=== PATIENT | female | born 1950 | race Caucasian/White ===

== ENCOUNTER 2017-11-22 10:30 | Emergency (ER) | payer MEDICARE, SELFPAY ==
[2017-11-22 10:31] VITALS: BP 143/96; PULSE 88; RESP 18; TEMP 37.5; O2SAT 99; BMI 27.4
--- NOTE | 2017-11-22 10:48 | RAD_ITS ---
STUDY: X-RAY - RIGHT HUMERUS REASON FOR EXAM: Female, 67 years old. Atraumatic right upper arm pain. TECHNIQUE: 4 view(s) of the humerus. COMPARISON: None. FINDINGS: Normal visualized humerus. There is no demonstrated fracture or osseous destructive process. Moderate degree of degenerative changes of the glenohumeral joint. Mild degree of the degenerative change of the acromioclavicular joint. There is narrowing of the distance between the humeral head and the acromion in keeping with rotator cuff disease. Calcific tendinitis. RAD/Humerus min 2 Views IMPRESSION: Degenerative changes. Calcific tendinitis. Electronically Signed: Ray Bella MD at 12:09 EST Tel [phone], Service support ,
[2017-11-22] MEDS: HYDROcodone Bitartrate/Apap 5/325 Tablet PO (11:22)
[2017-11-22 14:53] VITALS: BP 135/77; PULSE 76; RESP 15; O2SAT 96
--- NOTE | 2017-11-22 15:07 | ED.VISSUMM ---
- ER Visit Summary Date of Service: 11/22/17 Chief Complaint: Atraumatic right shoulder pain History of Present Illness: The patient is a 67 F history of arthritis, COPD and hypertension. States she has atraumatic right shoulder pain for 3 days. She denies any fall or trauma. She denies any fever. No redness or swelling. She has had pains like this before. Physical Examination: Elderly female vital signs are stable afebrile. H EENT exam is unremarkable atraumatic. Neck nontender. Lungs clear. Heart regular rhythm no murmur. Abdomen is soft and nontender. She is moving all 4 extremities. She has crepitus and pain with movement of the right shoulder. There is no redness or warmth. There is no significant swelling. There is no deformity. There is no signs of trauma. 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 Left upper extremity and both lower extremities are unremarkable other chronic changes consistent with arthritis. Test Results: X-ray of her right humerus show degenerative changes of the shoulder joint but no acute fracture or dislocation read both by myself the radiologist. Emergency Department Course and Treatment: Patient was treated with [place] for pain. She and I discussed the shoulder injection. She states she has had those before and would prefer not to have that done. She did not feel it gave her significant or long-term relief in the past. She will be written for [facility] for pain 20 no refill. She is getting a ride home. Treatment Plan: [] Disposition: Discharge Impression: Acute on chronic right shoulder pain secondary to degenerative arthritis This note was generated with NanoGram dictation software. It may contain incorrect words, spelling, and punctuation that were not noted in review of the chart prior to signing ED Disposition - Plan for ED Patient: Chief Complaint: Upper Extremity Injury Referrals: Mason Rolle Chi, MD [Primary Care Provider] -
--- NOTE | 2017-11-22 15:10 | ED.DCSUM_ITS ---
- ER Visit Summary Date of Service: 11/22/17 Chief Complaint: Atraumatic right shoulder pain History of Present Illness: The patient is a 67 F history of arthritis, COPD and hypertension. States she has atraumatic right shoulder pain for 3 days. She denies any fall or trauma. She denies any fever. No redness or swelling. She has had pains like this before. Physical Examination: Elderly female vital signs are stable afebrile. H EENT exam is unremarkable atraumatic. Neck nontender. Lungs clear. Heart regular rhythm no murmur. Abdomen is soft and nontender. She is moving all 4 extremities. She has crepitus and pain with movement of the right shoulder. There is no redness or warmth. There is no significant swelling. There is no deformity. There is no signs of trauma. 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 Left upper extremity and both lower extremities are unremarkable other chronic changes consistent with arthritis. Test Results: X-ray of her right humerus show degenerative changes of the shoulder joint but no acute fracture or dislocation read both by myself the radiologist. Emergency Department Course and Treatment: Patient was treated with [place] for pain. She and I discussed the shoulder injection. She states she has had those before and would prefer not to have that done. She did not feel it gave her significant or long-term relief in the past. She will be written for [place] for pain 20 no refill. She is getting a ride home. Treatment Plan: [] Disposition: Discharge Impression: Acute on chronic right shoulder pain secondary to degenerative arthritis This note was generated with Muzooka dictation software. It may contain incorrect words, spelling, and punctuation that were not noted in review of the chart prior to signing ED Disposition - Plan for ED Patient: Chief Complaint: Upper Extremity Injury Referrals: Mason Rolle Chi, MD [Primary Care Provider] -
--- NOTE | 2017-11-22 15:10 | ED.DEP ---
ED Disposition - Plan for ED Patient: Disposition: Home or Assisted Living Chief Complaint: Upper Extremity Injury Instructions: Osteoarthritis: Coping with Pain, ED Degenerative Joint Disease Prescriptions: Hydrocodone/Acetaminophen [[place] 5-325 Tablet] 1 ea PO Q6H PRN PRN #20 tab PRN Reason: Pain Referrals: Mason Rolle Chi, MD [Primary Care Provider] - Additional Instructions: Ice to right shoulder and [place] for pain.
--- NOTE | 2017-11-22 15:19 | DCINST.ED_ITS ---
ED Disposition - Plan for ED Patient: Disposition: Home or Assisted Living Chief Complaint: Upper Extremity Injury Instructions: Osteoarthritis: Coping with Pain, ED Degenerative Joint Disease Prescriptions: Hydrocodone/Acetaminophen [[place] 5-325 Tablet] 1 ea PO Q6H PRN PRN #20 tab PRN Reason: Pain Referrals: Mason Rolle Chi, MD [Primary Care Provider] - Additional Instructions: Ice to right shoulder and [place] for pain.
[2017-11-22 15:26] VITALS: BP 127/73; PULSE 90; RESP 17; O2SAT 94
--- NOTE | 2017-11-22 15:27 | ED.RN ---
PT GIVEN WRITTEN AND VERBAL DISCHARGE INSTRUCTIONS. PT VERBALIZES UNDERSTANDING OF INSTRUCTIONS AND HOME GOING PRESCRIPTIONS. PT VERBALIZES UNDERSTANDING. THIS RN ASSISTED PT IN DRESSING AND PUTTING ON COAT. PT REPORTS A FRIEND IS COMING TO GET HER. PT TO WAITING ROOM TO WAIT FOR RIDE.
== END 2017-11-22 15:28 | disposition home or self-care (01) ==
PROVIDERS: Emergency Provider Emergency Medicine; Family Provider Family Medicine Geriatric Medicine; PCP Family Medicine Geriatric Medicine
DX: M19.011 Primary osteoarthritis, right shoulder (principal); J44.9 Chronic obstructive pulmonary disease, unspecified; I10 Essential (primary) hypertension; Z86.718 Personal history of other venous thrombosis and embolism
CPT/HCPCS: 73060; 99283

== ENCOUNTER → 2018-01-17 11:08 | Outpatient (CLI) | payer MEDICARE, SELFPAY ==
[2018-01-17 13:07] LABS: Absolute Lymphocyte Count 1.91 X10^3/ul (0.83-4.51); Absolute Neutrophil Count 4.8 X10^3/uL (2.0-7.7); Basophil# 0.02 X10^3/uL; Basophil% 0.3 % (0-1); Eosinophil# 0.06 X10^3/uL; Eosinophils% 0.8 % (0-5); Hematocrit 41.5 % (37-47); Lymphocyte # 1.91 X10^3/ul (4.0); Mean Corp Hgb Conc 31.3 g/gl (32-36); Mean Corpuscular Hgb 28.1 pg (27.0-32.0); Mean Corpuscular Volume 89.8 fL (81-99); Mean Platelet Vol. 10.3 fl (6.2-12.0); Monocyte# 0.54 X10^3/uL; Monocyte% 7.3 % (0-10); Neutrophil % 65.3 % (47-70); Platelet Count 319 K/mm3 (150-450); RBC Distribution Width CV 14.9 % (11.6-14.6); RBC Distribution Width SD 48.2 fl (35.1-43.9); Red Blood Count 4.62 M/mm3 (4.2-5.4); White Blood Count 7.4 K/mm3 (4.4-11.0)
[2018-01-17 13:10] LABS: POSITIVE COUNT NO; POSITIVE DIFFERENTIAL NO; POSITIVE MORPHOLOGY NO
[2018-01-17 13:26] LABS: ALB/GLOB Ratio 0.9 RATIO (0.9-2.4); AST(SGOT) 20 U/L (15-37); Alanine Aminotransfer ALT/SGPT 24 U/L (13-56); Albumin, Serum 3.3 g/dL (3.2-5.0); Alkaline Phosphatase 78 U/L (45-117); Anion Gap 7 (5-15); BUN 13 mg/dL (7-18); BUN/Creat Ratio 18.7 RATIO (10-20); Calcium,Total 8.9 mg/dL (8.5-10.1); Chloride 108 mmol/L (98-107); EST Glomerular Filtration Rate 89 mL/min (>60); Est Glom Filt Rate - Afr Amer 107 mL/min (>60); Globulin 3.6 g/dL (2.2-4.2); Glucose 72 mg/dL (74-106); Protein, Total 6.9 g/dL (6.4-8.2); Sodium Level 144 mmol/L (136-145); Thyroid Stim Hormone (TSH) 1.73 uIU/mL (0.358-3.74); Vitamin D,25 Hydroxy 22.8 ng/mL (29.95-100.01)
[2018-01-18 12:44] LABS: Hep C Antibodies <0.1 s/co ratio (0.0-0.9)
== END ==
PROVIDERS: Family Provider Family Medicine Geriatric Medicine; PCP Family Medicine Geriatric Medicine; Visit Provider Family Medicine Geriatric Medicine
DX: E55.9 Vitamin D deficiency, unspecified (principal); I10 Essential (primary) hypertension; Z13.89 Encounter for screening for other disorder
CPT/HCPCS: 36415; 80053; 82306; 84443; 85025; 86803

== ENCOUNTER 2018-03-18 21:05 | Emergency (ER) | payer MEDICARE, MEDICAID, SELFPAY ==
[2018-03-18 21:06] VITALS: BP 149/84; PULSE 101; RESP 14; TEMP 36.6; O2SAT 97; BMI 26.6
--- NOTE | 2018-03-18 22:52 | ED.VISSUMM ---
- ER Visit Summary Date of Service: 03/18/18 Chief Complaint: [] Right lower leg laceration History of Present Illness: The patient is a 67 F [] complaining of laceration to the anterior distal tibia after a bird feeder fell and struck her lower leg. She reports the wound was oozing because she is on Xarelto for history of DVT. She reports good hemostasis with direct pressure prior to arrival. She denies bony tenderness. No other complaints at this time. She reports her tetanus status is not up-to-date at this time. Physical Examination: [] Right lower extremity examination reveals 4 cm full-thickness flap laceration to the anterior distal tibia. No significant bony tenderness. Patient is neurovascularly intact distally to the affected extremity. Test Results: [] None. Emergency Department Course and Treatment: [] Patient had the area anesthetized locally with 2% lidocaine after the area was irrigated with saline and cleaned with Shur-Clens. Wound was approximated nicely with #7 4.0 nylon sutures. Patient tolerated the procedure well. Patient was instructed to have sutures removed in 10 days. Treatment Plan: [] Follow-up with PCP in 10 days for suture removal. Disposition: [] Discharge, stable. Impression: [] Tetanus update 4 cm right lower extremity laceration Laceration repair by ED physician This note was generated with MobileTag dictation software. It may contain incorrect words, spelling, and punctuation that were not noted in review of the chart prior to signing ED Disposition - Plan for ED Patient: Chief Complaint: Laceration Referrals: Mason Rolle Chi, MD [Primary Care Provider] -
--- NOTE | 2018-03-18 22:54 | ED.DEP ---
ED Disposition - Plan for ED Patient: Disposition: Home or Assisted Living Chief Complaint: Laceration Instructions: ED Laceration All Referrals: Mason Rolle Chi, MD [Primary Care Provider] - Additional Instructions: Have sutures removed in 10 days.
[2018-03-18] MEDS: Diphth,Pertuss(Acell),Tet Vac 0.5 ML Vial IM (22:59)
[2018-03-18 23:16] VITALS: BP 159/94; PULSE 94; RESP 18; O2SAT 94
== END 2018-03-18 23:17 | disposition home or self-care (01) ==
PROVIDERS: Emergency Provider Emergency Medicine; Family Provider Family Medicine Geriatric Medicine; PCP Family Medicine Geriatric Medicine
DX: S81.811A Laceration without foreign body, right lower leg, initial encounter (principal); W20.8XXA Other cause of strike by thrown, projected or falling object, initial encounter; Y93.9 Activity, unspecified; Y92.89 Other specified places as the place of occurrence of the external cause; Y99.9 Unspecified external cause status; Z86.718 Personal history of other venous thrombosis and embolism; Z79.01 Long term (current) use of anticoagulants
CPT/HCPCS: 12002; 90715; 99284

== ENCOUNTER → 2018-04-17 17:33 | Outpatient (CLI) | payer MEDICARE, MEDICAID, SELFPAY | PROVIDERS: Family Provider Family Medicine Geriatric Medicine; PCP Family Medicine Geriatric Medicine; Visit Provider Family Medicine Geriatric Medicine | DX: A69.20 Lyme disease, unspecified (principal) | CPT/HCPCS: 36415 ==

== ENCOUNTER 2018-04-22 14:36 | Emergency (ER) | payer MEDICARE, MEDICAID, SELFPAY ==
[2018-04-22 14:37] VITALS: BP 186/81; PULSE 87; RESP 22; TEMP 37; O2SAT 96; BMI 26.2
[2018-04-22 14:52] VITALS: BP 194/90; PULSE 79; RESP 16; O2SAT 94
--- NOTE | 2018-04-22 14:54 | ED.DCSUM_ITS ---
- ER Visit Summary Date of Service: 04/22/18 Chief Complaint: Redness of left arm History of Present Illness: The patient is a 67 F presents to the emergency department with left arm redness. Patient saw Dr. Evans in the office for this on the . He thought that it may have been a bite. She was placed on doxycycline and prednisone. Since then, the redness seems to have worsened mildly. She denies any fevers or chills. She denies any pain at the site. She states that it has just been more itchy. The patient has no history of immunosuppression. She was outside working in the yard when it started. She cannot recall any puncture or trauma. Physical Examination: Vital signs reviewed General: Well-nourished, well-developed Head: Normocephalic, atraumatic Eyes: Pupils equal and reactive, extraocular muscles intact Neck, supple, no lymphadenopathy Heart: Regular rate and rhythm Respiratory: No distress, clear bilaterally Abdomen: Soft, nontender, nondistended, no peritoneal signs Back: Nontender Extremities: Localized redness on the dorsum the left forearm towards the left bicep. No crepitus. No lymphangitic streaking. Mild warmth. No abscess. Skin: Normal color no rash Neuro: Alert and oriented, no focal or lateralizing deficits Test Results: [] Emergency Department Course and Treatment: The patient has a cellulitis with red , raised leading edge. I do feel that this is more consistent with erysipelas. She is on doxycycline which has some prescription coverage, but I do not feel that it is effectively cover cellulitis. The patient is given a dose of IV Rocephin. Her labs are relatively unremarkable except for a mild hypokalemia. This was replaced orally. The patient has outpatient cataract surgery scheduled for tomorrow. I was actually able to discuss this with Dr. Slater who said as long as the patient is not too uncomfortable she can continue with the surgery. The patient has no rapidly expansion. She is well-appearing. She has no history of immunosuppression. I do feel that this patient is safe for outpatient therapy. Treatment Plan: [] Disposition: Discharge Impression: 1. Left arm cellulitis 2. Hypokalemia This note was generated with MediaInterface Dresdenation software. It may contain incorrect words, spelling, and punctuation that were not noted in review of the chart prior to signing ED Disposition - Plan for ED Patient: Chief Complaint: Cellulitis Instructions: Discharge Instructions for Cellulitis Prescriptions: Cephalexin [Keflex] 500 mg PO Q6 #40 cap Referrals: Mason Rolle Chi, MD [Primary Care Provider] -
[2018-04-22 15:12] LABS: Absolute Lymphocyte Count 0.83 X10^3/ul (0.83-4.51); Eosinophil# 0.01 X10^3/uL; Eosinophils% 0.1 % (0-5); Hematocrit 40.2 % (37-47); Hemoglobin 13.1 g/dl (12.0-15.0); Lymphocyte # 0.83 X10^3/ul (4.0); Lymphocyte % 7.5 % (19-41); Mean Corp Hgb Conc 32.6 g/gl (32-36); Mean Corpuscular Hgb 29.6 pg (27.0-32.0); Mean Corpuscular Volume 90.7 fL (81-99); Mean Platelet Vol. 9.2 fl (6.2-12.0); Monocyte# 0.25 X10^3/uL; Monocyte% 2.3 % (0-10); Neutrophil # 9.97 X10^3/uL (2.7-7.7); Neutrophil % 89.9 % (47-70); Platelet Count 265 K/mm3 (150-450); RBC Distribution Width CV 15.6 % (11.6-14.6); RBC Distribution Width SD 52.4 fl (35.1-43.9); Red Blood Count 4.43 M/mm3 (4.2-5.4); White Blood Count 11.1 K/mm3 (4.4-11.0)
[2018-04-22 15:14] LABS: POSITIVE COUNT NO; POSITIVE DIFFERENTIAL NO; POSITIVE MORPHOLOGY NO
[2018-04-22 15:22] VITALS: BP 186/91; PULSE 72; RESP 17; O2SAT 93
[2018-04-22 15:23] LABS: Anion Gap 8 (5-15); BUN 19 mg/dL (7-18); BUN/Creat Ratio 21.3 RATIO (10-20); Calcium,Total 8.6 mg/dL (8.5-10.1); Chloride 108 mmol/L (98-107); Creatinine, Serum 0.89 mg/dL (0.55-1.02); EST Glomerular Filtration Rate 66 mL/min (>60); Est Glom Filt Rate - Afr Amer 80 mL/min (>60); Estimated Creatinine Clearance 51.52 ml/min; Glucose 129 mg/dL (74-106); Potassium 2.8 mmol/L (3.5-5.1); Sodium Level 141 mmol/L (136-145)
[2018-04-22] MEDS: Ceftriaxone 1 GM/50 ML BAG IV (15:41)
[2018-04-22 16:27] VITALS: BP 189/80; PULSE 70; RESP 16; O2SAT 95
== END 2018-04-22 16:28 | disposition home or self-care (01) ==
PROVIDERS: Emergency Provider Emergency Medicine; Family Provider Family Medicine Geriatric Medicine; PCP Family Medicine Geriatric Medicine
DX: L03.114 Cellulitis of left upper limb (principal); E87.6 Hypokalemia; J44.9 Chronic obstructive pulmonary disease, unspecified; K21.9 Gastro-esophageal reflux disease without esophagitis; I10 Essential (primary) hypertension; E78.00 Pure hypercholesterolemia, unspecified; Z79.2 Long term (current) use of antibiotics; Z79.52 Long term (current) use of systemic steroids; Z79.51 Long term (current) use of inhaled steroids; Z79.02 Long term (current) use of antithrombotics/antiplatelets; Z79.899 Other long term (current) drug therapy
CPT/HCPCS: 80048; 85025; 96365; 99284

== ENCOUNTER → 2018-04-25 13:53 | Outpatient (CLI) | payer MEDICARE, MEDICAID, SELFPAY ==
[2018-04-25 16:33] LABS: Anion Gap 7 (5-15); BUN 22 mg/dL (7-18); BUN/Creat Ratio 29.3 RATIO (10-20); Calcium,Total 8.6 mg/dL (8.5-10.1); Chloride 107 mmol/L (98-107); Creatinine, Serum 0.75 mg/dL (0.55-1.02); EST Glomerular Filtration Rate 81 mL/min (>60); Est Glom Filt Rate - Afr Amer 98 mL/min (>60); Glucose 80 mg/dL (74-106); Sodium Level 145 mmol/L (136-145)
== END ==
PROVIDERS: Family Provider Family Medicine Geriatric Medicine; PCP Family Medicine Geriatric Medicine; Visit Provider Family Medicine Geriatric Medicine
DX: N18.3 Chronic kidney disease, stage 3 (moderate) (principal)
CPT/HCPCS: 36415; 80048

== ENCOUNTER → 2018-05-10 09:36 | Outpatient (CLI) | payer MEDICARE, MEDICAID, SELFPAY ==
[2018-05-10 12:58] LABS: Anion Gap 6 (5-15); BUN 25 mg/dL (7-18); BUN/Creat Ratio 25.3 RATIO (10-20); Calcium,Total 9.7 mg/dL (8.5-10.1); Chloride 107 mmol/L (98-107); Creatinine, Serum 0.99 mg/dL (0.55-1.02); EST Glomerular Filtration Rate 59 mL/min (>60); Est Glom Filt Rate - Afr Amer 72 mL/min (>60); Glucose 84 mg/dL (74-106); Potassium 4.4 mmol/L (3.5-5.1); Sodium Level 141 mmol/L (136-145)
== END ==
PROVIDERS: Family Provider Family Medicine Geriatric Medicine; PCP Family Medicine Geriatric Medicine; Visit Provider Family Medicine Geriatric Medicine
DX: E87.6 Hypokalemia (principal)
CPT/HCPCS: 36415; 80048

== ENCOUNTER → 2018-07-18 12:01 | Outpatient (CLI) | payer MEDICARE, MEDICAID, SELFPAY ==
[2018-07-18 12:42] LABS: Absolute Lymphocyte Count 1.65 X10^3/ul (0.83-4.51); Absolute Neutrophil Count 5.2 X10^3/uL (2.0-7.7); Basophil# 0.02 X10^3/uL; Basophil% 0.3 % (0-1); Eosinophil# 0.05 X10^3/uL; Eosinophils% 0.7 % (0-5); Hematocrit 41.3 % (37-47); Hemoglobin 13.4 g/dl (12.0-15.0); Lymphocyte # 1.65 X10^3/ul (4.0); Lymphocyte % 21.9 % (19-41); Mean Corp Hgb Conc 32.4 g/gl (32-36); Mean Corpuscular Hgb 30.6 pg (27.0-32.0); Mean Corpuscular Volume 94.3 fL (81-99); Mean Platelet Vol. 9.8 fl (6.2-12.0); Monocyte# 0.57 X10^3/uL; Monocyte% 7.6 % (0-10); Neutrophil # 5.24 X10^3/uL (2.7-7.7); Neutrophil % 69.4 % (47-70); Platelet Count 306 K/mm3 (150-450); RBC Distribution Width CV 13.5 % (11.6-14.6); RBC Distribution Width SD 44.9 fl (35.1-43.9); Red Blood Count 4.38 M/mm3 (4.2-5.4); White Blood Count 7.5 K/mm3 (4.4-11.0)
[2018-07-18 12:49] LABS: POSITIVE COUNT NO; POSITIVE DIFFERENTIAL NO; POSITIVE MORPHOLOGY NO
[2018-07-18 13:02] LABS: Vitamin D,25 Hydroxy 18.6 ng/mL (29.95-100.01)
[2018-07-18 13:15] LABS: ALB/GLOB Ratio 0.9 RATIO (0.9-2.4); AST(SGOT) 18 U/L (15-37); Alanine Aminotransfer ALT/SGPT 28 U/L (13-56); Albumin, Serum 3.2 g/dL (3.2-5.0); Alkaline Phosphatase 70 U/L (45-117); Anion Gap 6 (5-15); BUN 20 mg/dL (7-18); Calcium,Total 9.1 mg/dL (8.5-10.1); Chloride 108 mmol/L (98-107); Creatinine, Serum 0.83 mg/dL (0.55-1.02); EST Glomerular Filtration Rate 72 mL/min (>60); Est Glom Filt Rate - Afr Amer 87 mL/min (>60); Globulin 3.7 g/dL (2.2-4.2); Glucose 74 mg/dL (74-106); Potassium 3.8 mmol/L (3.5-5.1); Protein, Total 6.9 g/dL (6.4-8.2); Sodium Level 144 mmol/L (136-145); Thyroid Stim Hormone (TSH) 1.21 uIU/mL (0.358-3.74)
== END ==
PROVIDERS: Family Provider Family Medicine Geriatric Medicine; PCP Family Medicine Geriatric Medicine; Visit Provider Family Medicine Geriatric Medicine
DX: I10 Essential (primary) hypertension (principal); E55.9 Vitamin D deficiency, unspecified
CPT/HCPCS: 36415; 80053; 82306; 84443; 85025

== ENCOUNTER 2018-07-26 10:00 | Outpatient (RCR) | payer MEDICARE, MEDICAID, SELFPAY ==
[2018-07-19 09:30] VITALS: BP 195/85; PULSE 77; RESP 18; TEMP 36.7; BMI 26.4
--- NOTE | 2018-07-19 13:38 | HP.PCM_ITS ---
(1) Ulcer of left lower extremity with fat layer exposed Status: Acute Current Visit: Yes Code(s): L97.922 - Non-pressure chronic ulcer of unspecified part of left lower leg with fat layer exposed (2) Lower extremity edema Status: Acute Current Visit: Yes Code(s): R60.0 - Localized edema (3) Delayed wound healing Status: Acute Current Visit: Yes Code(s): T14.8XXD - Other injury of unspecified body region, subsequent encounter (4) Pain in left lower leg Status: Acute Current Visit: Yes Code(s): M79.662 - Pain in left lower leg History of Present Illness Date of Service: 07/19/18 Chief Complaint: left anterior lateral lower leg ulcer History of Wound: This 68-year-old female presents to the wound healing center today after being referred by Dr. Rolle for a left anterior lateral lower leg ulcer. The patient said she has been dealing with this for at least 3 weeks now. She said it started when she bumped the area on her bed. Dr. Rolle prescribed her a prescription for doxycycline and Keflex which she is currently taking. She has been dressing the area daily and keeping it protected. She says the area is not getting much worse, however she has not noticed an improvement. She denies any purulence, surrounding redness, or increasing warmth to the ulcer site. She currently denies any feelings of nausea, vomiting , fever, chills. 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) Allergies/Adverse Reactions: Allergies No Known Allergies Allergy (Verified 04/22/18 14:46) Home Medications: Ambulatory Orders Medication Instructions Recorded Omeprazole [Prilosec] 20 mg PO DAILY 01/04/17 Ramipril [Altace] 5 mg PO DAILY 01/04/17 Rivaroxaban [Xarelto] 15 mg PO DAILY 08/09/17 albuterol sulfate HFA 90 2 puff INHALATION Q4H PRN #18 g 05/08/18 mcg/actuation aerosol inhaler fluticasone 100 mcg-umeclid 62.5 1 inh INHALATION QDAY #60 ea 03/06/18 mcg-vilant 25 mcg powd for inhalation Cephalexin [Keflex] 500 mg PO Q6 #40 cap 04/22/18 Doxycycline Hyclate [Doxycycline 100 mg PO BID 04/22/18 Hyclate] Prednisone [Prednisone] 1 tab PO DAILY 04/22/18 albuterol sulfate 2.5 mg/3 mL 2.5 mg INHALATION Q4H PRN #180 ml 05/22/18 (0.083 %) solution for nebulization Smoking Status: Never smoker Review of Systems Constitutional: Denies: Chills, Fever, Weight Change Cardiovascular: Denies: Chest Pain, Palpitations Respiratory: Denies: Cough, Shortness of Breath Gastrointestinal: Denies: Diarrhea, Nausea, Vomiting Skin: Reports: - - Left lower leg ulcer - Physical Exam Vital Signs Temp Pulse Resp BP 98.0 F 77 18 195/85 H 07/19/18 09:30 07/19/18 09:30 07/19/18 09:30 07/19/18 09:30 General: Alert, Oriented x3, Cooperative, No apparent distress Extremities: Capillary Refill Less than 3 Seconds, No Calf Tenderness - Negative Alo and Brar sign, Edema - Very slight lower extremity edema, Peripheral Pulses Normal - DP and PT pulses palpable bilateral Skin: Ulcer/ Wound - Ulcer noted with fat layer exposed to the left anterior lateral lower leg. Measurements noted. Base was noted to be a mixture of adherent slough, fibrin, biofilm, as well as some granular tissue. There is no probing to bone, tracking, or undermining. There is no purulence, no malodor, no increase in warmth, and no surrounding cellulitis appreciated to the ulcer site. Wound Measurements and Assessment WC - Nurse 1 - General Ulcer Measurement Start: 07/19/18 09:28 Freq: Status: Active Protocol: Activity Type Activity Date Activity User E-Sign Co-Sign Detail Recorded Client Recorded Date Recorded By Document 07/19/18 09:30 [id number] 07/19/18 09:42 07/19/18 09:30 Wound Center Nurse 1 [Ulcer Assessment] #1 left lateral smith -Combined with other wound No -Current Size (cm) - Length 1.1 -Current Size (cm) - Width 2.1 -Current Size (cm) - Depth 0.1 -Total Square Cm 2.31 -Date of Last Picture (Recall this 07/19/18 field) -Photo Taken Yes -Epithelialization None Present -Tunneling No -Undermining/Tunneling No -Circular Undermining No -Exudate Amt Small (1-33%) -Exudate Type Serosanguineous -Granulation Amt None Present (0 %) -Slough/Fibrin Yes -Necrosis Amt None Present (0 %) -Necrotic Tissue Type Adherent Slough -Structure Exposed None/Limited to Skin Breakdown -Texture (Yumiko-wound Skin Appearance) No Abnormality Assessed -Moisture (Yumiko-wound Skin Appearance No Abnormality ) Assessed -Color (Yumiko-wound Skin Appearance) No Abnormality Assessed -Temperature (Yumiko-wound Skin No Abnormality Appearance) (Pt Warm) -Tenderness on Palpation (Yumiko-wound Yes Skin Appearance) -Ulcer Cleansing Rinsed/ Irrigated with Saline -Foul Odor after Cleansing No -Anesthetic Used 5% Lidocaine Gel [Edema Assessment] -Lower Limb Edema Present No -Right Calf (cm) 33.5 -Right Ankle (cm) 18.3 -Left Calf (cm) 34.2 -Left Ankle (cm) 19 WC - Nurse 2 - General Ulcer CM Notes Start: 07/19/18 09:28 Freq: Status: Active Protocol: Activity Type Activity Date Activity User E-Sign Co-Sign Detail Recorded Client Recorded Date Recorded By Document 07/19/18 09:55 DV [id number] 07/19/18 10:03 DV 07/19/18 09:55 Wound Center Nurse 2 [Procedure/Treatment] #1 left lateral smith -Time 09:57 -Correct Patient Yes -Correct Side, Site, Position Yes -Correct Procedure Yes -Procedure Performed Yes -Type of Procedure Debridement -Clinical Debridement Subcutaneous -Post Debridement Size (cm) - Length 1.6 -Post Debridement Size (cm) - Width 2.2 -Post Debridement Size (cm) - Depth 0.3 -Total Square Cm 3.52 -Wound/Ulcer Outcome Not Healed -Ulcer Cleansing Rinsed/ Irrigated with Saline -Foul Odor after Cleansing No -Bioengineered Tissue No -Bleeding Controlled with Pressure -Treatment Response Procedure Tolerated Well [See Physician Procedure note for Specifics] Musculoskeletal: Tenderness - With manipulation of ulcer site Neurological: Sensory exam intact to light touch and pain Psych/Mental Status: Normal Affect, Appropriate Debridement Note Post-Debridement Measurements/Treatment WC - Nurse 2 - General Ulcer CM Notes Start: 07/19/18 09:28 Freq: Status: Active Protocol: Activity Type Activity Date Activity User E-Sign Co-Sign Detail Recorded Client Recorded Date Recorded By Document 07/19/18 09:55 DV [id number] 07/19/18 10:03 DV 07/19/18 09:55 Wound Center Nurse 2 #1 left lateral smith -Time 09:57 -Correct Patient Yes -Correct Side, Site, Position Yes -Correct Procedure Yes -Procedure Performed Yes -Type of Procedure Debridement -Clinical Debridement Subcutaneous -Post Debridement Size (cm) - Length 1.6 -Post Debridement Size (cm) - Width 2.2 -Post Debridement Size (cm) - Depth 0.3 -Total Square Cm 3.52 -Wound/Ulcer Outcome Not Healed -Ulcer Cleansing Rinsed/ Irrigated with Saline -Foul Odor after Cleansing No -Bioengineered Tissue No -Bleeding Controlled with Pressure -Treatment Response Procedure Tolerated Well Wound debrided: Left anterior lateral lower leg Laterality: Left Type of Debridement: Excisional debridement Anesthesia Used: 4% Lidocaine Solution Depth: in the subcutaneous layer Percentage of wound debrided: 100 Instrument Used: 3mm curette, - - Tissue nipper Tissue Removed: Adherent slough, fibrin, biofilm Severity: Fat Layer Exposed Amount of bleeding with debridement: Mild Bleeding Controlled with: Pressure Patient tolerated procedure well Assessment/Plan Active Problems (Last Reviewed 03/06/18 @ 10:59 by Marcela Shi) Ulcer of left lower extremity with fat layer exposed (Acute) Lower extremity edema (Acute) Delayed wound healing (Acute) Pain in left lower leg (Acute) Assessment: Ulcer to left anterior lateral lower leg. Pain left lower leg Plan: Initial patient examination evaluation was performed. An excisional subcutaneous debridement was performed as noted in the clinical panel. Once complete the ulcer site was carefully cleansed. Aquacel Ag was then applied to the ulcer base followed by dry sterile dressing and a Tubigrip for compression. The dressing is to be change in this manner on a daily basis. Patient was instructed to keep pressure off of the ulcer site at all times. No antibiotics were prescribed today due to there being no signs of local infection currently appreciated. Patient is to continue the doxycycline and Keflex prescriptions prescribed by Dr. Rolle until complete. Patient was instructed to go forward with a diet high in protein to help optimize ulcer healing potential. The patient was educated on all signs and symptoms of local and systemic infection and she was instructed to go to the emergency room immediately should she notice any of these. All other questions were answered to the patient's satisfaction. She will follow-up in clinic in 1 week for further evaluation, or sooner if needed.
[2018-07-26 09:53] VITALS: BP 160/92; PULSE 90; RESP 18; TEMP 36.3; BMI 26.4
--- NOTE | 2018-07-26 10:45 | PN.PCM_ITS ---
(1) Ulcer of left lower extremity with fat layer exposed Status: Acute Current Visit: Yes Code(s): L97.922 - Non-pressure chronic ulcer of unspecified part of left lower leg with fat layer exposed (2) Lower extremity edema Status: Acute Current Visit: Yes Code(s): R60.0 - Localized edema (3) Delayed wound healing Status: Acute Current Visit: Yes Code(s): T14.8XXD - Other injury of unspecified body region, subsequent encounter (4) Pain in left lower leg Status: Acute Current Visit: Yes Code(s): M79.662 - Pain in left lower leg Type of Wound Chief Complaint: left anterior lateral lower leg ulcer History of Wound: This 68-year-old female presents to the wound healing center today after being referred by Dr. Rolle for a left anterior lateral lower leg ulcer. The patient said she has been dealing with this for at least 3 weeks now. She said it started when she bumped the area on her bed. Dr. Rolle prescribed her a prescription for doxycycline and Keflex which she is currently taking. She has been dressing the area daily and keeping it protected. She says the area is not getting much worse, however she has not noticed an imp rovement. She denies any purulence, surrounding redness, or increasing warmth to the ulcer site. She currently denies any feelings of nausea, vomiting, fever, chills. Progress of Wound: Ulcer site improving. Patient had daily aquacel ag dressing changes over the last week. She denies any purulence or surrounding redness. She denies any feelings of nausea, vomiting, fever, or chills. - Physical Exam Vital Signs Temp Pulse Resp BP 97.3 F L 90 18 160/92 H 07/26/18 09:53 07/26/18 09:53 07/26/18 09:53 07/26/18 09:53 General: Alert, Oriented x3, Cooperative, No apparent distress Extremities: Capillary Refill Less than 3 Seconds, No Calf Tenderness - Negative Alo and Brar sign, Edema - Very slight lower extremity edema, Peripheral Pulses Normal - DP and PT pulses palpable Skin: Ulcer/ Wound - Ulcer noted with fat layer exposed to the left anterior lateral lower leg. Measurements noted. Base was noted to be a mixture of adherent slough, fibrin, biofilm, as well as some granular tissue. There is no probing to bone, tracking, or undermining. There is no purulence, no malodor, no increase in warmth, and no surrounding cellulitis appreciated to the ulcer site. Wound Measurements and Assessment - Nurse 1 - General Ulcer Measurement Start: 07/19/18 09:28 Freq: Status: Active Protocol: Activity Type Activity Date Activity User E-Sign Co-Sign Detail Recorded Client Recorded Date Recorded By Document 07/26/18 09:53 [id number] 07/26/18 09:56 07/26/18 09:53 Wound Center Nurse 1 [Ulcer Assessment] #1 left lateral smith -Combined with other wound No -Current Size (cm) - Length 0.9 -Current Size (cm) - Width 1.5 -Current Size (cm) - Depth 0.1 -Total Square Cm 1.35 -Photo Taken No -Epithelialization None Present -Tunneling No -Undermining/Tunneling No -Circular Undermining No -Exudate Amt Medium (34-66%) -Exudate Type Serosanguineous -Wound Margin Distinct, Outline Attached -Granulation Amt Large (67-100%) -Granulation Quality Red -Slough/Fibrin Yes -Necrosis Amt None Present (0 %) -Necrotic Tissue Type Eschar -Structure Exposed None/Limited to Skin Breakdown -Texture (Yumiko-wound Skin Appearance) No Abnormality Assessed -Moisture (Yumiko-wound Skin Appearance No Abnormality ) Assessed -Color (Yumiko-wound Skin Appearance) No Abnormality -Temperature (Yumiko-wound Skin No Abnormality Appearance) (Pt Warm) -Tenderness on Palpation (Yumiko-wound No Skin Appearance) -Ulcer Cleansing Rinsed/ Irrigated with Saline -Foul Odor after Cleansing No -Anesthetic Used 4% Lidocaine Solution [Edema Assessment] -Lower Limb Edema Present No -Left Calf (cm) 32 -Left Ankle (cm) 18 - Nurse 2 - General Ulcer CM Notes Start: 07/19/18 09:28 Freq: Status: Active Protocol: Activity Type Activity Date Activity User E-Sign Co-Sign Detail Recorded Client Recorded Date Recorded By Document 07/26/18 10:22 DV [id number] 07/26/18 10:31 DV 07/26/18 10:22 Wound Center Nurse 2 [Procedure/Treatment] #1 left lateral smith -Time 10:23 -Correct Patient Yes -Correct Side, Site, Position Yes -Correct Procedure Yes -Procedure Performed Yes -Type of Procedure Debridement -Clinical Debridement Subcutaneous -Post Debridement Size (cm) - Length 1.2 -Post Debridement Size (cm) - Width 1.7 -Post Debridement Size (cm) - Depth 0.2 -Total Square Cm 2.04 -Wound/Ulcer Outcome Not Healed -Ulcer Cleansing Rinsed/ Irrigated with Saline -Foul Odor after Cleansing No -Bioengineered Tissue No -Bleeding Controlled with Pressure -Treatment Response Procedure Tolerated Well [See Physician Procedure note for Specifics] Pain Scale: 0-10 Numeric [Pain] -Is Patient Pain Free? Yes Musculoskeletal: Tenderness - With manipulation of ulcer site Neurological: Sensory exam intact to light touch and pain Psych/Mental Status: Normal Affect, Appropriate Debridement Note Post-Debridement Measurements/Treatment WC - Nurse 2 - General Ulcer CM Notes Start: 07/19/18 09:28 Freq: Status: Active Protocol: Activity Type Activity Date Activity User E-Sign Co-Sign Detail Recorded Client Recorded Date Recorded By Document 07/19/18 09:55 DV [id number] 07/19/18 10:03 DV Document 07/26/18 10:22 DV [id number] 07/26/18 10:31 DV 07/19/18 07/26/18 09:55 10:22 Wound Center Nurse 2 #1 left lateral smith -Time 09:57 10:23 -Correct Patient Yes Yes -Correct Side, Site, Position Yes Yes -Correct Procedure Yes Yes -Procedure Performed Yes Yes -Type of Procedure Debridement Debridement -Clinical Debridement Subcutaneous Subcutaneous -Post Debridement Size (cm) - Length 1.6 1.2 -Post Debridement Size (cm) - Width 2.2 1.7 -Post Debridement Size (cm) - Depth 0.3 0.2 -Total Square Cm 3.52 2.04 -Wound/Ulcer Outcome Not Healed Not Healed -Ulcer Cleansing Rinsed/ Rinsed/ Irrigated with Irrigated with Saline Saline -Foul Odor after Cleansing No No -Bioengineered Tissue No No -Bleeding Controlled with Pressure Pressure -Treatment Response Procedure Procedure Tolerated Well Tolerated Well Pain Scale: 0-10 Numeric Is Patient Pain Free? Yes Wound debrided: Left anterior lower leg Laterality: Left Type of Debridement: Excisional debridement Anesthesia Used: 4% Lidocaine Solution Depth: in the subcutaneous layer Percentage of wound debrided: 100 Instrument Used: 3mm curette Tissue Removed: Adherent slough, fibrin, biofilm, slight hyperkeratotic tissue Severity: Fat Layer Exposed Amount of bleeding with debridement: Mild Bleeding Controlled with: Pressure Patient tolerated procedure well Assessment/Plan Active Problems (Last Reviewed 03/06/18 @ 10:59 by Marcela Shi) Ulcer of left lower extremity with fat layer exposed (Acute) Lower extremity edema (Acute) Delayed wound healing (Acute) Pain in left lower leg (Acute) Assessment: Ulcer to left anterior lateral lower leg. Pain left lower leg Plan: Patient was again examined and evaluated today. An excisional subcutaneous debridement was performed as noted in the clinical panel. Once complete the ulcer site was carefully cleansed, followed by Aquacel Ag to the ulcer base followed by dry sterile dressing and a Tubigrip for compression. The dressing is to be change in this manner on a daily basis. Patient was instructed to keep pressure off of the ulcer site at all times. Patient finished her prescriptions for doxycycline and Keflex prescribed by Dr. Rolle. Patient was instructed to go forward with a diet high in protein to help optimize ulcer healing potential. The patient was educated on all signs and symptoms of local and systemic infection and she was instructed to go to the emergency room immediately should she notice any of these. All other questions were answered to the patient's satisfaction. She will follow-up in clinic in 1 week for further evaluation, or sooner if needed.
== END 2018-07-29 23:59 ==
LOC: WC 10:00
PROVIDERS: Family Provider Family Medicine Geriatric Medicine; PCP Family Medicine Geriatric Medicine; Visit Provider Podiatrist
DX: L97.822 Non-pressure chronic ulcer of other part of left lower leg with fat layer exposed (principal); R60.0 Localized edema; K21.9 Gastro-esophageal reflux disease without esophagitis; E78.5 Hyperlipidemia, unspecified; I10 Essential (primary) hypertension; Z79.899 Other long term (current) drug therapy; Z79.52 Long term (current) use of systemic steroids; Z79.51 Long term (current) use of inhaled steroids; Z79.01 Long term (current) use of anticoagulants
CPT/HCPCS: 11042; 99213; G0463

== ENCOUNTER 2018-08-04 20:59 | Emergency (ER) | payer MEDICARE, MEDICAID, SELFPAY ==
[2018-08-04 21:01] VITALS: BP 156/87; PULSE 106; RESP 16; TEMP 37.7; O2SAT 97; BMI 26.4
--- NOTE | 2018-08-04 21:13 | RAD_ITS ---
STUDY: X-RAY CHEST REASON FOR EXAM: Female, 68 years old. Cough, fever TECHNIQUE: Frontal and lateral views of the chest were obtained. COMPARISON: August 18, 2017 FINDINGS: The lungs are adequately aerated. There are no focal airspace opacities. There is no demonstrated pleural abnormality. The cardiac silhouette is normal in size. The mediastinum and hilar regions are unremarkable. Normal visualized pulmonary arteries. There is atherosclerotic calcification of the thoracic aorta. There are diffuse degenerative changes of the visualized spine. There are degenerative changes in both shoulders. There is no demonstrated abnormality of the visualized upper abdomen. RAD/Chest PA and Lateral IMPRESSION: There is no evidence of focal consolidation or pleural effusion. Electronically Signed: Rosemary Saunders MD at 22:42 EDT Tel Direct: [phone], Service support ,
--- NOTE | 2018-08-04 21:16 | ED.DCSUM_ITS ---
- ER Visit Summary Date of Service: 08/04/18 Chief Complaint: Fever History of Present Illness: The patient is a 68 F with a fever this morning. She states it was up to 101 ?F. She took 2 Tylenol about 4 hours ago and the temperature came down. She has had a nonproductive cough today. She thinks she heard herself wheeze. Her chest feels tight. Her throat is scratchy as well. Denies dysuria but her urine has been darker. She checked her blood pressure and her heart rate and there were both elevated above her baseline. She does have a history of hypertension as well as COPD. Physical Examination: Vital signs reviewed. Temperature 99.8 ?F currently. HEENT exam unremarkable. Heart is tachycardic and regular rhythm without murmurs. Lungs are clear to auscultation. Abdomen is soft and nontender. Extremities reveal no edema. Skin exam normal. Neurologic exam normal. Test Results: Laboratory studies are normal. Urinalysis negative for infection. Chest x-ray read chronic changes. Emergency Department Course and Treatment: Patient's blood pressure carolyn during her stay. It was 215 systolic. I will give her a dose of clonidine. I gave her IV fluids. She likely has a viral syndrome. She has a lot of sinus congestion. Patient will be treated with Mucinex at home. She will continue to monitor her blood pressure and will follow up with her primary care physician. Treatment Plan: [] Disposition: Discharge Impression: Viral syndrome, hypertension This note was generated with [employer] dictation software. It may contain incorrect words, spelling, and punctuation that were not noted in review of the chart prior to signing ED Disposition - Plan for ED Patient: Chief Complaint: Fever Referrals: Mason Rolle Chi, MD [Primary Care Provider] -
[2018-08-04 21:29] VITALS: PULSE 97; RESP 17
[2018-08-04] MEDS: Albuterol 2.5 MG/3 ML VIAL.NEB. INHALATION (21:29)
[2018-08-04 21:35] LABS: Absolute Neutrophil Count 3.7 X10^3/uL (2.0-7.7); Basophil# 0.02 X10^3/uL; Basophil% 0.4 % (0-1); Eosinophil# 0.01 X10^3/uL; Eosinophils% 0.2 % (0-5); Hematocrit 41.2 % (37-47); Lymphocyte % 23.3 % (19-41); Mean Corp Hgb Conc 31.6 g/gl (32-36); Mean Corpuscular Hgb 29.7 pg (27.0-32.0); Mean Corpuscular Volume 94.3 fL (81-99); Mean Platelet Vol. 9.3 fl (6.2-12.0); Monocyte# 0.59 X10^3/uL; Monocyte% 10.6 % (0-10); Neutrophil # 3.65 X10^3/uL (2.7-7.7); Neutrophil % 65.3 % (47-70); POSITIVE COUNT NO; POSITIVE DIFFERENTIAL NO; POSITIVE MORPHOLOGY NO; Platelet Count 232 K/mm3 (150-450); RBC Distribution Width CV 13.7 % (11.6-14.6); RBC Distribution Width SD 47.4 fl (35.1-43.9); Red Blood Count 4.37 M/mm3 (4.2-5.4); White Blood Count 5.6 K/mm3 (4.4-11.0)
[2018-08-04 21:47] LABS: Anion Gap 7 (5-15); BUN 16 mg/dL (7-18); BUN/Creat Ratio 17.4 RATIO (10-20); Calcium,Total 8.9 mg/dL (8.5-10.1); Chloride 106 mmol/L (98-107); Creatinine, Serum 0.92 mg/dL (0.55-1.02); EST Glomerular Filtration Rate 64 mL/min (>60); Est Glom Filt Rate - Afr Amer 78 mL/min (>60); Estimated Creatinine Clearance 49.13 ml/min; Glucose 92 mg/dL (74-106); Potassium 3.7 mmol/L (3.5-5.1); Sodium Level 141 mmol/L (136-145)
[2018-08-04 22:02] LABS: Bacteria 0 SEEN /hpf (None Seen); Mucous, Urine 0 SEEN /hpf (<or=2+); Squamous Epithelial Cells - UA 0 SEEN /hpf (5-10)
[2018-08-04 22:04] LABS: Lactic Acid 1.3 mmol/L (0.4-2.0)
[2018-08-04 22:05] LABS: Color, Urine Yellow (Yellow); Glucose, Dipstick Normal (Normal); Ketone-Dipstick Negative (Negative); Leukocyte Esterase-Dipstick 100 /ul (Negative); Nitrite-Dipstick Negative (Negative); Occult Blood-Urine 50 /ul (Negative); Protein-Dipstick Negative (Negative); Urine Bilirubin Dipstick Negative (Negative); Urine Clarity Clear (Clear); Urine Urobilinogen Normal (Normal); Urine pH 6.5 (5.0 - 8.0)
[2018-08-04 22:12] LABS: Red Blood Cells-Urine 0-5 SEEN /hpf (0-5); White Blood Cells 0-5 SEEN /hpf (0-5)
[2018-08-04 22:28] VITALS: BP 200/99; PULSE 98; RESP 18; O2SAT 97
--- NOTE | 2018-08-04 22:29 | ED.RN ---
Discussed with Dr. Campuzano pt's elevated blood pressure.
--- NOTE | 2018-08-04 22:59 | ED.DEP ---
ED Disposition - Plan for ED Patient: Disposition: Home or Assisted Living Chief Complaint: Fever Instructions: ED Fever Unconf Cause Prescriptions: Guaifenesin [Mucinex] 600 mg PO BID #[id number] Referrals: Mason Rolle Chi, MD [Primary Care Provider] -
[2018-08-04] MEDS: cloNIDine HCl 0.1 MG Tablet PO (23:03)
[2018-08-04 23:04] VITALS: BP 215/96; PULSE 95; RESP 18; O2SAT 96
[2018-08-04 23:50] VITALS: BP 205/89; PULSE 81; RESP 18; O2SAT 99
== END 2018-08-04 23:51 | disposition home or self-care (01) ==
PROVIDERS: Emergency Provider Emergency Medicine; Family Provider Family Medicine Geriatric Medicine; PCP Family Medicine Geriatric Medicine
DX: B34.9 Viral infection, unspecified (principal); I10 Essential (primary) hypertension; J44.9 Chronic obstructive pulmonary disease, unspecified; E78.00 Pure hypercholesterolemia, unspecified; K21.9 Gastro-esophageal reflux disease without esophagitis
CPT/HCPCS: 71046; 80048; 81001; 83605; 85025; 94640; 99284; J7040; A4216

== ENCOUNTER → 2018-08-09 16:54 | Outpatient (CLI) | payer MEDICARE, MEDICAID, SELFPAY | PROVIDERS: Family Provider Family Medicine Geriatric Medicine; PCP Family Medicine Geriatric Medicine; Referring Provider Family Medicine Geriatric Medicine; Visit Provider Family Medicine Geriatric Medicine | DX: R69 Illness, unspecified (principal) | CPT/HCPCS: 87633 ==

== ENCOUNTER 2018-08-23 08:15 | Outpatient (RCR) | payer MEDICARE, MEDICAID, SELFPAY ==
[2018-07-30 01:39] VITALS: BP 160/92; PULSE 90; RESP 18; TEMP 36.3
[2018-08-02 10:33] VITALS: BP 157/82; PULSE 89; RESP 16; TEMP 36.8
--- NOTE | 2018-08-02 13:39 | PCM.WC.PN ---
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 Rolle for a left anterior lateral lower leg ulcer. The patient said she has been dealing with this for at least 3 weeks now. She said it started when she bumped the area on her bed. Dr. Rolle prescribed her a prescription for doxycycline and Keflex which she is currently taking. She has been dressing the area daily and keeping it protected. She says the area is not getting much worse, however she has not noticed an improvement. She denies any purulence, surrounding redness, or increasing warmth to the ulcer site. She currently denies any feelings of nausea, vomiting, fever, chills. Progress of Wound: Ulcer site continues to improve. Patient had daily aquacel ag dressing changes over the last week. She denies any purulence or surrounding redness. She denies any feelings of nausea, vomiting, fever, or chills. - Physical Exam Vital Signs Temp Pulse Resp BP 98.2 F 89 16 157/82 H 08/02/18 10:33 08/02/18 10:33 08/02/18 10:33 08/02/18 10:33 General: Alert, Oriented x3, Cooperative, No apparent distress Extremities: Capillary Refill Less than 3 Seconds, No Calf Tenderness - Negative Alo and Brar sign, Edema - Slight lower extremity edema, Peripheral Pulses Normal - DP and PT pulses palpable Skin: Ulcer/ Wound - Ulcer noted with fat layer exposed to the left anterior lateral lower leg. Measurements noted. Base was noted to be a mixture of adherent slough, fibrin, biofilm, as well as some granular tissue. There is no probing to bone, tracking, or undermining. There is no purulence, no malodor, no increase in warmth, and no surrounding cellulitis appreciated to the ulcer site. Wound Measurements and Assessment WC - Nurse 1 - General Ulcer Measurement Start: 08/02/18 10:31 Freq: Status: Active Protocol: Activity Type Activity Date Activity User E-Sign Co-Sign Detail Recorded Client Recorded Date Recorded By Document 08/02/18 10:33 [facility] [id number] 08/02/18 10:37 [facility] 08/02/18 10:33 Wound Center Nurse 1 [Ulcer Assessment] #1 left lateral smith -Combined with other wound No -Current Size (cm) - Length 0.6 -Current Size (cm) - Width 1.6 -Current Size (cm) - Depth 0.1 -Total Square Cm 0.96 -Photo Taken No -Epithelialization Small 1-33% -Tunneling No -Undermining/Tunneling No -Circular Undermining No -Exudate Amt None Present (0 %) -Wound Margin Distinct, Outline Attached -Granulation Amt Large (67-100%) -Granulation Quality Red -Slough/Fibrin No -Necrosis Amt None Present (0 %) -Texture (Yumiko-wound Skin Appearance) Scarring -Moisture (Yumiko-wound Skin Appearance Dry/Scaly ) -Color (Yumiko-wound Skin Appearance) Ecchymosis -Temperature (Yumiko-wound Skin No Abnormality Appearance) (Pt Warm) -Tenderness on Palpation (Yumiko-wound No Skin Appearance) -Ulcer Cleansing Rinsed/ Irrigated with Saline -Foul Odor after Cleansing No -Anesthetic Used 4% Lidocaine Solution [Edema Assessment] -Lower Limb Edema Present Yes -Left Calf (cm) 33.1 -Left Ankle (cm) 18.1 WC - Nurse 2 - General Ulcer CM Notes Start: 08/02/18 10:31 Freq: Status: Active Protocol: Activity Type Activity Date Activity User E-Sign Co-Sign Detail Recorded Client Recorded Date Recorded By Document 08/02/18 11:21 DV [id number] 08/02/18 11:23 DV 08/02/18 11:21 Wound Center Nurse 2 [Procedure/Treatment] #1 left lateral smith -Time 11:22 -Correct Patient Yes -Correct Side, Site, Position Yes -Correct Procedure Yes -Procedure Performed Yes -Type of Procedure Debridement -Clinical Debridement Subcutaneous -Post Debridement Size (cm) - Length 0.6 -Post Debridement Size (cm) - Width 1.3 -Post Debridement Size (cm) - Depth 0.2 -Total Square Cm 0.78 -Wound/Ulcer Outcome Not Healed -Ulcer Cleansing Rinsed/ Irrigated with Saline -Foul Odor after Cleansing No -Bioengineered Tissue No -Bleeding Controlled with NA -Treatment Response Procedure Tolerated Well [See Physician Procedure note for Specifics] Pain Scale: 0-10 Numeric [Pain] -Is Patient Pain Free? Yes Musculoskeletal: Tenderness - With manipulation of ulcer site Neurological: Sensory exam intact to light touch and pain Psych/Mental Status: Normal Affect, Appropriate Debridement Note Post-Debridement Measurements/Treatment WC - Nurse 2 - General Ulcer CM Notes Start: 08/02/18 10:31 Freq: Status: Active Protocol: Activity Type Activity Date Activity User E-Sign Co-Sign Detail Recorded Client Recorded Date Recorded By Document 08/02/18 11:21 DV [id number] 08/02/18 11:23 DV 08/02/18 11:21 Wound Center Nurse 2 #1 left lateral msith -Time 11:22 -Correct Patient Yes -Correct Side, Site, Position Yes -Correct Procedure Yes -Procedure Performed Yes -Type of Procedure Debridement -Clinical Debridement Subcutaneous -Post Debridement Size (cm) - Length 0.6 -Post Debridement Size (cm) - Width 1.3 -Post Debridement Size (cm) - Depth 0.2 -Total Square Cm 0.78 -Wound/Ulcer Outcome Not Healed -Ulcer Cleansing Rinsed/ Irrigated with Saline -Foul Odor after Cleansing No -Bioengineered Tissue No -Bleeding Controlled with NA -Treatment Response Procedure Tolerated Well Pain Scale: 0-10 Numeric Is Patient Pain Free? Yes Wound debrided: Left anterior lower leg Laterality: Left Type of Debridement: Excisional debridement Anesthesia Used: 4% Lidocaine Solution Depth: in the subcutaneous layer Percentage of wound debrided: 100 Instrument Used: 3mm curette Tissue Removed: Adherent slough, fibrin, biofilm, slight hyperkeratotic tissue Severity: Fat Layer Exposed Amount of bleeding with debridement: Mild Bleeding Controlled with: Pressure Patient tolerated procedure well Assessment/Plan Assessment: Ulcer to left anterior lateral lower leg. Pain left lower leg Plan: Patient was again examined and evaluated today. An excisional subcutaneous debridement was performed as noted in the clinical panel. Once complete the ulcer site was carefully cleansed, followed by Cherry to the ulcer base followed by dry sterile dressing and a Tubigrip for compression. Dressing supplies ordered. The dressing is to be change in this manner on a daily basis. Patient was instructed to keep pressure off of the ulcer site at all times. Patient finished her prescriptions for doxycycline and Keflex prescribed by Dr. Rolle. Patient was instructed to go forward with a diet high in protein to help optimize ulcer healing potential. The patient was educated on all signs and symptoms of local and systemic infection and she was instructed to go to the emergency room immediately should she notice any of these. All other questions were answered to the patient's satisfaction. She will follow-up in clinic in 1 week for further evaluation, or sooner if needed.
--- NOTE | 2018-08-02 13:42 | PN.PCM_ITS ---
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 Rolle for a left anterior lateral lower leg ulcer. The patient said she has been dealing with this for at least 3 weeks now. She said it started when she bumped the area on her bed. Dr. Rolle prescribed her a prescription for doxycycline and Keflex which she is currently taking. She has been dressing the area daily and keeping it protected. She says the area is not getting much worse, however she has not noticed an improve ment. She denies any purulence, surrounding redness, or increasing warmth to the ulcer site. She currently denies any feelings of nausea, vomiting, fever, chills. Progress of Wound: Ulcer site continues to improve. Patient had daily aquacel ag dressing changes over the last week. She denies any purulence or surrounding redness. She denies any feelings of nausea, vomiting, fever, or chills. - Physical Exam Vital Signs Temp Pulse Resp BP 98.2 F 89 16 157/82 H 08/02/18 10:33 08/02/18 10:33 08/02/18 10:33 08/02/18 10:33 General: Alert, Oriented x3, Cooperative, No apparent distress Extremities: Capillary Refill Less than 3 Seconds, No Calf Tenderness - Negative Alo and Brar sign, Edema - Slight lower extremity edema, Peripheral Pulses Normal - DP and PT pulses palpable Skin: Ulcer/ Wound - Ulcer noted with fat layer exposed to the left anterior lateral lower leg. Measurements noted. Base was noted to be a mixture of adherent slough, fibrin, biofilm, as well as some granular tissue. There is no probing to bone, tracking, or undermining. There is no purulence, no malodor, no increase in warmth, and no surrounding cellulitis appreciated to the ulcer site. Wound Measurements and Assessment WC - Nurse 1 - General Ulcer Measurement Start: 08/02/18 10:31 Freq: Status: Active Protocol: Activity Type Activity Date Activity User E-Sign Co-Sign Detail Recorded Client Recorded Date Recorded By Document 08/02/18 10:33 [facility] [id number] 08/02/18 10:37 [facility] 08/02/18 10:33 Wound Center Nurse 1 [Ulcer Assessment] #1 left lateral smith -Combined with other wound No -Current Size (cm) - Length 0.6 -Current Size (cm) - Width 1.6 -Current Size (cm) - Depth 0.1 -Total Square Cm 0.96 -Photo Taken No -Epithelialization Small 1-33% -Tunneling No -Undermining/Tunneling No -Circular Undermining No -Exudate Amt None Present (0 %) -Wound Margin Distinct, Outline Attached -Granulation Amt Large (67-100%) -Granulation Quality Red -Slough/Fibrin No -Necrosis Amt None Present (0 %) -Texture (Yumiko-wound Skin Appearance) Scarring -Moisture (Yumiko-wound Skin Appearance Dry/Scaly ) -Color (Yumiko-wound Skin Appearance) Ecchymosis -Temperature (Yumiko-wound Skin No Abnormality Appearance) (Pt Warm) -Tenderness on Palpation (Yumiko-wound No Skin Appearance) -Ulcer Cleansing Rinsed/ Irrigated with Saline -Foul Odor after Cleansing No -Anesthetic Used 4% Lidocaine Solution [Edema Assessment] -Lower Limb Edema Present Yes -Left Calf (cm) 33.1 -Left Ankle (cm) 18.1 WC - Nurse 2 - General Ulcer CM Notes Start: 08/02/18 10:31 Freq: Status: Active Protocol: Activity Type Activity Date Activity User E-Sign Co-Sign Detail Recorded Client Recorded Date Recorded By Document 08/02/18 11:21 DV [id number] 08/02/18 11:23 DV 08/02/18 11:21 Wound Center Nurse 2 [Procedure/Treatment] #1 left lateral smith -Time 11:22 -Correct Patient Yes -Correct Side, Site, Position Yes -Correct Procedure Yes -Procedure Performed Yes -Type of Procedure Debridement -Clinical Debridement Subcutaneous -Post Debridement Size (cm) - Length 0.6 -Post Debridement Size (cm) - Width 1.3 -Post Debridement Size (cm) - Depth 0.2 -Total Square Cm 0.78 -Wound/Ulcer Outcome Not Healed -Ulcer Cleansing Rinsed/ Irrigated with Saline -Foul Odor after Cleansing No -Bioengineered Tissue No -Bleeding Controlled with NA -Treatment Response Procedure Tolerated Well [See Physician Procedure note for Specifics] Pain Scale: 0-10 Numeric [Pain] -Is Patient Pain Free? Yes Musculoskeletal: Tenderness - With manipulation of ulcer site Neurological: Sensory exam intact to light touch and pain Psych/Mental Status: Normal Affect, Appropriate Debridement Note Post-Debridement Measurements/Treatment WC - Nurse 2 - General Ulcer CM Notes Start: 08/02/18 10:31 Freq: Status: Active Protocol: Activity Type Activity Date Activity User E-Sign Co-Sign Detail Recorded Client Recorded Date Recorded By Document 08/02/18 11:21 DV [id number] 08/02/18 11:23 DV 08/02/18 11:21 Wound Center Nurse 2 #1 left lateral smith -Time 11:22 -Correct Patient Yes -Correct Side, Site, Position Yes -Correct Procedure Yes -Procedure Performed Yes -Type of Procedure Debridement -Clinical Debridement Subcutaneous -Post Debridement Size (cm) - Length 0.6 -Post Debridement Size (cm) - Width 1.3 -Post Debridement Size (cm) - Depth 0.2 -Total Square Cm 0.78 -Wound/Ulcer Outcome Not Healed -Ulcer Cleansing Rinsed/ Irrigated with Saline -Foul Odor after Cleansing No -Bioengineered Tissue No -Bleeding Controlled with NA -Treatment Response Procedure Tolerated Well Pain Scale: 0-10 Numeric Is Patient Pain Free? Yes Wound debrided: Left anterior lower leg Laterality: Left Type of Debridement: Excisional debridement Anesthesia Used: 4% Lidocaine Solution Depth: in the subcutaneous layer Percentage of wound debrided: 100 Instrument Used: 3mm curette Tissue Removed: Adherent slough, fibrin, biofilm, slight hyperkeratotic tissue Severity: Fat Layer Exposed Amount of bleeding with debridement: Mild Bleeding Controlled with: Pressure Patient tolerated procedure well Assessment/Plan Assessment: Ulcer to left anterior lateral lower leg. Pain left lower leg Plan: Patient was again examined and evaluated today. An excisional s ubcutaneous debridement was performed as noted in the clinical panel. Once complete the ulcer site was carefully cleansed, followed by Cherry to the ulcer base followed by dry sterile dressing and a Tubigrip for compression. Dressing supplies ordered. The dressing is to be change in this manner on a daily basis. Patient was instructed to keep pressure off of the ulcer site at all times. Patient finished her prescriptions for doxycycline and Keflex prescribed by Dr. Rolle. Patient was instructed to go forward with a diet high in protein to help optimize ulcer healing potential. The patient was educated on all signs and symptoms of local and systemic infection and she was instructed to go to the emergency room immediately should she notice any of these. All other questions were answered to the patient's satisfaction. She will follow-up in clinic in 1 week for further evaluation, or sooner if needed.
[2018-08-09 10:22] VITALS: BP 179/87; PULSE 98; RESP 18; TEMP 36.6
--- NOTE | 2018-08-09 13:17 | PCM.WC.PN ---
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 Rolle for a left anterior lateral lower leg ulcer. The patient said she has been dealing with this for at least 3 weeks now. She said it started when she bumped the area on her bed. Dr. Rolle prescribed her a prescription for doxycycline and Keflex which she is currently taking. She has been dressing the area daily and keeping it protected. She says the area is not getting much worse, however she has not noticed an improvement. She denies any purulence, surrounding redness, or increasing warmth to the ulcer site. She currently denies any feelings of nausea, vomiting, fever, chills. Progress of Wound: Ulcer improving. Patient had daily aquacel ag dressing changes over the last week. She denies any purulence or surrounding redness. She denies any feelings of nausea, vomiting, fever, or chills. - Physical Exam Vital Signs Temp Pulse Resp BP 97.9 F 98 18 179/87 H 08/09/18 10:22 08/09/18 10:22 08/09/18 10:22 08/09/18 10:22 General: Alert, Oriented x3, Cooperative, No apparent distress Extremities: Capillary Refill Less than 3 Seconds, No Calf Tenderness - Negative Alo and Brar sign, Edema - Slight lower extremity edema, Peripheral Pulses Normal - DP and PT pulses palpable Skin: Ulcer/ Wound - Ulcer with fat layer exposed to left anterior lower leg. Measurements noted below. Base is a mixture of adherent slough, fibrin, biofilm as well as some slight surrounding hyperkeratotic tissue. Granular tissue also appreciated to the ulcer base. There continues to be no probing to bone, no tracking, no undermining. There is no purulence, no malodor, no increase in warmth, no surrounding cellulitis appreciated at this time. Wound Measurements and Assessment WC - Nurse 1 - General Ulcer Measurement Start: 08/02/18 10:31 Freq: Status: Active Protocol: Activity Type Activity Date Activity User E-Sign Co-Sign Detail Recorded Client Recorded Date Recorded By Document 08/09/18 10:22 [id number] 08/09/18 10:24 08/09/18 10:22 Wound Center Nurse 1 [Ulcer Assessment] #1 left lateral smith -Combined with other wound No -Current Size (cm) - Length 0.5 -Current Size (cm) - Width 0.8 -Current Size (cm) - Depth 0.1 -Total Square Cm 0.40 -Photo Taken No -Epithelialization None Present -Tunneling No -Undermining/Tunneling No -Circular Undermining No -Classification - Thickness Full Thickness without Exposed Support Structure -Exudate Amt Small (1-33%) -Exudate Type Serosanguineous -Wound Margin Distinct, Outline Attached -Granulation Amt Medium (34-66%) -Granulation Quality Red -Slough/Fibrin Yes -Necrosis Amt Medium (34-66%) -Necrotic Tissue Type Eschar -Structure Exposed Fat Layer Exposed None/Limited to Skin Breakdown -Texture (Yumiko-wound Skin Appearance) Assessed Scarring -Moisture (Yumiko-wound Skin Appearance Assessed ) Dry/Scaly -Color (Yumiko-wound Skin Appearance) No Abnormality Assessed -Temperature (Yumiko-wound Skin No Abnormality Appearance) (Pt Warm) -Tenderness on Palpation (Yumiko-wound No Skin Appearance) -Ulcer Cleansing Rinsed/ Irrigated with Saline -Foul Odor after Cleansing No -Anesthetic Used 4% Lidocaine Solution [Edema Assessment] -Left Calf (cm) 34.5 -Left Ankle (cm) 20 WC - Nurse 2 - General Ulcer CM Notes Start: 08/02/18 10:31 Freq: Status: Active Protocol: Activity Type Activity Date Activity User E-Sign Co-Sign Detail Recorded Client Recorded Date Recorded By Document 08/09/18 10:52 DV [id number] 08/09/18 10:54 DV 08/09/18 10:52 Wound Center Nurse 2 [Procedure/Treatment] #1 left lateral smith -Time 10:53 -Correct Patient Yes -Correct Side, Site, Position Yes -Correct Procedure Yes -Procedure Performed Yes -Type of Procedure Debridement -Clinical Debridement Subcutaneous -Post Debridement Size (cm) - Length 0.6 -Post Debridement Size (cm) - Width 1.1 -Post Debridement Size (cm) - Depth 0.1 -Total Square Cm 0.66 -Wound/Ulcer Outcome Not Healed -Ulcer Cleansing Rinsed/ Irrigated with Saline -Foul Odor after Cleansing No -Bioengineered Tissue No -Bleeding Controlled with Pressure -Treatment Response Procedure Tolerated Well [See Physician Procedure note for Specifics] Pain Scale: 0-10 Numeric [Pain] -Is Patient Pain Free? Yes Musculoskeletal: Tenderness - With manipulation of ulcer site Neurological: Sensory exam intact to light touch and pain Psych/Mental Status: Normal Affect, Appropriate Debridement Note Post-Debridement Measurements/Treatment WC - Nurse 2 - General Ulcer CM Notes Start: 08/02/18 10:31 Freq: Status: Active Protocol: Activity Type Activity Date Activity User E-Sign Co-Sign Detail Recorded Client Recorded Date Recorded By Document 08/02/18 11:21 DV [id number] 08/02/18 11:23 DV Document 08/09/18 10:52 DV [id number] 08/09/18 10:54 DV 08/02/18 08/09/18 11:21 10:52 Wound Center Nurse 2 #1 left lateral smith -Time 11:22 10:53 -Correct Patient Yes Yes -Correct Side, Site, Position Yes Yes -Correct Procedure Yes Yes -Procedure Performed Yes Yes -Type of Procedure Debridement Debridement -Clinical Debridement Subcutaneous Subcutaneous -Post Debridement Size (cm) - Length 0.6 0.6 -Post Debridement Size (cm) - Width 1.3 1.1 -Post Debridement Size (cm) - Depth 0.2 0.1 -Total Square Cm 0.78 0.66 -Wound/Ulcer Outcome Not Healed Not Healed -Ulcer Cleansing Rinsed/ Rinsed/ Irrigated with Irrigated with Saline Saline -Foul Odor after Cleansing No No -Bioengineered Tissue No No -Bleeding Controlled with NA Pressure -Treatment Response Procedure Procedure Tolerated Well Tolerated Well Pain Scale: 0-10 Numeric Is Patient Pain Free? Yes Yes Wound debrided: Left anterior lower leg Laterality: Left Type of Debridement: Excisional debridement Anesthesia Used: 4% Lidocaine Solution Depth: in the subcutaneous layer Percentage of wound debrided: 100 Instrument Used: 7mm curette Tissue Removed: Adherent slough, fibrin, biofilm, slight hyperkeratotic tissue Severity: Fat Layer Exposed Amount of bleeding with debridement: Mild Bleeding Controlled with: Pressure Patient tolerated procedure well Assessment/Plan Assessment: Ulcer to left anterior lateral lower leg. Pain left lower leg Plan: Patient was again examined and evaluated today. An excisional subcutaneous debridement was performed as noted in the clinical panel. Once complete the ulcer site was carefully cleansed, followed by Cherry to the ulcer base followed by dry sterile dressing and a Tubigrip for compression. The dressing is to be changed in this manner on a daily basis. Patient was instructed to keep pressure off of the ulcer site at all times. Patient finished her prescriptions for doxycycline and Keflex prescribed by Dr. Rolle. Patient was instructed to go forward with a diet high in protein to help optimize ulcer healing potential. The patient was educated on all signs and symptoms of local and systemic infection and she was instructed to go to the emergency room immediately should she notice any of these. All other questions were answered to the patient's satisfaction. She will follow-up in clinic in 1 week for further evaluation, or sooner if needed.
--- NOTE | 2018-08-09 13:21 | PN.PCM_ITS ---
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 Rolle for a left anterior lateral lower leg ulcer. The patient said she has been dealing with this for at least 3 weeks now. She said it started when she bumped the area on her bed. Dr. Rolle prescribed her a prescription for doxycycline and Keflex which she is currently taking. She has been dressing the area daily and keeping it protected. She says the area is not getting much worse, however she has not noticed an improve ment. She denies any purulence, surrounding redness, or increasing warmth to the ulcer site. She currently denies any feelings of nausea, vomiting, fever, chills. Progress of Wound: Ulcer improving. Patient had daily aquacel ag dressing changes over the last week. She denies any purulence or surrounding redness. She denies any feelings of nausea, vomiting, fever, or chills. - Physical Exam Vital Signs Temp Pulse Resp BP 97.9 F 98 18 179/87 H 08/09/18 10:22 08/09/18 10:22 08/09/18 10:22 08/09/18 10:22 General: Alert, Oriented x3, Cooperative, No apparent distress Extremities: Capillary Refill Less than 3 Seconds, No Calf Tenderness - Negative Alo and Brar sign, Edema - Slight lower extremity edema, Peripheral Pulses Normal - DP and PT pulses palpable Skin: Ulcer/ Wound - Ulcer with fat layer exposed to left anterior lower leg. Measurements noted below. Base is a mixture of adherent slough, fibrin, biofilm as well as some slight surrounding hyperkeratotic tissue. Granular tissue also appreciated to the ulcer base. There continues to be no probing to bone, no tracking, no undermining. There is no purulence, no malodor, no increase in warmth, no surrounding cellulitis appreciated at this time. Wound Measurements and Assessment WC - Nurse 1 - General Ulcer Measurement Start: 08/02/18 10:31 Freq: Status: Active Protocol: Activity Type Activity Date Activity User E-Sign Co-Sign Detail Recorded Client Recorded Date Recorded By Document 08/09/18 10:22 [id number] 08/09/18 10:24 08/09/18 10:22 Wound Center Nurse 1 [Ulcer Assessment] #1 left lateral smith -Combined with other wound No -Current Size (cm) - Length 0.5 -Current Size (cm) - Width 0.8 -Current Size (cm) - Depth 0.1 -Total Square Cm 0.40 -Photo Taken No -Epithelialization None Present -Tunneling No -Undermining/Tunneling No -Circular Undermining No -Classification - Thickness Full Thickness without Exposed Support Structure -Exudate Amt Small (1-33%) -Exudate Type Serosanguineous -Wound Margin Distinct, Outline Attached -Granulation Amt Medium (34-66%) -Granulation Quality Red -Slough/Fibrin Yes -Necrosis Amt Medium (34-66%) -Necrotic Tissue Type Eschar -Structure Exposed Fat Layer Exposed None/Limited to Skin Breakdown -Texture (Yumiko-wound Skin Appearance) Assessed Scarring -Moisture (Yumiko-wound Skin Appearance Assessed ) Dry/Scaly -Color (Yumiko-wound Skin Appearance) No Abnormality Assessed -Temperature (Yumiko-wound Skin No Abnormality Appearance) (Pt Warm) -Tenderness on Palpation (Yumiko-wound No Skin Appearance) -Ulcer Cleansing Rinsed/ Irrigated with Saline -Foul Odor after Cleansing No -Anesthetic Used 4% Lidocaine Solution [Edema Assessment] -Left Calf (cm) 34.5 -Left Ankle (cm) 20 WC - Nurse 2 - General Ulcer CM Notes Start: 08/02/18 10:31 Freq: Status: Active Protocol: Activity Type Activity Date Activity User E-Sign Co-Sign Detail Recorded Client Recorded Date Recorded By Document 08/09/18 10:52 DV [id number] 08/09/18 10:54 DV 08/09/18 10:52 Wound Center Nurse 2 [Procedure/Treatment] #1 left lateral smith -Time 10:53 -Correct Patient Yes -Correct Side, Site, Position Yes -Correct Procedure Yes -Procedure Performed Yes -Type of Procedure Debridement -Clinical Debridement Subcutaneous -Post Debridement Size (cm) - Length 0.6 -Post Debridement Size (cm) - Width 1.1 -Post Debridement Size (cm) - Depth 0.1 -Total Square Cm 0.66 -Wound/Ulcer Outcome Not Healed -Ulcer Cleansing Rinsed/ Irrigated with Saline -Foul Odor after Cleansing No -Bioengineered Tissue No -Bleeding Controlled with Pressure -Treatment Response Procedure Tolerated Well [See Physician Procedure note for Specifics] Pain Scale: 0-10 Numeric [Pain] -Is Patient Pain Free? Yes Musculoskeletal: Tenderness - With manipulation of ulcer site Neurological: Sensory exam intact to light touch and pain Psych/Mental Status: Normal Affect, Appropriate Debridement Note Post-Debridement Measurements/Treatment WC - Nurse 2 - General Ulcer CM Notes Start: 08/02/18 10:31 Freq: Status: Active Protocol: Activity Type Activity Date Activity User E-Sign Co-Sign Detail Recorded Client Recorded Date Recorded By Document 08/02/18 11:21 DV [id number] 08/02/18 11:23 DV Document 08/09/18 10:52 DV [id number] 08/09/18 10:54 DV 08/02/18 08/09/18 11:21 10:52 Wound Center Nurse 2 #1 left lateral smith -Time 11:22 10:53 -Correct Patient Yes Yes -Correct Side, Site, Position Yes Yes -Correct Procedure Yes Yes -Procedure Performed Yes Yes -Type of Procedure Debridement Debridement -Clinical Debridement Subcutaneous Subcutaneous -Post Debridement Size (cm) - Length 0.6 0.6 -Post Debridement Size (cm) - Width 1.3 1.1 -Post Debridement Size (cm) - Depth 0.2 0.1 -Total Square Cm 0.78 0.66 -Wound/Ulcer Outcome Not Healed Not Healed -Ulcer Cleansing Rinsed/ Rinsed/ Irrigated with Irrigated with Saline Saline -Foul Odor after Cleansing No No -Bioengineered Tissue No No -Bleeding Controlled with NA Pressure -Treatment Response Procedure Procedure Tolerated Well Tolerated Well Pain Scale: 0-10 Numeric Is Patient Pain Free? Yes Yes Wound debrided: Left anterior lower leg Laterality: Left Type of Debridement: Excisional debridement Anesthesia Used: 4% Lidocaine Solution Depth: in the subcutaneous layer Percentage of wound debrided: 100 Instrument Used: 7mm curette Tissue Removed: Adherent slough, fibrin, biofilm, slight hyperkeratotic tissue Severity: Fat Layer Exposed Amount of bleeding with debridement: Mild Bleeding Controlled with: Pressure Patient tolerated procedure well Assessment/Plan Assessment: Ulcer to left anterior lateral lower leg. Pain left lower leg Plan: Patient was again examined and evaluated today. An excisional subcutaneous debridement was performed as noted in the clinical panel. Once complete the ulcer site was carefully cleansed, followed by Cherry to the ulcer base followed by dry sterile dressing and a Tubigrip for compression. The dressing is to be changed in this manner on a daily basis. Patient was in structed to keep pressure off of the ulcer site at all times. Patient finished her prescriptions for doxycycline and Keflex prescribed by Dr. Rolle. Patient was instructed to go forward with a diet high in protein to help optimize ulcer healing potential. The patient was educated on all signs and symptoms of local and systemic infection and she was instructed to go to the emergency room immediately should she notice any of these. All other questions were answered to the patient's satisfaction. She will follow-up in clinic in 1 week for further evaluation, or sooner if needed.
[2018-08-16 10:22] VITALS: BP 147/79; PULSE 101; RESP 18; TEMP 36.4
--- NOTE | 2018-08-16 13:41 | PN.PCM_ITS ---
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 Rolle for a left anterior lateral lower leg ulcer. The patient said she has been dealing with this for at least 3 weeks now. She said it started when she bumped the area on her bed. Dr. Rolle prescribed her a prescription for doxycycline and Keflex which she is currently taking. She has been dressing the area daily and keeping it protected. She says the area is not getting much worse, however she has not noticed an improve ment. She denies any purulence, surrounding redness, or increasing warmth to the ulcer site. She currently denies any feelings of nausea, vomiting, fever, chills. Progress of Wound: Ulcer site continues to improve. Patient had daily aquacel ag dressing changes over the last week. She denies any purulence or surrounding redness. She denies any feelings of nausea, vomiting, fever, or chills. - Physical Exam Vital Signs Temp Pulse Resp BP 97.6 F L 101 H 18 147/79 H 08/16/18 10:22 08/16/18 10:22 08/16/18 10:22 08/16/18 10:22 General: Alert, Oriented x3, Cooperative, No apparent distress Extremities: Capillary Refill Less than 3 Seconds, No Calf Tenderness - Negative Alo and Brar sign, Edema - Slight lower extremity edema, Peripheral Pulses Normal - DP and PT pulses palpable Skin: Ulcer/ Wound - Ulcer fat layer exposed to left anterior lower leg. Measurements noted below. Base continues to be a mixture of adherent slough, fibrin, biofilm as well as some slight hyperkeratotic tissue. Granular tissue continues to predominate ulcer base. There continues to be no probing to bone, no tracking, no undermining. There is no purulence, no malodor, no increase in warmth, and no surrounding or extending cellulitis appreciated at this time. Wound Measurements and Assessment - Nurse 1 - General Ulcer Measurement Start: 08/02/18 10:31 Freq: Status: Active Protocol: Activity Type Activity Date Activity User E-Sign Co-Sign Detail Recorded Client Recorded Date Recorded By Document 08/16/18 10:22 DL [id number] 08/16/18 10:27 DL 08/16/18 10:22 Wound Center Nurse 1 [Ulcer Assessment] #1 left lateral smith -Current Size (cm) - Length 0.5 -Current Size (cm) - Width 0.5 -Current Size (cm) - Depth 0.1 -Total Square Cm 0.25 -Photo Taken No -Exudate Amt None Present (0 %) -Wound Margin Flat & Intact -Granulation Amt None Present (0 %) -Necrosis Amt Small (1-33%) -Necrotic Tissue Type Adherent Slough -Texture (Yumiko-wound Skin Appearance) Scarring -Moisture (Yumiko-wound Skin Appearance Dry/Scaly ) -Color (Yumiko-wound Skin Appearance) No Abnormality -Temperature (Yumiko-wound Skin No Abnormality Appearance) (Pt Warm) -Foul Odor after Cleansing No -Anesthetic Used 4% Lidocaine Solution [Edema Assessment] -Left Calf (cm) 32 -Left Ankle (cm) 17.4 Musculoskeletal: Tenderness - With manipulation of ulcer site Neurological: Sensory exam intact to light touch and pain Psych/Mental Status: Normal Affect, Appropriate Debridement Note Post-Debridement Measurements/Treatment - Nurse 2 - General Ulcer CM Notes Start: 08/02/18 10:31 Freq: Status: Active Protocol: Activity Type Activity Date Activity User E-Sign Co-Sign Detail Recorded Client Recorded Date Recorded By Document 08/02/18 11:21 DV [id number] 08/02/18 11:23 DV Document 08/09/18 10:52 DV [id number] 08/09/18 10:54 DV 08/02/18 08/09/18 11:21 10:52 Wound Center Nurse 2 #1 left lateral smith -Time 11:22 10:53 -Correct Patient Yes Yes -Correct Side, Site, Position Yes Yes -Correct Procedure Yes Yes -Procedure Performed Yes Yes -Type of Procedure Debridement Debridement -Clinical Debridement Subcutaneous Subcutaneous -Post Debridement Size (cm) - Length 0.6 0.6 -Post Debridement Size (cm) - Width 1.3 1.1 -Post Debridement Size (cm) - Depth 0.2 0.1 -Total Square Cm 0.78 0.66 -Wound/Ulcer Outcome Not Healed Not Healed -Ulcer Cleansing Rinsed/ Rinsed/ Irrigated with Irrigated with Saline Saline -Foul Odor after Cleansing No No -Bioengineered Tissue No No -Bleeding Controlled with NA Pressure -Treatment Response Procedure Procedure Tolerated Well Tolerated Well Pain Scale: 0-10 Numeric Is Patient Pain Free? Yes Yes Wound debrided: Left anterior lower leg Laterality: Left Type of Debridement: Selective debridement Anesthesia Used: 4% Lidocaine Solution Depth: in the subcutaneous layer Percentage of wound debrided: 100 Instrument Used: 7mm curette Tissue Removed: Adherent slough, fibrin, biofilm Severity: Fat Layer Exposed Amount of bleeding with debridement: Mild Bleeding Controlled with: Pressure Patient tolerated procedure well Assessment/Plan Assessment: Ulcer to left anterior lateral lower leg. Pain left lower leg Plan: Patient was again examined and evaluated today. A selective debridement was performed as noted in the clinical panel. Once complete the ulcer site was carefully cleansed, followed by Cherry to the ulcer base followed by dry sterile dressing and a Tubigrip for compression. The dressing is to be changed in this manner on a daily basis. Patient was instructed to keep pressure off of the ulcer site at all times. Patient finished her prescriptions for doxycycline and Keflex prescribed by Dr. Rolle. Patient was instructed to go forward with a diet high in protein to help optimize ulcer healing potential. The patient was educated on all signs and symptoms of local and systemic infection and she was instructed to go to the emergency room immediately should she notice any of these. All other questions were answered to the patient's satisfaction. She will follow-up in clinic in 1 week for further evaluation, or sooner if needed.
[2018-08-23 08:28] VITALS: BP 157/87; PULSE 75; RESP 18; TEMP 36.3
--- NOTE | 2018-08-23 12:10 | PCM.WC.PN ---
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 Rolle for a left anterior lateral lower leg ulcer. The patient said she has been dealing with this for at least 3 weeks now. She said it started when she bumped the area on her bed. Dr. Rolle prescribed her a prescription for doxycycline and Keflex which she is currently taking. She has been dressing the area daily and keeping it protected. She says the area is not getting much worse, however she has not noticed an improvement. She denies any purulence, surrounding redness, or increasing warmth to the ulcer site. She currently denies any feelings of nausea, vomiting, fever, chills. Progress of Wound: Ulcer healed today. Patient had daily aquacel ag dressing changes over the last week. She denies any purulence or surrounding redness. She denies any feelings of nausea, vomiting, fever, or chills. - Physical Exam Vital Signs Temp Pulse Resp BP 97.3 F L 75 18 157/87 H 08/23/18 08:28 08/23/18 08:28 08/23/18 08:28 08/23/18 08:28 General: Alert, Oriented x3, Cooperative, No apparent distress Extremities: Capillary Refill Less than 3 Seconds, No Calf Tenderness - Negative Alo and Brar sign, Edema - Slight lower extremity edema Skin: Ulcer/ Wound - Ulcer healed with no signs or symptoms of infection appreciated Wound Measurements and Assessment WC - Nurse 1 - General Ulcer Measurement Start: 08/02/18 10:31 Freq: Status: Active Protocol: Activity Type Activity Date Activity User E-Sign Co-Sign Detail Recorded Client Recorded Date Recorded By Document 08/23/18 08:28 NC [id number] 08/23/18 08:31 NC 08/23/18 08:28 Wound Center Nurse 1 [Ulcer Assessment] #1 left lateral smith -Combined with other wound No -Current Size (cm) - Length 0 -Current Size (cm) - Width 0 -Current Size (cm) - Depth 0 -Total Square Cm 0 -Epithelialization Large 67-100% -Tunneling No -Undermining/Tunneling No -Circular Undermining No -Granulation Amt Large (67-100%) -Granulation Quality Pale Center -Slough/Fibrin No -Texture (Yumiko-wound Skin Appearance) Assessed -Moisture (Yumiko-wound Skin Appearance Assessed ) -Color (Yumiko-wound Skin Appearance) Assessed Hemosiderin Staining -Temperature (Yumiko-wound Skin No Abnormality Appearance) (Pt Warm) -Tenderness on Palpation (Yumiko-wound No Skin Appearance) -Ulcer Cleansing Rinsed/ Irrigated with Saline -Foul Odor after Cleansing No -Anesthetic Used 5% Lidocaine Gel [Edema Assessment] -Left Calf (cm) 33.5 -Left Ankle (cm) 19 - Nurse 2 - General Ulcer CM Notes Start: 08/02/18 10:31 Freq: Status: Active Protocol: Activity Type Activity Date Activity User E-Sign Co-Sign Detail Recorded Client Recorded Date Recorded By Document 08/23/18 09:14 DV [id number] 08/23/18 09:16 DV 08/23/18 09:14 Wound Center Nurse 2 [Procedure/Treatment] #1 left lateral smith -Time 09:15 -Correct Patient Yes -Correct Side, Site, Position Yes -Procedure Performed No -Wound/Ulcer Outcome Healed- Epithelialized [See Physician Procedure note for Specifics] Pain Scale: 0-10 Numeric [Pain] -Is Patient Pain Free? Yes Musculoskeletal: No Tenderness to Palpation of Joints or Extremities Neurological: Sensory exam intact to light touch and pain Psych/Mental Status: Normal Affect, Appropriate Debridement Note Post-Debridement Measurements/Treatment - Nurse 2 - General Ulcer CM Notes Start: 08/02/18 10:31 Freq: Status: Active Protocol: Activity Type Activity Date Activity User E-Sign Co-Sign Detail Recorded Client Recorded Date Recorded By Document 08/02/18 11:21 DV [id number] 08/02/18 11:23 DV Document 08/09/18 10:52 DV [id number] 08/09/18 10:54 DV Document 08/23/18 09:14 DV [id number] 08/23/18 09:16 DV 08/02/18 08/09/18 08/23/18 11:21 10:52 09:14 Wound Center Nurse 2 #1 left lateral smith -Time 11:22 10:53 09:15 -Correct Patient Yes Yes Yes -Correct Side, Site, Position Yes Yes Yes -Correct Procedure Yes Yes -Procedure Performed Yes Yes No -Type of Procedure Debridement Debridement -Clinical Debridement Subcutaneous Subcutaneous -Post Debridement Size (cm) - Length 0.6 0.6 -Post Debridement Size (cm) - Width 1.3 1.1 -Post Debridement Size (cm) - Depth 0.2 0.1 -Total Square Cm 0.78 0.66 -Wound/Ulcer Outcome Not Healed Not Healed Healed- Epithelialized -Ulcer Cleansing Rinsed/ Rinsed/ Irrigated with Irrigated with Saline Saline -Foul Odor after Cleansing No No -Bioengineered Tissue No No -Bleeding Controlled with NA Pressure -Treatment Response Procedure Procedure Tolerated Well Tolerated Well Pain Scale: 0-10 Numeric Is Patient Pain Free? Yes Yes Yes No debridement was completed today Assessment/Plan Assessment: Ulcer to left anterior lateral lower leg. Pain left lower leg Plan: Patient was again examined and evaluated today. No debridement was completed today. Patient is healed. Patient was instructed to continue to keep pressure off the area while skin continues to remodel and strengthen. Patient was instructed to go forward with a diet high in protein. The patient was educated on all signs and symptoms of local and systemic infection and she was instructed to go to the emergency room immediately should she notice any of these. All other questions were answered to the patient's satisfaction. Patient will be discharged from the wound healing center at this time, but she was instructed to call should any problems, issues, or concerns arise in the future.
--- NOTE | 2018-08-23 12:13 | PN.PCM_ITS ---
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 Rolle for a left anterior lateral lower leg ulcer. The patient said she has been dealing with this for at least 3 weeks now. She said it started when she bumped the area on her bed. Dr. Rolle prescribed her a prescription for doxycycline and Keflex which she is currently taking. She has been dressing the area daily and keeping it protected. She says the area is not getting much worse, however she has not noticed an improve ment. She denies any purulence, surrounding redness, or increasing warmth to the ulcer site. She currently denies any feelings of nausea, vomiting, fever, chills. Progress of Wound: Ulcer healed today. Patient had daily aquacel ag dressing changes over the last week. She denies any purulence or surrounding redness. She denies any feelings of nausea, vomiting, fever, or chills. - Physical Exam Vital Signs Temp Pulse Resp BP 97.3 F L 75 18 157/87 H 08/23/18 08:28 08/23/18 08:28 08/23/18 08:28 08/23/18 08:28 General: Alert, Oriented x3, Cooperative, No apparent distress Extremities: Capillary Refill Less than 3 Seconds, No Calf Tenderness - Negative Alo and Brar sign, Edema - Slight lower extremity edema Skin: Ulcer/ Wound - Ulcer healed with no signs or symptoms of infection appreciated Wound Measurements and Assessment WC - Nurse 1 - General Ulcer Measurement Start: 08/02/18 10:31 Freq: Status: Active Protocol: Activity Type Activity Date Activity User E-Sign Co-Sign Detail Recorded Client Recorded Date Recorded By Document 08/23/18 08:28 FL [id number] 08/23/18 08:31 FL 08/23/18 08:28 Wound Center Nurse 1 [Ulcer Assessment] #1 left lateral smith -Combined with other wound No -Current Size (cm) - Length 0 -Current Size (cm) - Width 0 -Current Size (cm) - Depth 0 -Total Square Cm 0 -Epithelialization Large 67-100% -Tunneling No -Undermining/Tunneling No -Circular Undermining No -Granulation Amt Large (67-100%) -Granulation Quality Pale [place] -Slough/Fibrin No -Texture (Yumiko-wound Skin Appearance) Assessed -Moisture (Yumiko-wound Skin Appearance Assessed ) -Color (Yumiko-wound Skin Appearance) Assessed Hemosiderin Staining -Temperature (Yumiko-wound Skin No Abnormality Appearance) (Pt Warm) -Tenderness on Palpation (Yumiko-wound No Skin Appearance) -Ulcer Cleansing Rinsed/ Irrigated with Saline -Foul Odor after Cleansing No -Anesthetic Used 5% Lidocaine Gel [Edema Assessment] -Left Calf (cm) 33.5 -Left Ankle (cm) 19 - Nurse 2 - General Ulcer CM Notes Start: 08/02/18 10:31 Freq: Status: Active Protocol: Activity Type Activity Date Activity User E-Sign Co-Sign Detail Recorded Client Recorded Date Recorded By Document 08/23/18 09:14 DV [id number] 08/23/18 09:16 DV 08/23/18 09:14 Wound Center Nurse 2 [Procedure/Treatment] #1 left lateral smith -Time 09:15 -Correct Patient Yes -Correct Side, Site, Position Yes -Procedure Performed No -Wound/Ulcer Outcome Healed- Epithelialized [See Physician Procedure note for Specifics] Pain Scale: 0-10 Numeric [Pain] -Is Patient Pain Free? Yes Musculoskeletal: No Tenderness to Palpation of Joints or Extremities Neurological: Sensory exam intact to light touch and pain Psych/Mental Status: Normal Affect, Appropriate Debridement Note Post-Debridement Measurements/Treatment - Nurse 2 - General Ulcer CM Notes Start: 08/02/18 10:31 Freq: Status: Active Protocol: Activity Type Activity Date Activity User E-Sign Co-Sign Detail Recorded Client Recorded Date Recorded By Document 08/02/18 11:21 DV [id number] 08/02/18 11:23 DV Document 08/09/18 10:52 DV [id number] 08/09/18 10:54 DV Document 08/23/18 09:14 DV [id number] 08/23/18 09:16 DV 08/02/18 08/09/18 08/23/18 11:21 10:52 09:14 Wound Center Nurse 2 #1 left lateral smith -Time 11:22 10:53 09:15 -Correct Patient Yes Yes Yes -Correct Side, Site, Position Yes Yes Yes -Correct Procedure Yes Yes -Procedure Performed Yes Yes No -Type of Procedure Debridement Debridement -Clinical Debridement Subcutaneous Subcutaneous -Post Debridement Size (cm) - Length 0.6 0.6 -Post Debridement Size (cm) - Width 1.3 1.1 -Post Debridement Size (cm) - Depth 0.2 0.1 -Total Square Cm 0.78 0.66 -Wound/Ulcer Outcome Not Healed Not Healed Healed- Epithelialized -Ulcer Cleansing Rinsed/ Rinsed/ Irrigated with Irrigated with Saline Saline -Foul Odor after Cleansing No No -Bioengineered Tissue No No -Bleeding Controlled with NA Pressure -Treatment Response Procedure Procedure Tolerated Well Tolerated Well Pain Scale: 0-10 Numeric Is Patient Pain Free? Yes Yes Yes No debridement was completed today Assessment/Plan Assessment: Ulcer to left anterior lateral lower leg. Pain left lower leg Plan: Patient was again examined and evaluated today. No debridement was completed today. Patient is healed. Patient was instructed to continue to keep pressure off the area while skin continues to remodel and strengthen. Patient was instructed to go forward with a diet high in protein. The patient was educated on all signs and symptoms of local and systemic infection and she was instructed to go to the emergency room immediately should she notice any of these. All other questions were answered to the patient's satisfaction. Patient will be discharged from the wound healing center at this time, but she was instructed to call should any problems, issues, or concerns arise in the future.
== END 2018-08-29 23:59 ==
LOC: WC 08:15
PROVIDERS: Family Provider Family Medicine Geriatric Medicine; PCP Family Medicine Geriatric Medicine; Visit Provider Podiatrist
DX: L97.822 Non-pressure chronic ulcer of other part of left lower leg with fat layer exposed (principal); R60.0 Localized edema
CPT/HCPCS: 11042; 97597; 99212; G0463

== ENCOUNTER → 2018-08-24 10:48 | Outpatient (CLI) | payer MEDICARE, MEDICAID, SELFPAY ==
[2018-08-24 11:24] VITALS: PULSE 102; PULSE 108; PULSE 110; PULSE 111; PULSE 95; PULSE 98; O2SAT 94; O2SAT 95; O2SAT 96; O2SAT 97; O2SAT 98
--- NOTE | 2018-08-26 06:43 | PCM.PSN.6M ---
PSN 6 Minute Walk Test - 6 Minute Walk Test 6 Minute Walk Test: 6 Minute Walk Test PSN:6-Minute Walk Test Start: 08/24/18 11:24 Freq: Status: Active Protocol: [id number].6MINW Document 08/24/18 11:24 EW (Rec: 08/24/18 11:28 EW [id number]) 6 Minute Walk Test Date Performed 08/24/18 Time Performed 11:00 Height 5 ft 4 in Weight: 155 lb Weight in Pounds 155.[address]: Edgardo Britton Assistive device used: None Pre-test Oxygen Delivery Method Room Air Pulse Ox (%) 98 Pulse Rate (60-100 beats/min) 95 Dyspnea Galindo Scale (0-10) 1 Exertion Galindo Scale (6-20) 8 1st minute Oxygen Delivery Method Room Air Pulse Ox (%) 95 Pulse Rate (60-100 beats/min) 98 2nd minute Oxygen Delivery Method Room Air Pulse Ox (%) 97 Pulse Rate (60-100 beats/min) 102 H 3rd minute Oxygen Delivery Method Room Air Pulse Ox (%) 94 Pulse Rate (60-100 beats/min) 108 H 4th minute Oxygen Delivery Method Room Air Pulse Ox (%) 96 Pulse Rate (60-100 beats/min) 110 H 5th minute Oxygen Delivery Method Room Air Pulse Ox (%) 96 Pulse Rate (60-100 beats/min) 111 H 6th minute Oxygen Delivery Method Room Air Pulse Ox (%) 97 Pulse Rate (60-100 beats/min) 111 H Post-test Oxygen Delivery Method Room Air Pulse Ox (%) 98 Pulse Rate (60-100 beats/min) 95 Dyspnea Galindo Scale (0-10) 3 Exertion Galindo Scale (6-20) 13 Full Laps Walked 19 Partial Lap, Number of Tiles Walked 26 Total Distance Walked (ft) 1147 - Interpretation Interpretation: The patient ambulated 1147 feet over the course of 6 minutes beginning on room air without assistive devices or breaks. Pretesting oxygen saturation was noted to be 98% on room air. With ambulation, the sabi oxygen saturation was 94%. This represents a significant exertional oxygen desaturation. - Recommendations Recommendations: There is no indication for the use of supplemental oxygen at this time.
== END ==
PROVIDERS: Family Provider Family Medicine Geriatric Medicine; PCP Family Medicine Geriatric Medicine; Referring Provider Internal Medicine Critical Care Medicine; Visit Provider Internal Medicine Critical Care Medicine
DX: J44.9 Chronic obstructive pulmonary disease, unspecified (principal)
CPT/HCPCS: 94618

== ENCOUNTER → 2018-08-28 09:49 | Outpatient (CLI) | payer MEDICARE, MEDICAID, SELFPAY ==
--- NOTE | 2018-08-28 14:11 | PFTCOMP ---
COMPLETE PULMONARY FUNCTION TEST INTERPRETATION Brief HPI: Patient is a 68 year old female, currently under the care of myself, who presents to [facility] for complete pulmonary function tests secondary to diagnosis of COPD. Respiratory therapist reports good effort and reproducible results. The patient did use albuterol 2 hours prior to testing. Interpretation: Forced expiration spirometry shows a moderately-severe large airways obstructive ventilatory defect with an FEV1 of 55% predicted. There is no significant bronchodilator response by strict ATS criteria. Spirograms are of good quality and plateau slowly, indicating slowly emptying areas of the lungs. The respiratory flow volume loop shows decreased expiratory flow rates at all lung volumes consistent with airway obstruction. Lung volumes by body plethysmography show a normal total lung capacity at 4.73 L, 98% predicted. All other lung volumes are within normal limits. Diffusion capacity by carbon monoxide is at the lower limit of normal at 62% predicted. The airway resistance is elevated. Compared to previous pulmonary function tests from 01/26/2017, there has been a significant improvement in FVC and FEV1 by 15% and 42% respectively. Impression: Irreversible moderately severe large airways obstructive ventilatory defect with a symmetric reduction diffusing capacity. There has been some improvement compared to previous testing.
--- NOTE | 2018-08-28 14:14 | PFTCOMP_ITS ---
COMPLETE PULMONARY FUNCTION TEST INTERPRETATION Brief HPI: Patient is a 68 year old female, currently under the care of myself, who presents to [facility] for complete pulmonary function tests secondary to diagnosis of COPD. Respiratory therapist reports good effort and reproducible results. The patient did use albuterol 2 hours prior to testing. Interpretation: Forced expiration spirometry shows a moderately-severe large airways obstructive ventilatory defect with an FEV1 of 55% predicted. There is no significant bronchodilator response by strict ATS criteria. Spirograms are of good quality and plateau slowly, indicating slowly emptying areas of the lungs. The resp iratory flow volume loop shows decreased expiratory flow rates at all lung volumes consistent with airway obstruction. Lung volumes by body plethysmography show a normal total lung capacity at 4.73 L , 98% predicted. All other lung volumes are within normal limits. Diffusion capacity by carbon monoxide is at the lower limit of normal at 62% predicted. The airway resistance is elevated. Compared to previous pulmonary function tests from 01/26/2017, there has been a significant improvement in FVC and FEV1 by 15% and 42% respectively. Impression: Irreversible moderately severe large airways obstructive ventilatory defect with a symmetric reduction diffusing capacity. There has been some improvement compared to previous testing.
== END ==
PROVIDERS: Family Provider Family Medicine Geriatric Medicine; PCP Family Medicine Geriatric Medicine; Referring Provider Internal Medicine Critical Care Medicine; Visit Provider Internal Medicine Critical Care Medicine
DX: J44.9 Chronic obstructive pulmonary disease, unspecified (principal)
CPT/HCPCS: 94060; 94726; 94729

== ENCOUNTER 2018-10-23 10:20 | Emergency (ER) | payer MEDICARE, MEDICAID, SELFPAY ==
[2018-10-23 10:22] VITALS: BP 149/94; PULSE 79; RESP 18; TEMP 36.9; O2SAT 99; BMI 26.6
--- NOTE | 2018-10-23 10:34 | ED.VISSUMM ---
- ER Visit Summary Date of Service: 10/23/18 Chief Complaint: [Injury to left leg] History of Present Illness: The patient is a 68 F [presents to the emergency department with complaint of an injury to her left leg that occurred approximately 1005 this morning. Patient states that she was getting a half a gallon of frozen milk out of the freezer when it fell striking the floor first and then bouncing into her left smith. Patient developed discoloration to the area and swelling and she became concerned because she is on Xarelto. Patient is able to ambulate. She denies any numbness or tingling to the extremity. Patient has history of COPD, hypertension, high cholesterol, and DVT.] Physical Examination: [HEENT-PERRLA, EOMI. Cranial nerves II through XII grossly intact. TMs clear. Mucous membranes moist. No adenopathy. Cardiovascular-regular rate and rhythm without murmur or ectopy Lungs-clear to auscultation, chest wall stable without crepitus or subcu emphysema Abdomen-normoactive bowel sounds, soft, nontender, no rebound or rigidity, no peritoneal signs. Extremities-intact ?4, normal range of motion, normal pulses, left leg-patient has a hematoma to the anterior distal third of the tibia with tenderness to palpation. Patient neurovascular intact distally. Patient has normal range of motion at the ankle and all her toes.] Test Results: [None indicated] Emergency Department Course and Treatment: [Patient will be given an Fabio wrap and advised to use ice over the area.] Treatment Plan: [Fabio wrap and ice to area. Patient advised to take Tylenol for discomfort.] Disposition: [Discharged home in stable condition] Impression: [Contusion left leg with hematoma] This note was generated with true[x] Media dictation software. It may contain incorrect words, spelling, and punctuation that were not noted in review of the chart prior to signing ED Disposition - Plan for ED Patient: Chief Complaint: Lower Extremity Injury Referrals: Mason Rolle Chi, MD [Primary Care Provider] -
--- NOTE | 2018-10-23 10:36 | ED.DEP ---
ED Disposition - Plan for ED Patient: Chief Complaint: Lower Extremity Injury Instructions: ED Contusion Lower Ext, ED Hematoma Referrals: Mason Rolle Chi, MD [Primary Care Provider] - 5-7 Days
== END 2018-10-23 10:43 | disposition home or self-care (01) ==
PROVIDERS: Emergency Provider Emergency Medicine; Family Provider Family Medicine Geriatric Medicine; PCP Family Medicine Geriatric Medicine
DX: S80.12XA Contusion of left lower leg, initial encounter (principal); W22.8XXA Striking against or struck by other objects, initial encounter; Y93.9 Activity, unspecified; Y92.000 Kitchen of unspecified non-institutional (private) residence as the place of occurrence of the external cause; Y99.9 Unspecified external cause status; J44.9 Chronic obstructive pulmonary disease, unspecified; I10 Essential (primary) hypertension; E78.00 Pure hypercholesterolemia, unspecified; Z79.01 Long term (current) use of anticoagulants; Z86.718 Personal history of other venous thrombosis and embolism
CPT/HCPCS: 99282

== ENCOUNTER → 2019-01-24 14:36 | Outpatient (CLI) | payer MEDICARE, SELFPAY ==
[2019-01-24 17:05] LABS: Absolute Lymphocyte Count 1.61 X10^3/ul (0.83-4.51); Absolute Neutrophil Count 5.7 X10^3/uL (2.0-7.7); Basophil# 0.02 X10^3/uL; Basophil% 0.3 % (0-1); Eosinophil# 0.06 X10^3/uL; Eosinophils% 0.8 % (0-5); Hematocrit 41.4 % (37-47); Hemoglobin 12.8 g/dl (12.0-15.0); Lymphocyte # 1.61 X10^3/ul (4.0); Lymphocyte % 20.3 % (19-41); Mean Corp Hgb Conc 30.9 g/gl (32-36); Mean Corpuscular Hgb 29.4 pg (27.0-32.0); Monocyte# 0.56 X10^3/uL; Monocyte% 7.1 % (0-10); Neutrophil # 5.66 X10^3/uL (2.7-7.7); Neutrophil % 71.2 % (47-70); Platelet Count 307 K/mm3 (150-450); RBC Distribution Width CV 15.3 % (11.6-14.6); RBC Distribution Width SD 51.6 fl (35.1-43.9); Red Blood Count 4.36 M/mm3 (4.2-5.4); White Blood Count 7.9 K/mm3 (4.4-11.0)
[2019-01-24 17:22] LABS: POSITIVE COUNT NO; POSITIVE DIFFERENTIAL NO; POSITIVE MORPHOLOGY NO
[2019-01-24 17:27] LABS: Vitamin D,25 Hydroxy 20.8 ng/mL (29.95-100.01)
[2019-01-24 17:35] LABS: ALB/GLOB Ratio 0.9 RATIO (0.9-2.4); AST(SGOT) 25 U/L (15-37); Alanine Aminotransfer ALT/SGPT 28 U/L (13-56); Albumin, Serum 3.3 g/dL (3.2-5.0); Alkaline Phosphatase 77 U/L (45-117); Anion Gap 8 (5-15); BUN 14 mg/dL (7-18); BUN/Creat Ratio 17.4 RATIO (10-20); Calcium,Total 8.7 mg/dL (8.5-10.1); Chloride 108 mmol/L (98-107); EST Glomerular Filtration Rate 75 mL/min (>60); Est Glom Filt Rate - Afr Amer 91 mL/min (>60); Globulin 3.6 g/dL (2.2-4.2); Glucose 96 mg/dL (74-106); Potassium 3.5 mmol/L (3.5-5.1); Protein, Total 6.9 g/dL (6.4-8.2); Sodium Level 142 mmol/L (136-145); Thyroid Stim Hormone (TSH) 1.33 uIU/mL (0.358-3.74)
== END ==
PROVIDERS: Family Provider Family Medicine Geriatric Medicine; PCP Family Medicine Geriatric Medicine; Visit Provider Family Medicine Geriatric Medicine
DX: I10 Essential (primary) hypertension (principal); E55.9 Vitamin D deficiency, unspecified
CPT/HCPCS: 36415; 80053; 82306; 84443; 85025

== ENCOUNTER 2019-02-12 12:30 | Outpatient (RCR) | payer MEDICARE, SELFPAY ==
--- NOTE | 2019-01-22 14:02 | HP.PTEVAL_ITS ---
Patient's Visit Information NAMRATA SAXENA is a 68 year old F referred to Physical Therapy by Mason Rolle MD with a diagnosis of Left RTC Syndrome. Date of Evaluation: 01/22/19 Physical Therapist: Leeanna Garcia DPT - Visit Plan Frequency: 2x /Week Duration: 4 Weeks Plan: Modality of US- focus on UE Rom and strength for functional mobility - Subjective Findings: Left shoulder pain for years- this flare up has been over a year- its better but not gone. 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 Pain is located along the anterior shoulder and radiates to the elbow. No radiating neck pain. 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 Does have N/T in the fingers sometimes but it comes and goes. Right hand dominate. Worst: 10/10 Agg: reaching out, putting it back, overhead, fasten a bra. Eases: nothing has tried ice/heat. Best: 0/10 when she keeps it close to her body. Sleep: sometimes makes it hard to fall back asleep- side to side sleeper. Is not very active at this time. Has not seen any correlation with her shoulder pain and IRBY. Goals: painfree and be able to use the shoulder more. Has not had x-rays recently. No injections or medications for the shoulder- just sent her to PT. Has a lot of problems performing ADL's she does drive- is waiting to get on a program for a waiver to get a home health aid to come in to help her do the heavy things. Does not have family that can help. PMHx/Meds: no changes- see scanned in chart. Can't push off of it. - Objective Posture:FH, RS, increased kyphosis- does not correct with verbal cues- guarding of the left UE. Gait: no LE deviation but does have limited arm swing and trunk rotation. Palpation: tender along bicipital groove, upper trap to the tip of the acormion and along the medial border of the scapula. ROM: Cervical: WFL, Shoulder: AROM: 60 degrees abd, 50 degrees flexion,IR: L3 thumb, ER: 60 degrees, PROM: Flexion: 120 degrees, Abd: 150 degrees, IR: to belly- severe crepetis with movement. Elbow: WFL but does have discomfort at end range extension and supination. Strength: Scap: poor, Shoulder: flexion: 3+/5 in available range, Abd: 4-/5 in available range, IR/ER: 4-/5, Extn: 4/5 with pain in all ranges. Elbow: 4+/5. wrist: 5/5, [employer] Database Consultant: equal to the right. Special Test: impingment: positive, Empty Can: positive, Belly lift off:positive - Goals Goal 1:: Patient will demo full AROM of the left shoulder Goal Time Frame: 4-6 Weeks Goal 4:: Patient will be I with HEP and progression Goal Time Frame: 4-6 Weeks Goal 5:: Patient will maintain proper posture t/o tx session to demo increased scap s/s Goal Time Frame: 4-6 Weeks Goal 6:: Patient will sleep through the night with no pain Goal Time Frame: 4-6 Weeks - Rehabilitation Potential Physical Therapy Diagnosis: Patient presents with hypomobility- she has decreased ROM, strength and muscular endurance leading to poor posture and increased pain with ADL's. Rehabilitation Potential: Fair - Anticipated Interventions Patient/Client Instruction: Educate patient on: Benefits of Fitness Program Therapeutic Exercise to Include: Strength training, Endurance training, Coordination, Body mechanics, Postural training, Flexibilty training, Passive ROM, Active ROM, Scapular Strength/Stabilization For the Purpose of:: To improve muscle performance and motor function TENS: Yes Cryotherapy (ice pack, ice massage): Yes Thermo therapy (hot pack): Yes Ultrasound (thermal/non thermal): Yes Thank you for the opportunity to evaluate your patient. For Medicare and Medicare HMO plans, please review the plan of care and approve it. It will need to be FAXED BACK to us at [phone] for Medicare purposes. For Medicare only, by signing this I certify the plan of care. Please let me know if there are questions or concerns regarding this plan of care. Physician Signature: Date:
--- NOTE | 2019-05-17 08:07 | HP.PTDCNRP_ITS ---
HP - Discharge Summary (1) - Patient Information NAMRATA SAXENA was seen in my office for initial evaluation on 01/22/19. The following Plan of Care was established for this patient: Initial Frequency: 2x /Week Initial Duration: 4 Weeks - Anticipated Interventions Patient/Client Instruction: Educate patient on: Benefits of Fitness Program Therapeutic Exercise to Include: Strength training, Endurance training, Coord ination, Body mechanics, Postural training, Flexibilty training, Passive ROM, Active ROM, Scapular Strength/Stabilization For the Purpose of:: To improve muscle performance and motor function TENS: Yes Cryotherapy (ice pack, ice massage): Yes Thermo therapy (hot pack): Yes Ultrasound (thermal/non thermal): Yes This patient was last seen in our office . Pertinent comments regarding their Physical therapy will appear below: Patient has not attended physical therapy in over 8 weeks- appropriate to be discharged and return to MD as needed. At this point I will be discontinuing this patient from physical therapy. I would be happy to see this patient again in the future if found appropriate by the physician. Thank you! Leeanna Garcia DPT
== END 2019-02-12 19:00 ==
LOC: PT 12:30
PROVIDERS: Family Provider Family Medicine Geriatric Medicine; PCP Family Medicine Geriatric Medicine; Referring Provider Family Medicine Geriatric Medicine; Visit Provider Family Medicine Geriatric Medicine
DX: M75.100 Unspecified rotator cuff tear or rupture of unspecified shoulder, not specified as traumatic (principal)
CPT/HCPCS: 97035; 97110; 97161

== ENCOUNTER → 2019-02-20 14:24 | Outpatient (CLI) | payer MEDICARE, SELFPAY ==
--- NOTE | 2019-02-20 14:27 | BI_ITS ---
MAMMOGRAPHY - BILATERAL SCREENING 3-D TOMOSYNTHESIS REASON FOR EXAM: Female, 68 years old. Bilateral Screening 3-D tomosynthesis PERTINENT HISTORY: No significant family history. TECHNIQUE: 2-D mammograms and 3-D Tomosynthesis of the breast (s) were performed. CAD was performed. COMPARISON: March 17, 2014 FINDINGS: The breast composition is almost entirely fat. Scattered benign calcifications are seen. No dense spiculated masses or suspicious microcalcifications are identified. No architectural distortion is identified. There is no skin thickening or retraction. There has been no significant change since the prior study. BI/SCREENING MAMM (CAD), BILAT IMPRESSION: No mammographic signs of malignancy. Routine yearly mammograms recommended. ASSESSMENT CATEGORY: BIRADS Category 1: Negative. A letter regarding these results will be sent to the patient by the facility within 30 days. FOLLOW UP RECOMMENDATION: Yearly follow up mammogram recommended. (A) Approximately 10% of breast cancers are not detected by mammography. A normal mammogram should not delay biopsy of a clinically suspicious abnormality. Electronically Signed: Jacob Munguia MD at 16:41 EDT , Service support ,
== END ==
PROVIDERS: Family Provider Family Medicine Geriatric Medicine; PCP Family Medicine Geriatric Medicine; Referring Provider Family Medicine Geriatric Medicine; Visit Provider Family Medicine Geriatric Medicine
DX: Z12.31 Encounter for screening mammogram for malignant neoplasm of breast (principal)
CPT/HCPCS: 77063; 77067

== ENCOUNTER → 2019-03-08 11:40 | Outpatient (CLI) | payer MEDICARE, SELFPAY ==
[2019-03-05 09:04] VITALS: BMI 26.6
--- NOTE | 2019-03-08 11:47 | CT_ITS ---
PROCEDURE: CT LOWER EXTREMITY LEFT REASON FOR EXAM: Female, 68 years old. Left leg cellulitis. TECHNIQUE: Transaxial CT imaging of the left lower extremity was performed. Sagittal and coronal images were reconstructed. COMPARISON: None. FINDINGS: Normal medial femoral condyle and medial tibial plateau. There is preservation of the articular joint space of the medial knee compartment, but mild chondrocalcinosis is present. Normal lateral femoral condyle and lateral tibial plateau. There is preservation of the articular joint space of the lateral knee compartment, but mild chondrocalcinosis is present. Normal proximal tibiofibular articulation. There is cortical spurring at the patellar insertion of the quadriceps tendon.. There is no joint effusion. There is no demonstrated osseous destructive lesion or acute fracture. Course oblong calcification that may be in the joint capsule and/or synovial recess projects posterior to the medial femoral condyle. The medial head of the gastrocnemius and its insertion are otherwise unremarkable The visualized quadriceps tendon is grossly normal. The patellar tendon is grossly normal. Normal Hoffa's fat pad. 3.6 x 0.8 x 0.55 cm fluid-filled structure in the medial posterior popliteal fossa may be a small Landon's cyst. Normal anterior, lateral, and posterior calf compartments, with normal muscles, crural fascia and intermuscular septa. Normal visualized tibia and fibula, without a periosteal, cortical or cancellous marrow abnormality. The medial and lateral malleolus are not included in the [id number]. There is edematous stranding in the superficial soft tissues in the mid to distal third of the lower leg, consistent with a history of cellulitis. There is some superficial soft tissue thickening is also seen a few centimeters above the ankle joint. There is no defined collection to indicate an abscess. CT/Extremity Lower without Contra IMPRESSION: 1. Superficial soft tissue swelling in the distal third of the lower leg, consistent with a history of cellulitis. No defined abscess. No periosteal reaction or edelmira bone destruction to indicate active osteomyelitis. 2. Incidental note of chondrocalcinosis at the knee, suggesting a depositional process such as calcium pyrophosphate deposition disease (CPPD) or hemachromatosis. No joint effusion present, but gout is not excluded. 3. Very small Landon's cyst in the medial popliteal fossa. Electronically Signed: Mat Suarez MD at 12:41 EDT , Service support ,
== END ==
PROVIDERS: Family Provider Family Medicine Geriatric Medicine; PCP Family Medicine Geriatric Medicine; Referring Provider Family Medicine Geriatric Medicine; Visit Provider Family Medicine Geriatric Medicine
DX: L03.116 Cellulitis of left lower limb (principal)
CPT/HCPCS: 73700

== ENCOUNTER → 2019-04-09 11:50 | Outpatient (CLI) | payer MEDICARE, SELFPAY ==
[2019-03-05 09:04] VITALS: BMI 26.6
[2019-04-09 12:47] LABS: Absolute Lymphocyte Count 1.51 X10^3/ul (0.83-4.51); Absolute Neutrophil Count 9.1 X10^3/uL (2.0-7.7); Basophil# 0.02 X10^3/uL; Basophil% 0.2 % (0-1); Eosinophil# 0.03 X10^3/uL; Eosinophils% 0.3 % (0-5); Hematocrit 42.1 % (37-47); Hemoglobin 13.4 g/dl (12.0-15.0); Lymphocyte # 1.51 X10^3/ul (4.0); Lymphocyte % 13.4 % (19-41); Mean Corp Hgb Conc 31.8 g/gl (32-36); Mean Corpuscular Hgb 29.6 pg (27.0-32.0); Mean Corpuscular Volume 92.9 fL (81-99); Mean Platelet Vol. 9.3 fl (6.2-12.0); Monocyte# 0.68 X10^3/uL; Neutrophil # 9.05 X10^3/uL (2.7-7.7); Platelet Count 228 K/mm3 (150-450); RBC Distribution Width CV 14.8 % (11.6-14.6); RBC Distribution Width SD 49.7 fl (35.1-43.9); Red Blood Count 4.53 M/mm3 (4.2-5.4); White Blood Count 11.3 K/mm3 (4.4-11.0)
[2019-04-09 13:04] LABS: ALB/GLOB Ratio 0.9 RATIO (0.9-2.4); AST(SGOT) 21 U/L (15-37); Alanine Aminotransfer ALT/SGPT 26 U/L (13-56); Albumin, Serum 3.3 g/dL (3.2-5.0); Alkaline Phosphatase 72 U/L (45-117); Anion Gap 4 (5-15); BUN 20 mg/dL (7-18); BUN/Creat Ratio 22.5 RATIO (10-20); Calcium,Total 9.1 mg/dL (8.5-10.1); Chloride 108 mmol/L (98-107); Creatinine, Serum 0.89 mg/dL (0.55-1.02); EST Glomerular Filtration Rate 67 mL/min (>60); Est Glom Filt Rate - Afr Amer 81 mL/min (>60); Globulin 3.5 g/dL (2.2-4.2); Glucose 83 mg/dL (74-106); Potassium 4.5 mmol/L (3.5-5.1); Protein, Total 6.8 g/dL (6.4-8.2); Sodium Level 139 mmol/L (136-145)
[2019-04-09 13:12] LABS: POSITIVE COUNT NO; POSITIVE DIFFERENTIAL NO; POSITIVE MORPHOLOGY NO
--- NOTE | 2019-04-09 13:58 | CT_ITS ---
STUDY: CT ABDOMEN AND PELVIS WITH CONTRAST REASON FOR EXAM: Female, 68 years old. History of diverticulitis. RADIATION DOSAGE (If Supplied By Facility): CTDIvol = ( 15.75 ) mGy, DLP = ( 755.56 ) mGycm TECHNIQUE: Transaxial images were obtained from the dome of the diaphragm to the symphysis pubis with oral contrast. 100ML IV/Oral Isovue 300 was administered. Sagittal and coronal images were reconstructed. Individualized dose optimization techniques were used for this CT. COMPARISON: None. FINDINGS: The visualized lung bases are unremarkable. Coronary artery calcification. Normal liver. The patient is status post cholecystectomy. Normal spleen. Normal pancreas. Normal bilateral adrenal glands. Normal right kidney. Normal left kidney. Normal visualized stomach. Normal small intestine. There are multiple colonic diverticula consistent with diverticulosis. The patient is status post appendectomy. There is diffuse atherosclerotic calcification of the abdominal aorta and its major visceral branches, without a demonstrated aneurysm. Normal inferior vena cava. Normal retroperitoneum. Normal urinary bladder. There is absence of the uterus consistent with a prior hysterectomy. Normal abdominal wall. There are mild degenerative changes of the visualized lumbar spine. Evidence of a prior right hip pinning. CT/Abdomen/Pelvis WITH Contrast IMPRESSION: Sigmoid diverticulosis. Electronically Signed: Ray Bella, at 14:55 EDT , Service support ,
== END ==
PROVIDERS: Family Provider Family Medicine Geriatric Medicine; PCP Family Medicine Geriatric Medicine; Visit Provider Family Medicine Geriatric Medicine
DX: R10.9 Unspecified abdominal pain (principal); K57.32 Diverticulitis of large intestine without perforation or abscess without bleeding; R19.7 Diarrhea, unspecified
CPT/HCPCS: 36415; 74177; 80053; 82274; 83630; 85025; 87177; 87209; 87493; Q9967

== ENCOUNTER → 2019-05-27 08:54 | Outpatient (CLI) | payer MEDICARE, SELFPAY ==
[2019-05-21 13:18] VITALS: BMI 26.6
--- NOTE | 2019-05-27 09:02 | RAD_ITS ---
STUDY: X-RAY - RIGHT SHOULDER REASON FOR EXAM: Bilateral shoulder pain with worsening, no specific injury. TECHNIQUE: 4 view(s) of the shoulder. COMPARISON: Radiographs of the right humerus 11/22/2017. FINDINGS: There is osteopenia. There is a small marginal osteophyte of the humeral head without substantial joint space narrowing of the glenohumeral articulation. There is acromioclavicular arthrosis. Normal acromion. Normal humeral head and visualized proximal humerus. There is narrowing of the acromiohumeral distance. There may be mild calcific bursitis. Normal visualized pulmonary apex. RAD/Shoulder min 2 Views IMPRESSION: Narrowing of acromiohumeral distance suggestive of rotator cuff pathology. Acromioclavicular arthrosis. There may be mild calcific bursitis. Electronically Signed: Thomas Miller MD at 11:57 EDT Tel , Service support ,
--- NOTE | 2019-05-27 09:03 | RAD_ITS ---
STUDY: X-RAY - LEFT SHOULDER REASON FOR EXAM: Bilateral shoulder pain with worsening, no specific injury. TECHNIQUE: 4 view(s) of the shoulder. COMPARISON: Radiographs 08/09/2017. FINDINGS: There is osteopenia. Normal glenohumeral articulation. There is mild acromioclavicular arthrosis. Normal acromion. Normal humeral head and visualized proximal humerus. There is narrowing of the acromiohumeral distance. Normal visualized pulmonary apex. RAD/Shoulder min 2 Views IMPRESSION: Narrowing of the acromiohumeral distance suggestive of rotator cuff pathology. Mild acromioclavicular arthrosis. Electronically Signed: Thomas Miller MD at 11:57 EDT Tel , Service support ,
== END ==
PROVIDERS: Family Provider Family Medicine Geriatric Medicine; PCP Internal Medicine; Referring Provider Internal Medicine; Visit Provider Internal Medicine
DX: M25.511 Pain in right shoulder (principal); M25.512 Pain in left shoulder
CPT/HCPCS: 73030

== ENCOUNTER 2019-06-27 13:00 | Outpatient (RCR) | payer MEDICARE, SELFPAY ==
[2019-06-18 15:12] VITALS: BMI 27.3
--- NOTE | 2019-06-20 13:16 | HP.PCM_ITS ---
(1) Ulcer of left lower extremity with fat layer exposed Status: Acute Current Visit: Yes Code(s): L97.922 - Non-pressure chronic ulcer of unspecified part of left lower leg with fat layer exposed (2) Lower extremity edema Status: Acute Current Visit: Yes Code(s): R60.0 - Localized edema (3) Delayed wound healing Status: Acute Current Visit: Yes Code(s): T14.8XXD - Other injury of unspecified body region, subsequent encounter (4) Depression Status: Chronic Current Visit: No Code(s): F32.9 - Major depressive disorder, single episode, unspecified (5) GERD (gastroesophageal reflux disease) Status: Chronic Current Visit: No Code(s): K21.9 - Gastro-esophageal reflux disease without esophagitis (6) Hyperlipidemia Status: Chronic Current Visit: No Code(s): E78.5 - Hyperlipidemia, unspecified (7) Hypertension Status: Chronic Current Visit: No Code(s): I10 - Essential (primary) hypertension History of Present Illness Date of Service: 06/20/19 Chief Complaint: left lower leg ulcer s/p skin tear nonhealing History of Wound: 68 F who presents to the office today for an acute visit of worsening infection around her skin tear to her left lower extremity. She has a past medical history as listed above. The patient states that the skin tear to her left lower extremity initially started approximately 14 days ago after her dog had jumped up on her leg and caused the site to open up. She went to the urgent care and was placed on Keflex. The patient states that shortly after she finished the Keflex, the area surrounding the skin tear had become more warm, tender, and red. She has been utilizing [id number] Neosporin. She denies any systemic signs of infection. She does note occasional yellow to brown discharge. She was seen by her pcp and antibiotic was changed to doxycycline. Denies any other aggravating or relieving factors. The patient otherwise denies any fever, chills, nausea, vomiting, shortness of breath, chest pain or pressure, palpitations, orthopnea, lower extremity edema, syncope or presyncopal episodes. Past Medical History Past Medical History: Chronic Problems (Last Reviewed 06/18/19 @ 15:12 by Radha Reynaga) Bilateral shoulder pain (Chronic) Irritable bowel syndrome with diarrhea (Chronic) Vitamin D deficiency (Chronic) Depression (Chronic) GERD (gastroesophageal reflux disease) (Chronic) Hyperlipidemia (Chronic) Hypertension (Chronic) Insomnia (Chronic) Hypersomnia (Chronic) Internal hemorrhoid (Chronic) Overweight (Chronic) Stage 3 severe COPD by GOLD classification (Chronic) Allergies/Adverse Reactions: Allergies No Known Allergies Allergy (Verified 06/18/19 15:11) Home Medications: Ambulatory Orders Medication Instructions Recorded Omeprazole [Prilosec] 20 mg PO DAILY 01/04/17 Atorvastatin Calcium 40 mg PO QHS 08/04/18 acetaminophen 500 mg tablet 500 mg PO Q6H 06/07/19 ramipril 5 mg capsule 5 mg PO DAILY 06/07/19 rivaroxaban 15 mg tablet 15 mg PO DAILY 06/07/19 albuterol sulfate 2.5 mg/3 mL 2.5 mg INHALATION Q4H PRN #180 ml 06/14/19 (0.083 %) solution for nebulization albuterol sulfate HFA 90 2 puff INHALATION Q4H PRN #18 g 06/14/19 mcg/actuation aerosol inhaler budesonide-formoterol HFA 160 2 puff INHALATION BID #1 ea 06/14/19 mcg-4.5 mcg/actuation aerosol inhaler umeclidinium 62.5 mcg/actuation 1 inh INHALATION QDAY #30 ea 06/14/19 blister powder for inhalation doxycycline hyclate 100 mg tablet 100 mg PO BID #14 tab 06/18/19 Rivaroxaban [Xarelto] 15 mg PO DAILY 06/20/19 Smoking Status: Former smoker Review of Systems Constitutional: Denies: Chills, Fever, Weight Change Eyes: Denies: Pain, Vision Change HEENT: Denies: Difficulty Hearing, Difficulty Swallowing, Sinus Congestion Cardiovascular: Denies: Chest Pain, Palpitations Respiratory: Denies: Cough, Shortness of Breath Gastrointestinal: Denies: Diarrhea, Nausea, Vomiting Genitourinary: Denies: Dysuria, Hematuria Skin: Reports: Wounds - see HPI Endocrine: Denies: Heat/ Cold Intolerance, Polydipsia, Polyuria Hematologic/ Lymphatic: Denies: Easy Bruising, Easy Bleeding - Physical Exam General: Alert, Oriented x3, Cooperative, No apparent distress HEENT: PERRLA, EOMI Neck: Supple, No JVD, Negative Carotid Bruits Lungs: Clear to auscultation Cardiovascular: Regular rate, Regular Rhythm Abdomen: Soft, Non Tender Extremities: Capillary Refill Less than 3 Seconds, Edema - generalized BLLE edema Skin: Ulcer/ Wound - Nonhealing ulcer to left lower extremity with adherant slough, less redness resolving in the margins, no streaking, or warmth present, 3 x 1.5 x .2 Neurological: Neuro grossly intact Psych/Mental Status: Normal Affect, Appropriate, Alert and oriented to time, place, person, mood and affect Debridement Note Wound debrided: Nonhealing ulcer left lower extremity Laterality: Left Type of Debridement: Excisional debridement Anesthesia Used: 5% Lidocaine Gel Depth: in the subcutaneous layer Percentage of wound debrided: 100 Instrument Used: 5mm curette Tissue Removed: slough and devitalized tissue Severity: Fat Layer Exposed Amount of bleeding with debridement: Mild Bleeding Controlled with: Pressure Patient tolerated procedure well Assessment/Plan Active Problems (Last Reviewed 06/18/19 @ 15:12 by Radha Reynaga) Ulcer of left lower extremity with fat layer exposed (Acute) Lower extremity edema (Acute) Delayed wound healing (Acute) Assessment: Ulcer to left anterior lateral lower leg. Pain left lower leg Plan: The patient was seen and examined at the wound center today and was updated on the plan of care. A subcutaneous debridement was performed today. The patient tolerated the procedure well. The patients wound care will consist of: Application of moistened Cherry cover with gauze and tape change daily and double layer Tubigrip for compression. Wound cultures were collected. Baseline bloodwork held at this time. Vascular studies held at this time. Due to delayed wound healing now 14 days, will apply for the use of an advanced skin substitute. Patient educated on the importance of diet on wound healing and instructed to increase protein and vitamin C intake. Patient verbalized understanding. Patient will follow up at wound healing center in one week or sooner if needed. This note was generated with [employer] dictation software. It may contain incorrect words, spelling, and punctuation that were not noted in checking the note before signing. Code Visit Office Visits / Consults: [id number] OV L3 Est 111xxx-113xx: [id number] Vaishali subq tissue 20 sq cm/<
[2019-06-20 13:18] VITALS: BP 157/96; PULSE 82; RESP 16; TEMP 36.9; BMI 26.1
[2019-06-27 13:10] VITALS: BP 153/69; PULSE 80; RESP 18; TEMP 36.6; BMI 26.1
--- NOTE | 2019-06-27 14:40 | PCM.WC.PN ---
(1) Ulcer of left lower extremity with fat layer exposed Status: Acute Current Visit: Yes Code(s): L97.922 - Non-pressure chronic ulcer of unspecified part of left lower leg with fat layer exposed (2) Lower extremity edema Status: Acute Current Visit: Yes Code(s): R60.0 - Localized edema (3) Delayed wound healing Status: Acute Current Visit: Yes Code(s): T14.8XXD - Other injury of unspecified body region, subsequent encounter (4) Depression Status: Chronic Current Visit: No Code(s): F32.9 - Major depressive disorder, single episode, unspecified (5) GERD (gastroesophageal reflux disease) Status: Chronic Current Visit: No Code(s): K21.9 - Gastro-esophageal reflux disease without esophagitis (6) Hyperlipidemia Status: Chronic Current Visit: No Code(s): E78.5 - Hyperlipidemia, unspecified (7) Hypertension Status: Chronic Current Visit: No Code(s): I10 - Essential (primary) hypertension Type of Wound Date of Service: 06/27/19 Chief Complaint: left lower leg ulcer s/p skin tear nonhealing History of Wound: 68 F who presents to the office today for a wound center visit of worsening infection around her skin tear to her left lower extremity. She has a past medical history as listed above. The patient states that the skin tear to her left lower extremity initially started approximately 14 days ago after her dog had jumped up on her leg and caused the site to open up. She went to the urgent care and was placed on Keflex. The patient states that shortly after she finished the Keflex, the area surrounding the skin tear had become more warm, tender, and red. She has been utilizing [id number] Neosporin. She denies any systemic signs of infection. She does note occasional yellow to brown discharge. She was seen by her pcp and antibiotic was changed to doxycycline. Denies any other aggravating or relieving factors. The patient otherwise denies any fever, chills, nausea, vomiting, shortness of breath, chest pain or pressure, palpitations, orthopnea, lower extremity edema, syncope or presyncopal episodes. Progress of Wound: Wound is stable, beefy red without any signs of infection at this time. She denies any increasing purulent drainage, odor, or pain. - Physical Exam Vital Signs Temp Pulse Resp BP 98 F 80 18 153/69 H 06/27/19 13:10 06/27/19 13:10 06/27/19 13:10 06/27/19 13:10 General: Alert, Oriented x3, Cooperative, No apparent distress HEENT: Atraumatic Oral: Moist Mucosa Neck: Supple Lungs: Clear to auscultation Cardiovascular: Regular rate Abdomen: Soft, Non Tender Extremities: No clubbing, No cyanosis, No edema Skin: Ulcer/ Wound - Ulceration to left lower extremity with adherent slough, no signs of infection at this time, no redness, streaking, or odor Wound Measurements and Assessment WC - Nurse 1 - General Ulcer Measurement Start: 06/20/19 13:17 Freq: Status: Active Protocol: Activity Type Activity Date Activity User E-Sign Co-Sign Detail Recorded Client Recorded Date Recorded By Document 06/27/19 13:10 RB [id number] 06/27/19 13:11 RB 06/27/19 13:10 Wound Center Nurse 1 [Ulcer Assessment] #2 L medial smith -Combined with other wound No -Current Size (cm) - Length 1.7 -Current Size (cm) - Width 1 -Current Size (cm) - Depth 0.1 -Total Square Cm 1.7 -Tunneling No -Undermining/Tunneling No -Circular Undermining No -Exudate Amt Small -Exudate Type Serosanguineous -Wound Margin Distinct, Outline Attached -Granulation Amt Medium (34-66%) -Granulation Quality [place],Red -Slough/Fibrin Yes -Necrosis Amt Small (1-33%) -Necrotic Tissue Type Adherent Slough -Structure Exposed N/A -Texture (Yumiko-wound Skin Appearance) Assessed -Moisture (Yumiko-wound Skin Appearance Assessed ) -Color (Yumiko-wound Skin Appearance) Assessed -Temperature (Yumiko-wound Skin No Abnormality Appearance) (Pt Warm) -Tenderness on Palpation (Yumiko-wound No Skin Appearance) -Ulcer Cleansing Wound Cleanser -Foul Odor after Cleansing No -Anesthetic Used 5% Lidocaine Gel [Edema Assessment] -Lower Limb Edema Present Yes -Left Calf (cm) 34 -Left Ankle (cm) 18 WC - Nurse 2 - General Ulcer CM Notes Start: 06/20/19 13:17 Freq: Status: Active Protocol: Activity Type Activity Date Activity User E-Sign Co-Sign Detail Recorded Client Recorded Date Recorded By Document 06/27/19 13:18 MW [id number] 06/27/19 13:23 MW 06/27/19 13:18 Wound Center Nurse 2 [Procedure/Treatment] #2 L medial smith -Time 13:18 -Correct Patient Yes -Correct Side, Site, Position Yes -Correct Procedure Yes -Procedure Performed Yes -Type of Procedure Debridement -Clinical Debridement Subcutaneous -Post Debridement Size (cm) - Length 2.2 -Post Debridement Size (cm) - Width 1.3 -Post Debridement Size (cm) - Depth 0.1 -Total Square Cm 2.86 -Wound/Ulcer Outcome Not Healed -Ulcer Cleansing Rinsed/ Irrigated with Saline -Foul Odor after Cleansing No -Bioengineered Tissue No -Type of bioengineered Tissue NU-SHIELD -Expiration Date 04/07/24 -Product Lot Number [id number] -Percent Used 100 -Saline Lot Number [id number] -Bleeding Controlled with Pressure -Other DONOR # [id number] -Offloading No -Treatment Response Procedure Tolerated Well [See Physician Procedure note for Specifics] Pain Scale: 0-10 Numeric [Pain] -Is Patient Pain Free? Yes Neurological: Neuro grossly intact Psych/Mental Status: Normal Affect, Appropriate, Alert and oriented to time, place, person, mood and affect Debridement Note Post-Debridement Measurements/Treatment WC - Nurse 2 - General Ulcer CM Notes Start: 06/20/19 13:17 Freq: Status: Active Protocol: Activity Type Activity Date Activity User E-Sign Co-Sign Detail Recorded Client Recorded Date Recorded By Document 06/20/19 13:41 MW [id number] 06/20/19 13:48 MW Document 06/27/19 13:18 MW [id number] 06/27/19 13:23 MW 06/20/19 06/27/19 13:41 13:18 Wound Center Nurse 2 #2 L medial smith -Time 13:41 13:18 -Correct Patient Yes Yes -Correct Side, Site, Position Yes Yes -Correct Procedure Yes Yes -Procedure Performed Yes Yes -Type of Procedure Debridement Debridement -Clinical Debridement Subcutaneous Subcutaneous -Post Debridement Size (cm) - Length 3.0 2.2 -Post Debridement Size (cm) - Width 1.5 1.3 -Post Debridement Size (cm) - Depth 0.2 0.1 -Total Square Cm 4.50 2.86 -Wound/Ulcer Outcome Not Healed Not Healed -Ulcer Cleansing Rinsed/ Rinsed/ Irrigated with Irrigated with Saline Saline -Foul Odor after Cleansing No No -Bioengineered Tissue No No -Type of bioengineered Tissue NU-SHIELD -Expiration Date 04/07/24 -Product Lot Number [id number] -Percent Used 100 -Saline Lot Number [id number] -Bleeding Controlled with Pressure Pressure -Other DONOR # [id number] -Offloading No No -Treatment Response Procedure Procedure Tolerated Well Tolerated Well Pain Scale: 0-10 Numeric Is Patient Pain Free? Yes Yes Wound debrided: Left lower extremity ulcer Laterality: Left Type of Debridement: Excisional debridement Anesthesia Used: 5% Lidocaine Gel Depth: in the subcutaneous layer Percentage of wound debrided: 100 Instrument Used: 7mm curette Tissue Removed: Slough and devitalized tissue Severity: Fat Layer Exposed Amount of bleeding with debridement: Mild Bleeding Controlled with: Pressure Patient tolerated procedure well Assessment/Plan Active Problems (Last Reviewed 06/18/19 @ 15:12 by Radha Reynaga) Ulcer of left lower extremity with fat layer exposed (Acute) Lower extremity edema (Acute) Delayed wound healing (Acute) Assessment: Ulcer to left anterior lateral lower leg. Pain left lower leg Plan: The patient was seen and examined at the wound center today and was updated on the plan of care. A subcutaneous debridement was performed today. The patient tolerated the procedure well. The patients wound care will consist of: Application of nushield #1 was utilized and secured with wound veil and Steri-Strips, 100% was utilized with no waste and double layer Tubigrip for compression. Wound cultures were collected. Baseline bloodwork held at this time. Vascular studies held at this time. Due to delayed wound healing, will apply for the use of an advanced skin substitute. Patient educated on the importance of diet on wound healing and instructed to increase protein and vitamin C intake. Patient verbalized understanding. Patient will follow up at wound healing center in one week or sooner if needed. This note was generated with [employer] software. It may contain incorrect words, spelling, and punctuation that were not noted in checking the note before signing. Code Visit 150xxx-152xx: 93102 Skin sub graft trnk/arm/leg
== END 2019-06-29 23:59 ==
LOC: WC 13:00
PROVIDERS: Family Provider Internal Medicine; PCP Internal Medicine; Referring Provider Nurse Practitioner Family; Visit Provider Nurse Practitioner Family
DX: S81.812A Laceration without foreign body, left lower leg, initial encounter (principal); W54.1XXA Struck by dog, initial encounter; I10 Essential (primary) hypertension; E78.5 Hyperlipidemia, unspecified; K21.9 Gastro-esophageal reflux disease without esophagitis; R60.0 Localized edema; J44.9 Chronic obstructive pulmonary disease, unspecified; K58.9 Irritable bowel syndrome, unspecified; Z87.891 Personal history of nicotine dependence
CPT/HCPCS: 11042; 15271; 87070; 87075; 87205; 99213; Q4160; G0463

== ENCOUNTER → 2019-07-23 12:16 | Outpatient (CLI) | payer MEDICARE, SELFPAY ==
[2019-07-18 14:19] VITALS: BMI 26.1
--- NOTE | 2019-07-23 12:19 | RAD_ITS ---
STUDY: X-RAY - LUMBAR SPINE REASON FOR EXAM: Female, 69 years old. Increasing low back pain after surgery TECHNIQUE: 3 view(s) of the lumbar spine were obtained. COMPARISON: 01/09/2017 FINDINGS: Normal lumbar lordosis. There is no substantial scoliosis. There is a normal alignment of the vertebrae. There is diffuse demineralization with multi-level endplate spondylosis. There is multi-level degenerative disc disease with multi-level disc space narrowing, findings most pronounced at L4-5. There is no demonstrated fracture. There is atherosclerotic calcification of the abdominal aorta without a demonstrated aneurysm. RAD/Lumbar Spine 2 or 3 Views IMPRESSION: Degenerative changes of the spine, as detailed above. Electronically Signed: Mat Issa MD at 13:41 EDT , Service support ,
== END ==
PROVIDERS: Family Provider Internal Medicine; PCP Internal Medicine; Referring Provider Anesthesiology Pain Medicine; Visit Provider Anesthesiology Pain Medicine
DX: M54.9 Dorsalgia, unspecified (principal)
CPT/HCPCS: 72100

== ENCOUNTER 2019-07-25 13:30 | Outpatient (RCR) | payer MEDICARE, SELFPAY ==
[2019-06-30 01:15] VITALS: BP 153/69; PULSE 80; RESP 18; TEMP 36.6
[2019-07-04 13:13] VITALS: BP 167/72; PULSE 82; RESP 18; TEMP 37.2; BMI 26.1
--- NOTE | 2019-07-04 19:59 | PN.PCM_ITS ---
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 (2) Delayed wound healing Status: Acute Code(s): T14.8XXD - Other injury of unspecified body region, subsequent encounter (3) Lower extremity edema Status: Acute Code(s): R60.0 - Localized edema (4) Skin tear of left lower leg without complication Status: Acute Qualifiers: Code(s): S81.812A - Laceration without foreign body, left lower leg, initial encounter Type of Wound Date of Service: 07/04/19 Chief Complaint: left lower leg ulcer s/p skin tear nonhealing History of Wound: 68 F who presents to the office today for a wound center visit of worsening infection around her skin tear to her left lower extremity. She has a past medical history as listed above. The patient states that the skin tear to her left lower extremity initially started approximately 14 days ago after her dog had jumped up on her leg and caused the site to open up. She went to the urgent care and was placed on Keflex. The patient states that shortly after she finished the Keflex, the area surrounding the skin tear had become more warm, tender, and red. She has been utilizing [id number] Neosporin. She denies any systemic signs of infection. She does note occasional yellow to brown discharge. She was seen by her pcp and antibiotic was changed to doxycycline. Denies any other aggravating or relieving factors. The patient otherwise denies any fever, chills, nausea, vomiting, shortness of breath, chest pain or pressure, palpitations, orthopnea, lower extremity edema, syncope or presyncopal episodes. Progress of Wound: Ulceration is improved, beefy red without any signs of infection at this time. Did well with nushield, She denies any increasing purulent drainage, odor, or pain. - Physical Exam Vital Signs Temp Pulse Resp BP 98.9 F 82 18 167/72 H 07/04/19 13:13 07/04/19 13:13 07/04/19 13:13 07/04/19 13:13 General: Alert, Oriented x3, Cooperative, No apparent distress HEENT: Atraumatic Oral: Moist Mucosa Neck: Supple Lungs: Clear to auscultation Cardiovascular: Regular rate Abdomen: Soft, Non Tender Extremities: No clubbing, No cyanosis, Edema - Normalized bilateral lower extremity edema Skin: Ulcer/ Wound - See nursing documentation, slough noted to left lower extremity ulceration no signs of infection at this time Neurological: Neuro grossly intact Psych/Mental Status: Normal Affect, Appropriate, Alert and oriented to time, place, person, mood and affect Debridement Note Post-Debridement Measurements/Treatment WC - Nurse 2 - General Ulcer CM Notes Start: 07/04/19 13:13 Freq: Status: Active Protocol: Activity Type Activity Date Activity User E-Sign Co-Sign Detail Recorded Client Recorded Date Recorded By Document 07/04/19 13:51 AN [id number] 07/04/19 13:53 AN 07/04/19 13:51 Wound Center Nurse 2 #2 L medial smith -Time 13:51 -Correct Patient Yes -Correct Side, Site, Position Yes -Correct Procedure Yes -Procedure Performed Yes -Type of Procedure Debridement -Clinical Debridement Subcutaneous -Post Debridement Size (cm) - Length 1.7 -Post Debridement Size (cm) - Width 0.9 -Post Debridement Size (cm) - Depth 0.1 -Total Square Cm 1.53 -Wound/Ulcer Outcome Not Healed -Ulcer Cleansing Rinsed/ Irrigated with Saline -Foul Odor after Cleansing No -Bioengineered Tissue Yes -Type of bioengineered Tissue NU-SHIELD -Bleeding Controlled with Pressure -Offloading No -Treatment Response Procedure Tolerated Well Pain Scale: 0-10 Numeric Is Patient Pain Free? Yes Wound debrided: Left lower extremity ulceration Laterality: Left Type of Debridement: Excisional debridement Anesthesia Used: 5% Lidocaine Gel Depth: in the subcutaneous layer Percentage of wound debrided: 100 Instrument Used: 7mm curette Tissue Removed: Slough and devitalized tissue Severity: Fat Layer Exposed Amount of bleeding with debridement: Mild Bleeding Controlled with: Pressure Patient tolerated procedure well Assessment/Plan Assessment: Ulcer to left anterior lateral lower leg. Pain left lower leg Plan: The patient was seen and examined at the wound center today and was updated on the plan of care. A subcutaneous debridement was performed today. The patient tolerated the procedure well. The patients wound care will consist of: Application of nushield #2 was utilized and secured with adaptic tough and Steri-Strips, 100% was utilized with no waste and double layer Tubigrip for compression. Wound cultures were collected. Baseline bloodwork held at this time. Vascular studies held at this time. Due to delayed wound healing, will apply for the use of an advanced skin substitute. Patient educated on the importance of diet on wound healing and instructed to increase protein and vitamin C intake. Patient verbalized understanding. Patient will follow up at wound healing center in one week or sooner if needed. This note was generated with [employer] dictation software. It may contain incorrect words, spelling, and punctuation that were not noted in checking the note before signing. Code Visit 150xxx-152xx: 92006 Skin sub graft trnk/arm/leg
[2019-07-11 13:20] VITALS: BP 156/94; PULSE 80; RESP 18; TEMP 36.3; BMI 26.1
--- NOTE | 2019-07-11 19:31 | PN.PCM_ITS ---
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 (2) Delayed wound healing Status: Acute Code(s): T14.8XXD - Other injury of unspecified body region, subsequent encounter (3) Lower extremity edema Status: Acute Code(s): R60.0 - Localized edema (4) Skin tear of left lower leg without complication Status: Acute Qualifiers: Code(s): S81.812A - Laceration without foreign body, left lower leg, initial encounter Type of Wound Date of Service: 07/11/19 Chief Complaint: left lower leg ulcer s/p skin tear nonhealing History of Wound: 68 F who presents to the office today for a wound center visit of worsening infection around her skin tear to her left lower extremity. She has a past medical history as listed above. The patient states that the skin tear to her left lower extremity initially started approximately 14 days ago after her dog had jumped up on her leg and caused the site to open up. She went to the urgent care and was placed on Keflex. The patient states that shortly after she finished the Keflex, the area surrounding the skin tear had become more warm, tender, and red. She has been utilizing [id number] Neosporin. She denies any systemic signs of infection. She does note occasional yellow to brown discharge. She was seen by her pcp and antibiotic was changed to doxycycline. Denies any other aggravating or relieving factors. The patient otherwise denies any fever, chills, nausea, vomiting, shortness of breath, chest pain or pressure, palpitations, orthopnea, lower extremity edema, syncope or presyncopal episodes. Progress of Wound: Ulceration is stable, beefy red without any signs of infection at this time. Did well with nuield, She denies any increasing purulent drainage, odor, or pain. - Physical Exam Vital Signs Temp Pulse Resp BP 97.4 F L 80 18 156/94 H 07/11/19 13:20 07/11/19 13:20 07/11/19 13:20 07/11/19 13:20 General: Alert, Oriented x3, Cooperative, No apparent distress HEENT: Atraumatic Oral: Moist Mucosa Lungs: Clear to auscultation Cardiovascular: Regular rate Abdomen: Soft, Non Tender Extremities: No clubbing, No cyanosis, Edema - Generalized bilateral lower extremity edema Skin: Ulcer/ Wound - Ulceration to left lower extremity with adherent slough, no signs of infection at this time Neurological: Neuro grossly intact Psych/Mental Status: Normal Affect, Appropriate, Alert and oriented to time, place, person, mood and affect Debridement Note Post-Debridement Measurements/Treatment WC - Nurse 2 - General Ulcer CM Notes Start: 07/04/19 13:13 Freq: Status: Active Protocol: Activity Type Activity Date Activity User E-Sign Co-Sign Detail Recorded Client Recorded Date Recorded By Document 07/04/19 13:51 AN [id number] 07/04/19 13:53 AN Document 07/11/19 14:01 AN [id number] 07/11/19 14:02 AN 07/04/19 07/11/19 13:51 14:01 Wound Center Nurse 2 #2 L medial smith -Time 13:51 14:01 -Correct Patient Yes Yes -Correct Side, Site, Position Yes Yes -Correct Procedure Yes Yes -Procedure Performed Yes Yes -Type of Procedure Debridement Debridement -Clinical Debridement Subcutaneous Subcutaneous -Post Debridement Size (cm) - Length 1.7 1.7 -Post Debridement Size (cm) - Width 0.9 0.9 -Post Debridement Size (cm) - Depth 0.1 0.1 -Total Square Cm 1.53 1.53 -Wound/Ulcer Outcome Not Healed Not Healed -Ulcer Cleansing Rinsed/ Irrigated with Saline -Foul Odor after Cleansing No -Bioengineered Tissue Yes -Type of bioengineered Tissue NU-SHIELD NU-SHIELD -Bleeding Controlled with Pressure -Offloading No -Treatment Response Procedure Tolerated Well Pain Scale: 0-10 Numeric Is Patient Pain Free? Yes Wound debrided: Left lower extremity ulcer Laterality: Left Type of Debridement: Excisional debridement Anesthesia Used: 5% Lidocaine Gel Depth: in the subcutaneous layer Percentage of wound debrided: 100 Instrument Used: 7mm curette Tissue Removed: Slough and devitalized tissue Severity: Fat Layer Exposed Amount of bleeding with debridement: Mild Bleeding Controlled with: Pressure Patient tolerated procedure well Assessment/Plan Assessment: Ulcer to left anterior lateral lower leg. Pain left lower leg Plan: The patient was seen and examined at the wound center today and was updated on the plan of care. A subcutaneous debridement was performed today. The patient tolerated the procedure well. The patients wound care will consist of: Application of nushield #3 was utilized and secured with adaptic touch and Steri-Strips, 100% was utilized with no waste and double layer Tubigrip for compression. Wound cultures were collected. Baseline bloodwork held at this time. Vascular studies held at this time. Due to delayed wound healing, will apply for the use of an advanced skin substitute. Patient educated on the importance of diet on wound healing and instructed to increase protein and vitamin C intake. Patient verbalized understanding. Patient will follow up at wound healing center in one week or sooner if needed. This note was generated with [employer] dictation software. It may contain incorrect words, spelling, and punctuation that were not noted in checking the note before signing. Code Visit 150xxx-152xx: [id number] Skin sub graft trnk/arm/leg
[2019-07-18 14:19] VITALS: BP 154/92; PULSE 91; RESP 18; TEMP 35; BMI 26.1
--- NOTE | 2019-07-18 16:33 | PCM.WC.PN ---
(1) Ulcer of left lower extremity with fat layer exposed Status: Acute Current Visit: Yes Code(s): L97.922 - Non-pressure chronic ulcer of unspecified part of left lower leg with fat layer exposed (2) Delayed wound healing Status: Acute Current Visit: Yes Code(s): T14.8XXD - Other injury of unspecified body region, subsequent encounter (3) Lower extremity edema Status: Acute Current Visit: Yes Code(s): R60.0 - Localized edema (4) Skin tear of left lower leg without complication Status: Acute Current Visit: Yes Qualifiers: Code(s): S81.812A - Laceration without foreign body, left lower leg, initial encounter Type of Wound Date of Service: 07/18/19 Chief Complaint: left lower leg ulcer s/p skin tear nonhealing History of Wound: 68 F who presents to the office today for a wound center visit of worsening infection around her skin tear to her left lower extremity. She has a past medical history as listed above. The patient states that the skin tear to her left lower extremity initially started approximately 14 days ago after her dog had jumped up on her leg and caused the site to open up. She went to the urgent care and was placed on Keflex. The patient states that shortly after she finished the Keflex, the area surrounding the skin tear had become more warm, tender, and red. She has been utilizing [id number]-vegyevo Neosporin. She denies any systemic signs of infection. She does note occasional yellow to brown discharge. She was seen by her pcp and antibiotic was changed to doxycycline. Denies any other aggravating or relieving factors. The patient otherwise denies any fever, chills, nausea, vomiting, shortness of breath, chest pain or pressure, palpitations, orthopnea, lower extremity edema, syncope or presyncopal episodes. Progress of Wound: Ulceration is improved, beefy red without any signs of infection at this time. Did well with nushield, She denies any increasing purulent drainage, odor, or pain. - Physical Exam Vital Signs Temp Pulse Resp BP 95 F L 91 18 154/92 H 07/18/19 14:19 07/18/19 14:19 07/18/19 14:19 07/18/19 14:19 General: Alert, Oriented x3, Cooperative, No apparent distress HEENT: Atraumatic Oral: Moist Mucosa Lungs: Clear to auscultation Cardiovascular: Regular rate Abdomen: Soft, Non Tender Extremities: No clubbing, No cyanosis, No edema Skin: Ulcer/ Wound - Ulceration to left medial lower extremity with adherent slough, no signs of infection at this time Wound Measurements and Assessment WC - Nurse 1 - General Ulcer Measurement Start: 07/04/19 13:13 Freq: Status: Active Protocol: Activity Type Activity Date Activity User E-Sign Co-Sign Detail Recorded Client Recorded Date Recorded By Document 07/18/19 14:19 [facility] [id number] 07/18/19 14:24 [facility] 07/18/19 14:19 Wound Center Nurse 1 [Ulcer Assessment] #2 L medial smith -Combined with other wound No -Current Size (cm) - Length 1.6 -Current Size (cm) - Width 0.3 -Current Size (cm) - Depth 0.1 -Total Square Cm 0.48 -Photo Taken No -Epithelialization None Present -Tunneling No -Undermining/Tunneling No -Circular Undermining No -Exudate Amt None Present -Wound Margin Distinct, Outline Attached -Granulation Amt None Present (0 %) -Slough/Fibrin Yes -Necrosis Amt Large (67-100%) -Necrotic Tissue Type Eschar -Texture (Yumiko-wound Skin Appearance) Assessed, Scarring -Moisture (Yumiko-wound Skin Appearance Assessed,Dry/ ) Scaly -Color (Yumiko-wound Skin Appearance) Assessed -Temperature (Yumiko-wound Skin No Abnormality Appearance) (Pt Warm) -Tenderness on Palpation (Yumiko-wound No Skin Appearance) -Ulcer Cleansing SOAP AND WATER -Foul Odor after Cleansing No -Anesthetic Used 5% Lidocaine Gel [Edema Assessment] -Lower Limb Edema Present Yes -Left Calf (cm) 34 -Left Ankle (cm) 18.5 WC - Nurse 2 - General Ulcer CM Notes Start: 07/04/19 13:13 Freq: Status: Active Protocol: Activity Type Activity Date Activity User E-Sign Co-Sign Detail Recorded Client Recorded Date Recorded By Document 07/18/19 14:41 AN [id number] 07/18/19 14:43 AN 07/18/19 14:41 Wound Center Nurse 2 [Procedure/Treatment] #2 L medial smith -Time 14:41 -Correct Patient Yes -Correct Side, Site, Position Yes -Correct Procedure Yes -Procedure Performed Yes -Type of Procedure Debridement -Clinical Debridement Subcutaneous -Post Debridement Size (cm) - Length 1.0 -Post Debridement Size (cm) - Width 0.5 -Post Debridement Size (cm) - Depth 0.1 -Total Square Cm 0.50 -Wound/Ulcer Outcome Not Healed -Ulcer Cleansing Rinsed/ Irrigated with Saline -Bioengineered Tissue Yes -Type of bioengineered Tissue [id number] -Bleeding Controlled with Pressure -Offloading No -Treatment Response Procedure Tolerated Well [See Physician Procedure note for Specifics] Pain Scale: 0-10 Numeric [Pain] -Is Patient Pain Free? Yes Musculoskeletal: No Muscle Wasting Neurological: Neuro grossly intact Psych/Mental Status: Normal Affect, Appropriate, Alert and oriented to time, place, person, mood and affect Debridement Note Post-Debridement Measurements/Treatment WC - Nurse 2 - General Ulcer CM Notes Start: 07/04/19 13:13 Freq: Status: Active Protocol: Activity Type Activity Date Activity User E-Sign Co-Sign Detail Recorded Client Recorded Date Recorded By Document 07/04/19 13:51 AN [id number] 07/04/19 13:53 AN Document 07/11/19 14:01 AN [id number] 07/11/19 14:02 AN Document 07/18/19 14:41 AN [id number] 07/18/19 14:43 AN 07/04/19 07/11/19 07/18/19 13:51 14:01 14:41 Wound Center Nurse 2 #2 L medial smith -Time 13:51 14:01 14:41 -Correct Patient Yes Yes Yes -Correct Side, Site, Position Yes Yes Yes -Correct Procedure Yes Yes Yes -Procedure Performed Yes Yes Yes -Type of Procedure Debridement Debridement Debridement -Clinical Debridement Subcutaneous Subcutaneous Subcutaneous -Post Debridement Size (cm) - Length 1.7 1.7 1.0 -Post Debridement Size (cm) - Width 0.9 0.9 0.5 -Post Debridement Size (cm) - Depth 0.1 0.1 0.1 -Total Square Cm 1.53 1.53 0.50 -Wound/Ulcer Outcome Not Healed Not Healed Not Healed -Ulcer Cleansing Rinsed/ Rinsed/ Irrigated with Irrigated with Saline Saline -Foul Odor after Cleansing No -Bioengineered Tissue Yes Yes -Type of bioengineered Tissue NU-SHIELD NU-SHIELD [id number] -Bleeding Controlled with Pressure Pressure -Offloading No No -Treatment Response Procedure Procedure Tolerated Well Tolerated Well Pain Scale: 0-10 Numeric Is Patient Pain Free? Yes Yes Wound debrided: Left lower extremity ulceration Laterality: Left Anesthesia Used: 5% Lidocaine Gel Depth: in the subcutaneous layer Percentage of wound debrided: 100 Instrument Used: 7mm curette Tissue Removed: slough and Devitalized tissue Severity: Fat Layer Exposed Amount of bleeding with debridement: Mild Bleeding Controlled with: Pressure Patient tolerated procedure well Assessment/Plan Active Problems (Last Reviewed 06/18/19 @ 15:12 by Radha Reynaga) Skin tear of left lower leg without complication (Acute) Ulcer of left lower extremity with fat layer exposed (Acute) Lower extremity edema (Acute) Delayed wound healing (Acute) Assessment: Ulcer to left anterior lateral lower leg. Pain left lower leg Plan: The patient was seen and examined at the wound center today and was updated on the plan of care. A subcutaneous debridement was performed today. The patient tolerated the procedure well. The patients wound care will consist of: Application of nushield #4 was utilized and secured with adaptic touch and Steri-Strips, 100% was utilized with no waste and double layer Tubigrip for compression. Wound cultures were collected. Baseline bloodwork held at this time. Vascular studies held at this time. Due to delayed wound healing, will apply for the use of an advanced skin substitute. Patient educated on the importance of diet on wound healing and instructed to increase protein and vitamin C intake. Patient verbalized understanding. Patient will follow up at wound healing center in one week or sooner if needed. This note was generated with [employer] software. It may contain incorrect words, spelling, and punctuation that were not noted in checking the note before signing. Code Visit 150xxx-152xx: 21891 Skin sub graft trnk/arm/leg
[2019-07-25 13:33] VITALS: BP 154/84; PULSE 91; RESP 18; TEMP 35.9; BMI 26.1
--- NOTE | 2019-07-25 20:03 | PCM.WC.PN ---
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 (2) Delayed wound healing Status: Acute Code(s): T14.8XXD - Other injury of unspecified body region, subsequent encounter (3) Lower extremity edema Status: Acute Code(s): R60.0 - Localized edema (4) Skin tear of left lower leg without complication Status: Acute Qualifiers: Code(s): S81.812A - Laceration without foreign body, left lower leg, initial encounter Type of Wound Date of Service: 07/25/19 Chief Complaint: left lower leg ulcer s/p skin tear nonhealing History of Wound: 68 F who presents to the office today for a wound center visit of worsening infection around her skin tear to her left lower extremity. She has a past medical history as listed above. The patient states that the skin tear to her left lower extremity initially started approximately 14 days ago after her dog had jumped up on her leg and caused the site to open up. She went to the urgent care and was placed on Keflex. The patient states that shortly after she finished the Keflex, the area surrounding the skin tear had become more warm, tender, and red. She has been utilizing [id number] Neosporin. She denies any systemic signs of infection. She does note occasional yellow to brown discharge. She was seen by her pcp and antibiotic was changed to doxycycline. Denies any other aggravating or relieving factors. The patient otherwise denies any fever, chills, nausea, vomiting, shortness of breath, chest pain or pressure, palpitations, orthopnea, lower extremity edema, syncope or presyncopal episodes. Progress of Wound: Ulceration is improved, beefy red without any signs of infection at this time. Did well with nushield, She denies any increasing purulent drainage, odor, or pain. - Physical Exam Vital Signs Temp Pulse Resp BP 96.6 F L 91 18 154/84 H 07/25/19 13:33 07/25/19 13:33 07/25/19 13:33 07/25/19 13:33 General: Alert, Oriented x3, Cooperative, No apparent distress HEENT: Atraumatic Oral: Moist Mucosa Lungs: Clear to auscultation Cardiovascular: Regular rate Abdomen: Soft, Non Tender Extremities: No clubbing, No cyanosis, No edema Skin: Ulcer/ Wound - Ulceration to left lower extremity with adherent slough, no sign Neurological: Neuro grossly intact Psych/Mental Status: Normal Affect, Appropriate, Alert and oriented to time, place, person, mood and affect Debridement Note Post-Debridement Measurements/Treatment WC - Nurse 2 - General Ulcer CM Notes Start: 07/04/19 13:13 Freq: Status: Active Protocol: Activity Type Activity Date Activity User E-Sign Co-Sign Detail Recorded Client Recorded Date Recorded By Document 07/04/19 13:51 AN [id number] 07/04/19 13:53 AN Document 07/11/19 14:01 AN [id number] 07/11/19 14:02 AN Document 07/18/19 14:41 AN [id number] 07/18/19 14:43 AN Document 07/25/19 14:10 AN [id number] 07/25/19 14:10 AN 07/04/19 07/11/19 07/18/19 13:51 14:01 14:41 Wound Center Nurse 2 #2 L medial smith -Time 13:51 14:01 14:41 -Correct Patient Yes Yes Yes -Correct Side, Site, Position Yes Yes Yes -Correct Procedure Yes Yes Yes -Procedure Performed Yes Yes Yes -Type of Procedure Debridement Debridement Debridement -Clinical Debridement Subcutaneous Subcutaneous Subcutaneous -Post Debridement Size (cm) - Length 1.7 1.7 1.0 -Post Debridement Size (cm) - Width 0.9 0.9 0.5 -Post Debridement Size (cm) - Depth 0.1 0.1 0.1 -Total Square Cm 1.53 1.53 0.50 -Wound/Ulcer Outcome Not Healed Not Healed Not Healed -Ulcer Cleansing Rinsed/ Rinsed/ Irrigated with Irrigated with Saline Saline -Foul Odor after Cleansing No -Bioengineered Tissue Yes Yes -Type of bioengineered Tissue NU-SHIELD NU-SHIELD [id number] -Bleeding Controlled with Pressure Pressure -Offloading No No -Treatment Response Procedure Procedure Tolerated Well Tolerated Well Pain Scale: 0-10 Numeric Is Patient Pain Free? Yes Yes 07/25/19 14:10 Wound Center Nurse 2 #2 L medial smith -Time 14:10 -Correct Patient Yes -Correct Side, Site, Position Yes -Correct Procedure Yes -Procedure Performed Yes -Type of Procedure Debridement -Clinical Debridement Subcutaneous -Post Debridement Size (cm) - Length 1.0 -Post Debridement Size (cm) - Width 0.3 -Post Debridement Size (cm) - Depth 0.1 -Total Square Cm 0.30 -Wound/Ulcer Outcome Not Healed -Ulcer Cleansing Rinsed/ Irrigated with Saline -Foul Odor after Cleansing No -Bioengineered Tissue Yes -Type of bioengineered Tissue [id number] -Bleeding Controlled with Pressure -Offloading No -Treatment Response Procedure Tolerated Well Pain Scale: 0-10 Numeric Is Patient Pain Free? Yes Wound debrided: Left lower extremity ulceration Laterality: Left Type of Debridement: Excisional debridement Anesthesia Used: 5% Lidocaine Gel Depth: in the subcutaneous layer Percentage of wound debrided: 100 Instrument Used: 3mm curette Tissue Removed: Slough and devitalized tissue Severity: Fat Layer Exposed Amount of bleeding with debridement: Mild Bleeding Controlled with: Pressure Patient tolerated procedure well Assessment/Plan Assessment: Ulcer to left anterior lateral lower leg. Pain left lower leg Plan: The patient was seen and examined at the wound center today and was updated on the plan of care. A subcutaneous debridement was performed today. The patient tolerated the procedure well. The patients wound care will consist of: Application of nushield #5 was utilized and secured with adaptic touch and Steri-Strips, 100% was utilized with no waste and double layer Tubigrip for compression. Wound cultures were collected. Baseline bloodwork held at this time. Vascular studies held at this time. Due to delayed wound healing, will apply for the use of an advanced skin substitute. Patient educated on the importance of diet on wound healing and instructed to increase protein and vitamin C intake. Patient verbalized understanding. Patient will follow up at wound healing center in one week or sooner if needed. This note was generated with [employer] software. It may contain incorrect words, spelling, and punctuation that were not noted in checking the note before signing. Code Visit 150xxx-152xx: [id number] Skin sub graft trnk/arm/leg
== END 2019-07-29 23:59 ==
LOC: WC 13:30
PROVIDERS: Family Provider Internal Medicine; PCP Internal Medicine; Referring Provider Nurse Practitioner Family; Visit Provider Nurse Practitioner Family
DX: S81.812A Laceration without foreign body, left lower leg, initial encounter (principal); R60.0 Localized edema; W54.1XXA Struck by dog, initial encounter; M79.662 Pain in left lower leg
CPT/HCPCS: 15271; Q4160

== ENCOUNTER 2019-08-01 13:04 | Outpatient (RCR) | payer MEDICARE, SELFPAY ==
[2019-07-30 01:06] VITALS: BP 154/84; PULSE 91; RESP 18; TEMP 35.9
[2019-08-01 13:37] VITALS: BP 166/79; PULSE 85; RESP 18; TEMP 36.6; BMI 26.1
--- NOTE | 2019-08-06 17:06 | PCM.WC.PN ---
(1) Delayed wound healing Status: Acute Code(s): T14.8XXD - Other injury of unspecified body region, subsequent encounter (2) Lower extremity edema Status: Acute Code(s): R60.0 - Localized edema (3) Ulcer of left lower extremity with fat layer exposed Status: Acute Code(s): L97.922 - Non-pressure chronic ulcer of unspecified part of left lower leg with fat layer exposed Type of Wound Date of Service: 08/01/19 Chief Complaint: left lower leg ulcer s/p skin tear nonhealing History of Wound: 68 F who presents to the office today for a wound center visit of worsening infection around her skin tear to her left lower extremity. She has a past medical history as listed above. The patient states that the skin tear to her left lower extremity initially started approximately 14 days ago after her dog had jumped up on her leg and caused the site to open up. She went to the urgent care and was placed on Keflex. The patient states that shortly after she finished the Keflex, the area surrounding the skin tear had become more warm, tender, and red. She has been utilizing [id number] Neosporin. She denies any systemic signs of infection. She does note occasional yellow to brown discharge. She was seen by her pcp and antibiotic was changed to doxycycline. Denies any other aggravating or relieving factors. The patient otherwise denies any fever, chills, nausea, vomiting, shortness of breath, chest pain or pressure, palpitations, orthopnea, lower extremity edema, syncope or presyncopal episodes. Progress of Wound: Ulceration is healed without any signs of infection at this time. Did well with [facility], She denies any increasing purulent drainage, odor, or pain. The patient otherwise denies any fever, chills, nausea, vomiting, shortness of breath, chest pain or pressure, palpitations, orthopnea, lower extremity edema, syncope or presyncopal episodes. - Physical Exam Vital Signs Temp Pulse Resp BP 98 F 85 18 166/79 H 08/01/19 13:37 08/01/19 13:37 08/01/19 13:37 08/01/19 13:37 General: Alert, Oriented x3, Cooperative, No apparent distress HEENT: Atraumatic Oral: Moist Mucosa Lungs: Clear to auscultation Cardiovascular: Regular rate Abdomen: Soft, Non Tender Extremities: No clubbing, No cyanosis, No edema Skin: No rashes, No breakdown, Ulcer/ Wound - Ulceration to left lower extremity healed, completely epithelialized without any signs of infection at this time Musculoskeletal: No Tenderness to Palpation of Joints or Extremities, No Muscle Wasting Neurological: Neuro grossly intact Psych/Mental Status: Normal Affect, Appropriate, Alert and oriented to time, place, person, mood and affect Assessment/Plan Assessment: Ulcer to left anterior lateral lower leg. Pain left lower leg Plan: The patient was seen and examined at the wound center today and was updated on the plan of care. Her ulceration is healed and epithelialized without any signs of infection at this time. She will continue with double layer Tubigrip for compression. Discussed different interventions to consider to maintain wound healing and reduce recurrence of new wounds in the future. Patient educated on the importance of diet on wound healing and instructed to increase protein and vitamin C intake. Patient verbalized understanding. Patient will be discharged from the wound healing center. This note was generated with [employer] dictation software. It may contain incorrect words, spelling, and punctuation that were not noted in checking the note before signing. Code Visit Office Visits / Consults: [id number] OV L3 Est
== END 2019-08-29 23:59 ==
LOC: WC 13:04
PROVIDERS: Family Provider Internal Medicine; PCP Internal Medicine; Referring Provider Nurse Practitioner Family; Visit Provider Nurse Practitioner Family
DX: Z09 Encounter for follow-up examination after completed treatment for conditions other than malignant neoplasm (principal); R60.0 Localized edema
CPT/HCPCS: 99212; G0463

== ENCOUNTER → 2019-08-19 14:16 | Outpatient (CLI) | payer MEDICARE, SELFPAY ==
[2019-08-01 13:37] VITALS: BMI 26.1
--- NOTE | 2019-08-19 14:18 | RAD_ITS ---
STUDY: X-RAY - PELVIS AND RIGHT HIP REASON FOR EXAM: Female, 69 years old. Right hip pain TECHNIQUE: 3 views of the pelvis and hip. COMPARISON: March 30, 2017 right hip FINDINGS: There is a non-specific bowel gas pattern. Normal visualized soft tissue structures. 2 screws transfix the right femoral neck. Degenerative lumbosacral spine. Normal bilateral iliac wings, sacroiliac joints and visualized sacrum. Normal bilateral superior and inferior pubic rami. Normal pubic symphysis. Normal bilateral ischial tuberosities. Normal visualized femoral head. Normal acetabulum. Normal hip joint. RAD/HIP, UNI W/ Pelvis 2-3 Views IMPRESSION: No fracture. Hardware right hip unchanged. Electronically Signed: Hussain Abdalla MD at 23:50 EDT , Service support ,
== END ==
PROVIDERS: Family Provider Internal Medicine; PCP Internal Medicine; Referring Provider Anesthesiology Pain Medicine; Visit Provider Anesthesiology Pain Medicine
DX: M25.551 Pain in right hip (principal)
CPT/HCPCS: 73502

== ENCOUNTER → 2019-08-20 10:55 | Outpatient (CLI) | payer MEDICARE, SELFPAY ==
[2019-08-20 10:29] VITALS: BMI 26.1
[2019-08-20 12:48] LABS: Absolute Lymphocyte Count 1.52 X10^3/uL (0.83-4.51); Absolute Neutrophil Count 6.2 X10^3/uL (2.0-7.7); Basophil# 0.04 X10^3/uL; Basophil% 0.5 % (0-1); Eosinophil# 0.02 X10^3/uL; Eosinophils% 0.2 % (0-5); Hemoglobin 13.5 g/dL (12.0-15.0); Lymphocyte # 1.52 X10^3/ul (4.0); Lymphocyte % 17.9 % (19-41); Mean Corp Hgb Conc 31.4 g/dL (32-36); Mean Corpuscular Hgb 30.1 pg (27.0-32.0); Mean Platelet Vol. 9.5 fl (6.2-12.0); Monocyte# 0.69 X10^3/uL; Monocyte% 8.1 % (0-10); NRBC Flagged by Analyzer 0 % (0-5); Neutrophil % 72.9 % (47-70); Platelet Count 286 K/mm3 (150-450); RBC Distribution Width CV 13.5 % (11.6-14.6); RBC Distribution Width SD 47.5 fl (35.1-43.9); Red Blood Count 4.48 M/mm3 (4.2-5.4); White Blood Count 8.5 K/mm3 (4.4-11.0)
[2019-08-20 13:10] LABS: ALB/GLOB Ratio 0.9 RATIO (0.9-2.4); AST(SGOT) 18 U/L (15-37); Alanine Aminotransfer ALT/SGPT 23 U/L (13-56); Albumin, Serum 3.4 g/dL (3.2-5.0); Alkaline Phosphatase 71 U/L (45-117); Anion Gap 6 (5-15); BUN 21 mg/dL (7-18); BUN/Creat Ratio 24.6 RATIO (10-20); Calcium,Total 9.5 mg/dL (8.5-10.1); Chloride 107 mmol/L (98-107); Cholesterol 178 mg/dL (200); Creatinine, Serum 0.85 mg/dL (0.55-1.02); EST Glomerular Filtration Rate 70 mL/min (>60); Est Glom Filt Rate - Afr Amer 84 mL/min (>60); Globulin 3.6 g/dL (2.2-4.2); Glucose 90 mg/dL (74-106); High Density Lipoprotein 73 mg/dL; Potassium 3.9 mmol/L (3.5-5.1); Sodium Level 141 mmol/L (136-145); T4 Free Direct 0.96 ng/dL (0.76-1.46); Thyroid Stim Hormone (TSH) 1.65 uIU/mL (0.358-3.74); Triglycerides 92 mg/dL; Very Low Density Lipoprotein 18 mg/dL (5-40)
== END ==
PROVIDERS: Family Provider Internal Medicine; PCP Internal Medicine; Visit Provider Internal Medicine
DX: F32.9 Major depressive disorder, single episode, unspecified (principal); I10 Essential (primary) hypertension; E78.5 Hyperlipidemia, unspecified
CPT/HCPCS: 36415; 80053; 80061; 84439; 84443; 85025

== ENCOUNTER → 2019-09-03 09:35 | Outpatient (CLI) | payer MEDICARE, SELFPAY ==
[2019-03-05 09:04] VITALS: BMI 26.6
[2019-08-20 10:29] VITALS: BMI 26.1
--- NOTE | 2019-09-04 08:38 | PFT ---
INTRODUCTION: The patient is a 69-year-old female that presents for pulmonary function studies secondary to a diagnosis of COPD. Respiratory therapy reports good patient effort. Bronchodilators were used during testing. INTERPRETATION: Forced expiration spirometry demonstrates the presence of a severe large airways obstructive ventilatory defect. There was no significant response to aerosolized bronchodilators. Spirograms are of fair quality and do not plateau indicating slow emptying of the lungs. Body plethysmography was performed and reveals an elevated RV to 140% of predicted, indicative of underlying air trapping. Diffusing capacity by single breath CO is reduced at 55% of predicted. When compared to previous pulmonary function studies from July 2018, there have been reductions in the patient's FEV1 and DLCO. IMPRESSION: Irreversible severe large airways obstructive ventilatory defect with associated air trapping and reduction in diffusing capacity.
== END ==
PROVIDERS: Family Provider Internal Medicine; PCP Internal Medicine; Referring Provider Internal Medicine Critical Care Medicine; Visit Provider Internal Medicine Critical Care Medicine
DX: J44.9 Chronic obstructive pulmonary disease, unspecified (principal)
CPT/HCPCS: 94060; 94726; 94729

== ENCOUNTER 2019-09-03 15:35 | Observation (INO) | payer MEDICARE, SELFPAY ==
[2019-08-20 10:29] VITALS: BMI 26.1
[2019-09-03] VITALS (7 sets, daily range): BP systolic 105–143; BP diastolic 69–83; PULSE 76–93; RESP 16–20; TEMP 36.6–36.9; O2SAT 98–100; BMI 26.4; BMI 25.6
--- NOTE | 2019-09-03 15:43 | EKG12_ITS ---
Test Reason : CP Blood Pressure : / mmHG Vent. Rate : 088 BPM Atrial Rate : 088 BPM P-R Int : 174 ms QRS Dur : 130 ms QT Int : 404 ms P-R-T Axes : 063 -36 035 degrees QTc Int : 488 ms Normal sinus rhythm Left axis deviation Right bundle branch block Abnormal ECG Confirmed by CARLIE DEL TORO, BILL ([id number]), map editor PANKAJ CABA ([id number]) on 09/10/2019 2:08:15 PM Referred By: CHRISTIAN Confirmed By:BILL SEXTON MD
--- NOTE | 2019-09-03 15:45 | ED.DCSUM_ITS ---
History of Present Illness Chief Complaint: Chest Pain Informant: Patient Onset: Days Context: Gradual Onset Timing: Intermittent Current Severity: Moderate Maximum Severity: Moderate Narrative: The patient presents to the emergency department with substernal chest pain. States it started on Monday. She describes it radiating to her right chest and her neck. She describes exertional dyspnea. She is never had pain like this before. She has no history of coronary vascular disease but does have COPD. She is on 2 L of oxygen at night. She denies any fevers or chills. She denies any productive sputum. She states she is been under a significant amount of stress lately. Her brother had just passed this week. There is also a known family history of heart disease. She has been compliant with her anticoagulants. Prior similar symptoms: No Recent Illness/Hospitalization: No Past Medical History - Allergies and Home Meds Allergies/Adverse Reactions: Allergies No Known Allergies Allergy (Verified 09/03/19 15:44) Primary Care Physician: Yenni Lu MD [Primary Care Provider] - Prior records reviewed: Yes Past Medical History: - Surgical History: no surgical history Lives: With Family Smoking Status: Former smoker Review of Systems General: Denies: Chills, Fever, Sweats Eyes: Denies: Visual changes - bilaterally, Diplopia ENT: Denies: Rhinorrhea, Sore throat Cardiovascular: Reports: Chest pain. Denies: Palpitations Respiratory: Denies: Dyspnea, Cough, Dyspnea on exertion Gastrointestinal: Denies: Abdominal pain, Nausea, Vomiting, Diarrhea, Melena, Hematochezia Genitourinary: Denies: Dysuria, Hematuria, Frequency Musculoskeletal: Denies: Back pain, Extremity Pain Skin: Denies: Rash, Wounds Neurological: Denies: Headache, Weakness, Numbness Physical Exam Vital Signs/Narrative: Vital Signs Temp Pulse Resp BP Pulse Ox 09/03/19 15:37 98.4 F 93 20 H 105/74 98 Inital Vital Signs reviewed: Yes General: Well nourished, Well developed, No Acute Distress Head: Normocephalic, Atraumatic Eyes: Perrl, EOMI ENT: Moist mucous membranes, No rhinorrhea Neck: Supple, Nontender Cardiovascular: Regular rate, Regular rhythm, No murmurs Respiratory: No distress, CTA bilaterally, Chest nontender Abdomen: Soft, Nontender, Nondistended, Normal bowel sounds Back: Nontender, Normal Inspection Extremities: Nontender, No edema Skin: Normal color, No rash Neurological: Alert, Oriented x3, Cranial nerves II-XII grossly intact, Normal Strength, Normal Sensation Psychological: Normal affect, Normal Mood Diagnostic/Tx/Re-eval Chest X-Ray - ED: 1 View, Normal, Heart, Lungs, Chronic Changes Clinical Impression(s) from Imaging Studies Chest X-Ray 09/03/19 15:45 IMPRESSION: No acute abnormality is seen. Electronically Signed: Ray Bella, at 15:59 EST , Service support , Abnormal Lab Results 09/03/19 09/03/19 15:45 15:45 WBC 8.0 RBC 4.53 Hgb 13.6 Hct 43.0 MCV 94.9 MCH 30.0 MCHC 31.6 L RDW Std Deviation 44.4 H RDW Coeff of Carline 12.7 Plt Count 258 MPV 9.0 Immature Gran % (Auto) 0.500 Neut % (Auto) 67.9 Lymph % (Auto) 22.5 [place] % (Auto) 7.9 Eos % (Auto) 0.6 Baso % (Auto) 0.6 Absolute Neuts (auto) 5.4 Absolute Lymphs (auto) 1.79 Nucleated RBC % 0 Sodium 140 Potassium 3.3 L Chloride 107 Carbon Dioxide 27.0 Anion Gap 6 BUN 18 Creatinine 0.82 Estim Creat Clear Calc 54.34 Est GFR (MDRD) Af Amer 88 Est GFR (MDRD) Non-Af 73 BUN/Creatinine Ratio 21.8 H Glucose 112 H Calcium 9.0 Magnesium 1.8 Troponin I < 0.015 - Rhythm Strip Rhythm Strip: Sinus Rhythm Rate: 80 Ectopy: None - EKG Initial EKG Interpretation: Sinus Rhythm, No Acute Injury Pattern, RBBB Prior: Unchanged - Medical Decision Making The patient presents to the emergency department with substernal chest pain that radiates to her right side. Is worse with exertion. She states that she is never really had pain like this before. She does have a history of hyperlipidemia, family history of heart disease, and she is a former smoker. She is never had a stress test or cardiac evaluation. Screening labs were obtained were unremarkable. Her cardiac enzymes were normal. Given her age and risk factors, I do feel that cardiac rule out would be appropriate and she is agreeable with this plan of care. The patient was discussed with the hospitalist. Impression 1. Chest pain ED Disposition - Plan for ED Patient: Referrals: Yenni Lu MD [Primary Care Provider] -
--- NOTE | 2019-09-03 15:45 | RAD_ITS ---
STUDY: X-RAY CHEST REASON FOR EXAM: Female, 69 years old. Chest pain. TECHNIQUE: Single AP portable view of the chest. COMPARISON: Comparison is made with prior study dated August 04, 2018. FINDINGS: EKG electrodes are seen. The lungs are clear and expanded. There is no demonstrated pleural abnormality. Normal size heart. Normal mediastinum and mae. Normal visualized pulmonary arteries. There is atherosclerotic calcification of the aortic arch with tortuosity. There are diffuse degenerative changes of the visualized thoracic spine. There is degenerative osteoarthritis of the bilateral shoulders. There is no demonstrated abnormality of the visualized soft tissue structures of the upper abdomen. RAD/Chest 1 View (Portable) IMPRESSION: No acute abnormality is seen. Electronically Signed: Ray Bella, at 15:59 EST , Service support ,
[2019-09-03] MEDS: Aspirin 81 MG TAB.CHEW 324 MG PO (15:58)
[2019-09-03 15:59] LABS: Absolute Lymphocyte Count 1.79 X10^3/uL (0.83-4.51); Absolute Neutrophil Count 5.4 X10^3/uL (2.0-7.7); Basophil# 0.05 X10^3/uL; Basophil% 0.6 % (0-1); Eosinophil# 0.05 X10^3/uL; Eosinophils% 0.6 % (0-5); Hemoglobin 13.6 g/dL (12.0-15.0); Lymphocyte # 1.79 X10^3/ul (4.0); Lymphocyte % 22.5 % (19-41); Mean Corp Hgb Conc 31.6 g/dL (32-36); Mean Corpuscular Volume 94.9 fL (81-99); Monocyte# 0.63 X10^3/uL; Monocyte% 7.9 % (0-10); NRBC Flagged by Analyzer 0 % (0-5); Neutrophil # 5.39 X10^3/uL (2.7-7.7); Neutrophil % 67.9 % (47-70); Platelet Count 258 K/mm3 (150-450); RBC Distribution Width CV 12.7 % (11.6-14.6); RBC Distribution Width SD 44.4 fl (35.1-43.9); Red Blood Count 4.53 M/mm3 (4.2-5.4)
[2019-09-03 16:17] LABS: Anion Gap 6 (5-15); BUN 18 mg/dL (7-18); BUN/Creat Ratio 21.8 RATIO (10-20); Chloride 107 mmol/L (98-107); Creatinine, Serum 0.82 mg/dL (0.55-1.02); EST Glomerular Filtration Rate 73 mL/min (>60); Est Glom Filt Rate - Afr Amer 88 mL/min (>60); Estimated Creatinine Clearance 54.34 ml/min; Glucose 112 mg/dL (74-106); Magnesium 1.8 mg/dL (1.6-2.6); Potassium 3.3 mmol/L (3.5-5.1); Sodium Level 140 mmol/L (136-145)
--- NOTE | 2019-09-03 16:25 | PCM.HP.STD ---
Problem List (1) Chest pain Status: Acute Qualifiers: Chest pain type: unspecified Qualified Code(s): R07.9 - Chest pain, unspecified (2) Chronic respiratory failure with hypoxia Status: Chronic (3) GERD (gastroesophageal reflux disease) Status: Chronic Qualifiers: Esophagitis presence: esophagitis presence not specified Qualified Code(s): K21.9 - Gastro-esophageal reflux disease without esophagitis (4) Hyperlipidemia Status: Chronic Qualifiers: Hyperlipidemia type: unspecified Qualified Code(s): E78.5 - Hyperlipidemia, unspecified (5) Hypertension Status: Chronic Qualifiers: Hypertension type: essential hypertension Qualified Code(s): I10 - Essential (primary) hypertension (6) Insomnia Status: Chronic Qualifiers: Insomnia type: unspecified Qualified Code(s): G47.00 - Insomnia, unspecified (7) Stage 3 severe COPD by GOLD classification Status: Chronic History of Present Illness Date of Admission: 09/03/19 Chief Complaint: Chest pain The patient is a 69 y/o F w/ PMHx: Anxiety and Depression, GERD, Obesity, Anxiety and Depression, Chronic Asthma/COPD w/ Chronic Hypoxic Respiratory Failure (2L q HS), Hx DVT on Xarelto, Hx Gastric Ulcer, HTN, HLD who presents to the [facility] ED on 09/03/19 with history of onset right-sided upper chest as well as shoulder pain, described as a dull aching, ongoing although waxing and waning specifically with activity with no associated dyspnea, nausea, emesis or diaphoresis, notes when at its worst 7 out of 10, currently upon evaluation 2 out of 10, notes radiation to the right side of the neck and jaw region with no specific recent increased activity or musculoskeletal injury. Patient states she has been under a lot of stress recently and states that her brother passed this week. She initially noted the ED physician that she has had increased dyspnea and that the discomfort is worse with exertion but currently denying. Work-up in the ED included T 98.4, heart rate 93, BP 105/74, respiratory rate 20, 98% on room air, CBC with WBC 8, hemoglobin 13.6, platelet 258 without shift, MP potassium 3.3, glucose 112, troponin less than 0.015, chest x-ray with no acute cardia pulmonary findings, EKG with sinus rhythm with right bundle branch block advanced from prior with no acute evidence of ischemia. In the ED patient administered ASA therapy. Past Medical History Past Medical History (Chronic Problems): Chronic Problems (Last Reviewed 06/18/19 @ 15:12 by Radha Reynaga) Chronic respiratory failure with hypoxia (Chronic) Bilateral shoulder pain (Chronic) Irritable bowel syndrome with diarrhea (Chronic) Vitamin D deficiency (Chronic) Depression (Chronic) GERD (gastroesophageal reflux disease) (Chronic) Hyperlipidemia (Chronic) Hypertension (Chronic) Insomnia (Chronic) Hypersomnia (Chronic) Internal hemorrhoid (Chronic) Overweight (Chronic) Stage 3 severe COPD by GOLD classification (Chronic) Medical History: Medical History (Last Reviewed 06/18/19 @ 15:12 by Radha Reynaga) Vitamin D deficiency (Chronic) E55.9 Depression (Chronic) F32.9 GERD (gastroesophageal reflux disease) (Chronic) K21.9 Hyperlipidemia (Chronic) E78.5 Hypertension (Chronic) I10 Insomnia (Chronic) G47.00 Hypersomnia (Chronic) G47.10 Internal hemorrhoid (Chronic) K64.8 Overweight (Chronic) E66.3 Stage 3 severe COPD by GOLD classification (Chronic) J44.9 Arthritis M19.90 Asthma J45.909 Hemorrhoids K64.9 History of cataract Z86.69 History of pneumonia Z87.01 Osteoporosis M81.0 SOB (shortness of breath) R06.02 Seasonal allergies J30.2 Shoulder pain M25.519 Stomach ulcer K25.9 Allergies No Known Allergies Allergy (Verified 09/03/19 15:44) Home Medications: Ambulatory Orders Medication Instructions Recorded Omeprazole [Prilosec] 20 mg PO DAILY 01/04/17 ramipril 5 mg capsule 5 mg PO DAILY 06/07/19 rivaroxaban 15 mg tablet 15 mg PO DAILY 06/07/19 albuterol sulfate 2.5 mg/3 mL 2.5 mg INHALATION Q4H PRN #180 ml 06/14/19 (0.083 %) solution for nebulization albuterol sulfate HFA 90 2 puff INHALATION Q4H PRN #18 g 06/14/19 mcg/actuation aerosol inhaler budesonide-formoterol HFA 160 2 puff INHALATION BID #1 ea 06/14/19 mcg-4.5 mcg/actuation aerosol inhaler atorvastatin 40 mg tablet 40 mg PO QHS #90 tab 08/16/19 duloxetine 30 mg capsule,delayed 30 mg PO BID #60 cap 08/20/19 release hydrocodone 5 mg-acetaminophen 325 0.5 tab PO BID tab 08/20/19 mg tablet polyvinyl alcohol 1.4 % eye drops 1 drp OPHTHALMIC 4X/DAY 08/20/19 valacyclovir 1 gram tablet 1,000 mg PO DAILY PRN PRN 08/20/19 Umeclidinium [place] Inhaler 1 inh INHALATION DAILY 09/03/19 [Incruse Ellipta] Surgical History: Surgical History (Last Reviewed 06/18/19 @ 15:12 by Radha Reynaga) History of total right hip replacement (Resolved) Z96.641 History of cholecystectomy (Resolved) Z90.49 History of hysterectomy (Resolved) Z90.710 History of appendectomy Z90.49 History of colonoscopy Z98.890 2009 History of hemorrhoidectomy Z98.890 Surgical History: - - Appendectomy, cholecystectomy, hemorrhoidectomy, hysterectomy, right total hip replacement. 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 Lives: With Family Smoking Status: Former smoker Tobacco Use: Non-smoker Alcohol: None Drugs: None - *Family History Maternal Family History: Family History (Last Reviewed 06/18/19 @ 15:12 by Radha Reynaga) Grandmother COPD (chronic obstructive pulmonary disease) Mother Heart disease Hypertension CVA (cerebral vascular accident) Myocardial infarction, Onset Age: 50 Father CVA (cerebral vascular accident) Alcohol abuse Cancer Sister Heart disease Brother Heart disease History Items: High Cholesterol, Heart Disease, Hypertension, Stroke Paternal Family History: Family History (Last Reviewed 06/18/19 @ 15:12 by Radha Reynaga) Grandmother COPD (chronic obstructive pulmonary disease) Mother Heart disease Hypertension CVA (cerebral vascular accident) Myocardial infarction, Onset Age: 50 Father CVA (cerebral vascular accident) Alcohol abuse Cancer Sister Heart disease Brother Heart disease History Items: Cancer, Hypertension, Stroke Review of Systems Constitutional: Reports: Malaise, Weakness, Fatigue. Denies: Anorexia, Chills, Fever, Weight Change HEENT: Denies: Head Aches, Sinus Congestion, Sinus Drainage Cardiovascular: Reports: Chest Pain. Denies: Chest Pressure, Chest Tightness, Heaviness, Light Headedness, Orthopnea, Palpitations, Syncope Respiratory: Denies: Cough, Shortness of breath at rest, Sputum production Gastrointestinal: Denies: Abdominal Pain, Nausea, Vomiting Genitourinary: Denies: Dysuria Musculoskeletal: Reports: Arm Pain, Back Pain, Neck Pain, Shoulder Pain. Denies: Joint Pain, Joint Tenderness Skin: Denies: Rash, Wounds Neurological: Denies: Numbness, Tingling, Focal weakness Psychiatric: Reports: Anxiety, Depression. Denies: Homicidal Ideations, Suicidal Ideations Hematologic/ Lymphatic: Reports: Easy Bruising, Easy Bleeding VTE Information - Inpt Only VTE Present on Admission: No VTE Mechan Device Prophylaxis: SCD's VTE Pharm Prophylaxis ordered?: No Reason prophylaxis not ordered:: Treatment Not Indicated - Continue home Xarelto regimen. Patient Problems: Active and Suspected Problems (Last Reviewed 06/18/19 @ 15:12 by Radha Reynaga) Chest pain (Acute) Subjective: Seated upright in the ED bed, mildly fatigued appearance, notes improved discomfort since initial presentation. Objective: Physical Examination: General: awake, alert, oriented x 3 and cooperative, seated upright in the ED bed in no apparent distress. Skin: normal color, turgor, no icterus, cyanosis. HEENT: AT/NC, EOMI, PERRLA, mildly dry MM, no carotid bruits or JVD noted. Lungs: CTA bilaterally, moderate effort, moderate decrease BL bases, no rales, ronchi or wheezing. Heart: Regular rate and rhythm; no gallop, rub audible, see extremity, reproducible anterior chest discomfort as well as shoulder discomfort with palpation. Abdomen: soft, overweight, NTTP, ND, normal BS, no HSM. Extremities: no cyanosis, clubbing, or edema, notable reproducible discomfort with palpation of the right shoulder and anterior chest as well as the scapular region. Neurological: patient awake, alert, oriented x 3; cognitive function intact; pupils equally reactive to light and accomodation; cranial nerves II-XII grossly normal, moving all 4 extremities, no focal deficits, strength mildly to moderately global decrease given recent acute complaints. Psychiatric: affect appears mildly fatigued, no acute evidence of depressive or anxiety feelings but notes she has been increasingly stressed recently with of her brother.. - Physical Exam Vitals/I&O's: Vital Signs Temp Pulse Resp BP Pulse Ox 98.4 F 93 20 H 105/74 98 09/03/19 15:37 09/03/19 15:37 09/03/19 15:37 09/03/19 15:37 09/03/19 15:37 Oxygen Delivery Method Nasal Cannula Weight: 154 lb Body Mass Index (BMI) 26.4 Laboratory Results 09/03/19 15:45: WBC 8.0, RBC 4.53, Hgb 13.6, Hct 43.0, MCV 94.9, MCH 30.0, MCHC 31.6 L, RDW Std Deviation 44.4 H, RDW Coeff of Carline 12.7, Plt Count 258, MPV 9.0, Immature Gran % (Auto) 0.500, Neut % (Auto) 67.9, Lymph % (Auto) 22.5, [place] % (Auto) 7.9, Eos % (Auto) 0.6, Baso % (Auto) 0.6, Absolute Neuts (auto) 5.4, Absolute Lymphs (auto) 1.79, Nucleated RBC % 0 09/03/19 15:45: Sodium 140, Potassium 3.3 L, Chloride 107, Carbon Dioxide 27.0, Anion Gap 6, BUN 18, Creatinine 0.82, Estim Creat Clear Calc 54.34, Est GFR (MDRD) Af Amer 88, Est GFR (MDRD) Non-Af 73, BUN/Creatinine Ratio 21.8 H, Glucose 112 H, Calcium 9.0, Magnesium 1.8, Troponin I < 0.015 Assessment/Plan All Active Problems (Last Reviewed 06/18/19 @ 15:12 by Radha Reynaga) Chest pain (Acute) Skin tear of left lower leg without complication (Acute) Ulcer of left lower extremity with fat layer exposed (Acute) Lower extremity edema (Acute) Delayed wound healing (Acute) Pain in left lower leg (Acute) PND (post-nasal drip) (Acute) History of total right hip replacement (Resolved) History of cholecystectomy (Resolved) History of hysterectomy (Resolved) The patient is a 69 y/o F w/ PMHx: Anxiety and Depression, GERD, Obesity, Anxiety and Depression, Chronic Asthma/COPD w/ Chronic Hypoxic Respiratory Failure (2L q HS), Hx DVT on Xarelto, Hx Gastric Ulcer, HTN, HLD who presents to the [facility] ED on 09/03/19 with history of onset right-sided upper chest as well as shoulder pain that has been ongoing although waxing and waning x 3 days. (1) Chest Pain, Likely Musculoskeletal: Work-up in the ED included T 98.4, heart rate 93, BP 105/74, respiratory rate 20, 98% on room air, CBC with WBC 8, hemoglobin 13.6, platelet 258 without shift, MP potassium 3.3, glucose 112, troponin less than 0.015, chest x-ray with no acute cardia pulmonary findings, EKG with sinus rhythm with right bundle branch block advanced from prior with no acute evidence of ischemia. As noted likely musculoskeletal, reproducible discomfort with palpation but given advanced EKG changes and to be cautious as notable patient concern, will admit to PCU, place on a monitored bed to assure no acute myocardial infarction with serial cardiac enzymes and EKGs. Patient is unable to perform exercise thus will proceed with AM nuclear stress testing. ASA, NG, morphine. FLP in AM, Mag pending. If stress test is unremarkable which is expected will pursue physical therapy evaluation, initiate anti-inflammatory therapy. (2) Chronic COPD/Asthma with chronic hypoxic respiratory failure: Will maintain on home inhalers as well as nightly chronic 2 L nasal cannula supplementation, continue ATC duonebs, PRN albuterol, HOB, IS parameters. (3) Hypertension: Continue home regimen including ramipril, PRN hydralazine. (4) Hyperlipidemia: Continue home statin regimen. AM FLP. (5) Hx DVT: Maintain on home xarelto regimen. (6) Anxiety and Depression: Continue home cymbalta regimen. (7) GERD, Hx Gastric Ulcer: PPI. (8) hypokalemia: Admission K+ 3.3, supplementation given, repeat level in AM. (9) DVT prophylaxis: We will continue home Xarelto regimen. (10) CODE status: Patient does not have HCPOA nor living will. Discussed importance of setting these up and patient is interested. Discussed CODE status at length including difference between FULL code, DNR-CCA and DNR-CC status. Following discussions about the differences in these status, requested Full Code status. Advanced Care Planning Face to Face Time: 16 minutes. Code Visit OBSV E&M: 95583 Initial observation care L3 Procedures: 21938 Advncd Care Plan 30 Min
--- NOTE | 2019-09-03 17:18 | EKG12_ITS ---
Test Reason : AM EKG Blood Pressure : / mmHG Vent. Rate : 079 BPM Atrial Rate : 079 BPM P-R Int : 178 ms QRS Dur : 122 ms QT Int : 410 ms P-R-T Axes : 077 -30 041 degrees QTc Int : 470 ms Normal sinus rhythm Left axis deviation Right bundle branch block Abnormal ECG When compared with ECG of 03-SEP-2019 19:08, MANUAL COMPARISON REQUIRED, DATA IS UNCONFIRMED Confirmed by GRAY COOK ([id number]), editorial specialist PANKAJ CABA ([id number]) on 09/13/2019 11:29:27 AM Referred By: Edgardo Britton Confirmed By:GRAY COOK
[2019-09-03] MEDS: Rivaroxaban 15 MG Tablet PO (18:14)
[2019-09-03] MEDS: Glycerin/Hypromellose/PEG400 15 ml Bottle 1 DRP OPHTHALMIC ×2 (18:57→23:10)
[2019-09-03] MEDS: Ipratropium/Albuterol Sulfate 3 ML AMPUL.NEB INHALATION (19:21)
[2019-09-03] MEDS: Budesonide Respules 0.5 MG/2 ML AMPUL.NEB. INHALATION (19:21)
[2019-09-03] MEDS: DULoxetine Hcl 30 MG Capsule PO (23:10)
[2019-09-03] MEDS: 0.9% Normal Saline 1,000 ML 100 ML IV (23:10)
[2019-09-03] MEDS: Atorvastatin Calcium 40 MG Tablet PO (23:10)
[2019-09-03] MEDS: 0.9% Saline Lock 10 ML Syringe IV (23:13)
[2019-09-03] MEDS: HYDROcodone Bitartrate/Apap 5/325 Tablet PO (23:20)
[2019-09-04] VITALS (12 sets, daily range): BP systolic 123–165; BP diastolic 70–92; PULSE 73–95; RESP 16–18; TEMP 36.5–36.8; O2SAT 92–96
[2019-09-04] MEDS: Aspirin E.C. 81 MG Tablet PO (05:11)
[2019-09-04] MEDS: Ramipril 5 MG Capsule PO (05:11)
[2019-09-04 05:34] LABS: Absolute Lymphocyte Count 1.39 X10^3/uL (0.83-4.51); Basophil# 0.04 X10^3/uL; Basophil% 0.6 % (0-1); Eosinophil# 0.06 X10^3/uL; Eosinophils% 0.9 % (0-5); Hematocrit 39.3 % (37-47); Hemoglobin 12.6 g/dL (12.0-15.0); Lymphocyte # 1.39 X10^3/ul (4.0); Lymphocyte % 19.9 % (19-41); Mean Corp Hgb Conc 32.1 g/dL (32-36); Mean Corpuscular Hgb 30.1 pg (27.0-32.0); Mean Corpuscular Volume 93.8 fL (81-99); Mean Platelet Vol. 8.9 fl (6.2-12.0); Monocyte# 0.53 X10^3/uL; Monocyte% 7.6 % (0-10); NRBC Flagged by Analyzer 0 % (0-5); Neutrophil # 4.96 X10^3/uL (2.7-7.7); Neutrophil % 70.7 % (47-70); Platelet Count 234 K/mm3 (150-450); RBC Distribution Width CV 12.6 % (11.6-14.6); RBC Distribution Width SD 43.8 fl (35.1-43.9); Red Blood Count 4.19 M/mm3 (4.2-5.4)
[2019-09-04 05:50] LABS: Anion Gap 6 (5-15); BUN 18 mg/dL (7-18); BUN/Creat Ratio 26.5 RATIO (10-20); Calcium,Total 8.7 mg/dL (8.5-10.1); Chloride 112 mmol/L (98-107); Cholesterol 128 mg/dL (200); Creatinine, Serum 0.68 mg/dL (0.55-1.02); EST Glomerular Filtration Rate 91 mL/min (>60); Est Glom Filt Rate - Afr Amer 110 mL/min (>60); Estimated Creatinine Clearance 44.56 ml/min; Glucose 99 mg/dL (74-106); High Density Lipoprotein 59 mg/dL; Potassium 4.1 mmol/L (3.5-5.1); Sodium Level 144 mmol/L (136-145); Triglycerides 71 mg/dL; Very Low Density Lipoprotein 14 mg/dL (5-40)
--- NOTE | 2019-09-04 05:55 | EKG12_ITS ---
Test Reason : CP ADMISSION Blood Pressure : / mmHG Vent. Rate : 074 BPM Atrial Rate : 074 BPM P-R Int : 162 ms QRS Dur : 130 ms QT Int : 438 ms P-R-T Axes : 058 -26 032 degrees QTc Int : 486 ms Normal sinus rhythm Right bundle branch block Abnormal ECG When compared with ECG of 03-SEP-2019 15:37, MANUAL COMPARISON REQUIRED, DATA IS UNCONFIRMED Confirmed by GRAY COOK ([id number]), associate entertainment editor PANKAJ CABA ([id number]) on 09/13/2019 11:29:19 AM Referred By: Edgardo Britton Confirmed By:GRAY COOK
[2019-09-04] MEDS: Budesonide Respules 0.5 MG/2 ML AMPUL.NEB. INHALATION (06:45)
[2019-09-04] MEDS: Ipratropium/Albuterol Sulfate 3 ML AMPUL.NEB INHALATION ×2 (06:45→12:46)
[2019-09-04] MEDS: Glycerin/Hypromellose/PEG400 15 ml Bottle 1 DRP OPHTHALMIC ×2 (09:52→17:23)
[2019-09-04] MEDS: Pantoprazole Sodium 20 MG Tablet PO (09:53)
[2019-09-04] MEDS: DULoxetine Hcl 30 MG Capsule PO ×2 (09:53→21:44)
[2019-09-04] MEDS: HYDROcodone Bitartrate/Apap 5/325 Tablet PO ×3 (09:54→21:44)
[2019-09-04] MEDS: 0.9% Normal Saline 1,000 ML 100 ML IV ×2 (11:05→20:20)
--- NOTE | 2019-09-04 11:18 | PCM.PROGNOTE ---
Patient Problems: Active and Suspected Problems (Last Reviewed 06/18/19 @ 15:12 by Radha Reynaga) Chest pain (Acute) Subjective: The patient is a 69-year-old female with a past medical history of anxiety/depression, GERD, obesity, chronic asthma/COPD with chronic hypoxic respiratory failure (E 2 L nasal cannula at bedtime), history of VTE on Xarelto, history of gastric ulcer, hypertension and hyperlipidemia who presented to the emergency department at [facility] on 09/03/2019 complaining of chest pain. Vital signs at presentation to the emergency room were temperature 98.4, pulse 93, blood pressure 105/74, respiratory rate 20 and she was 98% saturated on room air. CBC was unremarkable. Potassium was low at 3.3 and the BUN was 18 with a creatinine of 0.82. Troponin was less than 0.015. Chest x-ray revealed no infiltrates, no pulmonary vascular congestion and no pleural effusions. EKG showed normal sinus rhythm with a right bundle branch block. She had not been taking aspirin at home and she was administered aspirin in the emergency department. She was admitted to a monitored bed on PCU and the chest pain protocol was initiated. Serial cardiac enzymes were negative. Triglycerides were 71 with a cholesterol of 128, LDL of 55 and an HDL of 59. She had a - Physical Exam Vitals/I&O's: Vital Signs Temp Pulse Resp BP Pulse Ox 97.7 F L 95 16 150/74 H 96 09/04/19 09:51 09/04/19 09:51 09/04/19 09:51 09/04/19 09:51 09/04/19 09:51 Oxygen Flow Rate (L/min) 2 Oxygen Delivery Method Room Air Weight: 149 lb 4.047 oz Body Mass Index (BMI) 25.6 Intake and Output for Last 24 Hours 09/02/19 09/03/19 09/04/19 23:59 23:59 23:59 Intake Total 201.67 / 201.67 891.66 / 891.66 Balance 201.67 / 201.67 891.66 / 891.66 General: Alert, Oriented x3, Cooperative, No apparent distress HEENT: Atraumatic, PERRLA, EOMI Oral: Moist Mucosa Neck: Supple, Negative Carotid Bruits Lungs: Clear to auscultation Cardiovascular: Regular rate, Regular Rhythm, Normal S1, Normal S2, No murmurs, No rub noted, No Gallop Abdomen: Bowel Sounds Present, Soft, Non Tender, Non-Distended Extremities: No clubbing, No cyanosis, No edema Skin: No rashes Musculoskeletal: - - she has pain with palpation of the R posterior chest that increase with deep breath also. this pain tracks along the rib form poterior to anterior. OMT was administered and rib correction was effective and the rib moved back into place. the pt still had some pain but it was improved. Neurological: Cranial nerves II-XII grossly intact, Neuro grossly intact Laboratory Results 09/03/19 15:45: WBC 8.0, RBC 4.53, Hgb 13.6, Hct 43.0, MCV 94.9, MCH 30.0, MCHC 31.6 L, RDW Std Deviation 44.4 H, RDW Coeff of Carline 12.7, Plt Count 258, MPV 9.0, Immature Gran % (Auto) 0.500, Neut % (Auto) 67.9, Lymph % (Auto) 22.5, [place] % (Auto) 7.9, Eos % (Auto) 0.6, Baso % (Auto) 0.6, Absolute Neuts (auto) 5.4, Absolute Lymphs (auto) 1.79, Nucleated RBC % 0 09/03/19 15:45: Sodium 140, Potassium 3.3 L, Chloride 107, Carbon Dioxide 27.0, Anion Gap 6, BUN 18, Creatinine 0.82, Estim Creat Clear Calc 54.34, Est GFR (MDRD) Af Amer 88, Est GFR (MDRD) Non-Af 73, BUN/Creatinine Ratio 21.8 H, Glucose 112 H, Calcium 9.0, Magnesium 1.8, Troponin I < 0.015 09/03/19 18:51: Troponin I < 0.015 09/03/19 21:43: Troponin I < 0.015 09/04/19 05:20: WBC 7.0, RBC 4.19 L, Hgb 12.6, Hct 39.3, MCV 93.8, MCH 30.1, MCHC 32.1, RDW Std Deviation 43.8, RDW Coeff of Carline 12.6, Plt Count 234, MPV 8.9, Immature Gran % (Auto) 0.300, Neut % (Auto) 70.7 H, Lymph % (Auto) 19.9, [place] % (Auto) 7.6, Eos % (Auto) 0.9, Baso % (Auto) 0.6, Absolute Neuts (auto) 5.0, Absolute Lymphs (auto) 1.39, Nucleated RBC % 0 09/04/19 05:20: Sodium 144, Potassium 4.1, Chloride 112 H, Carbon Dioxide 26.0, Anion Gap 6, BUN 18, Creatinine 0.68, Estim Creat Clear Calc 44.56, Est GFR (MDRD) Af Amer 110, Est GFR (MDRD) Non-Af 91, BUN/Creatinine Ratio 26.5 H, Glucose 99, Calcium 8.7, Triglycerides 71, Cholesterol 128, LDL Cholesterol 55, VLDL Cholesterol 14, HDL Cholesterol 59 Current Medications Acetaminophen (Tylenol) 650 mg PO Q6H PRN PRN PRN Reason: Non-cardiac pain (mod-severe) Hydrocodone Bitart/Acetaminophen ([place] 5mg-325mg) 0.5 tablet PO BID [facility] Last Admin: 09/04/19 09:54 Dose: 0.5 tablet Documented by: Hydrocodone Bitart/Acetaminophen ([place] 5mg-325mg) 1 - 2 tablet PO Q4H PRN PRN PRN Reason: Pain Score 4-10/10 Acyclovir (Zovirax) 400 mg PO BID PRN PRN Reason: HERPES Al Hydroxide/Mg Hydroxide (Mylanta Ii) 15 - 30 ml PO Q4H PRN PRN PRN Reason: INDIGESTION Albuterol Sulfate (Ventolin Aerosols) 2.5 mg INHALATION Q2H PRN PRN PRN Reason: dyspnea, wheezing Albuterol/Ipratropium (Duoneb) 3 ml INHALATION Q6HWA.RT [facility] Last Admin: 09/04/19 06:45 Dose: 3 ml Documented by: Aspirin (Ecotrin) 81 mg PO DAILY@0800 [facility] Last Admin: 09/04/19 05:11 Dose: 81 mg Documented by: Atorvastatin Calcium (Lipitor) 40 mg PO QHS [facility] Last Admin: 09/03/19 23:10 Dose: 40 mg Documented by: Budesonide (Pulmicort Aerosol) 0.5 mg INHALATION Q12H.RT [facility] Last Admin: 09/04/19 06:45 Dose: 0.5 mg Documented by: Dextrose (D50w Syringe) 0 gm IV X1 PRN; Protocol PRN Reason: Hypoglycemia Duloxetine HCl (Cymbalta) 30 mg PO BID [facility] Last Admin: 09/04/19 09:53 Dose: 30 mg Documented by: Glucagon () 1 mg IM .X1 PRN PRN Reason: Hypoglycemia Hydralazine HCl (Apresoline Iv) 10 mg IV Q4H PRN PRN PRN Reason: SBP > 160 Sodium Chloride () 1,000 mls @ 100 mls/hr IV .Q10H [facility] Last Admin: 09/04/19 11:05 Dose: 100 mls/hr Documented by: Sodium Chloride () 250 mls @ 15 mls/hr IV .[id number] PRN PRN Reason: Saline Flush Magnesium Hydroxide (Milk Of Magnesia) 30 ml PO DAILY PRN PRN Reason: Constipation Melatonin (Melatonin) 3 mg PO QHS PRN PRN PRN Reason: INSOMNIA Morphine Sulfate () 1 - 2 mg IV Q4H PRN PRN PRN Reason: Pain Score 1-10/10 Nitroglycerin (Nitrostat) 0.4 mg SUBLINGUAL Q5M PRN PRN Reason: CARDIAC/CHEST PAIN Nutritional Formula (Lactose Free) (Ensure Enlive) 120 ml PO 4X/DAY [facility] Last Admin: 09/04/19 09:56 Dose: Not Given Documented by: Ondansetron HCl (Zofran) 4 mg IV Q8H PRN PRN PRN Reason: NAUSEA/VOMITING Pantoprazole Sodium (Protonix) 20 mg PO DAILY [facility] Last Admin: 09/04/19 09:53 Dose: 20 mg Documented by: Ramipril (Altace) 5 mg PO DAILY [facility] Last Admin: 09/04/19 05:11 Dose: 5 mg Documented by: Rivaroxaban (Xarelto) 15 mg PO DAILY@1700 [facility] Last Admin: 09/03/19 18:14 Dose: 15 mg Documented by: Sodium Chloride () 10 - 40 ml IV UD PRN PRN Reason: SALINE FLUSH Last Admin: 09/03/19 23:13 Dose: 10 ml Documented by: Medical Necessity - Tobacco Use Smoking Status: Former smoker Tobacco Use: Non-smoker Assessment/Plan All Active Problems (Last Reviewed 06/18/19 @ 15:12 by Radha Reynaga) Chest pain (Acute) Skin tear of left lower leg without complication (Acute) Ulcer of left lower extremity with fat layer exposed (Acute) Lower extremity edema (Acute) Delayed wound healing (Acute) Pain in left lower leg (Acute) PND (post-nasal drip) (Acute) History of total right hip replacement (Resolved) History of cholecystectomy (Resolved) History of hysterectomy (Resolved) Impressions 1. Chest pain more likely than not secondary to right rib lesion. Pharmacologic nuclear stress test was negative. Toradol 15 mg IV every 8 hours x6 doses Flexeril 5 mg p.o. every 8 hours. Reevaluate in the a.m. Code Visit OBSV E&M: 49967 Subsequent observation care L2
[2019-09-04] MEDS: hydrALAZINE 20 MG/ML Vial 10 MG IV (15:40)
--- NOTE | 2019-09-04 16:09 | STRESSREP_ITS ---
Stress Test Report Date: 09/04/2019 Procedure: Pharmacologic stress nuclear imaging study Indications: Chest pain Consent: Per the patient Procedure: The patient underwent pharmacologic (Regadenoson) evaluation with a peak heart rate of 113 beats per minute (75 %predicted maximal heart rate) and a peak blood pressure of 148/70 mmHg. The baseline ECG demonstrated normal sinus rhythm, right bundle branch block. EKG during lexiscan infusion revealed significant ischemic changes. EKG post infusion revealed no significant ischemic changes [There were no cardiac dysrhythmias pretest, during pharmacologic infusion, or recovery]. [There was no complaint of chest discomfort during pharmacologic infusion or recovery]. The examination was discontinued secondary to completion of protocol. Impression: 1. Lexiscan stress test test is negative for Lexiscan infusion induced EKG changes of ischemia. 2. Lexiscan stress test test is negative for Lexiscan infusion induced chest pain. 3. Results of the nuclear portion of the test is as below Myocardial perfusion imaging study: Technique: The patient was injected with 11 millicuries of technetium 99m Cardiolite and subsequently rest SPECT Cardiolite nuclear imaging was obtained in the horizontal long, vertical long, and short axis views. The patient underwent pharmacologic (Regadenoson) evaluation. Please see above for details. The patient was injected with 33 millicuries of technetium 99m Cardiolite and subsequently stress SPECT Cardiolite nuclear imaging was obtained in the horizontal long, vertical long, and short axis views. A gated Cardiolite study at peak stress was obtained. Interpretation: Rest and stress SPECT Cardiolite nuclear imaging status post realignment, normalization, and attenuation correction demonstrate mildly decreased radioisotope uptake in the inferior wall on both the rest and stress images prior to attenuation correction which resolved with attenuation correction. These findings are suggestive of diaphragmatic attenuation artifact. There is no evidence of significant ischemia or infarction. Gating could not be performed due to heart rate variability and hence ejection fraction cannot be calculated Impression: 1. There is no evidence of significant ischemia or infarction. 2. Ejection fraction cannot be estimated due to inability to perform gating. This note was generated with [employer] software. It may contain incorrect words, spelling, and punctuation that were not noted in checking the note before signing.
[2019-09-04] MEDS: Ketorolac 15 MG/ML Vial IV ×2 (17:23→21:45)
[2019-09-04] MEDS: Rivaroxaban 15 MG Tablet PO (17:23)
[2019-09-04] MEDS: cycloBENZAPRine HCl 10 MG Tablet PO ×2 (17:23→21:44)
[2019-09-04] MEDS: Atorvastatin Calcium 40 MG Tablet PO (21:44)
[2019-09-05 03:09] VITALS: PULSE 79
[2019-09-05 03:40] VITALS: BP 114/71; PULSE 83; RESP 16; TEMP 36.8; O2SAT 98
[2019-09-05] MEDS: 0.9% Normal Saline 1,000 ML 100 ML IV (06:15)
[2019-09-05] MEDS: Ketorolac 15 MG/ML Vial IV (06:15)
[2019-09-05 07:01] VITALS: PULSE 81
[2019-09-05 07:02] VITALS: PULSE 78; RESP 16; O2SAT 95
[2019-09-05] MEDS: Budesonide Respules 0.5 MG/2 ML AMPUL.NEB. INHALATION (07:02)
[2019-09-05] MEDS: Ipratropium/Albuterol Sulfate 3 ML AMPUL.NEB INHALATION (07:02)
[2019-09-05 09:30] VITALS: BP 139/89; PULSE 99; RESP 16; TEMP 36.9; O2SAT 97
[2019-09-05] MEDS: Glycerin/Hypromellose/PEG400 15 ml Bottle 1 DRP OPHTHALMIC (09:30)
[2019-09-05] MEDS: HYDROcodone Bitartrate/Apap 5/325 Tablet PO (09:30)
[2019-09-05] MEDS: DULoxetine Hcl 30 MG Capsule PO (09:31)
[2019-09-05] MEDS: Aspirin E.C. 81 MG Tablet PO (09:31)
[2019-09-05] MEDS: Ramipril 5 MG Capsule PO (09:31)
[2019-09-05] MEDS: Pantoprazole Sodium 20 MG Tablet PO (09:31)
--- NOTE | 2019-09-05 10:08 | CASEMGMT ---
This JOSÉ MIGUEL KIRKPATRICK to room with ANDRE form, explanation done-pt voices understanding, and signs ANDRE form at this time. Original to chart and copy to pt at this time. Pt has a copy of the [facility] IP vs OBS already in her folder. Pt voices no further questions/concerns/needs at this time. Pt awaiting dispo. [place] JOSÉ MIGUEL KIRKPATRICK
--- NOTE | 2019-09-05 10:21 | DCINST_ITS ---
- Discharge Diagnoses Current Active Problems: Current Active and Chronic Problems (Last Reviewed 06/18/19 @ 15:12 by Radha Reynaga) Chest pain (Acute) Chronic respiratory failure with hypoxia (Chronic) You will use the following diet at home:: Other - Resume previous diet Your food should be the consistency of: Regular Your liquids should be the consistency of: Regular/Thin Discharge Activity: - - do not lift more than 5 lbs for the next 5-7 days. Avoid doing things over your head. Call your doctor if you observe: Fever of 101 or Higher, Shortness of breath, Dizziness, Fainting spells, Swelling in the ankles, Uncontrolled pain Additional Instructions: 1. Your stress test was normal. There is no evidence that you have significant coronary artery disease at this time. 2. The heart monitor did not reveal any problems with the rhythm of the heart. 3. The pain in the chest and back were caused by a rib not moving as it should with respirations. The ribs should move up and down like bucket handles when you breath and one of the ribs was locked up and not moving. I was able to get it back into place with manipulation. Sometimes when it has been out of place for a few days you will get muscle spasm and it will pull the rib out of place again. I am giving you Flexeril, a muscle relaxer, to take at bedtime for the next few days to treat muscle spasm.....you can also take 1 during the day if you are having spasms. If you have this trouble again I suggest you go to a chiropracter for additional manipulation. 4. It was a pleasure meeting you and you take care of yourself AND your heart is good and that is a relief. Allergies/Adverse Reactions: Allergies No Known Allergies Allergy (Verified 09/03/19 15:44) Medications to take at Discharge Omeprazole [Prilosec] 20 mg PO DAILY 01/04/17 ramipril 5 mg capsule 5 mg PO DAILY 06/07/19 rivaroxaban 15 mg tablet 15 mg PO DAILY 06/07/19 albuterol sulfate 2.5 mg/3 mL (0.083 %) solution for nebulization 2.5 mg INHALATION Q4H PRN #180 ml 06/14/19 albuterol sulfate HFA 90 mcg/actuation aerosol inhaler 2 puff INHALATION Q4H PRN #18 g 06/14/19 budesonide-formoterol HFA 160 mcg-4.5 mcg/actuation aerosol inhaler 2 puff INHALATION BID #1 ea 06/14/19 atorvastatin 40 mg tablet 40 mg PO QHS #90 tab 08/16/19 duloxetine 30 mg capsule,delayed release 30 mg PO BID #60 cap 08/20/19 hydrocodone 5 mg-acetaminophen 325 mg tablet 0.5 tab PO BID tab 08/20/19 polyvinyl alcohol 1.4 % eye drops 1 drp OPHTHALMIC 4X/DAY 08/20/19 valacyclovir 1 gram tablet 1,000 mg PO DAILY PRN PRN 08/20/19 Umeclidinium [place] Inhaler [Incruse Ellipta Inhaler] 1 inh INHALATION DAILY 09/03/19 cycloBENZAPRine HCl [Flexeril] 10 mg PO QHS #10 tab 09/05/19 The following prescriptions were given: cycloBENZAPRine HCl [Flexeril] 10 mg PO QHS #10 tab Transmission Status: Pending to [facility] Primary Care Physician: Yenni Lu MD [Primary Care Provider] - Please follow up with your Primary Care Physician in: 1-2 weeks Test Results: Test results from this visit will be discussed in further detail at your follow- up appointment, if applicable. Proposed Discharge Date: 09/05/19
--- NOTE | 2019-09-05 10:40 | PCM.DC.SUM ---
Discharge Date and Diagnosis - Problem List Patient Problems: Active and Suspected Problems (Last Reviewed 06/18/19 @ 15:12 by Radha Reynaga) Nonallopathic lesion-rib cage (Acute) Somatic dysfunction of thoracic region (Acute) Chest pain (Acute) Date of Admission: 09/03/19 Date of Discharge: 09/05/19 - Primary Discharge Diagnosis Active and Suspected Problems (Last Reviewed 06/18/19 @ 15:12 by Radha Reynaga) Chest pain (Acute) - non-cardiac Nonallopathic lesion- R rib cage (Acute) Somatic dysfunction of R thoracic region (Acute) - Secondary Discharge Diagnosis Chronic Problems (Last Reviewed 06/18/19 @ 15:12 by Radha Reynaga) Chronic respiratory failure with hypoxia (Chronic) Bilateral shoulder pain (Chronic) Irritable bowel syndrome with diarrhea (Chronic) PND (post-nasal drip) (Chronic) Vitamin D deficiency (Chronic) Depression (Chronic) GERD (gastroesophageal reflux disease) (Chronic) Hyperlipidemia (Chronic) Hypertension (Chronic) Insomnia (Chronic) Hypersomnia (Chronic) Internal hemorrhoid (Chronic) Overweight (Chronic) Stage 3 severe COPD by GOLD classification (Chronic) Hospital Course and Treatment Imaging Results: Clinical Impression(s) from Imaging Studies Chest X-Ray 09/03/19 15:45 IMPRESSION: No acute abnormality is seen. Electronically Signed: Ray Bella, at 15:59 EST , Service support , none Operations: None Procedures: - - Osteopathic manipulation of the Thoracic region with HVLA correction to the right ribs Summary of Care Provided: The patient is a 69-year-old female with a past medical history of anxiety/depression, GERD, obesity, chronic asthma/COPD with chronic hypoxic respiratory failure (E 2 L nasal cannula at bedtime), history of VTE on Xarelto, history of gastric ulcer, hypertension and hyperlipidemia who presented to the emergency department at [facility] on 09/03/2019 complaining of chest pain. Vital signs at presentation to the emergency room were temperature 98.4, pulse 93, blood pressure 105/74, respiratory rate 20 and she was 98% saturated on room air. CBC was unremarkable. Potassium was low at 3.3 and the BUN was 18 with a creatinine of 0.82. Troponin was less than 0.015. Chest x-ray revealed no infiltrates, no pulmonary vascular congestion and no pleural effusions. EKG showed normal sinus rhythm with a right bundle branch block. She had not been taking aspirin at home and she was administered aspirin in the emergency department. She was admitted to a monitored bed on PCU and the chest pain protocol was initiated. Serial cardiac enzymes were negative. Triglycerides were 71 with a cholesterol of 128, LDL of 55 and an HDL of 59. She had a pharmacologic nuclear stress test on 09/04/2019 that showed no evidence of significant ischemia or infarction. Telemetry showed normal sinus rhythm with no significant ectopy. The pain was actually located in the R chest and the R back. It was reproducible with palpation. The pain radiated along a R mid thoracic rib. Osteopathic manipulation of the thoracic region was performed along with a high velocity low amplitude correction of the R ribs. She got significant relief and the involved rib moved back into place. She had some residual soreness and muscle spasm so she was kept overnight and was treated with Toradol and Flexeril at bedtime. On the morning of 09/05/2019 she felt well and denied any chest or back pain. She denied shortness of breath. She was discharged home with a prescription for Flexeril 10 mg and will take this nightly for the next few nights and may have one during the day if she experiences recurrent pain or muscle spasm. If she continues to have this pain she was instructed to follow-up with a chiropractor for additional manipulation. She will follow-up with Dr. Lu in the next 1 to 2 weeks. PHYSICAL EXAM: GENERAL: alert, oriented X 3, Cooperative, NAD ORAL: moist mucosa, no mucosal lesions NECK: No JVD, supple, trachea midline LUNGS: CTA, symmetric chest expansion HEART: RRR, Normal S1 and S2, no rub, no gallop ABDOMEN: soft, NT, ND, BS present, no guarding with palpation EXTREMITIES: no edema, no cyanosis, no calf tenderness SKIN: No rashes, no breakdown NEUROLOGIC: no focal neurologic deficits PSYCH: appropriate, normal affect, pleasant This note was generated with [employer] dictation software. It may contain incorrect words, spelling, and punctuation that were not noted in checking the note before signing. Patient Problems: Active and Suspected Problems (Last Reviewed 06/18/19 @ 15:12 by Radha Reynaga) Nonallopathic lesion-rib cage (Acute) Somatic dysfunction of thoracic region (Acute) Chest pain (Acute) - Physical Exam Vitals/I&O's: Vital Signs Temp Pulse Resp BP Pulse Ox 98.4 F 99 16 139/89 H 97 09/05/19 09:30 09/05/19 09:30 09/05/19 09:30 09/05/19 09:30 09/05/19 09:30 Oxygen Flow Rate (L/min) 2 Oxygen Delivery Method Room Air Weight: 149 lb 4.047 oz Body Mass Index (BMI) 25.6 Intake and Output for Last 24 Hours 09/03/19 09/04/19 09/05/19 23:59 23:59 23:59 Intake Total 201.67 / 201.67 2841.66 / 2841.66 806.67 / 806.67 Balance 201.67 / 201.67 2841.66 / 2841.66 806.67 / 806.67 Current Medications Acetaminophen (Tylenol) 650 mg PO Q6H PRN PRN PRN Reason: Non-cardiac pain (mod-severe) Hydrocodone Bitart/Acetaminophen ([place] 5mg-325mg) 0.5 tablet PO BID [facility] Last Admin: 09/05/19 09:30 Dose: 0.5 tablet Documented by: Hydrocodone Bitart/Acetaminophen ([place] 5mg-325mg) 1 - 2 tablet PO Q4H PRN PRN PRN Reason: Pain Score 4-10/10 Last Admin: 09/04/19 15:40 Dose: 2 tablet Documented by: Acyclovir (Zovirax) 400 mg PO BID PRN PRN Reason: HERPES Al Hydroxide/Mg Hydroxide (Mylanta Ii) 15 - 30 ml PO Q4H PRN PRN PRN Reason: INDIGESTION Albuterol Sulfate (Ventolin Aerosols) 2.5 mg INHALATION Q2H PRN PRN PRN Reason: dyspnea, wheezing Albuterol/Ipratropium (Duoneb) 3 ml INHALATION Q6HWA.RT [facility] Last Admin: 09/05/19 07:02 Dose: 3 ml Documented by: Aspirin (Ecotrin) 81 mg PO DAILY@0800 [facility] Last Admin: 09/05/19 09:31 Dose: 81 mg Documented by: Atorvastatin Calcium (Lipitor) 40 mg PO QHS [facility] Last Admin: 09/04/19 21:44 Dose: 40 mg Documented by: Budesonide (Pulmicort Aerosol) 0.5 mg INHALATION Q12H.RT [facility] Last Admin: 09/05/19 07:02 Dose: 0.5 mg Documented by: Cyclobenzaprine HCl (Flexeril) 10 mg PO QHS [facility] Last Admin: 09/04/19 21:44 Dose: 10 mg Documented by: Dextrose (D50w Syringe) 0 gm IV X1 PRN; Protocol PRN Reason: Hypoglycemia Duloxetine HCl (Cymbalta) 30 mg PO BID [facility] Last Admin: 09/05/19 09:31 Dose: 30 mg Documented by: Glucagon () 1 mg IM .X1 PRN PRN Reason: Hypoglycemia Hydralazine HCl (Apresoline Iv) 10 mg IV Q4H PRN PRN PRN Reason: SBP > 160 Last Admin: 09/04/19 15:40 Dose: 10 mg Documented by: Sodium Chloride () 1,000 mls @ 100 mls/hr IV .Q10H [facility] Last Admin: 09/05/19 06:15 Dose: 100 mls/hr Documented by: Sodium Chloride () 250 mls @ 15 mls/hr IV .[id number] PRN PRN Reason: Saline Flush Ketorolac Tromethamine (Toradol) 15 mg IV Q8 [facility] Stop: 09/09/19 16:42 Last Admin: 09/05/19 06:15 Dose: 15 mg Documented by: Magnesium Hydroxide (Milk Of Magnesia) 30 ml PO DAILY PRN PRN Reason: Constipation Melatonin (Melatonin) 3 mg PO QHS PRN PRN PRN Reason: INSOMNIA Morphine Sulfate () 1 - 2 mg IV Q4H PRN PRN PRN Reason: Pain Score 1-10/10 Nitroglycerin (Nitrostat) 0.4 mg SUBLINGUAL Q5M PRN PRN Reason: CARDIAC/CHEST PAIN Nutritional Formula (Lactose Free) (Ensure Enlive) 120 ml PO 4X/DAY [facility] Last Admin: 09/05/19 09:30 Dose: 120 ml Documented by: Ondansetron HCl (Zofran) 4 mg IV Q8H PRN PRN PRN Reason: NAUSEA/VOMITING Pantoprazole Sodium (Protonix) 20 mg PO DAILY [facility] Last Admin: 09/05/19 09:31 Dose: 20 mg Documented by: Ramipril (Altace) 5 mg PO DAILY [facility] Last Admin: 09/05/19 09:31 Dose: 5 mg Documented by: Rivaroxaban (Xarelto) 15 mg PO DAILY@1700 [facility] Last Admin: 09/04/19 17:23 Dose: 15 mg Documented by: Sodium Chloride () 10 - 40 ml IV UD PRN PRN Reason: SALINE FLUSH Last Admin: 09/03/19 23:13 Dose: 10 ml Documented by: Discharge Activity: - - do not lift more than 5 lbs for the next 5-7 days. Avoid doing things over your head. Call your doctor if you observe: Fever of 101 or Higher, Shortness of breath, Dizziness, Fainting spells, Swelling in the ankles, Uncontrolled pain Home Medications: Medications to take at Discharge Omeprazole [Prilosec] 20 mg PO DAILY 01/04/17 ramipril 5 mg capsule 5 mg PO DAILY 06/07/19 rivaroxaban 15 mg tablet 15 mg PO DAILY 06/07/19 albuterol sulfate 2.5 mg/3 mL (0.083 %) solution for nebulization 2.5 mg INHALATION Q4H PRN #180 ml 06/14/19 albuterol sulfate HFA 90 mcg/actuation aerosol inhaler 2 puff INHALATION Q4H PRN #18 g 06/14/19 budesonide-formoterol HFA 160 mcg-4.5 mcg/actuation aerosol inhaler 2 puff INHALATION BID #1 ea 06/14/19 atorvastatin 40 mg tablet 40 mg PO QHS #90 tab 08/16/19 duloxetine 30 mg capsule,delayed release 30 mg PO BID #60 cap 08/20/19 hydrocodone 5 mg-acetaminophen 325 mg tablet 0.5 tab PO BID tab 08/20/19 polyvinyl alcohol 1.4 % eye drops 1 drp OPHTHALMIC 4X/DAY 08/20/19 valacyclovir 1 gram tablet 1,000 mg PO DAILY PRN PRN 08/20/19 Umeclidinium [place] Inhaler [Incruse Ellipta Inhaler] 1 inh INHALATION DAILY 09/03/19 cycloBENZAPRine HCl [Flexeril] 10 mg PO QHS #10 tab 09/05/19 Following Prescrptions Were Given to Patient: cycloBENZAPRine HCl [Flexeril] 10 mg PO QHS #10 tab Transmission Status: Pending to [facility] Primary Care Physician: Yenni Lu MD [Primary Care Provider] - Please follow up with your Primary Care Physician in: 1-2 weeks Disposition: Home Minutes spent on discharge:: 30 Medical Necessity - Tobacco Use Smoking Status: Former smoker Tobacco Use: Non-smoker Meaningful Use Info Meaningful Use Diagnoses (Choose all that apply): None applicable Code Visit OBSV E&M: 00543 Observation care discharge
== END 2019-09-05 10:38 | disposition home or self-care (01) ==
LOC: ED 15:54 → PCU 17:02
PROVIDERS: Admitting Provider Family Medicine; Emergency Provider Emergency Medicine; Family Provider Internal Medicine; PCP Internal Medicine; Visit Provider Internal Medicine
DX: R07.89 Other chest pain (principal); M99.08 Segmental and somatic dysfunction of rib cage; M99.02 Segmental and somatic dysfunction of thoracic region; J96.11 Chronic respiratory failure with hypoxia; J44.9 Chronic obstructive pulmonary disease, unspecified; E78.5 Hyperlipidemia, unspecified; K21.9 Gastro-esophageal reflux disease without esophagitis; I10 Essential (primary) hypertension; K58.0 Irritable bowel syndrome with diarrhea; F41.9 Anxiety disorder, unspecified; M19.90 Unspecified osteoarthritis, unspecified site; F32.9 Major depressive disorder, single episode, unspecified; E87.6 Hypokalemia; Z79.899 Other long term (current) drug therapy; Z79.51 Long term (current) use of inhaled steroids; Z87.891 Personal history of nicotine dependence; Z86.718 Personal history of other venous thrombosis and embolism; Z79.01 Long term (current) use of anticoagulants; Z87.11 Personal history of peptic ulcer disease
CPT/HCPCS: 36415; 71045; 78452; 80048; 80061; 83735; 84484; 85025; 93005; 93017; 94060; 94640; 94726; 94729; 96361; 96374; 96375; 96376; 97802; 99218; 99285; A9500; J7030; A4216; G0378; J2785

== ENCOUNTER → 2019-09-09 10:38 | Outpatient (CLI) | payer MEDICARE, SELFPAY ==
[2019-03-05 09:04] VITALS: BMI 26.6
[2019-09-03 17:27] VITALS: BMI 25.6
[2019-09-09 11:07] VITALS: PULSE 103; PULSE 108; PULSE 109; PULSE 111; PULSE 112; PULSE 86; PULSE 88; O2SAT 95; O2SAT 96; O2SAT 97; O2SAT 98
--- NOTE | 2019-09-09 14:23 | PCM.PSN.6M ---
PSN 6 Minute Walk Test - 6 Minute Walk Test 6 Minute Walk Test: 6 Minute Walk Test PSN:6-Minute Walk Test Start: 09/09/19 11:07 Freq: Status: Active Protocol: RESP.6MINW Document 09/09/19 11:07 MICHAEL (Rec: 09/09/19 11:09 MICHAEL [id number]) 6 Minute Walk Test Date Performed 09/09/19 Time Performed 11:00 Height 5 ft 4 in Weight: 69.853 kg Weight in Pounds 154.[address]: Edgardo Britton Assistive device used: None Pre-test Oxygen Delivery Method Room Air Pulse Ox (%) 96 Pulse Rate (60-100 beats/min) 86 Dyspnea Galindo Scale (0-10) 1 Exertion Galindo Scale (6-20) 6 1st minute Oxygen Delivery Method Room Air Pulse Ox (%) 97 Pulse Rate (60-100 beats/min) 103 H 2nd minute Oxygen Delivery Method Room Air Pulse Ox (%) 96 Pulse Rate (60-100 beats/min) 108 H 3rd minute Oxygen Delivery Method Room Air Pulse Ox (%) 96 Pulse Rate (60-100 beats/min) 109 H 4th minute Oxygen Delivery Method Room Air Pulse Ox (%) 95 Pulse Rate (60-100 beats/min) 111 H 5th minute Oxygen Delivery Method Room Air Pulse Ox (%) 97 Pulse Rate (60-100 beats/min) 111 H 6th minute Oxygen Delivery Method Room Air Pulse Ox (%) 96 Pulse Rate (60-100 beats/min) 112 H Dyspnea Galindo Scale (0-10) 3 Exertion Galindo Scale (6-20) 14 Post-test Oxygen Delivery Method Room Air Pulse Ox (%) 98 Pulse Rate (60-100 beats/min) 88 Full Laps Walked 16 Partial Lap, Number of Tiles Walked 10 Total Distance Walked (ft) 954 - Interpretation Interpretation: The patient was able to ambulate 954 feet over the course of 6 minutes on room air with no assistive devices or breaks. The patient did not have any significant desaturation, but did have an increase in heart rate as high as 112 bpm. These findings are consistent with deconditioning. - Recommendations Recommendations: No supplemental oxygen is indicated at this time.
== END ==
PROVIDERS: Family Provider Internal Medicine; PCP Internal Medicine; Referring Provider Internal Medicine Critical Care Medicine; Visit Provider Internal Medicine Critical Care Medicine
DX: J44.9 Chronic obstructive pulmonary disease, unspecified (principal)
CPT/HCPCS: 94618

== ENCOUNTER → 2019-09-16 13:47 | Outpatient (CLI) | payer MEDICARE, SELFPAY ==
[2019-09-11 10:20] VITALS: BMI 26.4
[2019-09-16 15:05] LABS: Amphetamine Urine VISTA NEGATIVE (<1000 ng/mL); Barbiturate Urine VISTA NEGATIVE (< 200 ng/mL); Benzodiazepine Urine VISTA NEGATIVE (< 200 ng/mL); Cocaine Urine VISTA NEGATIVE (< 300 ng/mL); Ecstacy Urine VISTA NEGATIVE (< 500 ng/mL); Methadone Urine VISTA NEGATIVE (< 300 ng/mL); PCP Urine VISTA NEGATIVE (< 25 ng/mL); THC Urine VISTA NEGATIVE (< 50 ng/mL); Vista UDS pH Range 5
== END ==
PROVIDERS: Family Provider Internal Medicine; PCP Internal Medicine; Referring Provider Anesthesiology Pain Medicine; Visit Provider Anesthesiology Pain Medicine
DX: F11.20 Opioid dependence, uncomplicated (principal)
CPT/HCPCS: 80307

== ENCOUNTER 2019-10-17 10:01 | Emergency (ER) | payer MEDICARE, SELFPAY ==
[2019-09-11 10:20] VITALS: BMI 26.4
[2019-10-17 10:02] VITALS: BP 150/92; PULSE 89; RESP 22; TEMP 36.6; O2SAT 98; BMI 24.9
[2019-10-17 10:13] VITALS: BP 165/90; PULSE 81; RESP 16; O2SAT 99
--- NOTE | 2019-10-17 10:28 | RAD_ITS ---
STUDY: X-RAY CHEST REASON FOR EXAM: Female, 69 years old. Chest pain. TECHNIQUE: PA and lateral views of the chest. COMPARISON: Comparison is made with prior study dated September 03, 2019. FINDINGS: EKG electrodes are seen. The lungs are clear and expanded. There is no demonstrated pleural abnormality. Normal size heart. Normal mediastinum and mae. Normal visualized pulmonary arteries. There is atherosclerotic calcification of the aortic arch with tortuosity. There are diffuse degenerative changes of the visualized thoracic spine. There is degenerative osteoarthritis of the bilateral shoulders. There is no demonstrated abnormality of the visualized soft tissue structures of the upper abdomen. RAD/Chest PA and Lateral IMPRESSION: No acute abnormality is seen. Electronically Signed: Ray Bella, at 12:09 EST , Service support ,
--- NOTE | 2019-10-17 10:28 | EKG12_ITS ---
Test Reason : EPIGASTRIC PAIN Blood Pressure : / mmHG Vent. Rate : 079 BPM Atrial Rate : 079 BPM P-R Int : 184 ms QRS Dur : 132 ms QT Int : 428 ms P-R-T Axes : 054 -37 010 degrees QTc Int : 490 ms Normal sinus rhythm Left axis deviation Right bundle branch block Abnormal ECG Confirmed by CARLIE DEL TORO, BILL ([id number]), editor school photograph HEBER SIMS ([id number]) on 10/21/2019 11:31:14 AM Referred By: BREANNE Confirmed By:BILL SEXTON MD
--- NOTE | 2019-10-17 10:45 | ED.VISSUMM ---
- ER Visit Summary Date of Service: 10/17/19 Chief Complaint: Chest and back pain History of Present Illness: The patient is a 69 F who presents with back and chest pain that began yesterday. Patient states the pain started in her back and is now radiating around to her left lower chest. Patient states the pain is throbbing. Patient states the pain is worse with deep breathing and certain movements. Patient has a history of COPD but denies any shortness of breath that is unusual for her. Patient denies any fevers or chills. Patient denies any nausea or vomiting. Patient denies any diaphoresis. Patient denies any rashes or hives. Physical Examination: Vital signs are stable. Patient is afebrile. Patient is in no acute distress. Oral mucosa is pink and moist. Neck is supple. Trachea is midline. There is no JVD. Heart was regular rate and rhythm. Lungs were clear and equal bilaterally. Respiratory effort was limited somewhat secondary to pain. Abdomen is soft. Bowel sounds are normal. Cranial nerves II through XII are intact. There are no focal motor or sensory deficits noted. Extremities are intact. There is no calf tenderness or swelling. Test Results: EKG showed normal sinus rhythm with a rate of 79. There is a right bundle branch block pattern noted. There are no acute ST or T wave changes. PA and lateral chest x-ray was obtained. There is no acute cardiopulmonary process. CBC, basic metabolic profile, troponin were all within normal limits. Emergency Department Course and Treatment: Patient was given ibuprofen here. Patient was feeling better on reevaluation. Patient was advised to follow-up with her primary care physician in 5 to 7 days. Patient was instructed to look for a rash along the area of her pain in the next couple days. Patient was instructed to return or call her primary care physician if this would develop. Patient understood and was agreeable with the plan. All questions were answered. Disposition: Discharge home Impression: Left lower chest pain This note was generated with [employer] dictation software. It may contain incorrect words, spelling, and punctuation that were not noted in review of the chart prior to signing ED Disposition - Plan for ED Patient: Disposition: Home or Assisted Living Diagnosis: Chest pain Instructions: CHEST PAIN, NonCardiac Referrals: Yenni Lu MD [Primary Care Provider] - 3-5 Days
[2019-10-17 10:59] LABS: Absolute Lymphocyte Count 1.36 X10^3/uL (0.83-4.51); Absolute Neutrophil Count 7.4 X10^3/uL (2.0-7.7); Basophil# 0.05 X10^3/uL; Basophil% 0.5 % (0-1); Eosinophil# 0.03 X10^3/uL; Eosinophils% 0.3 % (0-5); Hematocrit 43.4 % (37-47); Lymphocyte # 1.36 X10^3/ul (4.0); Lymphocyte % 14.3 % (19-41); Mean Corp Hgb Conc 32.3 g/dL (32-36); Mean Corpuscular Hgb 29.9 pg (27.0-32.0); Mean Corpuscular Volume 92.7 fL (81-99); Monocyte# 0.69 X10^3/uL; Monocyte% 7.3 % (0-10); NRBC Flagged by Analyzer 0 % (0-5); Neutrophil # 7.35 X10^3/uL (2.7-7.7); Neutrophil % 77.3 % (47-70); Platelet Count 270 K/mm3 (150-450); RBC Distribution Width CV 13.4 % (11.6-14.6); RBC Distribution Width SD 45.3 fl (35.1-43.9); Red Blood Count 4.68 M/mm3 (4.2-5.4); White Blood Count 9.5 K/mm3 (4.4-11.0)
[2019-10-17 11:18] LABS: Anion Gap 5 (5-15); BUN 11 mg/dL (7-18); BUN/Creat Ratio 14.5 RATIO (10-20); Calcium,Total 9.2 mg/dL (8.5-10.1); Chloride 106 mmol/L (98-107); Creatinine, Serum 0.76 mg/dL (0.55-1.02); EST Glomerular Filtration Rate 80 mL/min (>60); Est Glom Filt Rate - Afr Amer 96 mL/min (>60); Estimated Creatinine Clearance 44.56 ml/min; Glucose 95 mg/dL (74-106); Potassium 3.4 mmol/L (3.5-5.1); Sodium Level 141 mmol/L (136-145)
[2019-10-17] MEDS: Ibuprofen 600 MG Tablet PO (11:52)
[2019-10-17 13:14] VITALS: BP 159/87; PULSE 82; RESP 13; O2SAT 96
== END 2019-10-17 13:27 | disposition home or self-care (01) ==
PROVIDERS: Emergency Provider Emergency Medicine; Family Provider Internal Medicine; PCP Internal Medicine
DX: R07.89 Other chest pain (principal); J44.9 Chronic obstructive pulmonary disease, unspecified; I10 Essential (primary) hypertension; M19.90 Unspecified osteoarthritis, unspecified site; Z79.51 Long term (current) use of inhaled steroids; Z79.899 Other long term (current) drug therapy
CPT/HCPCS: 71046; 80048; 84484; 85025; 93005; 99285; A4216

== ENCOUNTER → 2020-04-06 08:12 | Outpatient (CLI) | payer MEDICARE, MEDICAID, SELFPAY ==
[2020-01-20 11:50] VITALS: BMI 24.7
--- NOTE | 2020-04-06 08:18 | RAD_ITS ---
STUDY: X-RAY - ESOPHAGUS (BARIUM SWALLOW) WITH FLUOROSCOPY REASON FOR EXAM: Female, 69 years old. GERD /DYSPHAGIA, STUCK FEELING MID ESOPH AREA. FAM HX CA TECHNIQUE: 17 view(s) of the esophagus were obtained following swallowing of barium. FLUOROSCOPY TIME (if supplied): (0:26) minutes/seconds. COMPARISON: None. FINDINGS: There is no demonstrated esophageal foreign body. There is no demonstrated stricture or mucosal abnormality. There is a small hiatal hernia of the fundus of the stomach. There is evidence of gastroesophageal reflux. The patient ingested a 12 mm tablet of barium without any issue. There is atherosclerotic calcification of the aortic arch with tortuosity of the descending aorta. Normal visualized pulmonary parenchyma. Normal visualized osseous structures of the thorax. RAD/Esophagus Dual Contrast IMPRESSION: Small hiatal hernia with gastroesophageal reflux.. Electronically Signed: Ray Bella, at 13:09 EDT , Service support ,
== END ==
PROVIDERS: PCP Internal Medicine; Referring Provider Otolaryngology; Visit Provider Otolaryngology
DX: K21.9 Gastro-esophageal reflux disease without esophagitis (principal); R13.10 Dysphagia, unspecified
CPT/HCPCS: 74221

== ENCOUNTER → 2020-04-14 08:45 | Outpatient (CLI) | payer MEDICARE, MEDICAID, SELFPAY ==
[2020-04-14 08:25] VITALS: BMI 24.7
[2020-04-14 13:02] LABS: Absolute Lymphocyte Count 1.58 X10^3/uL (0.83-4.51); Absolute Neutrophil Count 6.8 X10^3/uL (2.0-7.7); Basophil# 0.05 X10^3/uL; Basophil% 0.5 % (0-1); Eosinophil# 0.05 X10^3/uL; Eosinophils% 0.5 % (0-5); Hematocrit 44.7 % (37-47); Hemoglobin 13.9 g/dL (12.0-15.0); Lymphocyte # 1.58 X10^3/ul (4.0); Lymphocyte % 17.2 % (19-41); Mean Corp Hgb Conc 31.1 g/dL (32-36); Mean Corpuscular Hgb 29.8 pg (27.0-32.0); Mean Corpuscular Volume 95.7 fL (81-99); Mean Platelet Vol. 9.8 fl (6.2-12.0); Monocyte% 7.6 % (0-10); NRBC Flagged by Analyzer 0 % (0-5); Neutrophil # 6.81 X10^3/uL (2.7-7.7); Neutrophil % 74.1 % (47-70); Platelet Count 303 K/mm3 (150-450); RBC Distribution Width CV 14.4 % (11.6-14.6); RBC Distribution Width SD 50.4 fl (35.1-43.9); Red Blood Count 4.67 M/mm3 (4.2-5.4); White Blood Count 9.2 K/mm3 (4.4-11.0)
[2020-04-14 13:19] LABS: Anion Gap 5 (5-15); BUN 18 mg/dL (7-18); BUN/Creat Ratio 21.5 RATIO (10-20); Calcium,Total 9.2 mg/dL (8.5-10.1); Chloride 106 mmol/L (98-107); Creatinine, Serum 0.84 mg/dL (0.55-1.02); EST Glomerular Filtration Rate 71 mL/min (>60); Est Glom Filt Rate - Afr Amer 86 mL/min (>60); Glucose 93 mg/dL (74-106); Potassium 4.4 mmol/L (3.5-5.1); Sodium Level 141 mmol/L (136-145)
== END ==
LOC: EPLAB 08:45 → BIMLAB 11:53
PROVIDERS: PCP Internal Medicine; Visit Provider Internal Medicine
DX: L03.90 Cellulitis, unspecified (principal); I10 Essential (primary) hypertension
CPT/HCPCS: 36415; 80048; 85025

== ENCOUNTER 2020-05-21 13:30 | Outpatient (RCR) | payer MEDICARE, MEDICAID, SELFPAY ==
[2020-04-29 10:26] VITALS: BMI 24.7
[2020-05-14 13:03] VITALS: RESP 16; TEMP 36.9; BMI 25.4
--- NOTE | 2020-05-14 13:54 | PCM.WC.HP ---
(1) Nonhealing ulcer of right lower extremity with fat layer exposed Status: Acute Current Visit: Yes Code(s): L97.912 - Non-pressure chronic ulcer of unspecified part of right lower leg with fat layer exposed Comment: X2 right anterior and medial lower extremity (2) Nonhealing ulcer of left lower extremity with fat layer exposed Status: Acute Current Visit: Yes Code(s): L97.922 - Non-pressure chronic ulcer of unspecified part of left lower leg with fat layer exposed (3) PVD (peripheral vascular disease) Status: Acute Current Visit: Yes Code(s): I73.9 - Peripheral vascular disease, unspecified (4) Chronic respiratory failure with hypoxia Status: Chronic Current Visit: No Code(s): J96.11 - Chronic respiratory failure with hypoxia Comment: Requires 2 L a minute of continuous supplemental oxygen with sleep (5) Depression Status: Chronic Current Visit: No Code(s): F32.9 - Major depressive disorder, single episode, unspecified (6) GERD (gastroesophageal reflux disease) Status: Chronic Current Visit: No Qualifiers: Code(s): K21.9 - Gastro-esophageal reflux disease without esophagitis (7) History of DVT (deep vein thrombosis) Status: Chronic Current Visit: No Code(s): Z86.718 - Personal history of other venous thrombosis and embolism (8) Hyperlipidemia Status: Chronic Current Visit: No Qualifiers: Code(s): E78.5 - Hyperlipidemia, unspecified (9) Hypersomnia Status: Chronic Current Visit: No Code(s): G47.10 - Hypersomnia, unspecified (10) Hypertension Status: Chronic Current Visit: No Qualifiers: Code(s): I10 - Essential (primary) hypertension (11) Insomnia Status: Chronic Current Visit: No Qualifiers: Code(s): G47.00 - Insomnia, unspecified (12) Stage 3 severe COPD by GOLD classification Status: Chronic Current Visit: No Code(s): J44.9 - Chronic obstructive pulmonary disease, unspecified Comment: FEV1 53% of predicted (13) Vitamin D deficiency Status: Chronic Current Visit: No Code(s): E55.9 - Vitamin D deficiency, unspecified History of Present Illness Date of Service: 05/14/20 Chief Complaint: Nonhealing ulceration to bilateral lower extremities status post injury 5 weeks ago History of Wound: This is a 69-year-old white female who presents to the wound healing center today with complaint of nonhealing ulcerations to her bilateral lower extremities. Approximately 5 weeks ago she bumped her lower extremities and developed a skin tear. Gradually the skin tears became infected and she was treated by her primary care for cellulitis with Augmentin. She states that the cellulitis has resolved but since then she has developed nonhealing ulcers of her bilateral lower extremities. She has been utilizing silver cell and triple antibiotic ointment without any compression. She states that there are no signs of infection at this time such as warmth, worsening swelling, or purulent discharge. Denies any other aggravating or relieving factors. The patient otherwise denies any fever, chills, nausea, vomiting, shortness of breath, chest pain or pressure, palpitations, orthopnea, worsening lower extremity edema, syncope or presyncopal episodes. Past Medical History Past Medical History: Chronic Problems (Last Reviewed 04/29/20 @ 10:26 by Susan Hong) History of DVT (deep vein thrombosis) (Chronic) Hoarseness of voice (Chronic) Chronic respiratory failure with hypoxia (Chronic) Requires 2 L a minute of continuous supplemental oxygen with sleep Bilateral shoulder pain (Chronic) Irritable bowel syndrome with diarrhea (Chronic) PND (post-nasal drip) (Chronic) Vitamin D deficiency (Chronic) Depression (Chronic) GERD (gastroesophageal reflux disease) (Chronic) Hyperlipidemia (Chronic) Hypertension (Chronic) Insomnia (Chronic) Hypersomnia (Chronic) Internal hemorrhoid (Chronic) Overweight (Chronic) Stage 3 severe COPD by GOLD classification (Chronic) FEV1 53% of predicted Surgical History: - - Appendectomy, cholecystectomy, hemorrhoidectomy, hysterectomy, right total hip replacement. Allergies/Adverse Reactions: Allergies No Known Allergies Allergy (Verified 03/30/20 14:09) Home Medications: Ambulatory Orders Medication Instructions Recorded atorvastatin 40 mg tablet 40 mg PO QHS #90 tab 08/16/19 polyvinyl alcohol 1.4 % eye drops 1 drp OPHTHALMIC 4X/DAY 08/20/19 valacyclovir 1 gram tablet 1,000 mg PO DAILY PRN PRN 08/20/19 ipratropium bromide 42 mcg (0.06 2 spray INTRANASAL TID #15 ml 09/11/19 %) nasal spray duloxetine 30 mg capsule,delayed 90 mg PO DAILY 90 Days #270 cap 01/20/20 release umeclidinium 62.5 mcg/actuation 1 inh INHALATION DAILY #30 ea 02/10/20 blister powder for inhalation budesonide-formoterol HFA 160 2 puff INHALATION BID #1 ea 03/09/20 mcg-4.5 mcg/actuation aerosol inhaler albuterol sulfate 2.5 mg INHALATION Q4H PRN #180 ml 03/30/20 albuterol sulfate 90 mcg/actuation 2 puff INHALATION Q4H PRN #18 g 03/31/20 aerosol inhaler omeprazole 40 mg capsule,delayed 40 mg PO DAILY 04/14/20 release ramipril 10 mg capsule 10 mg PO DAILY #90 cap 04/29/20 - Family History Maternal Family History: Family History (Last Reviewed 04/29/20 @ 10:26 by Susan Hong) Grandmother COPD (chronic obstructive pulmonary disease) Mother Heart disease Hypertension CVA (cerebral vascular accident) Myocardial infarction, Onset Age: 50 Father CVA (cerebral vascular accident) Alcohol abuse Cancer Sister Heart disease Brother Heart disease High Cholesterol, Heart Disease, Hypertension, Stroke Paternal Family History: Family History (Last Reviewed 04/29/20 @ 10:26 by Susan Hong) Grandmother COPD (chronic obstructive pulmonary disease) Mother Heart disease Hypertension CVA (cerebral vascular accident) Myocardial infarction, Onset Age: 50 Father CVA (cerebral vascular accident) Alcohol abuse Cancer Sister Heart disease Brother Heart disease Cancer, Hypertension, Stroke Smoking Status: Former smoker Review of Systems Constitutional: Denies: Chills, Fever, Weight Change Eyes: Denies: Pain, Vision Change HEENT: Denies: Difficulty Hearing, Difficulty Swallowing, Sinus Congestion Cardiovascular: Denies: Chest Pain, Palpitations Respiratory: Denies: Cough, Shortness of Breath Gastrointestinal: Denies: Diarrhea, Nausea, Vomiting Genitourinary: Denies: Dysuria, Hematuria Skin: Reports: Wounds - See HPI Endocrine: Denies: Heat/ Cold Intolerance, Polydipsia, Polyuria Hematologic/ Lymphatic: Denies: Easy Bruising, Easy Bleeding - Physical Exam Vital Signs Temp Resp 98.4 F 16 05/14/20 13:03 05/14/20 13:03 General: Alert, Oriented x3, Cooperative, No apparent distress HEENT: PERRLA, EOMI Oral: Moist Mucosa Neck: Supple Lungs: Clear to auscultation, Normal air movement, No rhonchi, No wheeze Cardiovascular: Regular rate, Regular Rhythm Abdomen: Soft, Non Tender Extremities: No clubbing, No cyanosis, Edema - Underlies bilateral lower extremity edema with chronic venous changes present, Peripheral Pulses Normal Skin: Ulcer/ Wound - Nonhealing ulcerations to bilateral lower extremities with large amount of adherent slough, no surrounding cellulitis or streaking or warmth noted at this time Wound Measurements and Assessment WC - Nurse 1 - General Ulcer Measurement Start: 05/14/20 13:03 Freq: Status: Active Protocol: Activity Type Activity Date Activity User E-Sign Co-Sign Detail Recorded Client Recorded Date Recorded By Document 05/14/20 13:03 CARMEN [id number] 05/14/20 13:12 CARMEN 05/14/20 13:03 Wound Center Nurse 1 [Ulcer Assessment] 4-left lower leg -Combined with other wound No -Current Size (cm) - Length 1.4 -Current Size (cm) - Width 0.5 -Current Size (cm) - Depth 0.1 -Total Square Cm 0.70 -Photo Taken Yes -Epithelialization Small 1-33% -Tunneling No -Undermining/Tunneling No -Circular Undermining No -Classification - Thickness Full Thickness without Exposed Support Structure -Exudate Amt None Present -Wound Margin Flat & Intact -Granulation Amt Small (1-33%) -Granulation Quality Red -Slough/Fibrin Yes -Necrosis Amt Medium (34-66%) -Necrotic Tissue Type Adherent Slough -Structure Exposed N/A -Texture (Yumiko-wound Skin Appearance) Assessed -Moisture (Yumiko-wound Skin Appearance Assessed,Dry/ ) Scaly -Color (Yumiko-wound Skin Appearance) Assessed -Temperature (Yumiko-wound Skin No Abnormality Appearance) (Pt Warm) -Tenderness on Palpation (Yumiko-wound No Skin Appearance) -Ulcer Cleansing Rinsed/ Irrigated with Saline -Foul Odor after Cleansing No -Anesthetic Used 4% Lidocaine Solution 3-right lower leg -Combined with other wound No -Current Size (cm) - Length 1 -Current Size (cm) - Width 0.6 -Current Size (cm) - Depth 0.1 -Total Square Cm 0.6 -Photo Taken Yes -Epithelialization Medium 34-66% -Tunneling No -Undermining/Tunneling No -Circular Undermining No -Classification - Thickness Full Thickness without Exposed Support Structure -Exudate Amt Small -Exudate Type Serosanguineous -Wound Margin Flat & Intact -Granulation Amt None Present (0 %) -Slough/Fibrin Yes -Necrosis Amt Medium (34-66%) -Necrotic Tissue Type Adherent Slough -Structure Exposed N/A -Texture (Yumiko-wound Skin Appearance) Assessed, Localized Edema -Moisture (Yumiko-wound Skin Appearance Assessed,Dry/ ) Scaly -Color (Yumiko-wound Skin Appearance) Assessed -Temperature (Yumiko-wound Skin No Abnormality Appearance) (Pt Warm) -Tenderness on Palpation (Yumiko-wound No Skin Appearance) -Ulcer Cleansing Rinsed/ Irrigated with Saline -Foul Odor after Cleansing No -Anesthetic Used 4% Lidocaine Solution [Edema Assessment] -Lower Limb Edema Present Yes -Right Calf (cm) 32 -Right Ankle (cm) 18.2 -Left Calf (cm) 32.6 -Left Ankle (cm) 18.0 WC - Nurse 2 - General Ulcer CM Notes Start: 05/14/20 13:03 Freq: Status: Active Protocol: Activity Type Activity Date Activity User E-Sign Co-Sign Detail Recorded Client Recorded Date Recorded By Document 05/14/20 13:29 MW [id number] 05/14/20 13:37 MW 05/14/20 13:29 Wound Center Nurse 2 [Procedure/Treatment] #5 right medial LE -Time 13:33 -Correct Patient Yes -Correct Side, Site, Position Yes -Correct Procedure Yes -Procedure Performed Yes -Type of Procedure Debridement -Clinical Debridement Subcutaneous -Post Debridement Size (cm) - Length 0.8 -Post Debridement Size (cm) - Width 0.4 -Post Debridement Size (cm) - Depth 0.1 -Total Square Cm 0.32 -Wound/Ulcer Outcome Not Healed -Ulcer Cleansing Rinsed/ Irrigated with Saline -Foul Odor after Cleansing No -Bioengineered Tissue No -Bleeding Controlled with Pressure -Offloading No -Treatment Response Procedure Tolerated Well 4-left lower leg -Time 13:36 -Correct Patient Yes -Correct Side, Site, Position Yes -Correct Procedure Yes -Procedure Performed Yes -Type of Procedure Debridement -Clinical Debridement Subcutaneous -Post Debridement Size (cm) - Length 2.5 -Post Debridement Size (cm) - Width 0.6 -Post Debridement Size (cm) - Depth 0.2 -Total Square Cm 1.50 -Wound/Ulcer Outcome Not Healed -Ulcer Cleansing Rinsed/ Irrigated with Saline -Foul Odor after Cleansing No -Bioengineered Tissue No -Bleeding Controlled with Pressure -Offloading No -Treatment Response Procedure Tolerated Well 3-right lower leg -Time 13:30 -Correct Patient Yes -Correct Side, Site, Position Yes -Correct Procedure Yes -Procedure Performed Yes -Type of Procedure Debridement -Clinical Debridement Subcutaneous -Post Debridement Size (cm) - Length 2.0 -Post Debridement Size (cm) - Width 1.0 -Post Debridement Size (cm) - Depth 0.1 -Total Square Cm 2.00 -Wound/Ulcer Outcome Not Healed -Ulcer Cleansing Rinsed/ Irrigated with Saline -Foul Odor after Cleansing No -Bioengineered Tissue No -Bleeding Controlled with Pressure -Offloading No -Treatment Response Procedure Tolerated Well [See Physician Procedure note for Specifics] Pain Scale: 0-10 Numeric [Pain] -Is Patient Pain Free? Yes Debridement Note Post-Debridement Measurements/Treatment WC - Nurse 2 - General Ulcer CM Notes Start: 05/14/20 13:03 Freq: Status: Active Protocol: Activity Type Activity Date Activity User E-Sign Co-Sign Detail Recorded Client Recorded Date Recorded By Document 05/14/20 13:29 MW [id number] 05/14/20 13:37 MW 05/14/20 13:29 Wound Center Nurse 2 #5 right medial LE -Time 13:33 -Correct Patient Yes -Correct Side, Site, Position Yes -Correct Procedure Yes -Procedure Performed Yes -Type of Procedure Debridement -Clinical Debridement Subcutaneous -Post Debridement Size (cm) - Length 0.8 -Post Debridement Size (cm) - Width 0.4 -Post Debridement Size (cm) - Depth 0.1 -Total Square Cm 0.32 -Wound/Ulcer Outcome Not Healed -Ulcer Cleansing Rinsed/ Irrigated with Saline -Foul Odor after Cleansing No -Bioengineered Tissue No -Bleeding Controlled with Pressure -Offloading No -Treatment Response Procedure Tolerated Well 4-left lower leg -Time 13:36 -Correct Patient Yes -Correct Side, Site, Position Yes -Correct Procedure Yes -Procedure Performed Yes -Type of Procedure Debridement -Clinical Debridement Subcutaneous -Post Debridement Size (cm) - Length 2.5 -Post Debridement Size (cm) - Width 0.6 -Post Debridement Size (cm) - Depth 0.2 -Total Square Cm 1.50 -Wound/Ulcer Outcome Not Healed -Ulcer Cleansing Rinsed/ Irrigated with Saline -Foul Odor after Cleansing No -Bioengineered Tissue No -Bleeding Controlled with Pressure -Offloading No -Treatment Response Procedure Tolerated Well 3-right lower leg -Time 13:30 -Correct Patient Yes -Correct Side, Site, Position Yes -Correct Procedure Yes -Procedure Performed Yes -Type of Procedure Debridement -Clinical Debridement Subcutaneous -Post Debridement Size (cm) - Length 2.0 -Post Debridement Size (cm) - Width 1.0 -Post Debridement Size (cm) - Depth 0.1 -Total Square Cm 2.00 -Wound/Ulcer Outcome Not Healed -Ulcer Cleansing Rinsed/ Irrigated with Saline -Foul Odor after Cleansing No -Bioengineered Tissue No -Bleeding Controlled with Pressure -Offloading No -Treatment Response Procedure Tolerated Well Pain Scale: 0-10 Numeric Is Patient Pain Free? Yes Wound debrided: Bilateral nonhealing lower extremity ulcerations Type of Debridement: Excisional debridement Anesthesia Used: 5% Lidocaine Gel Depth: in the subcutaneous layer Percentage of wound debrided: 100 Instrument Used: 5mm curette Tissue Removed: slough and devitalized tissue Severity: Fat Layer Exposed Amount of bleeding with debridement: Mild Bleeding Controlled with: Pressure Patient tolerated procedure well Assessment/Plan Active Problems (Last Reviewed 04/29/20 @ 10:26 by Susan Hong) Nonhealing ulcer of right lower extremity with fat layer exposed (Acute) X2 right anterior and medial lower extremity Nonhealing ulcer of left lower extremity with fat layer exposed (Acute) PVD (peripheral vascular disease) (Acute) Assessment: Ulcer to left anterior lateral lower leg. Pain left lower leg Plan: The patient was seen and examined at the wound center today and was updated on the plan of care. For her wound care she will continue utilizing silver cell moistened cover with gauze and change daily, she is also instructed on the importance of compression. Double layer Tubigrip's for compression at this time. Hold off on vascular studies. Patient has been advised to elevate lower extremities as much as possible. Elevation is to be implemented during daytime hours and legs are to be elevated to heart level, or higher, as much as possible. Prolonged idle sitting has been discouraged. Activity and ambulation has been encouraged. Patient has also been encouraged to increase the protein in her diet. Given the delayed wound healing and the fact that her ulcers have been present for 5 weeks now will apply for an advanced skin substitute. Patient educated on the importance of diet on wound healing and instructed to increase protein and vitamin C intake. Patient verbalized understanding. Patient will low up with the wound healing center in 1 week or sooner if needed. This note was generated with [employer] dictation software. It may contain incorrect words, spelling, and punctuation that were not noted in checking the note before signing. Office Visits / Consults: [id number] OV L4 Est [id number]: [id number] Vaishali subq tissue 20 sq cm/<
[2020-05-21 14:27] VITALS: BP 173/82; PULSE 77; RESP 18; TEMP 35.9; BMI 25.4
--- NOTE | 2020-05-21 16:48 | PN.PCM_ITS ---
(1) Nonhealing ulcer of right lower extremity with fat layer exposed Status: Acute Current Visit: Yes Code(s): L97.912 - Non-pressure chronic ulcer of unspecified part of right lower leg with fat layer exposed Comment: X2 right anterior and medial lower extremity (2) Nonhealing ulcer of left lower extremity with fat layer exposed Status: Acute Current Visit: Yes Code(s): L97.922 - Non-pressure chronic ulcer of unspecified part of left lower leg with fat layer exposed (3) PVD (peripheral vascular disease) Status: Acute Current Visit: Yes Code(s): I73.9 - Peripheral vascular disease, unspecified (4) Chronic respiratory failure with hypoxia Status: Chronic Current Visit: No Code(s): J96.11 - Chronic respiratory failure with hypoxia Comment: Requires 2 L a minute of continuous supplemental oxygen with sleep (5) Depression Status: Chronic Current Visit: No Code(s): F32.9 - Major depressive disorder, single episode, unspecified (6) GERD (gastroesophageal reflux disease) Status: Chronic Current Visit: No Qualifiers: Code(s): K21.9 - Gastro-esophageal reflux disease without esophagitis (7) History of DVT (deep vein thrombosis) Status: Chronic Current Visit: No Code(s): Z86.718 - Personal history of other venous thrombosis and embolism (8) Hyperlipidemia Status: Chronic Current Visit: No Qualifiers: Code(s): E78.5 - Hyperlipidemia, unspecified (9) Hypersomnia Status: Chronic Current Visit: No Code(s): G47.10 - Hypersomnia, unspecified (10) Hypertension Status: Chronic Current Visit: No Qualifiers: Code(s): I10 - Essential (primary) hypertension (11) Insomnia Status: Chronic Current Visit: No Qualifiers: Code(s): G47.00 - Insomnia, unspecified (12) Stage 3 severe COPD by GOLD classification Status: Chronic Current Visit: No Code(s): J44.9 - Chronic obstructive pulmonary disease, unspecified Comment: FEV1 53% of predicted (13) Vitamin D deficiency Status: Chronic Current Visit: No Code(s): E55.9 - Vitamin D deficiency, unspecified Type of Wound Date of Service: 05/21/20 Chief Complaint: Nonhealing ulceration to bilateral lower extremities status post injury 5 weeks ago History of Wound: This is a 69-year-old white female who presents to the wound healing center today with complaint of nonhealing ulcerations to her bilateral lower extremities. Approximately 5 weeks ago she bumped her lower extremities and developed a skin tear. Gradually the skin tears became infected and she was treated by her primary care for cellulitis with Augmentin. She states that the cellulitis has resolved but since then she has developed nonhealing ulcers of her bilateral lower extremities. She has been utilizing silver cell and triple antibiotic ointment without any compression. She states that there are no signs of infection at this time such as warmth, worsening swelling, or purulent discharge. Denies any other aggravating or relieving factors. The patient otherwise denies any fever, chills, nausea, vomiting, shortness of breath, chest pain or pressure, palpitations, orthopnea, worsening lower extremity edema, syncope or presyncopal episodes. Progress of Wound: 05/21/2020?right medial lower extremity ulceration is healed, bilateral lower extremity ulcers have improved in size, patient tolerating well. No new concerns. - Physical Exam Vital Signs Temp Pulse Resp BP 96.6 F L 77 18 173/82 H 05/21/20 14:27 05/21/20 14:27 05/21/20 14:27 05/21/20 14:27 General: Alert, Oriented x3, Cooperative, No apparent distress HEENT: Atraumatic Oral: Moist Mucosa Lungs: Clear to auscultation Cardiovascular: Regular rate Abdomen: Soft, Non Tender Extremities: No clubbing, No cyanosis, Edema - 1 bilateral lower extremity edema, Peripheral Pulses Normal Skin: Ulcer/ Wound - Ulceration to bilateral lower extremities with adherent slough, no signs of obvious infection at this time, no redness, streaking, or warmth noted Wound Measurements and Assessment WC - Nurse 1 - General Ulcer Measurement Start: 05/14/20 13:03 Freq: Status: Active Protocol: Activity Type Activity Date Activity User E-Sign Co-Sign Detail Recorded Client Recorded Date Recorded By Document 05/21/20 14:27 DL [id number] 05/21/20 14:35 DL 05/21/20 14:27 Wound Center Nurse 1 [Ulcer Assessment] #5 right medial LE -Current Size (cm) - Length 0.1 -Current Size (cm) - Width 0.1 -Current Size (cm) - Depth 0.1 -Total Square Cm 0.01 -Photo Taken No -Exudate Amt None Present -Wound Margin Flat & Intact -Granulation Amt Large (67-100%) -Granulation Quality [place] -Necrosis Amt None Present (0 %) -Structure Exposed N/A -Texture (Yumiko-wound Skin Appearance) No Abnormality -Moisture (Yumiko-wound Skin Appearance Dry/Scaly ) -Color (Yumiko-wound Skin Appearance) Hemosiderin Staining -Temperature (Yumiko-wound Skin No Abnormality Appearance) (Pt Warm) -Tenderness on Palpation (Yumiko-wound No Skin Appearance) -Ulcer Cleansing Rinsed/ Irrigated with Saline -Foul Odor after Cleansing No -Anesthetic Used 4% Lidocaine Solution 4-left lower leg -Current Size (cm) - Length 0.6 -Current Size (cm) - Width 0.5 -Current Size (cm) - Depth 0.1 -Total Square Cm 0.30 -Photo Taken No -Exudate Amt None Present -Wound Margin Flat & Intact -Granulation Amt Small (1-33%) -Granulation Quality [place] -Necrosis Amt Small (1-33%) -Necrotic Tissue Type Adherent Slough -Structure Exposed N/A -Texture (Yumiko-wound Skin Appearance) No Abnormality -Moisture (Yumiko-wound Skin Appearance Dry/Scaly ) -Color (Yumiko-wound Skin Appearance) Hemosiderin Staining -Temperature (Yumiko-wound Skin No Abnormality Appearance) (Pt Warm) -Tenderness on Palpation (Yumiko-wound No Skin Appearance) -Ulcer Cleansing Rinsed/ Irrigated with Saline -Foul Odor after Cleansing No -Anesthetic Used 4% Lidocaine Solution 3-right lower leg -Current Size (cm) - Length 1.1 -Current Size (cm) - Width 0.5 -Current Size (cm) - Depth 0.1 -Total Square Cm 0.55 -Photo Taken No -Exudate Amt None Present -Wound Margin Flat & Intact -Granulation Amt Small (1-33%) -Granulation Quality [place] -Necrosis Amt Small (1-33%) -Necrotic Tissue Type Adherent Slough -Structure Exposed N/A -Texture (Yumiko-wound Skin Appearance) No Abnormality -Moisture (Yumiko-wound Skin Appearance Dry/Scaly ) -Color (Yumiko-wound Skin Appearance) Hemosiderin Staining -Temperature (Yumiko-wound Skin No Abnormality Appearance) (Pt Warm) -Tenderness on Palpation (Yumiko-wound No Skin Appearance) -Ulcer Cleansing Rinsed/ Irrigated with Saline -Foul Odor after Cleansing No -Anesthetic Used 4% Lidocaine Solution [Edema Assessment] -Right Calf (cm) 30.7 -Right Ankle (cm) 17.5 -Left Calf (cm) 31 -Left Ankle (cm) 17.5 WC - Nurse 2 - General Ulcer CM Notes Start: 05/14/20 13:03 Freq: Status: Active Protocol: Activity Type Activity Date Activity User E-Sign Co-Sign Detail Recorded Client Recorded Date Recorded By Document 05/21/20 16:15 PL [id number] 05/21/20 16:17 PL 05/21/20 16:15 Wound Center Nurse 2 [Procedure/Treatment] #5 right medial LE -Time 15:00 -Correct Patient Yes -Correct Side, Site, Position Yes -Correct Procedure Yes -Procedure Performed Yes -Type of Procedure Debridement -Clinical Debridement Subcutaneous -Post Debridement Size (cm) - Length 1.1 -Post Debridement Size (cm) - Width 0.3 -Post Debridement Size (cm) - Depth 0.1 -Total Square (cm) 0.33 -Wound/Ulcer Outcome Not Healed -Ulcer Cleansing Rinsed/ Irrigated with Saline -Foul Odor after Cleansing No -Bleeding Controlled with Pressure -Treatment Response Procedure Tolerated Well 4-left lower leg -Time 15:00 -Correct Patient Yes -Correct Side, Site, Position Yes -Correct Procedure Yes -Procedure Performed Yes -Type of Procedure Debridement -Clinical Debridement Subcutaneous -Post Debridement Size (cm) - Length 0.8 -Post Debridement Size (cm) - Width 0.5 -Post Debridement Size (cm) - Depth 0.1 -Total Square (cm) 0.40 -Wound/Ulcer Outcome Not Healed -Ulcer Cleansing Rinsed/ Irrigated with Saline -Foul Odor after Cleansing No -Bleeding Controlled with Pressure -Treatment Response Procedure Tolerated Well [See Physician Procedure note for Specifics] Pain Scale: 0-10 Numeric [Pain] -Is Patient Pain Free? Yes Neurological: Neuro grossly intact Psych/Mental Status: Normal Affect, Appropriate, Alert and oriented to time, place, person, mood and affect Debridement Note Post-Debridement Measurements/Treatment WC - Nurse 2 - General Ulcer CM Notes Start: 05/14/20 13:03 Freq: Status: Active Protocol: Activity Type Activity Date Activity User E-Sign Co-Sign Detail Recorded Client Recorded Date Recorded By Document 05/14/20 13:29 MW [id number] 05/14/20 13:37 MW Document 05/21/20 16:15 PL [id number] 05/21/20 16:17 PL 05/14/20 05/21/20 13:29 16:15 Wound Center Nurse 2 #5 right medial LE -Time 13:33 15:00 -Correct Patient Yes Yes -Correct Side, Site, Position Yes Yes -Correct Procedure Yes Yes -Procedure Performed Yes Yes -Type of Procedure Debridement Debridement -Clinical Debridement Subcutaneous Subcutaneous -Post Debridement Size (cm) - Length 0.8 1.1 -Post Debridement Size (cm) - Width 0.4 0.3 -Post Debridement Size (cm) - Depth 0.1 0.1 -Total Square (cm) 0.32 0.33 -Wound/Ulcer Outcome Not Healed Not Healed -Ulcer Cleansing Rinsed/ Rinsed/ Irrigated with Irrigated with Saline Saline -Foul Odor after Cleansing No No -Bioengineered Tissue No -Bleeding Controlled with Pressure Pressure -Offloading No -Treatment Response Procedure Procedure Tolerated Well Tolerated Well 4-left lower leg -Time 13:36 15:00 -Correct Patient Yes Yes -Correct Side, Site, Position Yes Yes -Correct Procedure Yes Yes -Procedure Performed Yes Yes -Type of Procedure Debridement Debridement -Clinical Debridement Subcutaneous Subcutaneous -Post Debridement Size (cm) - Length 2.5 0.8 -Post Debridement Size (cm) - Width 0.6 0.5 -Post Debridement Size (cm) - Depth 0.2 0.1 -Total Square (cm) 1.50 0.40 -Wound/Ulcer Outcome Not Healed Not Healed -Ulcer Cleansing Rinsed/ Rinsed/ Irrigated with Irrigated with Saline Saline -Foul Odor after Cleansing No No -Bioengineered Tissue No -Bleeding Controlled with Pressure Pressure -Offloading No -Treatment Response Procedure Procedure Tolerated Well Tolerated Well 3-right lower leg -Time 13:30 -Correct Patient Yes -Correct Side, Site, Position Yes -Correct Procedure Yes -Procedure Performed Yes -Type of Procedure Debridement -Clinical Debridement Subcutaneous -Post Debridement Size (cm) - Length 2.0 -Post Debridement Size (cm) - Width 1.0 -Post Debridement Size (cm) - Depth 0.1 -Total Square (cm) 2.00 -Wound/Ulcer Outcome Not Healed -Ulcer Cleansing Rinsed/ Irrigated with Saline -Foul Odor after Cleansing No -Bioengineered Tissue No -Bleeding Controlled with Pressure -Offloading No -Treatment Response Procedure Tolerated Well Pain Scale: 0-10 Numeric Is Patient Pain Free? Yes Yes Wound debrided: biLateral lower extremity ulcers Type of Debridement: Excisional debridement Anesthesia Used: 5% Lidocaine Gel Depth: in the subcutaneous layer Percentage of wound debrided: 100 Instrument Used: 5mm curette Tissue Removed: Slough and devitalized tissue Severity: Fat Layer Exposed Amount of bleeding with debridement: Mild Bleeding Controlled with: Pressure, Compression and gauze Patient tolerated procedure well Assessment/Plan Active Problems (Last Reviewed 04/29/20 @ 10:26 by Susan Hong) Nonhealing ulcer of right lower extremity with fat layer exposed (Acute) X2 right anterior and medial lower extremity Nonhealing ulcer of left lower extremity with fat layer exposed (Acute) PVD (peripheral vascular disease) (Acute) Assessment: Ulcer to left anterior lateral lower leg. Pain left lower leg Plan: The patient was seen and examined at the wound center today and was updated on the plan of care. For her wound care she will continue utilizing silver cell moistened cover with gauze and change daily, she is also instructed on the importance of compression. Double layer Tubigrip's for compression at this time. Hold off on vascular studies. Patient has been advised to elevate lower extremities as much as possible. Elevation is to be implemented during daytime hours and legs are to be elevated to heart level, or higher, as much as possible. Prolonged idle sitting has been discouraged. Activity and ambulation has been encouraged. Patient has also been encouraged to increase the protein in her diet. Given the delayed wound healing and the fact that her ulcers have been present for 5 weeks now will apply for an advanced skin substitute. Patient educated on the importance of diet on wound healing and instructed to increase protein and vitamin C intake. Patient verbalized understanding. Patient will low up with the wound healing center in 1 week or sooner if needed. This note was generated with [employer] software. It may contain incorrect words, spelling, and punctuation that were not noted in checking the note before signing. [id number]: [id number] Vaishali subq tissue 20 sq cm/<
[2020-05-28 14:09] VITALS: BP 145/74; PULSE 99; RESP 20; TEMP 36.6; BMI 25.4
--- NOTE | 2020-05-28 19:58 | PN.PCM_ITS ---
(1) Nonhealing ulcer of right lower extremity with fat layer exposed Status: Acute Code(s): L97.912 - Non-pressure chronic ulcer of unspecified part of right lower leg with fat layer exposed Comment: X2 right anterior and medial lower extremity (2) Nonhealing ulcer of left lower extremity with fat layer exposed Status: Acute Code(s): L97.922 - Non-pressure chronic ulcer of unspecified part of left lower leg with fat layer exposed (3) PVD (peripheral vascular disease) Status: Acute Code(s): I73.9 - Peripheral vascular disease, unspecified (4) Chronic respiratory failure with hypoxia Status: Chronic Code(s): J96.11 - Chronic respiratory failure with hypoxia Comment: Requires 2 L a minute of continuous supplemental oxygen with sleep (5) Depression Status: Chronic Code(s): F32.9 - Major depressive disorder, single episode, unspecified (6) GERD (gastroesophageal reflux disease) Status: Chronic Qualifiers: Code(s): K21.9 - Gastro-esophageal reflux disease without esophagitis (7) History of DVT (deep vein thrombosis) Status: Chronic Code(s): Z86.718 - Personal history of other venous thrombosis and embolism (8) Hyperlipidemia Status: Chronic Qualifiers: Code(s): E78.5 - Hyperlipidemia, unspecified (9) Hypersomnia Status: Chronic Code(s): G47.10 - Hypersomnia, unspecified (10) Hypertension Status: Chronic Qualifiers: Code(s): I10 - Essential (primary) hypertension (11) Insomnia Status: Chronic Qualifiers: Code(s): G47.00 - Insomnia, unspecified (12) Stage 3 severe COPD by GOLD classification Status: Chronic Code(s): J44.9 - Chronic obstructive pulmonary disease, unspecified Comment: FEV1 53% of predicted (13) Vitamin D deficiency Status: Chronic Code(s): E55.9 - Vitamin D deficiency, unspecified Type of Wound Date of Service: 05/28/20 Chief Complaint: Nonhealing ulceration to bilateral lower extremities status post injury 5 weeks ago History of Wound: This is a 69-year-old white female who presents to the wound healing center today with complaint of nonhealing ulcerations to her bilateral lower extremities. Approximately 5 weeks ago she bumped her lower extremities and developed a skin tear. Gradually the skin tears became infected and she was treated by her primary care for cellulitis with Augmentin. She states that the cellulitis has resolved but since then she has developed nonhealing ulcers of her bilateral lower extremities. She has been utilizing silver cell and triple antibiotic ointment without any compression. She states that there are no signs of infection at this time such as warmth, worsening swelling, or purulent discharge. Denies any other aggravating or relieving factors. The patient otherwise denies any fever, chills, nausea, vomiting, shortness of breath, chest pain or pressure, palpitations, orthopnea, worsening lower extremity edema, syncope or presyncopal episodes. Progress of Wound: 05/21/2020?right medial lower extremity ulceration is healed, bilateral lower extremity ulcers have improved in size, patient tolerating well. No new concerns. 05/28/20- no new concerns, sites improving - Physical Exam Vital Signs Temp Pulse Resp BP 97.8 F 99 20 H 145/74 H 05/28/20 14:09 05/28/20 14:09 05/28/20 14:09 05/28/20 14:09 General: Alert, Oriented x3, Cooperative, No apparent distress HEENT: PERRLA, EOMI Oral: Moist Mucosa Lungs: Clear to auscultation, Normal air movement Cardiovascular: Regular rate Abdomen: Soft, Non Tender Extremities: No clubbing, No cyanosis, Edema - generalized bilateral lower extremity edema Skin: Ulcer/ Wound - see nursing documentation, slough and devitalized tissue present to lower extremity ulcers, no signs of infection at this time Wound Measurements and Assessment WC - Nurse 1 - General Ulcer Measurement Start: 05/14/20 13:03 Freq: Status: Active Protocol: Activity Type Activity Date Activity User E-Sign Co-Sign Detail Recorded Client Recorded Date Recorded By Document 05/28/20 14:09 DL [id number] 05/28/20 14:15 DL 05/28/20 14:09 Wound Center Nurse 1 [Ulcer Assessment] #5 right medial LE -Current Size (cm) - Length 0.1 -Current Size (cm) - Width 0.1 -Current Size (cm) - Depth 0.1 -Total Square Cm 0.01 -Photo Taken No -Exudate Amt None Present -Wound Margin Flat & Intact -Granulation Amt Large (67-100%) -Granulation Quality [place] -Necrosis Amt Small (1-33%) -Necrotic Tissue Type Eschar -Structure Exposed N/A -Texture (Yumiko-wound Skin Appearance) Scarring -Moisture (Yumiko-wound Skin Appearance No Abnormality ) -Color (Yumiko-wound Skin Appearance) Hemosiderin Staining -Temperature (Yumiko-wound Skin No Abnormality Appearance) (Pt Warm) -Tenderness on Palpation (Yumiko-wound No Skin Appearance) -Ulcer Cleansing Wound Cleanser -Foul Odor after Cleansing No -Anesthetic Used 4% Lidocaine Solution 4-left lower leg -Current Size (cm) - Length 0.4 -Current Size (cm) - Width 0.2 -Current Size (cm) - Depth 0.1 -Total Square Cm 0.08 -Photo Taken No -Exudate Amt None Present -Wound Margin Flat & Intact -Granulation Amt Large (67-100%) -Granulation Quality [place] -Necrosis Amt Small (1-33%) -Necrotic Tissue Type Adherent Slough -Structure Exposed N/A -Texture (Yumiko-wound Skin Appearance) Scarring -Moisture (Yumiko-wound Skin Appearance No Abnormality ) -Color (Yumiko-wound Skin Appearance) Hemosiderin Staining -Temperature (Yumiko-wound Skin No Abnormality Appearance) (Pt Warm) -Tenderness on Palpation (Yumiko-wound No Skin Appearance) -Ulcer Cleansing Rinsed/ Irrigated with Saline -Foul Odor after Cleansing No -Anesthetic Used 4% Lidocaine Solution 3-right lower leg -Current Size (cm) - Length 0.4 -Current Size (cm) - Width 0.1 -Current Size (cm) - Depth 0.1 -Total Square Cm 0.04 -Photo Taken No -Exudate Amt None Present -Wound Margin Flat & Intact -Granulation Amt Large (67-100%) -Granulation Quality [place] -Necrosis Amt Small (1-33%) -Necrotic Tissue Type Eschar -Structure Exposed N/A -Texture (Yumiko-wound Skin Appearance) Scarring -Moisture (Yumiko-wound Skin Appearance No Abnormality ) -Color (Yumiko-wound Skin Appearance) Hemosiderin Staining -Temperature (Yumiko-wound Skin No Abnormality Appearance) (Pt Warm) -Tenderness on Palpation (Yumiko-wound No Skin Appearance) -Ulcer Cleansing Rinsed/ Irrigated with Saline -Foul Odor after Cleansing No -Anesthetic Used 4% Lidocaine Solution [Edema Assessment] -Right Calf (cm) 31 -Right Ankle (cm) 17 -Left Calf (cm) 31.7 -Left Ankle (cm) 17 WC - Nurse 2 - General Ulcer CM Notes Start: 05/14/20 13:03 Freq: Status: Active Protocol: Activity Type Activity Date Activity User E-Sign Co-Sign Detail Recorded Client Recorded Date Recorded By Document 05/28/20 14:44 PL [id number] 05/28/20 14:45 PL 05/28/20 14:44 Wound Center Nurse 2 [Procedure/Treatment] #5 right medial LE -Time 14:40 -Correct Patient Yes -Correct Side, Site, Position Yes -Correct Procedure Yes -Procedure Performed Yes -Type of Procedure Debridement -Clinical Debridement Subcutaneous -Post Debridement Size (cm) - Length 1.1 -Post Debridement Size (cm) - Width 0.5 -Post Debridement Size (cm) - Depth 0.1 -Total Square (cm) 0.55 -Wound/Ulcer Outcome Not Healed -Ulcer Cleansing Rinsed/ Irrigated with Saline -Foul Odor after Cleansing No -Bleeding Controlled with Pressure -Treatment Response Procedure Tolerated Well 4-left lower leg -Time 14:40 -Correct Patient Yes -Correct Side, Site, Position Yes -Correct Procedure Yes -Procedure Performed Yes -Type of Procedure Debridement -Clinical Debridement Subcutaneous -Post Debridement Size (cm) - Length 0.6 -Post Debridement Size (cm) - Width 0.3 -Post Debridement Size (cm) - Depth 0.1 -Total Square (cm) 0.18 -Wound/Ulcer Outcome Not Healed -Ulcer Cleansing Rinsed/ Irrigated with Saline -Foul Odor after Cleansing No -Bleeding Controlled with Pressure -Treatment Response Procedure Tolerated Well [See Physician Procedure note for Specifics] Pain Scale: 0-10 Numeric [Pain] -Is Patient Pain Free? Yes Musculoskeletal: No Tenderness to Palpation of Joints or Extremities Neurological: Neuro grossly intact Psych/Mental Status: Normal Affect, Appropriate, Alert and oriented to time, place, person, mood and affect Debridement Note Post-Debridement Measurements/Treatment WC - Nurse 2 - General Ulcer CM Notes Start: 05/14/20 13:03 Freq: Status: Active Protocol: Activity Type Activity Date Activity User E-Sign Co-Sign Detail Recorded Client Recorded Date Recorded By Document 05/14/20 13:29 MW [id number] 05/14/20 13:37 MW Document 05/21/20 16:15 PL [id number] 05/21/20 16:17 PL Document 05/28/20 14:44 PL [id number] 05/28/20 14:45 PL 05/14/20 05/21/20 05/28/20 13:29 16:15 14:44 Wound Center Nurse 2 #5 right medial LE -Time 13:33 15:00 14:40 -Correct Patient Yes Yes Yes -Correct Side, Site, Position Yes Yes Yes -Correct Procedure Yes Yes Yes -Procedure Performed Yes Yes Yes -Type of Procedure Debridement Debridement Debridement -Clinical Debridement Subcutaneous Subcutaneous Subcutaneous -Post Debridement Size (cm) - Length 0.8 1.1 1.1 -Post Debridement Size (cm) - Width 0.4 0.3 0.5 -Post Debridement Size (cm) - Depth 0.1 0.1 0.1 -Total Square (cm) 0.32 0.33 0.55 -Wound/Ulcer Outcome Not Healed Not Healed Not Healed -Ulcer Cleansing Rinsed/ Rinsed/ Rinsed/ Irrigated with Irrigated with Irrigated with Saline Saline Saline -Foul Odor after Cleansing No No No -Bioengineered Tissue No -Bleeding Controlled with Pressure Pressure Pressure -Offloading No -Treatment Response Procedure Procedure Procedure Tolerated Well Tolerated Well Tolerated Well 4-left lower leg -Time 13:36 15:00 14:40 -Correct Patient Yes Yes Yes -Correct Side, Site, Position Yes Yes Yes -Correct Procedure Yes Yes Yes -Procedure Performed Yes Yes Yes -Type of Procedure Debridement Debridement Debridement -Clinical Debridement Subcutaneous Subcutaneous Subcutaneous -Post Debridement Size (cm) - Length 2.5 0.8 0.6 -Post Debridement Size (cm) - Width 0.6 0.5 0.3 -Post Debridement Size (cm) - Depth 0.2 0.1 0.1 -Total Square (cm) 1.50 0.40 0.18 -Wound/Ulcer Outcome Not Healed Not Healed Not Healed -Ulcer Cleansing Rinsed/ Rinsed/ Rinsed/ Irrigated with Irrigated with Irrigated with Saline Saline Saline -Foul Odor after Cleansing No No No -Bioengineered Tissue No -Bleeding Controlled with Pressure Pressure Pressure -Offloading No -Treatment Response Procedure Procedure Procedure Tolerated Well Tolerated Well Tolerated Well 3-right lower leg -Time 13:30 -Correct Patient Yes -Correct Side, Site, Position Yes -Correct Procedure Yes -Procedure Performed Yes -Type of Procedure Debridement -Clinical Debridement Subcutaneous -Post Debridement Size (cm) - Length 2.0 -Post Debridement Size (cm) - Width 1.0 -Post Debridement Size (cm) - Depth 0.1 -Total Square (cm) 2.00 -Wound/Ulcer Outcome Not Healed -Ulcer Cleansing Rinsed/ Irrigated with Saline -Foul Odor after Cleansing No -Bioengineered Tissue No -Bleeding Controlled with Pressure -Offloading No -Treatment Response Procedure Tolerated Well Pain Scale: 0-10 Numeric Is Patient Pain Free? Yes Yes Yes Wound debrided: bilateral lower ext ulcers Type of Debridement: Excisional debridement Anesthesia Used: 5% Lidocaine Gel Depth: Down to and including healthy tissue, in the subcutaneous layer Percentage of wound debrided: 100 Instrument Used: 5mm curette Tissue Removed: slough and devitalized tissue Severity: Fat Layer Exposed Amount of bleeding with debridement: Mild Bleeding Controlled with: Pressure Patient tolerated procedure well Assessment/Plan Assessment: Ulcer to left anterior lateral lower leg. Pain left lower leg Plan: The patient was seen and examined at the wound center today and was updated on the plan of care. For her wound care she will continue utilizing silver cell moistened cover with gauze and change daily, she is also instructed on the importance of compression. Double layer Tubigrip's for compression at this time. Hold off on vascular studies. Patient has been advised to elevate lower extremities as much as possible. Elevation is to be implemented during daytime hours and legs are to be elevated to heart level, or higher, as much as possible. Prolonged idle sitting has been discouraged. Activity and ambulation has been encouraged. Patient has also been encouraged to increase the protein in her diet. Given the delayed wound healing and the fact that her ulcers have been present for 5 weeks now will apply for an advanced skin substitute. Patient educated on the importance of diet on wound healing and instructed to increase protein and vitamin C intake. Patient verbalized understanding. Patient will low up with the wound healing center in 2 weeks per pt request or sooner if needed. This note was generated with [employer] software. It may contain incorrect words, spelling, and punctuation that were not noted in checking the note before signing. [id number]: [id number] Vaishali subq tissue 20 sq cm/<
== END 2020-05-29 23:59 ==
LOC: WC 13:30
PROVIDERS: PCP Internal Medicine; Referring Provider Internal Medicine; Visit Provider Nurse Practitioner Family
DX: L97.912 Non-pressure chronic ulcer of unspecified part of right lower leg with fat layer exposed (principal); L97.922 Non-pressure chronic ulcer of unspecified part of left lower leg with fat layer exposed; I73.9 Peripheral vascular disease, unspecified; J96.11 Chronic respiratory failure with hypoxia; F32.9 Major depressive disorder, single episode, unspecified; K21.9 Gastro-esophageal reflux disease without esophagitis; E78.5 Hyperlipidemia, unspecified; G47.10 Hypersomnia, unspecified; I10 Essential (primary) hypertension; Z86.718 Personal history of other venous thrombosis and embolism; G47.00 Insomnia, unspecified; J44.9 Chronic obstructive pulmonary disease, unspecified; E55.9 Vitamin D deficiency, unspecified; K58.9 Irritable bowel syndrome, unspecified; G89.29 Other chronic pain; Z82.49 Family history of ischemic heart disease and other diseases of the circulatory system; Z87.891 Personal history of nicotine dependence; Z90.710 Acquired absence of both cervix and uterus; Z96.641 Presence of right artificial hip joint
CPT/HCPCS: 11042; 99213; G0463

== ENCOUNTER → 2020-05-26 13:32 | Outpatient (CLI) | payer MEDICARE, MEDICAID, SELFPAY ==
[2020-04-29 10:26] VITALS: BMI 24.7
[2020-05-26 13:07] VITALS: BMI 26.2
--- NOTE | 2020-05-26 13:33 | CT_ITS ---
STUDY: LOW DOSE CT LUNG CANCER SCREENING REASON FOR EXAM: Female, 69 years old. LUNG SCREENING, 42 PACK YEAR HISTORY 1-2 PPD, ASYMPTOMATIC RADIATION DOSAGE (If Supplied By Facility): CTDIvol = ( 1.70 ) mGy, DLP = ( 53.40 ) mGycm TECHNIQUE: No contrast was administered. Low dose technique was utilized (average mAS-38 and kVp 120). 1.25 mm axial source images with a slice interval of 1.25-mm were reconstructed in lung windows. 2.5 mm axial source images with a slice interval of 2.5-mm were reconstructed in lung windows. 5.0 mm axial source images with a slice interval of 5.0-mm were reconstructed in soft tissue windows. Nodule measured using lung windows on PACS and/or independent workstation with automated measurement of minimum and maximum diameter. Nodule measurement reported as average diameter rounded to the nearest whole number. Growth is defined as an increase ins size of greater than 1.5 mm. COMPARISON: Comparison is made with prior CT scan of the thorax dated 03-03-16. NODULES: Calcified granuloma in the superior segment of the left lower lobe. Small calcified granulomas also seen in the anterior lateral aspect of the right upper lobe. Emphysema: There is evidence of emphysematous changes more pronounced in the upper lobes. Endobronchial lesion: None Aorta: Atherosclerotic calcification of the aortic arch and the descending thoracic aorta. Coronary arteries: Coronary artery calcification. Heart: Not enlarged Pulmonary artery: Unremarkable. Mediastinal nodes: Small benign-appearing based on the lymph nodes. Other chest and abdominal findings: Degenerative change of the thoracic spine. CT/Low Dose CT Lung Screening IMPRESSION: Lung-RADS category 2 - Continue annual screening with LDCT in 12 months. IMPORTANT NOTES FOR USE: ACR Lung-RADS Version 1.0 Assessment Categories Release Date: February 24, 2014 Category: Coded 0-4 bases on nodule(s) with highest degree of suspicion. Negative screen is defined as categories 1 and 2; a positive screen is defined as categories 3 and 4. Category 3 and 4A nodules that are unchanged on interval CT should be coded as category 2, and individuals returned to screening in 12 months. Category 4X: Category 3 or 4 nodules with additional imaging findings that increase the suspicion of lung cancer, such as spiculation, GGN that doubles in size in 1 year, enlarged lymph notes, etc. Category Modifiers: S (significant finding unrelated to lung cancer) and C (prior history of treated lung cancer) may be added to the 0-4 Lung-RADS Electronically Signed: Ray Bella, at 14:17 EDT , Service support ,
== END ==
PROVIDERS: PCP Internal Medicine; Referring Provider Nurse Practitioner Family; Visit Provider Nurse Practitioner Family
DX: Z12.2 Encounter for screening for malignant neoplasm of respiratory organs (principal); Z87.891 Personal history of nicotine dependence
CPT/HCPCS: G0297

== ENCOUNTER → 2020-06-03 10:26 | Outpatient (CLI) | payer MEDICARE, MEDICAID, SELFPAY ==
[2020-06-03 10:03] VITALS: BMI 26.2
[2020-06-03 11:15] LABS: Anion Gap 3 (5-15); BUN 19 mg/dL (7-18); BUN/Creat Ratio 26.2 RATIO (10-20); Calcium,Total 9.3 mg/dL (8.5-10.1); Chloride 110 mmol/L (98-107); Creatinine, Serum 0.72 mg/dL (0.55-1.02); EST Glomerular Filtration Rate 84 mL/min (>60); Est Glom Filt Rate - Afr Amer 102 mL/min (>60); Glucose 76 mg/dL (74-106); Sodium Level 142 mmol/L (136-145)
== END ==
PROVIDERS: PCP Internal Medicine; Referring Provider Internal Medicine; Visit Provider Internal Medicine
DX: I10 Essential (primary) hypertension (principal)
CPT/HCPCS: 36415; 80048

== ENCOUNTER 2020-06-25 13:00 | Outpatient (RCR) | payer MEDICARE, MEDICAID, SELFPAY ==
[2020-05-30 00:41] VITALS: BP 145/74; PULSE 99; RESP 20; TEMP 36.6; BMI 26.2
[2020-06-03 10:03] VITALS: BMI 26.2
[2020-06-11 12:26] VITALS: BP 153/89; PULSE 106; RESP 18; TEMP 36.5; BMI 26.2
--- NOTE | 2020-06-11 19:33 | PCM.WC.PN ---
(1) Nonhealing ulcer of left lower extremity with fat layer exposed Status: Acute Code(s): L97.922 - Non-pressure chronic ulcer of unspecified part of left lower leg with fat layer exposed (2) Nonhealing ulcer of right lower extremity with fat layer exposed Status: Acute Code(s): L97.912 - Non-pressure chronic ulcer of unspecified part of right lower leg with fat layer exposed Comment: X2 right anterior and medial lower extremity (3) PVD (peripheral vascular disease) Status: Acute Code(s): I73.9 - Peripheral vascular disease, unspecified (4) Hypertension Status: Chronic Qualifiers: Code(s): I10 - Essential (primary) hypertension (5) Insomnia Status: Chronic Qualifiers: Code(s): G47.00 - Insomnia, unspecified (6) Stage 3 severe COPD by GOLD classification Status: Chronic Code(s): J44.9 - Chronic obstructive pulmonary disease, unspecified Comment: FEV1 53% of predicted Type of Wound Date of Service: 06/11/20 Chief Complaint: Nonhealing ulceration to bilateral lower extremities status post injury 5 weeks ago History of Wound: This is a 69-year-old white female who presents to the wound healing center today with complaint of nonhealing ulcerations to her bilateral lower extremities. Approximately 5 weeks ago she bumped her lower extremities and developed a skin tear. Gradually the skin tears became infected and she was treated by her primary care for cellulitis with Augmentin. She states that the cellulitis has resolved but since then she has developed nonhealing ulcers of her bilateral lower extremities. She has been utilizing silver cell and triple antibiotic ointment without any compression. She states that there are no signs of infection at this time such as warmth, worsening swelling, or purulent discharge. Denies any other aggravating or relieving factors. The patient otherwise denies any fever, chills, nausea, vomiting, shortness of breath, chest pain or pressure, palpitations, orthopnea, worsening lower extremity edema, syncope or presyncopal episodes. Progress of Wound: 05/21/2020?right medial lower extremity ulceration is healed, bilateral lower extremity ulcers have improved in size, patient tolerating well. No new concerns. 06/11/20-patient's prior wounds are now healed, however she notes a new skin tear on her right anterior lower extremity. She has been utilizing silver cell without any other issues at this time. Denies any signs of localized or systemic infection at this time. - Physical Exam Vital Signs Temp Pulse Resp BP 97.7 F L 106 H 18 153/89 H 06/11/20 12:26 06/11/20 12:26 06/11/20 12:26 06/11/20 12:26 General: Alert, Oriented x3, Cooperative, No apparent distress HEENT: Atraumatic Oral: Moist Mucosa Lungs: Clear to auscultation, Normal air movement Cardiovascular: Regular rate, Regular Rhythm Abdomen: Soft, Non Tender Extremities: No clubbing, No cyanosis, No edema Skin: Ulcer/ Wound - See nursing documentation, slough and devitalized tissue present on right anterior lower extremity skin tear, no signs of infection at this time. Neurological: Neuro grossly intact Psych/Mental Status: Normal Affect, Appropriate, Alert and oriented to time, place, person, mood and affect Debridement Note Post-Debridement Measurements/Treatment WC - Nurse 2 - General Ulcer CM Notes Start: 06/11/20 12:26 Freq: Status: Active Protocol: Activity Type Activity Date Activity User E-Sign Co-Sign Detail Recorded Client Recorded Date Recorded By Document 06/11/20 12:56 MW [id number] 06/11/20 12:59 MW 06/11/20 12:56 Wound Center Nurse 2 #6 [facility] LE -Time 12:57 -Correct Patient Yes -Correct Side, Site, Position Yes -Correct Procedure Yes -Procedure Performed Yes -Type of Procedure Debridement -Clinical Debridement Subcutaneous -Post Debridement Size (cm) - Length 2.0 -Post Debridement Size (cm) - Width 0.6 -Post Debridement Size (cm) - Depth 0.2 -Total Square (cm) 1.20 -Wound/Ulcer Outcome Not Healed -Ulcer Cleansing Rinsed/ Irrigated with Saline -Foul Odor after Cleansing No -Bioengineered Tissue No -Bleeding Controlled with Pressure -Offloading No -Treatment Response Procedure Tolerated Well #5 right [facility] LE -Time 12:58 -Correct Patient Yes -Correct Side, Site, Position Yes -Correct Procedure Yes -Procedure Performed No -Post Debridement Size (cm) - Length 0 -Post Debridement Size (cm) - Width 0 -Post Debridement Size (cm) - Depth 0 -Total Square (cm) 0 -Wound/Ulcer Outcome Healed- Epithelialized 4-left lower leg -Time 12:58 -Correct Patient Yes -Correct Side, Site, Position Yes -Correct Procedure Yes -Procedure Performed No -Post Debridement Size (cm) - Length 0 -Post Debridement Size (cm) - Width 0 -Post Debridement Size (cm) - Depth 0 -Total Square (cm) 0 -Wound/Ulcer Outcome Healed- Epithelialized 3-right lower leg -Time 12:58 -Correct Patient Yes -Correct Side, Site, Position Yes -Correct Procedure Yes -Procedure Performed No -Post Debridement Size (cm) - Length 0 -Post Debridement Size (cm) - Width 0 -Post Debridement Size (cm) - Depth 0 -Total Square (cm) 0 -Wound/Ulcer Outcome Healed- Epithelialized #2 L medial smith -Time 12:59 -Correct Patient Yes -Correct Side, Site, Position Yes -Correct Procedure Yes -Procedure Performed No -Post Debridement Size (cm) - Length 0 -Post Debridement Size (cm) - Width 0 -Post Debridement Size (cm) - Depth 0 -Total Square (cm) 0 -Wound/Ulcer Outcome Healed- Epithelialized Pain Scale: 0-10 Numeric Is Patient Pain Free? Yes Wound debrided: right anterior lower extremity skin tear Laterality: Right Type of Debridement: Excisional debridement Anesthesia Used: 5% Lidocaine Gel Depth: in the subcutaneous layer Percentage of wound debrided: 100 Instrument Used: 5mm curette Tissue Removed: slough and devitalized tissue Severity: Fat Layer Exposed Amount of bleeding with debridement: Mild Bleeding Controlled with: Pressure Patient tolerated procedure well Assessment/Plan Assessment: Ulcer to left anterior lateral lower leg. Pain left lower leg Plan: The patient was seen and examined at the wound center today and was updated on the plan of care. For her wound care she will continue utilizing silver cell moistened cover with gauze and change daily, she is also instructed on the importance of compression. Double layer Tubigrip's for compression at this time. Hold off on vascular studies. Patient has been advised to elevate lower extremities as much as possible. Elevation is to be implemented during daytime hours and legs are to be elevated to heart level, or higher, as much as possible. Prolonged idle sitting has been discouraged. Activity and ambulation has been encouraged. Patient has also been encouraged to increase the protein in her diet. Given the delayed wound healing and the fact that her ulcers have been present for 5 weeks now will apply for an advanced skin substitute. Patient educated on the importance of diet on wound healing and instructed to increase protein and vitamin C intake. Patient verbalized understanding. Patient will low up with the wound healing center in 1 week or sooner if needed. This note was generated with [employer] dictation software. It may contain incorrect words, spelling, and punctuation that were not noted in checking the note before signing. [id number]: [id number] Vaishali subq tissue 20 sq cm/<
[2020-06-25 13:14] VITALS: BP 143/79; PULSE 95; RESP 18; TEMP 36.1; BMI 26.2
--- NOTE | 2020-06-25 17:02 | PCM.WC.PN ---
(1) Nonhealing ulcer of left lower extremity with fat layer exposed Status: Acute Code(s): L97.922 - Non-pressure chronic ulcer of unspecified part of left lower leg with fat layer exposed (2) Nonhealing ulcer of right lower extremity with fat layer exposed Status: Acute Code(s): L97.912 - Non-pressure chronic ulcer of unspecified part of right lower leg with fat layer exposed Comment: X2 right anterior and medial lower extremity (3) PVD (peripheral vascular disease) Status: Acute Code(s): I73.9 - Peripheral vascular disease, unspecified (4) Hypertension Status: Chronic Qualifiers: Code(s): I10 - Essential (primary) hypertension (5) Insomnia Status: Chronic Qualifiers: Code(s): G47.00 - Insomnia, unspecified (6) Stage 3 severe COPD by GOLD classification Status: Chronic Code(s): J44.9 - Chronic obstructive pulmonary disease, unspecified Comment: FEV1 53% of predicted Type of Wound Date of Service: 06/25/20 Chief Complaint: Nonhealing ulceration to bilateral lower extremities status post injury 5 weeks ago History of Wound: This is a 69-year-old white female who presents to the wound healing center today with complaint of nonhealing ulcerations to her bilateral lower extremities. Approximately 5 weeks ago she bumped her lower extremities and developed a skin tear. Gradually the skin tears became infected and she was treated by her primary care for cellulitis with Augmentin. She states that the cellulitis has resolved but since then she has developed nonhealing ulcers of her bilateral lower extremities. She has been utilizing silver cell and triple antibiotic ointment without any compression. She states that there are no signs of infection at this time such as warmth, worsening swelling, or purulent discharge. Denies any other aggravating or relieving factors. The patient otherwise denies any fever, chills, nausea, vomiting, shortness of breath, chest pain or pressure, palpitations, orthopnea, worsening lower extremity edema, syncope or presyncopal episodes. Progress of Wound: 05/21/2020?right medial lower extremity ulceration is healed, bilateral lower extremity ulcers have improved in size, patient tolerating well. No new concerns. 06/11/20-patient's prior wounds are now healed, however she notes a new skin tear on her right anterior lower extremity. She has been utilizing silver cell without any other issues at this time. Denies any signs of localized or systemic infection at this time. 06-25-20-all of the patient's wounds are now healed without any signs of infection at this time. - Physical Exam Vital Signs Temp Pulse Resp BP 97 F L 95 18 143/79 H 06/25/20 13:14 06/25/20 13:14 06/25/20 13:14 06/25/20 13:14 General: Alert, Oriented x3, Cooperative, No apparent distress HEENT: Atraumatic Oral: Moist Mucosa Lungs: Clear to auscultation, Normal air movement Cardiovascular: Regular rate, Regular Rhythm Abdomen: Soft Extremities: No clubbing, No cyanosis, No edema, Peripheral Pulses Normal Skin: Ulcer/ Wound - Healed without any signs of infection at this time Wound Measurements and Assessment WC - Nurse 1 - General Ulcer Measurement Start: 06/11/20 12:26 Freq: Status: Discharge Protocol: Activity Type Activity Date Activity User E-Sign Co-Sign Detail Recorded Client Recorded Date Recorded By Document 06/25/20 13:14 RB [id number] 06/25/20 13:18 RB Edit Status 06/25/20 14:39 BKG DAEMON Active=>Discharge [id number] 06/25/20 14:39 BKG DAEMON 06/25/20 13:14 Wound Center Nurse 1 [Ulcer Assessment] #6 R Med LE -Combined with other wound No -Current Size (cm) - Length 0.1 -Current Size (cm) - Width 0.1 -Current Size (cm) - Depth 0.1 -Total Square Cm 0.01 -Epithelialization Large 67-100% -Tunneling No -Undermining/Tunneling No -Circular Undermining No -Exudate Amt None Present -Wound Margin Distinct, Outline Attached -Granulation Amt Large (67-100%) -Granulation Quality [place] -Slough/Fibrin No -Necrosis Amt None Present (0 %) -Structure Exposed N/A -Texture (Yumiko-wound Skin Appearance) Assessed -Moisture (Yumiko-wound Skin Appearance Assessed ) -Color (Yumiko-wound Skin Appearance) Assessed -Temperature (Yumiko-wound Skin No Abnormality Appearance) (Pt Warm) -Tenderness on Palpation (Yumiko-wound No Skin Appearance) -Ulcer Cleansing Wound Cleanser -Foul Odor after Cleansing No -Anesthetic Used 4% Lidocaine Solution [Edema Assessment] -Lower Limb Edema Present Yes -Right Calf (cm) 31.5 -Right Ankle (cm) 18 -Left Calf (cm) 33.2 -Left Ankle (cm) 18.5 WC - Nurse 3 - General Ulcer D/C NN Start: 06/25/20 13:48 Freq: Status: Discharge Protocol: Activity Type Activity Date Activity User E-Sign Co-Sign Detail Recorded Client Recorded Date Recorded By Document 06/25/20 13:49 RB [id number] 06/25/20 13:50 RB Edit Status 06/25/20 14:39 BKG DAEMON Active=>Discharge [id number] 06/25/20 14:39 BKG DAEMON 06/25/20 13:49 Wound Care Nurse 3 [Compression Applied] Left -Other double tubigrip Right -Other double layer tubigrip [Post Procedure Tolerated] -Treatment Response Procedure Tolerated Well Pain Scale: 0-10 Numeric [Pain] -Is Patient Pain Free? Yes Teaching: Wound Center [Wound Center Education] (Items with an * have Printed Materials Available- Please identify what is given to patient under the Teaching materials given to patient and caregiver Section. Compression Wraps & Stockings -Person Taught Patient -Teaching Method Discussion, Demonstration -Response to teaching Verbalize understanding WC - Visit Discharge [Visit Discharge Information] -Discharge Condition Stable -Ambulatory Status Ambulatory -Transportation Private Auto -Medication Reconcilliation completed No & provided to patient/care provider -Clinical Summary of Care Provided Yes Neurological: Neuro grossly intact Psych/Mental Status: Normal Affect, Appropriate, Alert and oriented to time, place, person, mood and affect Debridement Note Post-Debridement Measurements/Treatment WC - Nurse 3 - General Ulcer D/C NN Start: 06/25/20 13:48 Freq: Status: Discharge Protocol: Activity Type Activity Date Activity User E-Sign Co-Sign Detail Recorded Client Recorded Date Recorded By Document 06/25/20 13:49 RB [id number] 06/25/20 13:50 RB 06/25/20 13:49 Wound Care Nurse 3 Left -Other double tubigrip Right -Other double layer tubigrip Treatment Response Procedure Tolerated Well Pain Scale: 0-10 Numeric Is Patient Pain Free? Yes Teaching: Wound Center Compression Wraps & Stockings -Person Taught Patient -Teaching Method Discussion, Demonstration -Response to teaching Verbalize understanding WC - Visit Discharge Discharge Condition Stable Ambulatory Status Ambulatory Transportation Private Auto Medication Reconcilliation completed & No provided to patient/care provider Clinical Summary of Care Provided Yes No debridement was completed today Assessment/Plan Assessment: Ulcer to left anterior lateral lower leg. Pain left lower leg Plan: The patient was seen and examined at the wound center today and was updated on the plan of care. Her wounds are now healed, she may utilize Adaptic over the newly healed wounds. Double layer Tubigrip's for compression at this time. Patient has been advised to elevate lower extremities as much as possible. Elevation is to be implemented during daytime hours and legs are to be elevated to heart level, or higher, as much as possible. Prolonged idle sitting has been discouraged. Activity and ambulation has been encouraged. Patient has also been encouraged to increase the protein in her diet. Patient educated on the importance of diet on wound healing and instructed to increase protein and vitamin C intake. Patient verbalized understanding. Patient will be discharged from the wound healing center and follow-up if needed. This note was generated with [employer] dictation software. It may contain incorrect words, spelling, and punctuation that were not noted in checking the note before signing. Office Visits / Consults: [id number] OV L3 Est
== END 2020-06-25 14:39 | disposition home or self-care (01) ==
LOC: WC 13:00
PROVIDERS: PCP Internal Medicine; Referring Provider Internal Medicine; Visit Provider Nurse Practitioner Family
DX: L97.922 Non-pressure chronic ulcer of unspecified part of left lower leg with fat layer exposed (principal); L97.912 Non-pressure chronic ulcer of unspecified part of right lower leg with fat layer exposed; I73.9 Peripheral vascular disease, unspecified; I10 Essential (primary) hypertension; G47.00 Insomnia, unspecified; J44.9 Chronic obstructive pulmonary disease, unspecified; M79.662 Pain in left lower leg
CPT/HCPCS: 11042; 99213; G0463

== ENCOUNTER → 2020-09-25 12:11 | Outpatient (CLI) | payer MEDICARE, MEDICAID, SELFPAY ==
[2020-09-14 09:17] VITALS: BMI 26.2
--- NOTE | 2020-09-25 12:13 | US_ITS ---
STUDY: NECK SOFT TISSUE ULTRASOUND REASON FOR EXAM: Female, 70 years old. Bilateral neck and swelling TECHNIQUE: Ultrasound evaluation of the neck was performed with real-time and static ray-scale imaging. COMPARISON: None. FINDINGS: Inferior to the left thyroid lobe, there is a hyperechoic 1.2 x 0.5 x 0.5 cm nodule. Vascular calcifications are noted. US/Head/Neck Soft Tissue IMPRESSION: Hyperechoic nodule inferior to the left thyroid lobe possibly of lipomatous nature. Electronically Signed: Octavio Smith DO at 23:55 EST Tel [phone], Service support ,
== END ==
PROVIDERS: PCP Internal Medicine; Referring Provider Internal Medicine; Visit Provider Internal Medicine
DX: M54.2 Cervicalgia (principal); R22.1 Localized swelling, mass and lump, neck
CPT/HCPCS: 76536

== ENCOUNTER → 2020-10-01 09:43 | Outpatient (CLI) | payer MEDICARE, MEDICAID, SELFPAY ==
[2020-01-20 11:50] VITALS: BMI 24.7
[2020-09-14 09:17] VITALS: BMI 26.2
[2020-10-01 10:25] VITALS: PULSE 100; PULSE 101; PULSE 102; PULSE 106; PULSE 84; PULSE 90; PULSE 95; PULSE 96; O2SAT 100; O2SAT 86; O2SAT 89; O2SAT 92; O2SAT 93; O2SAT 95; O2SAT 96
--- NOTE | 2020-10-01 10:28 | CPS ---
Patient wears oxygen at home at night. Started testing on room air. At the 4th minute SpO2 86%, as soon as I stopped the patient she instantly recovered to 89-91%. Placed patient on 2 lpm O2 for the remainder of the walk. Patient has a follow up appointment with Tammy Newman NP next week and verbalizes understanding of monitoring oxygen saturations.
--- NOTE | 2020-10-02 14:59 | WT_ITS ---
PSN 6 Minute Walk Test - 6 Minute Walk Test 6 Minute Walk Test: 6 Minute Walk Test PSN:6-Minute Walk Test Start: 10/01/20 10:25 Freq: Status: Active Protocol: RESP.6MINW Document 10/01/20 10:25 MICHAEL (Rec: 10/01/20 10:32 MICHAEL [id number]) 6 Minute Walk Test Date Performed 10/01/20 Time Performed 10:00 Height 5 ft 4 in Weight: 148 lb Weight in Pounds 148.[address]: Edgardo Britton Assistive device used: None Pre-test Oxygen Delivery Method Room Air Pulse Ox (%) 93 Pulse Rate (60-100 beats/min) 84 Dyspnea Galindo Scale (0-10) 0.5 Exertion Galindo Scale (6-20) 6 1st minute Oxygen Delivery Method Room Air Pulse Ox (%) 93 Pulse Rate (60-100 beats/min) 95 2nd minute Oxygen Delivery Method Room Air Pulse Ox (%) 92 Pulse Rate (60-100 beats/min) 96 3rd minute Oxygen Delivery Method Room Air Pulse Ox (%) 89 Pulse Rate (60-100 beats/min) 101 H 4th minute Oxygen Delivery Method Room Air Pulse Ox (%) 86 Pulse Rate (60-100 beats/min) 106 H 5th minute Oxygen Flow Rate (L/min) (L/min) 2 Oxygen Delivery Method Nasal Cannula Pulse Ox (%) 96 Pulse Rate (60-100 beats/min) 100 6th minute Oxygen Flow Rate (L/min) (L/min) 2 Oxygen Delivery Method Nasal Cannula Pulse Ox (%) 95 Pulse Rate (60-100 beats/min) 102 H Dyspnea Galindo Scale (0-10) 5 Exertion Galindo Scale (6-20) 12 Post-test Oxygen Flow Rate (L/min) (L/min) 2 Oxygen Delivery Method Nasal Cannula Pulse Ox (%) 100 Pulse Rate (60-100 beats/min) 90 Full Laps Walked 16 Partial Lap, Number of Tiles Walked 48 Total Distance Walked (ft) 992 10/01/20 10:28 Cardiopulmonary Services by Millie Sheth Patient wears oxygen at home at night. Started testing on room air. At the 4th minute SpO2 86%, as soon as I stopped the patient she instantly recovered to 89- 91%. Placed patient on 2 lpm O2 for the remainder of the walk. Patient has a follow up appointment with Tammy Newman NP next week and verbalizes understanding of monitoring oxygen saturations. Initialized on 10/01/20 10:28 - END OF NOTE - Interpretation Interpretation: The patient ambulated 992 feet over the course of 6 minutes beginning on room air without assistive devices or breaks. Pretesting oxygen saturation was noted to be 93% on room air. With ambulation, the sabi oxygen saturation was 86%. 2 L/min of supplemental oxygen was applied, and the patient was able to complete the remainder of the test while maintaining appropriate oxygen saturations. - Recommendations Recommendations: 2 L/min of supplemental oxygen should be utilized with exertion.
== END ==
PROVIDERS: PCP Internal Medicine; Referring Provider Internal Medicine Critical Care Medicine; Visit Provider Internal Medicine Critical Care Medicine
DX: J44.9 Chronic obstructive pulmonary disease, unspecified (principal); J96.11 Chronic respiratory failure with hypoxia
CPT/HCPCS: 94618

== ENCOUNTER → 2020-10-02 11:51 | Outpatient (CLI) | payer MEDICARE, MEDICAID, SELFPAY ==
[2020-01-20 11:50] VITALS: BMI 24.7
[2020-09-14 09:17] VITALS: BMI 26.2
--- NOTE | 2020-10-03 10:03 | PFT ---
INTRODUCTION: The patient is a 70-year-old female who presents for pulmonary function studies secondary to a diagnosis of COPD. Respiratory therapy reports good patient effort. Bronchodilators were used during testing. INTERPRETATION: Forced expiration spirometry demonstrates the presence of a severe large airways obstructive ventilatory defect. There was no significant response to aerosolized bronchodilators, based upon strict ATS criteria. Spirograms are of good quality and do not plateau indicating slow emptying of the lungs. Body plethysmography was performed and revealed an elevated RV to 143% of predicted, indicative of underlying air trapping. Diffusing capacity by single breath CO is reduced at 61% of predicted. IMPRESSION: Irreversible severe large airways obstructive ventilatory defect with associated air trapping and symmetric reduction in diffusing capacity.
== END ==
PROVIDERS: PCP Internal Medicine; Referring Provider Internal Medicine Critical Care Medicine; Visit Provider Internal Medicine Critical Care Medicine
DX: J44.9 Chronic obstructive pulmonary disease, unspecified (principal)
CPT/HCPCS: 94060; 94726; 94729

== ENCOUNTER → 2020-10-12 08:50 | Outpatient (CLI) | payer MEDICARE, MEDICAID, SELFPAY ==
[2020-10-12 08:32] VITALS: BMI 25.9
[2020-10-12 12:51] LABS: ALB/GLOB Ratio 0.9 RATIO (0.9-2.4); AST(SGOT) 21 U/L (15-37); Alanine Aminotransfer ALT/SGPT 26 U/L (13-56); Albumin, Serum 3.4 g/dL (3.2-5.0); Alkaline Phosphatase 90 U/L (45-117); Anion Gap 3 (5-15); BUN 25 mg/dL (7-18); BUN/Creat Ratio 30.2 RATIO (10-20); Calcium,Total 9.2 mg/dL (8.5-10.1); Chloride 109 mmol/L (98-107); Creatinine, Serum 0.83 mg/dL (0.55-1.02); EST Glomerular Filtration Rate 72 mL/min (>60); Est Glom Filt Rate - Afr Amer 87 mL/min (>60); Globulin 3.8 g/dL (2.2-4.2); Glucose 72 mg/dL (74-106); Potassium 4.2 mmol/L (3.5-5.1); Protein, Total 7.2 g/dL (6.4-8.2); Sodium Level 141 mmol/L (136-145); T4 Free Direct 0.92 ng/dL (0.76-1.46)
== END ==
PROVIDERS: PCP Internal Medicine; Referring Provider Internal Medicine; Visit Provider Internal Medicine
DX: Z13.29 Encounter for screening for other suspected endocrine disorder (principal); R49.0 Dysphonia; I10 Essential (primary) hypertension
CPT/HCPCS: 36415; 80053; 84439; 84443

== ENCOUNTER → 2021-04-21 11:39 | Outpatient (CLI) | payer MEDICARE, MEDICAID, SELFPAY ==
[2021-04-21 11:02] VITALS: BMI 26.2
[2021-04-21 15:06] LABS: Absolute Lymphocyte Count 1.41 X10^3/uL (0.83-4.51); Absolute Neutrophil Count 6.8 X10^3/uL (2.0-7.7); Basophil# 0.05 X10^3/uL; Basophil% 0.6 % (0-1); Eosinophil# 0.07 X10^3/uL; Eosinophils% 0.8 % (0-5); Hematocrit 39.8 % (37-47); Hemoglobin 12.3 g/dL (12.0-15.0); Lymphocyte # 1.41 X10^3/ul (0.83-4.51); Lymphocyte % 15.8 % (19-41); Mean Corp Hgb Conc 30.9 g/dL (32-36); Mean Corpuscular Hgb 29.1 pg (27.0-32.0); Mean Corpuscular Volume 94.1 fL (81-99); Mean Platelet Vol. 9.9 fl (6.2-12.0); Monocyte# 0.59 X10^3/uL; Monocyte% 6.6 % (0-10); NRBC Flagged by Analyzer 0 % (0-5); Neutrophil # 6.75 X10^3/uL (2.7-7.7); Neutrophil % 75.8 % (47-70); Platelet Count 321 K/mm3 (150-450); RBC Distribution Width CV 13.3 % (11.6-14.6); RBC Distribution Width SD 46.3 fl (35.1-43.9); Red Blood Count 4.23 M/mm3 (4.2-5.4); White Blood Count 8.9 K/mm3 (4.4-11.0)
[2021-04-21 15:23] LABS: ALB/GLOB Ratio 0.9 RATIO (0.9-2.4); AST(SGOT) 21 U/L (15-37); Alanine Aminotransfer ALT/SGPT 23 U/L (13-56); Albumin, Serum 3.5 g/dL (3.2-5.0); Alkaline Phosphatase 102 U/L (45-117); Anion Gap 5 (5-15); BUN 22 mg/dL (7-18); BUN/Creat Ratio 25.6 RATIO (10-20); Calcium,Total 9.2 mg/dL (8.5-10.1); Chloride 106 mmol/L (98-107); Cholesterol 179 mg/dL (200); Creatinine, Serum 0.86 mg/dL (0.55-1.02); EST Glomerular Filtration Rate 69 mL/min (>60); Est Glom Filt Rate - Afr Amer 83 mL/min (>60); Globulin 3.8 g/dL (2.2-4.2); Glucose 90 mg/dL (74-106); High Density Lipoprotein 68 mg/dL; Potassium 4.6 mmol/L (3.5-5.1); Protein, Total 7.3 g/dL (6.4-8.2); Sodium Level 140 mmol/L (136-145); Triglycerides 59 mg/dL; Very Low Density Lipoprotein 12 mg/dL (5-40)
[2021-04-21 15:25] LABS: Vitamin D,25 Hydroxy 18.9 ng/mL
== END ==
PROVIDERS: PCP Internal Medicine; Referring Provider Internal Medicine; Visit Provider Internal Medicine
DX: E55.9 Vitamin D deficiency, unspecified (principal); I10 Essential (primary) hypertension
CPT/HCPCS: 36415; 80053; 80061; 82306; 85025

== ENCOUNTER 2021-04-26 06:08 | Emergency (ER) | payer MEDICARE, MEDICAID, SELFPAY ==
[2021-04-21 11:02] VITALS: BMI 26.2
[2021-04-26 06:09] VITALS: BP 147/75; PULSE 87; RESP 14; TEMP 37.9; O2SAT 97; BMI 26.8
--- NOTE | 2021-04-26 06:10 | EKG12_ITS ---
Test Reason : CP Blood Pressure : / mmHG Vent. Rate : 090 BPM Atrial Rate : 090 BPM P-R Int : 178 ms QRS Dur : 122 ms QT Int : 404 ms P-R-T Axes : 072 -18 032 degrees QTc Int : 494 ms Sinus rhythm with Premature atrial complexes Right bundle branch block Abnormal ECG Confirmed by CARLIE DEL TORO, BILL ([id number]), restaurant expeditor HEBER SIMS ([id number]) on 04/27/2021 9:11:54 AM Referred By: CANDIS Confirmed By:BILL SEXTON MD
--- NOTE | 2021-04-26 06:19 | ED.VIS.BACK ---
HPI History of Present Illness Chief Complaint: Back Informant: patient Onset/Context/Timing Onset: Days Context: Sudden Onset Injury: - (There is no history of trauma or repetitive movements.) Timing: Continuous Quality: Dull and Aching Location: - (Paracervical and right and left trapezius region) Current Severity: Severe Maximum Severity: Severe Worsened by: improves with Movement and Bending Relieved by: Nothing Associated Symptoms Associated Symptoms: Tingling (Patient reports chronic tingling fingers right and left hand for a long time); Negative for Numbness, Radiation to Right Leg, Radiation to Left Leg, Fever, Abdominal Pain, Dysuria, Unable to Ambulate, Unable to Transfer, Urinary Retention, Urinary Incontinence, Constipation and Fecal Incontinence Narrative Narrative: Patient is an elderly woman who saw her physician on Monday when placed on muscle relaxant. She states the muscle relaxant is not helping. She denies fever, chills night sweats. She denies history of trauma, repetitive use etc. She denies fever, chills or night sweats. She denies headache. She denies ocular, visual auditory symptoms. She denies trouble with speech or swallowing. Movement does increase the pain. Nothing alleviates the pain. There is nothing specific that precipitated the pain. She denies cardiac or respiratory symptoms. She denies abdominal pain or low back pain. She denies dysuria, frequency, urgency or hematuria. Prior similar symptoms: No Recent Illness/Hospitalization: Yes [facility] Medical History Arthritis Asthma Bilateral carpal tunnel syndrome Bilateral lower extremity edema Depression Fracture of right hip requiring operative repair GERD (gastroesophageal reflux disease) Health care maintenance Hemorrhoids History of cataract History of pneumonia Hyperlipidemia Hypersomnia Hypertension Insomnia Internal hemorrhoid Osteoporosis Overweight Seasonal allergies Shoulder pain SOB (shortness of breath) Stage 3 severe COPD by GOLD classification Stomach ulcer Tibia fracture Vitamin D deficiency Home Medications polyvinyl alcohol 1.4 % eye drops 1 drp OPHTHALMIC 4X/DAY 08/20/19 [History Last Taken 09/03/19] albuterol sulfate 90 mcg/actuation aerosol inhaler 2 puff INHALATION Q4H PRN #18 g 03/31/20 [Rx Last Taken Unknown] atorvastatin 40 mg tablet 40 mg PO QHS #90 tab 10/08/20 [Rx Last Taken Unknown] amlodipine 5 mg tablet 7.5 mg PO DAILY 90 Days #135 tab 10/12/20 [Rx Last Taken Unknown] valacyclovir 1 gram tablet 1,000 mg PO DAILY PRN PRN #90 tab 10/12/20 [Rx Last Taken Unknown] compress.stocking,knee,reg,lrg #2 each 01/19/21 [Rx Last Taken Unknown] duloxetine 30 mg capsule,delayed release 90 mg PO DAILY 90 Days #270 cap 01/19/21 [Rx Last Taken Unknown] omeprazole 40 mg capsule,delayed release 40 mg PO DAILY #90 cap 01/19/21 [Rx Last Taken Unknown] fluticasone furoate 200 mcg-vilanterol 25 mcg/dose inhalation powder 1 inh INHALATION QDAY #60 ea 02/26/21 [Rx Last Taken Unknown] umeclidinium 62.5 mcg/actuation blister powder for inhalation 1 inh INHALATION DAILY #30 ea 03/05/21 [Rx Last Taken Unknown] albuterol sulfate 2.5 mg INHALATION Q4H PRN #180 ml 03/15/21 [Rx Last Taken Unknown] ipratropium bromide 42 mcg (0.06 %) nasal spray 2 spray INTRANASAL TID PRN #15 ml 04/21/21 [Rx Last Taken Unknown] hydrocodone-acetaminophen 1 tab PO Q6H PRN PRN 3 Days #10 tablet 04/26/21 [Rx Last Taken Unknown] Allergy/AdvReac Type Severity Reaction Status Date / Time No Known Allergies Allergy Verified 04/26/21 06:20 Family History Grandmother COPD (chronic obstructive pulmonary disease) Mother Heart disease Hypertension CVA (cerebral vascular accident) Myocardial infarction, Onset Age: 50 Father CVA (cerebral vascular accident) Alcohol abuse Prostate cancer Sister Heart disease Brother Heart disease Surgical History History of appendectomy History of cholecystectomy History of colonoscopy History of hemorrhoidectomy History of hysterectomy Social History Smoking Status: Former smoker quit date: 10/23/09 pack-years: 42 Tobacco: How many years used: 42 Electronic Cigarette Use: not used how long ago did patient quit smokin years second hand exposure: Yes quit status: quit date established counseling given: provider counseling alcohol intake: never substance use type: does not use caffeine: Yes what type of physical activity do you participate in: none ROS ROS ED Constitutional Constitutional ED: Denies chills, fever(s), subjective or sweats Eyes Eyes: Denies blurry vision or change in vision ENT ENT ED: Denies ear pain, rhinorrhea or sore throat Cardiovascular Cardiovascular: Denies chest pain or palpitations Respiratory/Chest Respiratory/Chest: Denies dyspnea, dyspnea on exertion or sputum Gastrointestinal Gastrointestinal: Denies abdominal pain, constipation, diarrhea, melena, nausea or vomiting Genitourinary Genitourinary ED: Denies dysuria, hematuria or urinary frequency Musculoskeletal Musculoskeletal: Reports back pain and neck pain; Denies arthralgias or myalgias Integumentary Denies abscess, Abrasions or rash Neurologic Neurologic: Denies headache(s), paresthesias or weakness Psychiatric Psychiatric: Denies depression Hematologic/Lymphatic Hematologic/Lymphatic: Denies easy bruising EXAM Physical Exam Const Vital Signs: 04/26/21 06:09 Temperature 100.3 F H Temperature Source Oral Pulse Rate 87 Respiratory Rate 14 Blood Pressure 147/75 H Blood Pressure Mean 99 Pulse Ox 97 Oxygen Delivery Method Room Air Positive well nourished and well developed General Appearance ED: well developed; Negative for NAD HEENT Reports moist mucous membranes HEENT Narrative: Nares patent. No facial asymmetry. Ears normal. trauma Eyes PERRL and EOMs intact bilaterally General Eye ED: Negative for pale conjunctiva or scleral icterus Neck no lymphadenopathy, No supple and no JVD Neck Narrative: There is paracervical discomfort to palpation. Patient has limited flexion, extension and rotation of the right and left. General: tenderness Resp normal respiratory effort and clear to auscultation bilaterally Cardio regular rate, regular rhythm, S1 normal heart sound, S2 normal heart sound and no murmurs GI normal to inspection, nondistended, normoactive bowel sounds, soft to palpation and non-tender Palpation: Negative for hepatomegaly, splenomegaly, mass or pulsatile mass Back/Spine normal to inspection and no thoracic nor lumbar tenderness Back/Spine Narrative: Axillary, median, radial and ulnar function intact. Radial pulses palpable. General Back: Negative for CVA tenderness Cervical Spine: paracervical muscle tenderness Extremity normal to inspection and no clubbing, cyanosis or edema General Extremety ED: Negative for edema or tenderness General Extremity: Negative for edema Neuro oriented x3 and no sensory deficits noted Sensorium / Orientation: alert Skin no rashes or lesions noted and no wounds MDM MDM MDM Narrative Medical decision making narrative: Patient has paracervical discomfort with limited range of motion. There is no radicular pain. There is no objective neurologic deficit. EKG was obtained per nurse protocol and reveals a sinus rhythm with premature atrial beats and a right bundle branch block. Rate is 90. NM interval is 198 ms. QRS duration 122 ms. QT durations 404 ms. She was medicated with IV morphine and x-ray of the neck was obtained. Patient was reassessed at 0711. She is improved, but she is not pain-free. Patient was informed of her x-ray results. Radiography X-Ray: - (3 you x-ray of the cervical spine was interpreted by me at 0709 as no acute findings. There is significant degenerative changes and there is spondylosis of C4 on 5. There is no fractures noted. There are no blastic or lytic lesions noted. There is no swelling of the prevertebral space.) Discharge Plan Triage Chief Complaint: Back ED Provider: Al Garcia Dx/Rx/DC Orders Clinical Impression: Degenerative joint disease of cervical spine, Degenerative, intervertebral disc, cervical Instructions: ED Neck Pain Prescriptions: New hydrocodone-acetaminophen [hydrocodone-acetaminophen] 1 TABLET tablet 1 tab PO Q6H PRN PRN (Reason: Pain) 3 Days Qty: 10 RF: 0 No Action polyvinyl alcohol 1.4 % drops 1 drp OPHTHALMIC 4X/DAY RF: 0 amlodipine 5 mg tablet 7.5 mg PO DAILY 90 Days Qty: 135 RF: 2 valacyclovir 1 gram tablet 1,000 mg PO DAILY PRN PRN (Reason: herpes) Qty: 90 RF: 0 (DME) compress.stocking,knee,reg,lrg Misc See Rx Instructions .MEDSUPPLY Qty: 2 RF: 1 omeprazole 40 mg capsule,delayed release(DR/EC) 40 mg PO DAILY Qty: 90 RF: 2 duloxetine 30 mg capsule,delayed release(DR/EC) 90 mg PO DAILY 90 Days Qty: 270 RF: 3 ipratropium bromide 42 mcg (0.06 %) spray,non-aerosol 2 spray INTRANASAL TID PRN (Reason: allergy symptoms) Qty: 15 RF: 6 albuterol sulfate [ProAir HFA] 90 mcg/actuation HFA aerosol inhaler 2 puff INHALATION Q4H PRN (Reason: shortness of breath or wheezing) Qty: 18 RF: 6 atorvastatin 40 mg tablet 40 mg PO QHS Qty: 90 RF: 3 Breo Ellipta 200-25 mcg/dose blister with device 1 inh inhalation QDAY Qty: 60 RF: 6 umeclidinium 62.5 mcg/actuation blister with device 1 inh inhalation DAILY Qty: 30 RF: 3 albuterol sulfate 2.5 mg /3 mL (0.083 %) solution for nebulization 2.5 mg INHALATION Q4H PRN (Reason: COPD J44.9) Qty: 180 RF: 6 Primary Care Provider: Yenni Lu Referrals: Yenni Lu MD [Primary Care Provider] - 3-5 Days if not improving Disposition Disposition: Home, Self Care
[2021-04-26] MEDS: Morphine 4 MG/ML Syringe IV (06:23)
--- NOTE | 2021-04-26 06:44 | RAD_ITS ---
HISTORY: Injury/Pain EXAMINATION/TECHNIQUE: XR Spine Cervical 4 or 5 Views: 4 view cervical spine series COMPARISON: July 07, 2013 FINDINGS: VERTEBRAE: No fracture or acute compression deformity. Diffuse facet arthropathy, left greater than right, most prominent C4-C5 with degenerative grade 1 anterolisthesis C4 on C5. Preservation of the normal cervical lordosis. DISCS: Multilevel disc height loss most prominent in the lower cervical spine. NECK SOFT TISSUES: No prevertebral soft tissue widening. Aortic and bilateral carotid atherosclersosis. LUNG APICES: Clear. RAD/Cerv Spine 2 or 3 Views IMPRESSION: No evidence of acute fracture. Spondylosis with progression from July 07, 2013, most severe at C4-C5 as above. at 0724 Reported and signed by: Christiano Sidhu MD Electronically Signed: Christiano Sidhu MD at 7:23 EDT Tel , Service support ,
[2021-04-26 07:27] VITALS: BP 139/69; PULSE 99; RESP 17; O2SAT 93
== END 2021-04-26 07:40 | disposition home or self-care (01) ==
PROVIDERS: Emergency Provider Emergency Medicine; PCP Internal Medicine
DX: M47.812 Spondylosis without myelopathy or radiculopathy, cervical region (principal); M50.30 Other cervical disc degeneration, unspecified cervical region; I45.10 Unspecified right bundle-branch block; K21.9 Gastro-esophageal reflux disease without esophagitis; E78.5 Hyperlipidemia, unspecified; I10 Essential (primary) hypertension; J44.9 Chronic obstructive pulmonary disease, unspecified; Z87.01 Personal history of pneumonia (recurrent); Z87.891 Personal history of nicotine dependence
CPT/HCPCS: 72040; 93005; 96374; 99285; A4216

== ENCOUNTER 2021-05-08 19:15 | Emergency (ER) | payer MEDICARE, MEDICAID, SELFPAY ==
[2021-04-28 11:31] VITALS: BMI 26.8
[2021-05-08 19:17] VITALS: BP 148/82; PULSE 69; RESP 20; TEMP 38.4; O2SAT 96; BMI 25.0
[2021-05-08 19:23] VITALS: BP 150/91; PULSE 84; RESP 18; TEMP 38.4; O2SAT 96
--- NOTE | 2021-05-08 19:37 | EX.ED.DYSGE1 ---
HPI History of Present Illness Chief Complaint: General Illness Narrative Narrative: 70-year-old female with neck and right shoulder pain x1 month. She stated it is getting worse. She has radiation of the pain into her right trapezius and up her neck on the right. She also has pain in her right shoulder. She denies any history of trauma. Patient also complains of chronic lower back pain. She knows she has degenerative disc disease. [facility] Medical History Arthritis Asthma Bilateral carpal tunnel syndrome Bilateral lower extremity edema Depression Fracture of right hip requiring operative repair GERD (gastroesophageal reflux disease) Health care maintenance Hemorrhoids History of cataract History of pneumonia Hyperlipidemia Hypersomnia Hypertension Insomnia Internal hemorrhoid Osteoporosis Overweight Seasonal allergies Shoulder pain SOB (shortness of breath) Stage 3 severe COPD by GOLD classification Stomach ulcer Tibia fracture Vitamin D deficiency Home Medications polyvinyl alcohol 1.4 % eye drops 1 drp OPHTHALMIC 4X/DAY 08/20/19 [History Last Taken 09/03/19] albuterol sulfate 90 mcg/actuation aerosol inhaler 2 puff INHALATION Q4H PRN #18 g 03/31/20 [Rx Last Taken Unknown] atorvastatin 40 mg tablet 40 mg PO QHS #90 tab 10/08/20 [Rx Last Taken Unknown] amlodipine 5 mg tablet 7.5 mg PO DAILY 90 Days #135 tab 10/12/20 [Rx Last Taken Unknown] valacyclovir 1 gram tablet 1,000 mg PO DAILY PRN PRN #90 tab 10/12/20 [Rx Last Taken Unknown] compress.stocking,knee,reg,lrg #2 each 01/19/21 [Rx Last Taken Unknown] duloxetine 30 mg capsule,delayed release 90 mg PO DAILY 90 Days #270 cap 01/19/21 [Rx Last Taken Unknown] omeprazole 40 mg capsule,delayed release 40 mg PO DAILY #90 cap 01/19/21 [Rx Last Taken Unknown] fluticasone furoate 200 mcg-vilanterol 25 mcg/dose inhalation powder 1 inh INHALATION QDAY #60 ea 02/26/21 [Rx Last Taken Unknown] umeclidinium 62.5 mcg/actuation blister powder for inhalation 1 inh INHALATION DAILY #30 ea 03/05/21 [Rx Last Taken Unknown] albuterol sulfate 2.5 mg INHALATION Q4H PRN #180 ml 03/15/21 [Rx Last Taken Unknown] ipratropium bromide 42 mcg (0.06 %) nasal spray 2 spray INTRANASAL TID PRN #15 ml 04/21/21 [Rx Last Taken Unknown] cyclobenzaprine 5 mg tablet 5 mg PO HS PRN #30 tab 04/28/21 [Rx Last Taken Unknown] oxycodone-acetaminophen [Endocet] 1 tab PO Q6H PRN 3 Days #12 tab 05/08/21 [Rx Last Taken Unknown] Allergy/AdvReac Type Severity Reaction Status Date / Time azithromycin Allergy Itching Verified 05/08/21 19:25 Family History Grandmother COPD (chronic obstructive pulmonary disease) Mother Heart disease Hypertension CVA (cerebral vascular accident) Myocardial infarction, Onset Age: 50 Father CVA (cerebral vascular accident) Alcohol abuse Prostate cancer Sister Heart disease Brother Heart disease Surgical History History of appendectomy History of cholecystectomy History of colonoscopy History of hemorrhoidectomy History of hysterectomy Social History Smoking Status: Former smoker quit date: 10/23/09 pack-years: 42 Tobacco: How many years used: 42 Electronic Cigarette Use: not used how long ago did patient quit smokin years second hand exposure: Yes quit status: quit date established counseling given: provider counseling alcohol intake: never substance use type: does not use caffeine: Yes what type of physical activity do you participate in: none ROS ROS ED Constitutional Constitutional ED: Denies chills or fever(s) Eyes Eyes: Denies blurry vision or diplopia ENT ENT ED: Denies rhinorrhea or sore throat Cardiovascular Cardiovascular: Denies chest pain, palpitations or racing heartbeat Respiratory/Chest Respiratory/Chest: Denies cough or dyspnea Gastrointestinal Gastrointestinal: Denies abdominal pain, nausea or vomiting Musculoskeletal Musculoskeletal: Reports neck pain and other Details: Right shoulder pain and lumbar back pain Integumentary Denies abscess or rash Neurologic Neurologic: Reports paresthesias RUE; Denies headache(s) Psychiatric Psychiatric: Denies anxiety or depression EXAM Physical Exam Const Vital Signs: 05/08/21 19:16 05/08/21 19:17 05/08/21 19:23 Temperature 101.1 F H 101.1 F H Temperature Source Oral Temporal Pulse Rate 69 84 Respiratory Rate 20 H 18 Respiratory Effort Normal Blood Pressure 148/82 H 150/91 H Blood Pressure Mean 104 110 Pulse Ox 96 96 Oxygen Delivery Method Room Air Room Air 05/08/21 22:00 Temperature Temperature Source Pulse Rate 65 Respiratory Rate 15 Respiratory Effort Blood Pressure 133/79 H Blood Pressure Mean 97 Pulse Ox 94 Oxygen Delivery Method Room Air Positive well nourished General Appearance ED: NAD HEENT Reports moist mucous membranes Negative for trauma Eyes PERRL Resp normal respiratory effort and clear to auscultation bilaterally Cardio regular rate and regular rhythm Back/Spine Cervical Spine: Negative for step off deformity and paracervical muscle tenderness Paracervical Muscle Tenderness Details: right Lumbar Spine / Lower Back: lumbar spinal tenderness Extremity Extremity Narrative: Tenderness to palpation of right shoulder over the deltoid. She has painful range of motion. Neuro oriented x3 and CN's II-XII intact bilaterally Sensorium / Orientation: alert Psych mental status grossly normal Skin no rashes or lesions noted and no wounds MDM MDM MDM Narrative Medical decision making narrative: Patient presenting with right shoulder pain and neck pain. She does admit to degenerative disc disease. She has limited range of motion on examination of her right shoulder and even light touch seems to hurt her. Sensation is intact. I obtained an x-ray of the right shoulder x-ray which shows moderate degree of degenerative shoulder on my interpretation and the radiologist does agree however he feels the humerus is high riding and compatible with rotator cuff tear which could be full-thickness. This would be consistent with patient's examination. Patient's lumbar spine her my interpretation shows degenerative disc disease without acute abnormality. I did arrange for her to follow-up with Dr. Morales who is orthopedic spine. I am sure that he can have her shoulder evaluated as well. CT spine is pending and likely patient will be discharged home. I will provide her prescription for Percocet for home but did camp counselor her this is the second time she has been here for the same pain she would need to make follow-up elsewhere in order to fix the problem that she is having. She stated that she could not get into her primary care's office due to scheduling issues and she was referred for physical therapy but states she was in too much pain to go. She is counseled to at least make this follow-up with Dr. Morales for evaluation. Patient signed out to incoming ED physician for follow up on the CT of the cervical spine and likely the patient will be discharge to home. Impression: 1. Cervical radiculopathy 2. Right shoulder pain with possible rotator cuff tear Radiography Diagnostic Testing: Radiology Impression Lumbar Spine X-Ray 05/08/21 20:10 IMPRESSION: Degenerative changes of the spine, as detailed above. Electronically Signed: Nitesh Bonilla MD at 22:21 EDT , Service support , Shoulder X-Ray 05/08/21 20:10 IMPRESSION: Moderate DJD of the right shoulder and high riding humeral head compatible with a full-thickness rotator cuff tear. Electronically Signed: Nitesh Bonilla MD at 22:20 EDT , Service support , Discharge Plan Triage Chief Complaint: General Illness ED Provider: Shelton Murray Dx/Rx/DC Orders Instructions: ED Radiculopathy, Cervical Prescriptions: New oxycodone-acetaminophen [Endocet] 5-325 mg tablet 1 tab PO Q6H PRN (Reason: pain) 3 Days Qty: 12 RF: 0 No Action polyvinyl alcohol 1.4 % drops 1 drp OPHTHALMIC 4X/DAY RF: 0 amlodipine 5 mg tablet 7.5 mg PO DAILY 90 Days Qty: 135 RF: 2 valacyclovir 1 gram tablet 1,000 mg PO DAILY PRN PRN (Reason: herpes) Qty: 90 RF: 0 (DME) compress.stocking,knee,reg,lrg Misc See Rx Instructions .MEDSUPPLY Qty: 2 RF: 1 omeprazole 40 mg capsule,delayed release(DR/EC) 40 mg PO DAILY Qty: 90 RF: 2 duloxetine 30 mg capsule,delayed release(DR/EC) 90 mg PO DAILY 90 Days Qty: 270 RF: 3 ipratropium bromide 42 mcg (0.06 %) spray,non-aerosol 2 spray INTRANASAL TID PRN (Reason: allergy symptoms) Qty: 15 RF: 6 cyclobenzaprine 5 mg tablet 5 mg PO HS PRN (Reason: muscle spasm) Qty: 30 RF: 0 albuterol sulfate [ProAir HFA] 90 mcg/actuation HFA aerosol inhaler 2 puff INHALATION Q4H PRN (Reason: shortness of breath or wheezing) Qty: 18 RF: 6 atorvastatin 40 mg tablet 40 mg PO QHS Qty: 90 RF: 3 Breo Ellipta 200-25 mcg/dose blister with device 1 inh inhalation QDAY Qty: 60 RF: 6 umeclidinium 62.5 mcg/actuation blister with device 1 inh inhalation DAILY Qty: 30 RF: 3 albuterol sulfate 2.5 mg /3 mL (0.083 %) solution for nebulization 2.5 mg INHALATION Q4H PRN (Reason: COPD J44.9) Qty: 180 RF: 6 Primary Care Provider: Yenni Lu Referrals: Yenni Lu MD [Primary Care Provider] - Bakari Morales DO [STAFF PHYSICIAN] - Disposition Disposition: Home, Self Care
[2021-05-08] MEDS: Ondansetron ODT 4 MG Tablet PO (19:50)
[2021-05-08] MEDS: Morphine 4 MG/ML Syringe IM (19:52)
--- NOTE | 2021-05-08 20:06 | CT_ITS ---
STUDY: CT CERVICAL SPINE WITHOUT CONTRAST REASON FOR EXAM: Female, 70 years old. Neck pain RADIATION DOSAGE (If Supplied By Facility): CTDIvol = ( 19.38 ) mGy, DLP = ( 378.61 ) mGycm TECHNIQUE: High resolution transaxial imaging was performed without contrast material. Sagittal and coronal images were reconstructed. Individualized dose optimization techniques were used for this CT. COMPARISON: None FINDINGS: Normal craniovertebral junction. Degenerative changes at the anterior atlantoaxial articulation. Normal odontoid process. Straightening of the cervical lordosis. Normal vertebral bodies and posterior osseous elements. C2-3: Normal endplates. Normal disc height with slight posterior annular bulge. Normal central canal and intervertebral neuroforamina. C3-4: Normal endplates. Normal disc height and morphology. Normal central canal. Left facet hypertrophy and right uncovertebral spurring slightly narrowing the intervertebral neuroforamina. C4-5: Normal endplates. Grade 1 spondylolisthesis. Normal disc height and morphology. Normal central canal. Facet hypertrophy and uncovertebral spurring narrowing the intervertebral neuroforamina. C5-6: Spurring at the endplates. Narrowed disc height. Mild spurring protruding into the central canal. Uncovertebral spurring narrowing the intervertebral neuroforamina. C6-7: Spurring at the endplates. Narrowed disc height. Mild spurring protruding into the central canal. Uncovertebral spurring narrowing the intervertebral neuroforamina, left more than right. C7-T1: Mild spurring at the endplates. Slightly narrowed disc height. Normal central canal. Uncovertebral spurring slightly narrowing the intervertebral neuroforamina. Normal visualized soft tissue structures. Emphysematous changes at the lung apices. CT/Spine Cervical without Contras IMPRESSION: Degenerative changes and discogenic disease as noted of the cervical spine. Electronically Signed: Octavio Smith DO at 22:41 EDT Tel [phone], Service support ,
--- NOTE | 2021-05-08 20:10 | RAD_ITS ---
STUDY: X-RAY - RIGHT SHOULDER REASON FOR EXAM: Female, 70 years old. RIGHT SHOULDER PAIN, NECK PAIN AND BACK PAIN x1 MONTH NKI TECHNIQUE: 4 view(s) of the shoulder. COMPARISON: Chest x-ray dated October 17, 2019 FINDINGS: There is cephalad migration of the humeral head consistent with rotator cuff pathology. There is moderate degenerative arthrosis of the glenohumeral articulationThere is degenerative arthrosis of the acromioclavicular joint without inferior osseous spur formation. Normal acromion. There is demineralization of the humerus and visualized osseous structures. The soft tissue structures are unremarkable. There is no demonstrated fracture. Normal visualized pulmonary apex. RAD/Shoulder min 2 Views IMPRESSION: Moderate DJD of the right shoulder and high riding humeral head compatible with a full-thickness rotator cuff tear. Electronically Signed: Nitesh Bonilla MD at 22:20 EDT , Service support ,
--- NOTE | 2021-05-08 20:10 | RAD_ITS ---
STUDY: X-RAY - LUMBAR SPINE REASON FOR EXAM: Female, 70 years old. back pain TECHNIQUE: 3 view(s) of the lumbar spine were obtained. COMPARISON: Lumbar spine x-ray dated July 23, 2019 FINDINGS: Normal lumbar lordosis. Mild S-shaped scoliosis is present. The bony structures are demineralized. Moderate disc space narrowing is present at L4-L5. Mild posterior disc space narrowing is present at the remaining levels. Mild anterolisthesis of L4 and L5 of 2 to 3 mm is present. No acute fracture or compression deformity is seen. There is atherosclerotic calcification of the abdominal aorta without a demonstrated aneurysm. RAD/Lumbar Spine 2 or 3 Views IMPRESSION: Degenerative changes of the spine, as detailed above. Electronically Signed: Nitesh Bonilla MD at 22:21 EDT , Service support ,
[2021-05-08 22:00] VITALS: BP 133/79; PULSE 65; RESP 15; O2SAT 94
[2021-05-08 23:44] VITALS: BP 133/79; PULSE 65; RESP 15; O2SAT 94
== END 2021-05-08 23:45 | disposition home or self-care (01) ==
PROVIDERS: Emergency Provider Student in an Organized Health Care Education/Training Program; PCP Internal Medicine
DX: M54.12 Radiculopathy, cervical region (principal); M25.511 Pain in right shoulder; J44.9 Chronic obstructive pulmonary disease, unspecified; E78.5 Hyperlipidemia, unspecified; I10 Essential (primary) hypertension; K21.9 Gastro-esophageal reflux disease without esophagitis; Z87.891 Personal history of nicotine dependence; Z79.899 Other long term (current) drug therapy
CPT/HCPCS: 72100; 72125; 73030; 96372; 99284

== ENCOUNTER → 2021-06-18 13:13 | Outpatient (CLI) | payer MEDICARE, MEDICAID, SELFPAY ==
--- NOTE | 2021-06-18 15:22 | NEURO ---
NCS and/or EMG Patient Report Ordering Doctor: Yenni Lu DATE OF SERVICE: 06/18/21 Indication: Bilateral hand tingling for approximately five years. Now with numbness of the left 4th digit. Chronic, severe, localized neck pain. Evaluate for peripheral neuropathy and or cervical radiculopathy. Findings: Nerve conduction studies were performed in the right and left upper extremities. The right median motor study recording the abductor pollicis brevis showed a normal amplitude, normal distal latency and normal conduction velocity. The right ulnar motor study recording the abductor digiti minimi showed a normal amplitude, normal distal latency and normal conduction velocity in the forearm segment. Across the elbow, no conduction block was present. The right median sensory response recording digit two showed a borderline amplitude, borderline latency and borderline conduction velocity. The right ulnar sensory response recording digit five showed a normal amplitude, normal latency and borderline conduction velocity. The right radial sensory response recording over the extensor snuff box showed a normal amplitude, latency and conduction velocity. The left median motor study recording the abductor pollicis brevis showed a normal amplitude, normal distal latency and mildly slowed conduction velocity. The left ulnar motor study recording the abductor digiti minimi showed a normal amplitude, normal distal latency and borderline conduction velocity in the forearm segment. Across the elbow, no conduction block was present. The left median sensory response recording digit two showed a borderline amplitude, borderline latency and borderline conduction velocity. The left ulnar sensory response recording digit five showed a reduced amplitude, normal latency and mildly slowed conduction velocity. The left radial sensory response recording over the extensor snuff box showed a normal amplitude, latency and conduction velocity. Needle EMG of the right upper extremity muscles was performed. No active denervation was present in any muscle. All muscles showed normal motor unit morphology, activation and recruitment patterns. Needle EMG of the left upper extremity muscles was performed. No active denervation was present in any muscle. The first dorsal interosseous demonstrated motor units which were large amplitude, long duration and polyphasic with reduced recruitment. The triceps revealed motor units which were slightly large amplitude and long duration. The flexor carpi radialis were borderline long duration. All other muscles showed normal motor unit morphology, activation and recruitment patterns. The paraspinal muscles were not examined due to the patient citing significant neck pain at the time of the study. Impression: This is an abnormal study. There is electrophysiologic evidence consistent with a non-localizable left ulnar neuropathy. There was no focal slowing or conduction block across the elbow to localize the ulnar neuropathy to the elbow. A neuromuscular ultrasound could be considered to localize further and better characterize the finding. In addition, there is evidence suggestive, but not diagnostic of, a mild, chronic, left C7 radiculopathy. There was no active denervation in any muscle to suggest ongoing axonal injury. There was no definitive evidence of radiculopathy or entrapment neuropathy in the right upper extremity. Catracho Jain D.O.
== END ==
PROVIDERS: PCP Internal Medicine; Referring Provider Internal Medicine; Visit Provider Internal Medicine
DX: G56.03 Carpal tunnel syndrome, bilateral upper limbs (principal)
CPT/HCPCS: 95885; 95886; 95913

== ENCOUNTER → 2021-06-24 13:25 | Outpatient (CLI) | payer MEDICARE, MEDICAID, SELFPAY ==
[2021-05-31 13:13] VITALS: BMI 24.6
--- NOTE | 2021-06-24 13:29 | BI_ITS ---
MAMMOGRAPHY - BILATERAL SCREENING REASON FOR EXAM: Female, 70 years old. Routine annual screening examination. PERTINENT HISTORY: Non-contributory. Chronic inversion of the right areola. TECHNIQUE: Digital bilateral breast osmin (3D mammographic acquisition) in the CC and MLO projections. 2-D mediolateral oblique (MLO) and craniocaudad (CC) views of both breasts were obtained. CAD: Full Field Digital Mammography with Computer Added Detection was performed. COMPARISON: Comparison is made with prior examination 02/20/2019 and 03/17/2014. FINDINGS: Breast Composition: The breasts are almost entirely fatty. There are no dominant masses or suspicious calcifications. No other significant abnormalities are identified. There has been no significant change since the prior study. BI/SCRN MAMM (CAD)W/OSMIN BILAT IMPRESSION: Stable bilateral screening mammogram. Yearly follow-up mammogram recommended. (A) ASSESSMENT CATEGORY: BIRADS Category 1: Negative. A letter regarding these results will be sent to the patient by the facility within 30 days. Approximately 10% of breast cancers are not detected by mammography. A normal mammogram should not delay biopsy of a clinically suspicious abnormality. [id number] Electronically Signed: Ray Bella MD at 14:28 EDT , Service support ,
--- NOTE | 2021-06-24 13:32 | BD_ITS ---
STUDY: DUAL ENERGY X-RAY ABSORPTIOMETRY / DXA REASON FOR EXAM: Female, 71 years old. Hx of Osteopenia TECHNIQUE: Bone Mineral Density (BMD) measurements of lumbar spine and left hip. Patient is status post right hip replacement. Were obtained. COMPARISON: Comparison is made with prior study dated 01/21/2016. FINDINGS: Lumbar Spine (L1-L4): g/cm2 (0.880) / T-score (-1.3) / Z-score (1.0) Findings are suggestive of osteopenia with a low fracture risk. Left Femur Total: g/cm2 (0.604) / T-score (-2.8) / Z-score (-1.1) Left Femoral Neck: g/cm2 (0.534) / T-score (-2.8) / Z-score (-0.9) The T-Scores on the most recent prior examination were: Lumbar Spine (L1-L4): There has been worsening of bone density since the previous examination. Left Femur Total: which represents a worsening of 20.3%. BD/Dexa Bone Density Study IMPRESSION: The patient is considered osteoporotic as outlined below according to World Hari Organization (WHO) criteria with a high fracture risk. There has been worsening of bone density since the previous examination. Reference Information: The T-score is the number of standard deviations above or below the standard which is normal for young adults at their peak bone mineral density. The World Health Organization (WHO) interprets the T-scores as follows: Above -1 Normal bone density Between -1 and -2.5 Osteopenia Equal to / or below -2.5 Osteoporosis As a practical clinical guideline, osteopenia may be graded as follows: Mild -1 through -1.5 Moderate -1.6 through -2.0 Severe -2.1 through -2.4 The Z-score is the number of standard deviations above or below age-matched controls. A Z-score of less than -1.5 would be considered abnormal. References: 1. NIH Osteoporosis and Related Bone Diseases www osteo.org 2. International Society for Clinical Densitometry www iscd.org 3. National Osteoporosis Foundation www nof.org Electronically Signed: Ray Bella MD at 8:17 EDT , Service support ,
== END ==
PROVIDERS: PCP Internal Medicine; Referring Provider Internal Medicine; Visit Provider Internal Medicine
DX: Z12.31 Encounter for screening mammogram for malignant neoplasm of breast (principal); Z78.0 Asymptomatic menopausal state
CPT/HCPCS: 77063; 77067; 77080

== ENCOUNTER → 2021-07-27 12:57 | Outpatient (CLI) | payer MEDICARE, MEDICAID, SELFPAY ==
--- NOTE | 2021-07-27 12:59 | CT_ITS ---
STUDY: LOW DOSE CT LUNG CANCER SCREENING REASON FOR EXAM: Female, 71 years old. Lung cancer screening -- 42 pack yr history; asymptomatic; former smoker RADIATION DOSAGE (If Supplied By Facility): CTDIvol = ( 3.02 ) mGy, DLP = ( 88.37 ) mGycm TECHNIQUE: No contrast was administered. Low dose technique was utilized (average mAS-38 and kVp 120). 1.25 mm axial source images with a slice interval of 1.25-mm were reconstructed in lung windows. 2.5 mm axial source images with a slice interval of 2.5-mm were reconstructed in lung windows. 5.0 mm axial source images with a slice interval of 5.0-mm were reconstructed in soft tissue windows. Nodule measured using lung windows on PACS and/or independent workstation with automated measurement of minimum and maximum diameter. Nodule measurement reported as average diameter rounded to the nearest whole number. Growth is defined as an increase ins size of greater than 1.5 mm. COMPARISON: Comparison is made with prior study dated 05/26/2020. NODULES: No suspicious nodules are seen. Emphysema: Stable left apical scarring. Hyperinflation. Emphysematous changes more prominent in the upper lobes. Stable calcified granuloma in the posterior medial segment of the left lower lobe. Stable punctate calcified granuloma in the anterior lateral aspect of the right upper lobe. Endobronchial lesion: None Aorta: Atherosclerotic calcification of the aortic arch and descending thoracic aorta. Coronary arteries: Coronary artery calcification. Mediastinal nodes: Small benign-appearing mediastinal lymph nodes. Other chest and abdominal findings: CT/Low Dose CT Lung Screening IMPRESSION: Lung-RADS category 2 - Continue annual screening with LDCT in 12 months. IMPORTANT NOTES FOR USE: ACR Lung-RADS Version 1.1 Assessment Categories Release Date: 2018 Category: Coded 0-4 bases on nodule(s) with highest degree of suspicion. Negative screen is defined as categories 1 and 2; a positive screen is defined as categories 3 and 4. Category 3 and 4A nodules that are unchanged on interval CT should be coded as category 2, and individuals returned to screening in 12 months. Category 4X: Category 3 or 4 nodules with additional imaging findings that increase the suspicion of lung cancer, such as spiculation, GGN that doubles in size in 1 year, enlarged lymph notes, etc. Category Modifiers: S (significant finding unrelated to lung cancer) Electronically Signed: Ray Bella MD at 13:24 EDT , Service support ,
== END ==
PROVIDERS: PCP Internal Medicine; Referring Provider Nurse Practitioner Family; Visit Provider Nurse Practitioner Family
DX: Z87.891 Personal history of nicotine dependence (principal); Z12.2 Encounter for screening for malignant neoplasm of respiratory organs
CPT/HCPCS: 71271

== ENCOUNTER → 2021-08-24 15:24 | Outpatient (CLI) | payer MEDICARE, MEDICAID, SELFPAY ==
--- NOTE | 2021-08-24 15:27 | MRI_ITS ---
STUDY: MRI CERVICAL SPINE WITHOUT CONTRAST REASON FOR EXAM: Female, 71 years old. pain, myelopathy, osteoarthritis TECHNIQUE: Standardized fat and water weighted pulse sequences were obtained in the sagittal and axial planes. COMPARISON: CT scan dated 05/08/2021 FINDINGS: Normal foramen magnum and brainstem-cervical cord junction. Degenerative intact craniocervical atlantoaxial articulations. Odontoid appears intact with bone marrow edema (sagittal image 8 series 4). Cervical lordosis reversal. No significant scoliosis. Multilevel diffuse moderate/severe facet joint arthrosis (sagittal image 3 series 2). No abnormal cord signal. Vascular flow voids symmetric. No acute soft tissue process. Normal paraspinal muscles given age. C2-3: Normal endplates. Disc desiccation. Normal central canal and intervertebral neural foramina. C3-4: Normal endplates. Disc bulge/osteophyte complex with mild central canal narrowing. Moderate/severe right neural foraminal narrowing. Moderate left neural foraminal narrowing. C4-5: Normal endplates. Disc bulge/uncovering. Moderate central canal narrowing. Severe bilateral neural foraminal narrowing. Grade 1 spondylolisthesis. C5-6: Mild endplate spondylosis. Disc bulge/osteophyte complex. Moderate central canal narrowing. Severe bilateral neural foraminal narrowing. C6-7: Moderate endplate spondylosis. Disc bulge/osteophyte complex. Moderate central canal narrowing. Severe bilateral neural foraminal narrowing. C7-T1: Normal endplates. Bilobed disc bulge. Mild central canal narrowing. Moderate bilateral neural foraminal narrowing. MRI/Spine Cervical (Routine) IMPRESSION: No abnormal cord signal Multilevel intervertebral disc disease with central canal narrowing most severe at C4-5 through C6-7 Multilevel diffuse moderate/severe neural foraminal narrowing from C3-4 through C7-T1 Grade 1 spondylolisthesis at C4-5 with moderate/severe cervical spine osteoarthritis Degenerative craniocervical and atlantoaxial articulations with odontoid marrow edema (statistically reactive/degenerative) Electronically Signed: Odell Najera DO at 8:48 EDT Tel , Service support ,
--- NOTE | 2021-08-24 15:27 | MRI_ITS ---
STUDY: MRI RIGHT SHOULDER REASON FOR EXAM: Female, 71 years old. pain, decreased r.o.m, nki TECHNIQUE: Standardized fat and water weighted pulse sequences were obtained in all 3 orthogonal planes. COMPARISON: X-ray dated 05/08/2021. FINDINGS: Massive full-thickness rotator cuff tear involving the supraspinatus, infraspinatus and subscapular tendons (coronal image 11 series 5 and sagittal image 15 series 6). Region of tear measures approximately 5.2 cm x 5.1 cm. Tendons retracted to the level of the glenoid. Advanced supraspinatus, subscapularis and infraspinatus muscle atrophy. Normal teres minor tendon and muscle. Intracapsular long bicep tendon rupture. Extensive labral tearing and degeneration (axial image 10 series 2). Capsular ligaments intact. Edema at the rotator cuff interval. Severe glenohumeral and acromioclavicular joint arthrosis. Anterior interval narrowing/impingement. Superior humeral head migration. Moderate volume glenohumeral joint effusion with fluid extending for tear into the subacromial subdeltoid bursa. Humeral head mental osteophyte. No acute fracture, dislocation or bone destruction. Normal axillary space. Normal deltoid muscle. Normal trapezius muscle. MRI/Upper Ext Joint Only(Routine) IMPRESSION: Massive full-thickness retracted rotator cuff tear with advanced muscle atrophy Intracapsular biceps tendon rupture Extensive labral tearing and degeneration Severe glenohumeral and AC joint arthrosis with anterior impingement Joint effusion extending through tear into the subacromial subdeltoid bursa Electronically Signed: Odell Najera DO at 8:40 EDT Tel , Service support ,
== END ==
PROVIDERS: PCP Internal Medicine; Referring Provider Orthopaedic Surgery; Visit Provider Orthopaedic Surgery
DX: M47.812 Spondylosis without myelopathy or radiculopathy, cervical region (principal)
CPT/HCPCS: 72141; 73221

== ENCOUNTER → 2021-08-30 15:03 | Outpatient (CLI) | payer MEDICARE, MEDICAID, SELFPAY ==
[2021-08-30 17:44] LABS: Absolute Lymphocyte Count 1.76 X10^3/uL (0.83-4.51); Absolute Neutrophil Count 5.3 X10^3/uL (2.0-7.7); Basophil# 0.05 X10^3/uL; Basophil% 0.6 % (0-1); Eosinophil# 0.13 X10^3/uL; Eosinophils% 1.7 % (0-5); Hematocrit 42.6 % (37-47); Lymphocyte # 1.76 X10^3/ul (0.83-4.51); Lymphocyte % 22.6 % (19-41); Mean Corp Hgb Conc 30.5 g/dL (32-36); Mean Corpuscular Hgb 27.5 pg (27.0-32.0); Mean Corpuscular Volume 90.3 fL (81-99); Mean Platelet Vol. 9.6 fl (6.2-12.0); Monocyte% 6.4 % (0-10); NRBC Flagged by Analyzer 0 % (0-5); Neutrophil # 5.33 X10^3/uL (2.7-7.7); Neutrophil % 68.4 % (47-70); Platelet Count 384 K/mm3 (150-450); RBC Distribution Width CV 16.4 % (11.6-14.6); RBC Distribution Width SD 55.2 fl (35.1-43.9); Red Blood Count 4.72 M/mm3 (4.2-5.4); White Blood Count 7.8 K/mm3 (4.4-11.0)
[2021-08-30 17:59] LABS: Erythrocyte Sedimentation Rate 13 mm/hr (0-30)
[2021-08-30 18:09] LABS: ALB/GLOB Ratio 0.9 RATIO (0.9-2.4); AST(SGOT) 19 U/L (15-37); Alanine Aminotransfer ALT/SGPT 19 U/L (13-56); Albumin, Serum 3.6 g/dL (3.2-5.0); Alkaline Phosphatase 103 U/L (45-117); Anion Gap 7 (5-15); BUN 17 mg/dL (7-18); BUN/Creat Ratio 19.2 RATIO (10-20); CRP < 2.90 mg/L (0.0-3.0); Calcium,Total 8.8 mg/dL (8.5-10.1); Chloride 109 mmol/L (98-107); Creatinine, Serum 0.88 mg/dL (0.55-1.02); EST Glomerular Filtration Rate 67 mL/min (>60); Est Glom Filt Rate - Afr Amer 81 mL/min (>60); Globulin 4.2 g/dL (2.2-4.2); Glucose 99 mg/dL (74-106); Potassium 4.1 mmol/L (3.5-5.1); Protein, Total 7.8 g/dL (6.4-8.2); Rheumatoid Factor < 10.0 IU/mL (<15); Sodium Level 141 mmol/L (136-145)
[2021-08-31 08:55] LABS: Hepatitis B Surface Antigen Non-Reactive (Nonreactive)
[2021-09-02 15:46] LABS: CCP IgG Antibodies 8 units (0-19); Hepatitis B Core AB IgM Negative (Negative)
[2021-09-02 16:35] LABS: ANTINUCLEAR ANTIBODIES DIRECT Negative (Negative)
== END ==
PROVIDERS: PCP Internal Medicine; Referring Provider Orthopaedic Surgery; Visit Provider Orthopaedic Surgery
DX: M06.9 Rheumatoid arthritis, unspecified (principal); M50.30 Other cervical disc degeneration, unspecified cervical region; J44.9 Chronic obstructive pulmonary disease, unspecified
CPT/HCPCS: 36415; 80053; 85025; 85652; 86038; 86140; 86200; 86225; 86235; 86431; 86705; 87340

== ENCOUNTER → 2022-03-11 | Outpatient (CLI) | payer MEDICARE, MEDICAID, SELFPAY ==
--- NOTE | 2022-03-11 13:56 | ECHOCS_ITS ---
Version 2 Reason For Study: Chest Pain Procedure This was a 2D Doppler, Color Flow transthoracic echocardiogram. The study was technically difficult. Contrast injection was performed. Exam performed in department. Left Ventricle Normal LV size. Left ventricular systolic function is normal. The estimated ejection fraction is 65 %. Stage 1 diastolic dysfunction. No regional wall motion abnormalities noted. Right Ventricle Normal RV size. Normal systolic function. Atria Normal left atrium. Normal right atrium. Mitral Valve Normal mitral valve. Tricuspid Valve Normal tricuspid valve. Mild tricuspid valve insufficiency. Aortic Valve Normal aortic valve. Pulmonic Valve Normal pulmonic valve. Great Vessels Normal aortic root. The pulmonary artery is normal size. Normal inferior vena cava. Pericardium/Pleural No pericardial effusion. Medication 22 gauge I.V. with prn adaptor inserted into right arm. Diluted definity 2ml given slow IV push to enhance endocardial definition. MMode/2D Measurements & Calculations LVIDd: 4.1 cm IVSd: 0.96 cm Ao root diam: 3.3 cm LVIDs: 2.7 cm LVPWd: 1.0 cm FS: 33.1 % LAV(MOD-bp): 39.4 ml LA A4 area: 14.1 cm2 RA A4 area: 11.1 cm2 LAV(MOD-bp) Indexed: 22.4 ml/m2 LAV(MOD-sp2): 43.4 ml LAV(MOD-sp4): 33.6 ml Time Measurements MV dec time: 0.30 sec Doppler Measurements & Calculations MV E max nehemiah: 57.2 cm/sec Lat Peak E' Nehemiah: 9.5 cm/sec Med Peak E' Nehemiah: 9.3 cm/sec MV A max nehemiah: 102.5 cm/sec E/E' lat: 6.0 E/E' med: 6.2 MV E/A: 0.56 MV V2 max: 100.2 cm/sec MV P1/2t max nehemiah: 74.5 cm/sec Ao V2 max: 116.2 cm/sec MV max P.0 mmHg MV P1/2t: 59.0 msec Ao max P.4 mmHg MV V2 mean: 53.1 cm/sec MV dec slope: 369.8 cm/sec2 MV mean P.3 mmHg MV V2 VTI: 19.9 cm MVA(P1/2t): 3.7 cm2 LV V1 max: 110.5 cm/sec PA V2 max: 96.3 cm/sec TR max nehemiah: 223.2 cm/sec LV V1 max P.9 mmHg TR max P.9 mmHg ECHO/Echo Complete W/ Contrast Interpretation Summary Normal LV size. Left ventricular systolic function is normal. The estimated ejection fraction is 65 %. Stage 1 diastolic dysfunction. Contrast injection was performed. The study was technically difficult. Ordering Physician: Edgardo Britton Referring Physician: Yenni Lu Performed By: Alexis Cortez RCS
== END | disposition home or self-care (01) ==
LOC: CVS 13:53
PROVIDERS: PCP Internal Medicine; Referring Provider Internal Medicine Critical Care Medicine; Visit Provider Internal Medicine Critical Care Medicine
DX: R07.9 Chest pain, unspecified (principal); J44.9 Chronic obstructive pulmonary disease, unspecified
CPT/HCPCS: 93306; Q9957; A4216; C8929

== ENCOUNTER → 2022-03-23 | Outpatient (CLI) | payer MEDICARE, MEDICAID, SELFPAY ==
--- NOTE | 2022-03-23 15:42 | PFTCOMP ---
COMPLETE PULMONARY FUNCTION TEST INTERPRETATION Brief HPI: Patient is a 71-year-old female, currently under the care of myself, who presents to [facility] for complete pulmonary function tests secondary to diagnosis of COPD. Respiratory therapist reports good effort and reproducible results. Interpretation: Forced expiration spirometry shows a severe large airways obstructive ventilatory defect with an FEV1 of 45% predicted. There is no significant bronchodilator response by strict ATS criteria. Spirograms are of good quality and plateau slowly, indicating slowly emptying areas of the lungs. The respiratory flow volume loop shows decreased expiratory flow rates at all lung volumes consistent with airway obstruction. Lung volumes by body plethysmography show a normal total lung capacity at 4.84 L, 101% predicted. FRC and RV are elevated out of proportion. Lung volume measurements are consistent with air-trapping. Diffusion capacity by carbon monoxide is decreased at 53% predicted. The airway resistance is elevated. Compared to previous pulmonary function tests from 10/02/2020, there has been no significant change. Impression: Irreversible severe large airways obstructive ventilatory defect, resulting in air trapping, and a symmetric reduction diffusing capacity, but no significant change compared to previous.
== END | disposition home or self-care (01) ==
PROVIDERS: PCP Internal Medicine; Referring Provider Internal Medicine Critical Care Medicine; Visit Provider Internal Medicine Critical Care Medicine
DX: J44.9 Chronic obstructive pulmonary disease, unspecified (principal)
CPT/HCPCS: 94060; 94726; 94729

== ENCOUNTER → 2022-03-29 | Outpatient (CLI) | payer MEDICARE, MEDICAID, SELFPAY ==
[2022-03-29 12:42] VITALS: PULSE 106; PULSE 114; PULSE 116; PULSE 119; PULSE 122; PULSE 95; PULSE 96; O2SAT 91; O2SAT 92; O2SAT 93; O2SAT 95; O2SAT 97
--- NOTE | 2022-03-31 09:58 | PCM.PSN.6M ---
PSN 6 Minute Walk Test 6 Minute Walk Test 6 Minute Walk Test: 6 Minute Walk Test PSN:6-Minute Walk Test Start: 03/29/22 12:42 Freq: Status: Active Protocol: [id number].6MINW Document 03/29/22 12:42 MICHAEL (Rec: 03/29/22 12:44 MICHAEL [id number]) 6 Minute Walk Test Date Performed 03/29/22 Time Performed 12:30 Height 5 ft 4 in Weight: 68.039 kg Weight in Pounds 150.[address]: Edgardo Britton Assistive device used: None Pre-test Oxygen Delivery Method Room Air Pulse Ox (%) 95 Pulse Rate (60-100 beats/min) 95 Dyspnea Galindo Scale (0-10) 1 Exertion Galindo Scale (6-20) 6 1st minute Oxygen Delivery Method Room Air Pulse Ox (%) 93 Pulse Rate (60-100 beats/min) 106 H 2nd minute Oxygen Delivery Method Room Air Pulse Ox (%) 92 Pulse Rate (60-100 beats/min) 114 H 3rd minute Oxygen Delivery Method Room Air Pulse Ox (%) 91 Pulse Rate (60-100 beats/min) 116 H 4th minute Oxygen Delivery Method Room Air Pulse Ox (%) 92 Pulse Rate (60-100 beats/min) 119 H 5th minute Oxygen Delivery Method Room Air Pulse Ox (%) 92 Pulse Rate (60-100 beats/min) 119 H 6th minute Oxygen Delivery Method Room Air Pulse Ox (%) 92 Pulse Rate (60-100 beats/min) 122 H Dyspnea Galindo Scale (0-10) 6 Exertion Galindo Scale (6-20) 15 Post-test Oxygen Delivery Method Room Air Pulse Ox (%) 97 Pulse Rate (60-100 beats/min) 96 Full Laps Walked 18 Partial Lap, Number of Tiles Walked 25 Total Distance Walked (ft) 1087 Interpretation Interpretation: The patient ambulated 1087 feet over the course of 6 minutes beginning on room air without assistive devices. Pretesting oxygen saturation was noted to be 95% on room air. With ambulation, the sabi oxygen saturation was 91%. There was no significant exertional oxygen desaturation. Recommendations Recommendations: There is no indication for the use of supplemental oxygen at this time.
== END | disposition home or self-care (01) ==
LOC: PSN 12:23
PROVIDERS: PCP Internal Medicine; Referring Provider Internal Medicine Critical Care Medicine; Visit Provider Internal Medicine Critical Care Medicine
DX: J44.9 Chronic obstructive pulmonary disease, unspecified (principal)
CPT/HCPCS: 94618

== ENCOUNTER → 2022-05-31 | Outpatient (CLI) | payer BC, MEDICAID, SELFPAY ==
[2022-05-31 15:19] LABS: Absolute Lymphocyte Count 1.66 X10^3/uL (0.83-4.51); Absolute Neutrophil Count 5.4 X10^3/uL (2.0-7.7); Basophil# 0.03 X10^3/uL; Basophil% 0.4 % (0-1); Eosinophil# 0.12 X10^3/uL; Eosinophils% 1.6 % (0-5); Hematocrit 39.9 % (37-47); Hemoglobin 12.6 g/dL (12.0-15.0); Lymphocyte # 1.66 X10^3/ul (0.83-4.51); Lymphocyte % 21.5 % (19-41); Mean Corp Hgb Conc 31.6 g/dL (32-36); Mean Corpuscular Hgb 29.3 pg (27.0-32.0); Mean Corpuscular Volume 92.8 fL (81-99); Mean Platelet Vol. 9.3 fl (6.2-12.0); Monocyte% 6.5 % (0-10); NRBC Flagged by Analyzer 0 % (0-5); Neutrophil # 5.38 X10^3/uL (2.7-7.7); Neutrophil % 69.7 % (47-70); Platelet Count 339 K/mm3 (150-450); RBC Distribution Width CV 13.5 % (11.6-14.6); RBC Distribution Width SD 45.6 fl (35.1-43.9); White Blood Count 7.7 K/mm3 (4.4-11.0)
[2022-05-31 15:53] LABS: Vitamin D,25 Hydroxy 27.1 ng/mL
[2022-05-31 15:55] LABS: AST(SGOT) 21 U/L (15-37); Alanine Aminotransfer ALT/SGPT 22 U/L (13-56); Albumin, Serum 3.5 g/dL (3.2-5.0); Alkaline Phosphatase 60 U/L (45-117); Anion Gap 1 (5-15); BUN 21 mg/dL (7-18); BUN/Creat Ratio 20.8 RATIO (10-20); Calcium,Total 9.3 mg/dL (8.5-10.1); Chloride 109 mmol/L (98-107); Cholesterol 186 mg/dL (200); Creatinine, Serum 1.01 mg/dL (0.55-1.02); EST Glomerular Filtration Rate 57 mL/min (>60); Est Glom Filt Rate - Afr Amer 69 mL/min (>60); Globulin 3.5 g/dL (2.2-4.2); Glucose 83 mg/dL (74-106); High Density Lipoprotein 61 mg/dL; Potassium 4.1 mmol/L (3.5-5.1); Sodium Level 139 mmol/L (136-145); Triglycerides 117 mg/dL; Very Low Density Lipoprotein 23 mg/dL (5-40)
== END | disposition home or self-care (01) ==
LOC: BIMLAB 14:22
PROVIDERS: PCP Internal Medicine; Visit Provider Internal Medicine
DX: I10 Essential (primary) hypertension (principal); E55.9 Vitamin D deficiency, unspecified
CPT/HCPCS: 36415; 80053; 80061; 82306; 85025

== ENCOUNTER → 2022-08-02 | Outpatient (CLI) | payer BC, MEDICAID, SELFPAY ==
--- NOTE | 2022-08-02 13:51 | CT_ITS ---
STUDY: LOW DOSE CT LUNG CANCER SCREENING REASON FOR EXAM: Female, 72 years old. Lung cancer screening -- 42 pk yr hx;former smoker;symptomatic RADIATION DOSAGE (If Supplied By Facility): CTDIvol = ( 1.59 ) mGy, DLP = ( 47.44 ) mGycm TECHNIQUE: No contrast was administered. Low dose technique was utilized (average mAS-38 and kVp 120). 1.25 mm axial source images with a slice interval of 1.25-mm were reconstructed in lung windows. 2.5 mm axial source images with a slice interval of 2.5-mm were reconstructed in lung windows. 5.0 mm axial source images with a slice interval of 5.0-mm were reconstructed in soft tissue windows. COMPARISON: Comparison is made with prior study dated 07/27/2021. NODULES: No suspicious nodules are seen. Emphysema: Hyperinflation. Emphysematous changes worse in the upper lobes with centrilobular emphysematous changes. Stable calcified granuloma in the superior segment of the left lower lobe. Endobronchial lesion: None Aorta: Atherosclerotic plaques of the aortic arch and descending thoracic aorta. CORONARY ARTERIES: Coronary artery calcification is seen. Heart: Unremarkable Pulmonary artery: Unremarkable Mediastinal nodes: Calcified subcarinal lymph nodes. Other chest and abdominal findings: CT/Low Dose CT Lung Screening IMPRESSION: Lung-RADS category 2 - Continue annual screening with LDCT in 12 months. IMPORTANT NOTES FOR USE: ACR Lung-RADS Version 1.1 Assessment Categories Release Date: 2018 Category: Coded 0-4 bases on nodule(s) with highest degree of suspicion. Negative screen is defined as categories 1 and 2; a positive screen is defined as categories 3 and 4. Category 3 and 4A nodules that are unchanged on interval CT should be coded as category 2, and individuals returned to screening in 12 months. Category 4X: Category 3 or 4 nodules with additional imaging findings that increase the suspicion of lung cancer, such as spiculation, GGN that doubles in size in 1 year, enlarged lymph notes, etc. Category Modifiers: S (significant finding unrelated to lung cancer) Electronically Signed: Ray Bella MD at 14:53 EDT ,
== END | disposition home or self-care (01) ==
LOC: CT 13:50
PROVIDERS: PCP Internal Medicine; Referring Provider Nurse Practitioner Family; Visit Provider Nurse Practitioner Family
DX: Z12.2 Encounter for screening for malignant neoplasm of respiratory organs (principal); Z87.891 Personal history of nicotine dependence
CPT/HCPCS: 71271

== ENCOUNTER → 2022-09-29 | Outpatient (CLI) | payer BC, MEDICAID, SELFPAY ==
--- NOTE | 2022-09-29 11:44 | BI_ITS ---
MAMMOGRAPHY - BILATERAL SCREENING REASON FOR EXAM: Female, 72 years old. Routine annual screening examination. PERTINENT HISTORY: Non-contributory. Chronic bilateral nipple inversion. TECHNIQUE: Digital bilateral breast osmin (3D mammographic acquisition) in the CC and MLO projections. 2-D mediolateral oblique (MLO) and craniocaudad (CC) views of both breasts were obtained. CAD: Full Field Digital Mammography with Computer Added Detection was performed. COMPARISON: Comparison is made with prior study dated 06/24/2021 and 02/20/2019. FINDINGS: Breast Composition: The breasts are almost entirely fatty. There are no dominant masses or suspicious calcifications. Stable small benign-appearing bilateral axillary lymph nodes. No other significant abnormalities are identified. There has been no significant change since the prior study. BI/SCRN MAMM (CAD)W/OSMIN BILAT IMPRESSION: Stable bilateral screening mammogram. Yearly follow-up mammogram recommended. (A) ASSESSMENT CATEGORY: BIRADS Category 2: Benign. A letter regarding these results will be sent to the patient by the facility within 30 days. Approximately 10% of breast cancers are not detected by mammography. A normal mammogram should not delay biopsy of a clinically suspicious abnormality. [id number] Electronically Signed: Ray Bella MD at 12:39 EST ,
== END | disposition home or self-care (01) ==
PROVIDERS: PCP Internal Medicine; Visit Provider Internal Medicine
DX: Z12.31 Encounter for screening mammogram for malignant neoplasm of breast (principal)
CPT/HCPCS: 77063; 77067

== ENCOUNTER → 2023-03-13 | Outpatient (CLI) | payer MEDICARE, MEDICAID, SELFPAY ==
[2023-03-13 12:32] LABS: Absolute Lymphocyte Count 1.43 X10^3/uL (0.83-4.51); Absolute Neutrophil Count 4.8 X10^3/uL (2.0-7.7); Basophil# 0.06 X10^3/uL; Basophil% 0.9 % (0-1); Eosinophil# 0.15 X10^3/uL; Eosinophils% 2.2 % (0-5); Hematocrit 41.4 % (37-47); Hemoglobin 12.6 g/dL (12.0-15.0); Lymphocyte # 1.43 X10^3/ul (0.83-4.51); Mean Corp Hgb Conc 30.4 g/dL (32-36); Mean Corpuscular Hgb 28.5 pg (27.0-32.0); Mean Corpuscular Volume 93.7 fL (81-99); Mean Platelet Vol. 9.7 fl (6.2-12.0); Monocyte# 0.41 X10^3/uL; NRBC Flagged by Analyzer 0 % (0-5); Neutrophil # 4.75 X10^3/uL (2.7-7.7); Neutrophil % 69.6 % (47-70); Platelet Count 333 K/mm3 (150-450); RBC Distribution Width CV 13.6 % (11.6-14.6); RBC Distribution Width SD 46.8 fl (35.1-43.9); Red Blood Count 4.42 M/mm3 (4.2-5.4); White Blood Count 6.8 K/mm3 (4.4-11.0)
[2023-03-13 13:16] LABS: AST(SGOT) 25 U/L (15-37); Alanine Aminotransfer ALT/SGPT 22 U/L (13-56); Albumin, Serum 3.5 g/dL (3.2-5.0); Alkaline Phosphatase 78 U/L (45-117); Anion Gap 7 (5-15); BUN 26 mg/dL (7-18); BUN/Creat Ratio 27.5 RATIO (10-20); Calcium,Total 9.3 mg/dL (8.5-10.1); Chloride 108 mmol/L (98-107); Cholesterol 185 mg/dL (200); Creatinine, Serum 0.94 mg/dL (0.55-1.02); EST Glomerular Filtration Rate 61 mL/min (>60); Est Glom Filt Rate - Afr Amer 74 mL/min (>60); Globulin 3.6 g/dL (2.2-4.2); Glucose 94 mg/dL (74-106); High Density Lipoprotein 61 mg/dL; Potassium 3.9 mmol/L (3.5-5.1); Protein, Total 7.1 g/dL (6.4-8.2); Sodium Level 141 mmol/L (136-145); Triglycerides 94 mg/dL; Very Low Density Lipoprotein 19 mg/dL (5-40)
[2023-03-13 13:19] LABS: Vitamin D,25 Hydroxy 74.8 ng/mL
== END | disposition home or self-care (01) ==
LOC: BIMLAB 10:10
PROVIDERS: PCP Internal Medicine; Referring Provider Internal Medicine; Visit Provider Internal Medicine
DX: J44.9 Chronic obstructive pulmonary disease, unspecified (principal); I10 Essential (primary) hypertension; E55.9 Vitamin D deficiency, unspecified
CPT/HCPCS: 36415; 80053; 80061; 82306; 85025

== ENCOUNTER 2023-06-03 23:00 | Emergency (ER) | payer MEDICARE, MEDICAID, SELFPAY ==
[2023-06-03 23:02] VITALS: BP 127/65; PULSE 100; RESP 16; TEMP 36.3; BMI 24.8
--- NOTE | 2023-06-03 23:16 | EDS_ITS ---
HPI History of Present Illness Chief Complaint: Wound Informant: patient Narrative Narrative: Patient presents after a slip and fall at home. She states she was walking to lock her door and her feet slipped on the floor. She went down on her knee and elbow. She is able to walk and bear weight. She never hit her head. She is not on any blood thinners. Last tetanus was over 5 years ago. She has some right ankle pain. She also has both a skin tear/laceration to the left knee and a skin tear to the left elbow with some pain in those areas. No numbness tingling or weakness. [facility] Medical History (Updated 06/04/23 @ 01:[address] Ottoniel Johnson MD) Arthritis Asthma Bilateral carpal tunnel syndrome Bilateral lower extremity edema Colon cancer screening Depression Encounter for screening for malignant neoplasm of lung in former smoker who quit in past 15 years with 30 pack year history or greater Fracture of right hip requiring operative repair GERD (gastroesophageal reflux disease) History of cataract Hyperlipidemia Hypersomnia Hypertension Insomnia Internal hemorrhoid Osteoporosis Overweight Seasonal allergies Shoulder pain SOB (shortness of breath) Stage 3 severe COPD by GOLD classification Stomach ulcer Tibia fracture Urticaria Vitamin D deficiency Home Medications denosumab 60 mg/mL subcutaneous syringe (Prolia) 60 mg subcut [id number] #1 mL 07/27/21 [Rx Last Taken Unknown] Nebulizer #1 ea 04/12/22 [Rx Last Taken Unknown] spacer #1 ea 04/12/22 [Rx Last Taken Unknown] Scooter #1 ea 05/31/22 [Rx Last Taken Unknown] acetaminophen 500 mg tablet (Tylenol Extra Strength) 500 mg PO Q6H PRN 05/31/22 [History Last Taken Unknown] amlodipine 5 mg tablet (Norvasc) 7.5 mg (1.5 x 5 mg) PO DAILY #135 tabs 05/31/22 [Rx Last Taken Unknown] atorvastatin 40 mg tablet 40 mg PO QHS #90 tabs 05/31/22 [Rx Last Taken Unknown] diphenhydramine 25 mg-acetaminophen 500 mg tablet (Tylenol PM Extra Strength) 1 tab PO QHS PRN 05/31/22 [History Last Taken Unknown] omeprazole 40 mg capsule,delayed release 40 mg PO DAILY #90 caps 05/31/22 [Rx Last Taken Unknown] propylene glycol 0.6 % eye drops (Systane Balance) 1 drp ophthalmic (eye) DAILY PRN 05/31/22 [History Last Taken Unknown] valacyclovir 1 gram tablet 1,000 mg PO DAILY #90 tabs 05/31/22 [Rx Last Taken Unknown] albuterol sulfate 2.5 mg/3 mL (0.083 %) solution for nebulization 2.5 mg (3 mL) inhalation Q4H PRN COPD J44.9 #180 mL 06/20/22 [Rx Last Taken Unknown] cholecalciferol (vitamin D3) 1,250 mcg (50,000 unit) capsule 1,250 mcg PO QWEEK #14 caps 07/20/22 [Rx Last Taken Unknown] Acapella #1 ea 08/16/22 [Rx Last Taken Unknown] ipratropium bromide 42 mcg (0.06 %) nasal spray 2 spray intranasal TID PRN allergy symptoms #15 mL 08/16/22 [Rx Last Taken Unknown] duloxetine 30 mg capsule,delayed release 90 mg (3 x 30 mg) PO DAILY 3 months #270 caps 12/05/22 [Rx Last Taken Unknown] albuterol sulfate 90 mcg/actuation aerosol inhaler (ProAir HFA) 2 puff inhala tion Q4H PRN shortness of breath or wheezing #18 grams 12/15/22 [Rx Last Taken Unknown] budesonide-formoterol HFA 160 mcg-4.5 mcg/actuation aerosol inhaler (Symbicort) 2 puff inhalation BID #1 ea 12/15/22 [Rx Last Taken Unknown] ipratropium bromide 21 mcg (0.03 %) nasal spray 2 spray intranasal BID #30 mL 12/15/22 [Rx Last Taken Unknown] tiotropium bromide 2.5 mcg/actuation mist for inhalation (Spiriva Respimat) 2 inh inhalation QDAY #1 ea 12/15/22 [Rx Last Taken Unknown] triamcinolone acetonide 0.5 % topical cream 1 applic topical BID #15 grams 05/25/23 [Rx Last Taken Unknown] Allergy/AdvReac Type Severity Reaction Status Date / Time azithromycin Allergy Itching Verified 06/03/23 23:05 Family History Grandmother COPD (chronic obstructive pulmonary disease) Mother Heart disease Hypertension CVA (cerebral vascular accident) Myocardial infarction, Onset Age: 50 Father CVA (cerebral vascular accident) Alcohol abuse Prostate cancer Sister Heart disease Brother Heart disease Surgical History History of appendectomy History of cholecystectomy History of colonoscopy History of hemorrhoidectomy History of hysterectomy Social History Smoking Status: Former smoker quit date: 10/23/09 pack-years: 42 Tobacco: How many years used: 42 Electronic Cigarette Use: not used how long ago did patient quit smokin years second hand exposure: Yes quit status: quit date established counseling given: provider counseling alcohol intake: never substance use type: does not use caffeine: Yes what type of physical activity do you participate in: none ROS ROS ED Constitutional Constitutional ED: Denies chills or fever(s) Eyes Eyes: Denies blurry vision, change in vision or diplopia ENT ENT ED: Denies rhinorrhea Cardiovascular Cardiovascular: Denies chest pain or palpitations Respiratory/Chest Respiratory/Chest: Denies cough or dyspnea Gastrointestinal Gastrointestinal: Denies abdominal pain, nausea or vomiting Genitourinary Genitourinary ED: Denies hematuria Musculoskeletal Musculoskeletal: Reports arthralgias; Denies back pain or neck pain Integumentary Reports Abrasions and other Details: See history of present illness Neurologic Neurologic: Denies headache(s), paresthesias or weakness Hematologic/Lymphatic Hematologic/Lymphatic: Denies easy bleeding or easy bruising Allergic/Immunologic Allergic/Immunologic ED: Denies urticaria EXAM Physical Exam Narrative Exam Narrative: Patient awake alert sitting comfortably on bed. Carries on normal conversation. HEENT shows no sign of trauma. Neck is supple and no tenderness Lungs are clear bilaterally. Easy unlabored breathing and no tenderness. Heart is regular. No murmur gallop or rub. Abdomen is soft and nontender. Spine shows no cervical thoracic or lumbosacral area tenderness. Extremities: There is some mild swelling and tenderness to the lateral malleolus of the right ankle but no pain with palpation of the calcaneus fifth metatarsal or more proximally. The ankle is stable to do inversion eversion and drawer. There are some mild tenderness most of the anterior knee. But there is also a large skin tear/laceration that is an upside down U overlying the patella but no visible bone. There is also a slight skin tear over the left elbow and some mild tenderness. None of these joints have deformities. Neurologically she is awake alert appropriate is consistent with her history and no sign of numbness or or weakness. Const Vital Signs: 06/03/23 23:02 06/03/23 23:02 Temperature 97.3 F L 97.3 F L Temperature Source Temporal Temporal Pulse Rate 100 100 Respiratory Rate 16 16 Blood Pressure 127/65 H 127/65 H Blood Pressure Mean 85 85 MDM MDM MDM Narrative Medical decision making narrative: My independent interpretation the patient's three-view x-ray of the left elbow shows no definitive fracture. No significant fat pad sign. Final reading is pending. Patient's three-view x-ray of her right ankle shows osteopenia but no indication of acute fracture. Final reading is pending. Patient's 4 view x-ray of her left knee shows some soft tissue changes and osteopenia but no indication of acute fracture or dislocation. Final reading is pending. Procedure note: Suture laceration: She had a laceration on the left knee that was about 15 cm in length. The lower portion was peeled off somewhat. It is thin tissue but I think it is thick enough that it is worth suturing. I discussed risk benefits and options of letting this heal. The area was anesthetized with a total of 12 cc of a mixture of 1% lidocaine with epinephrine and 0.5% Marcaine. She had had some LAT applied to the area already. Good anesthesia was achieved. It was then copiously scrubbed. The flap was pulled back and it was scrubbed and irrigated in this area. No active bleeding. I then sutured it with good cosmesis and hemostasis with 14 interrupted 4-0 Ethilon sutures. These were put in loosely to avoid tension. I explained that this knee really needs to stay relatively straight. I would like to avoid a mobilizer because I think this will cause more stiffness and problems than benefit. Patient is comfortable managing this at home. I explained that the sutures should likely stay in about 2 weeks. If she develops redness drainage odor red streak up the leg or fevers she should return. Discharge Plan Triage Chief Complaint: Wound ED Provider: Ottoniel Johnson Dx/Rx/DC Orders Clinical Impression: Fall at home, Sutured skin wound, Skin tear of left elbow without complication, Contusion of elbow, left, Contusion of knee, left, Injury of right ankle, Laceration of knee, left, complicated Instructions: Bruises (Contusions), ED Laceration Extremity Prescriptions: No Action Prolia 60 mg/mL syringe 60 mg subcut [id number] Qty: 1 2RF (DME) spacer See Rx Instructions .ROUTE .MEDSUPPLY Qty: 1 0RF Rx Instructions: As directed (DME) Nebulizer See Rx Instructions .ROUTE .MEDSUPPLY Qty: 1 0RF Rx Instructions: As directed (DME) Acapella See Rx Instructions .ROUTE .MEDSUPPLY Qty: 1 0RF Rx Instructions: As directed ipratropium bromide 42 mcg (0.06 %) spray,non-aerosol 2 spray INTRANASAL TID PRN (Reason: allergy symptoms) Qty: 15 6RF Rx Instructions: administer into each nostril acetaminophen [Tylenol Extra Strength] 500 mg tablet 500 mg PO Q6H PRN diphenhydramine-acetaminophen [Tylenol PM Extra Strength] 25-500 mg tablet 1 tab PO QHS PRN Systane Balance 0.6 % drops 1 drp ophthalmic (eye) DAILY PRN atorvastatin 40 mg tablet 40 mg PO QHS Qty: 90 3RF valacyclovir 1 gram tablet 1,000 mg PO DAILY Qty: 90 3RF omeprazole 40 mg capsule,delayed release(DR/EC) 40 mg PO DAILY Qty: 90 3RF amlodipine [Norvasc] 5 mg tablet 7.5 mg PO DAILY Qty: 135 3RF (DME) Scooter See Rx Instructions .Route .MEDSUPPLY Qty: 1 0RF Rx Instructions: As directed albuterol sulfate [ProAir HFA] 90 mcg/actuation HFA aerosol inhaler 2 puff INHALATION Q4H PRN (Reason: shortness of breath or wheezing) Qty: 18 6RF budesonide-formoterol [Symbicort] 160-4.5 mcg/actuation HFA aerosol inhaler 2 puff inhalation BID Qty: 1 6RF Rx Instructions: administer with spacer, rinse mouth after each use ipratropium bromide 21 mcg (0.03 %) spray,non-aerosol 2 spray intranasal BID Qty: 30 6RF Rx Instructions: administer into each nostril Spiriva Respimat 2.5 mcg/actuation mist 2 inh inhalation QDAY Qty: 1 6RF Rx Instructions: administer at approximately the same time(s) each day triamcinolone acetonide 0.5 % cream 1 applic topical BID Qty: 15 2RF albuterol sulfate 2.5 mg /3 mL (0.083 %) solution for nebulization 2.5 mg INHALATION Q4H PRN (Reason: COPD J44.9) Qty: 180 6RF cholecalciferol (vitamin D3) 1,250 mcg (50,000 unit) capsule 1,250 mcg PO QWEEK Qty: 14 3RF duloxetine 30 mg capsule,delayed release(DR/EC) 90 mg PO DAILY 90 Days Qty: 270 1RF Rx Instructions: Take 60 mg in the Am and 30 mg at night. Primary Care Provider: Yenni Lu Referrals: Yenni Lu MD [Primary Care Provider] - 3-5 Days if not improving Disposition Disposition: Home, Self Care
[2023-06-03] MEDS: Lidocaine/Epi/Tetracaine 50 ML 1 APPLIC TOPICAL (23:31)
[2023-06-03] MEDS: Diphth,Pertuss(Acell),Tet Vac 0.5 ML Vial IM (23:31)
[2023-06-03] MEDS: Bupivacaine Mpf 0.5% 30 ML VIAL INFILT (23:32)
--- NOTE | 2023-06-03 23:45 | RAD_ITS ---
INDICATION: Trauma EXAMINATION/TECHNIQUE: X-RAY - LEFT XR Elbow Min 3 Views COMPARISON: None. FINDINGS: 3 views of the left elbow. SOFT TISSUES: Bandage material overlying the lateral elbow soft tissue detail. BONES: Normal anatomic alignment without evidence of fracture or subluxation. No concerning bony lesion or abnormal sclerosis to suggest lesion. JOINTS: No significant degenerative change. RAD/Elbow min 3 Views IMPRESSION: No acute osseous abnormality of the left elbow. Electronically Signed: Henry Harris MD at 2:43 EDT ,
--- NOTE | 2023-06-03 23:48 | RAD_ITS ---
INDICATION: Trauma EXAMINATION/TECHNIQUE: X-RAY - LEFT XR Knee Complete 4 Views or More COMPARISON: None. FINDINGS: 4 views of the left knee. SOFT TISSUES: Bandage material overlying the anterior knee obscuring soft tissue detail with punctate opacity overlying the inferior patella on lateral image, which may represent foreign body. Suprapatellar enthesophyte. BONES: Normal anatomic alignment without evidence of fracture or subluxation. No concerning bony lesion or abnormal sclerosis to suggest lesion. JOINTS: No significant degenerative change. RAD/Knee 4 or More Views IMPRESSION: Bandage material overlying the anterior knee obscuring soft tissue detail with punctate opacity overlying the inferior patella on lateral image, which may represent foreign body. No acute osseous abnormality of the left knee. Electronically Signed: Henry Harris MD at 2:49 EDT ,
--- NOTE | 2023-06-03 23:51 | RAD_ITS ---
INDICATION: Trauma EXAMINATION/TECHNIQUE: X-RAY - RIGHT XR Ankle Min 3 Views COMPARISON: None. FINDINGS: 3 views of the right ankle. BONES: Normal anatomic alignment without evidence of fracture or subluxation. No concerning bony lesion or abnormal sclerosis to suggest lesion. JOINTS: No significant degenerative change. SOFT TISSUES: Achilles enthesophyte. RAD/Ankle min 3 Views IMPRESSION: No acute osseous abnormality of the right ankle. Electronically Signed: Henry Harris MD at 2:38 EDT ,
[2023-06-04] MEDS: Acetaminophen 325 MG Tablet 650 MG PO (02:06)
== END 2023-06-04 02:09 | disposition home or self-care (01) ==
PROVIDERS: Emergency Provider Emergency Medicine; PCP Internal Medicine; Visit Provider Emergency Medicine
DX: S80.02XA Contusion of left knee, initial encounter (principal); S81.012A Laceration without foreign body, left knee, initial encounter; S50.02XA Contusion of left elbow, initial encounter; E78.5 Hyperlipidemia, unspecified; Z87.891 Personal history of nicotine dependence; M25.571 Pain in right ankle and joints of right foot; M85.871 Other specified disorders of bone density and structure, right ankle and foot; W01.0XXA Fall on same level from slipping, tripping and stumbling without subsequent striking against object, initial encounter; I10 Essential (primary) hypertension
CPT/HCPCS: 13121; 13122; 73080; 73564; 73610; 90715; 99284

== ENCOUNTER 2023-07-17 13:36 | Observation (INO) | payer MEDICARE, MEDICAID, SELFPAY ==
[2023-07-17 13:37] VITALS: BP 131/96; PULSE 87; RESP 16; TEMP 36.7; O2SAT 97; BMI 26.9
--- NOTE | 2023-07-17 13:50 | CT_ITS ---
STUDY: CT FACIAL BONES WITHOUT CONTRAST REASON FOR EXAM: Female, 73 years old. Facial injury. Nasal laceration. RADIATION DOSAGE (If Supplied By Facility): CTDIvol = ( 29.38 ) mGy, DLP = ( 503.38 ) mGycm TECHNIQUE: The patient was scanned in a multi detector CT scanner. Sagittal and coronal images were reconstructed. Individualized dose optimization techniques were used for this CT. COMPARISON: None. FINDINGS: Normal soft tissue structures. Normal orbital gonzalez and orbital contents. Normal nasal bones and anterior nasal spine. Normal facial bones. There is no demonstrated fracture. Partial opacification of the ethmoid sinuses. Opacification of the left frontal sinus and partial opacification of the right frontal sinus. CT/Sinus/Facial Bone IMPRESSION: No fracture is seen. Partial opacification of the ethmoid and frontal sinuses. Electronically Signed: Ray Bella MD at 14:33 EDT ,
--- NOTE | 2023-07-17 13:50 | CT_ITS ---
STUDY: CT BRAIN WITHOUT CONTRAST REASON FOR EXAM: Female, 73 years old. Head injury due to a fall. Comparison is made with prior study dated June 27, 2016. RADIATION DOSAGE (If Supplied By Facility): CTDIvol = ( 44.99 ) mGy, DLP = ( 745.49 ) mGycm TECHNIQUE: Transaxial CT imaging of the brain was performed without administration of intravenous contrast material. Individualized dose optimization techniques were used for this CT. COMPARISON: No relevant priors. FINDINGS: Normal soft tissue structures. Normal calvarium. There is mild cerebral atrophy with widening of the extra-axial spaces and ventricular dilatation. There are areas of decreased attenuation within the white matter tracts of the supratentorial brain, consistent with microvascular disease changes. Normal basal ganglia and thalami. Normal brainstem. Normal cerebellum. There is no intracranial hemorrhage. There are no findings of an acute ischemic infarction. Atherosclerotic calcification of the vertebral arteries and cavernous portions of the internal carotid arteries bilaterally. Partial opacification of the ethmoid sinuses and the frontal sinuses. CT/Brain/Head without Contrast IMPRESSION: Chronic involutional changes of the brain. Electronically Signed: Ray Bella MD at 14:34 EDT ,
--- NOTE | 2023-07-17 13:51 | ED.VIS.FALL ---
HPI <Dr. Nicole Ordonez DO - Last Filed: 07/19/23 07:20> HPI - Fall History of Present Illness Chief Complaint: Fall Detail of Chief Complaint: Fall Informant: patient Narrative Narrative: Patient presents to the emergency department after sustaining a fall. Patient was walking her dog when she tripped on the sidewalk and fell. Denies loss of consciousness. She denies neck pain. She complains of pain to both wrists as well as left knee and right foot. Unable to get up afterwards. She presents via EMS. Apparently received fentanyl via EMS. Patient up-to-date on tetanus. [facility] <Dr. Nicole Ordonez, DO - Last Filed: 07/19/23 07:20> [facility] Medical History Anxiety and depression Arthritis Asthma Bilateral carpal tunnel syndrome Bilateral lower extremity edema Former tobacco use GERD (gastroesophageal reflux disease) History of cataract Hyperlipidemia Hypersomnia Hypertension Insomnia Osteoporosis Overweight Rheumatoid arthritis Seasonal allergies Stage 3 severe COPD by GOLD classification Stomach ulcer Vitamin D deficiency Home Medications denosumab 60 mg/mL subcutaneous syringe (Prolia) 60 mg subcut [id number] #1 mL 07/27/21 [Rx Last Taken Unknown] Nebulizer #1 ea 04/12/22 [Rx Last Taken Unknown] spacer #1 ea 04/12/22 [Rx Last Taken Unknown] Scooter #1 ea 05/31/22 [Rx Last Taken Unknown] acetaminophen 500 mg tablet (Tylenol Extra Strength) 500 mg PO Q6H PRN pain 05/31/22 [History Last Taken Unknown] diphenhydramine 25 mg-acetaminophen 500 mg tablet (Tylenol PM Extra Strength) 1 tab PO QHS PRN pain 05/31/22 [History Last Taken Unknown] propylene glycol 0.6 % eye drops (Systane Balance) 1 drp ophthalmic (eye) DAILY PRN dry eye(s) 05/31/22 [History Last Taken Unknown] cholecalciferol (vitamin D3) 1,250 mcg (50,000 unit) capsule 1,250 mcg PO QWEEK #14 caps 07/20/22 [Rx Last Taken Unknown] Acapella #1 ea 08/16/22 [Rx Last Taken Unknown] budesonide-formoterol HFA 160 mcg-4.5 mcg/actuation aerosol inhaler (Symbicort) 2 puff inhalation BID #1 ea 12/15/22 [Rx Last Taken 07/17/23] tiotropium bromide 2.5 mcg/actuation mist for inhalation (Spiriva Respimat) 2 inh inhalation QDAY #1 ea 12/15/22 [Rx Last Taken 07/17/23] amlodipine 5 mg tablet (Norvasc) 7.5 mg (1.5 x 5 mg) PO DAILY #135 tabs 06/08/23 [Rx Last Taken 07/17/23] atorvastatin 40 mg tablet 40 mg PO QHS #90 tabs 06/08/23 [Rx Last Taken 07/16/23] duloxetine 30 mg capsule,delayed release 90 mg (3 x 30 mg) PO DAILY 3 months #270 caps 06/08/23 [Rx Last Taken 07/17/23] omeprazole 40 mg capsule,delayed release 40 mg PO DAILY #90 caps 06/08/23 [Rx Last Taken 07/17/23] hydrocolloid dressing 6 X 6 (Aquacel Extra) #5 ea 06/12/23 [Rx Last Taken Unknown] ketoconazole 2 % shampoo 1 applic topical .COMPLEX 07/17/23 [History Last Taken Unknown] Allergy/AdvReac Type Severity Reaction Status Date / Time azithromycin Allergy Itching Verified 07/17/23 13:36 Family History Grandmother COPD (chronic obstructive pulmonary disease) Mother Heart disease Hypertension CVA (cerebral vascular accident) Myocardial infarction, Onset Age: 50 Father CVA (cerebral vascular accident) Alcohol abuse Prostate cancer Sister Heart disease Brother Heart disease Surgical History History of appendectomy History of cholecystectomy History of colonoscopy History of hemorrhoidectomy History of hip surgery History of hysterectomy History of surgery on extremity Social History (Updated 07/17/23 @ 16:[address] Johanna Gunter MD) household members: none Smoking Status: Former smoker quit date: 10/23/09 pack-years: 42 Tobacco: How many years used: 42 Electronic Cigarette Use: not used how long ago did patient quit smokin years second hand exposure: Yes quit status: quit date established counseling given: provider counseling alcohol intake: never substance use type: does not use caffeine: Yes what type of physical activity do you participate in: none ROS <Dr. Nicole Ordonez, DO - Last Filed: 07/19/23 07:20> ROS ED Review of Systems ROS Unobtainable: other Constitutional Constitutional ED: Reports lethargy; Denies chills, fever(s), sweats or weight loss Eyes Eyes: Denies blurry vision, change in vision or diplopia ENT ENT ED: Reports other Details: Laceration left upper eyelid, laceration/injury to nose ; Denies rhinorrhea or sore throat Cardiovascular Cardiovascular: Denies chest pain, orthopnea or racing heartbeat Respiratory/Chest Respiratory/Chest: Denies cough, dyspnea, dyspnea on exertion, orthopnea or sputum Gastrointestinal Gastrointestinal: Denies abdominal pain, diarrhea, nausea or vomiting Genitourinary Genitourinary ED: Denies dysuria, hematuria or urinary frequency Musculoskeletal Musculoskeletal: Reports other Details: BiLateral wrist pain, left knee pain, laceration right great toe ; Denies arthralgias, back pain, myalgias or neck pain Integumentary Denies abscess, Abrasions or rash Neurologic Neurologic: Denies headache(s) or weakness Psychiatric Psychiatric: Denies anxiety, depression or suicidal thoughts Endocrine Endocrinology: Denies polydipsia, polyphagia or polyuria Hematologic/Lymphatic Hematologic/Lymphatic: Denies easy bleeding, easy bruising or lymphadenopathy Allergic/Immunologic Allergic/Immunologic ED: Denies mouth swelling, tongue swelling or urticaria EXAM <Dr. Nicole Ordonez, DO - Last Filed: 07/19/23 07:20> Physical Exam Const Vital Signs: 07/17/23 13:37 07/17/23 13:41 07/17/23 15:39 Temperature 98.0 F Temperature Source Oral Pulse Rate 87 87 Respiratory Rate 16 18 Respiratory Effort Normal Respiratory Depth Normal Respiratory Pattern Normal Blood Pressure 131/96 H 134/72 H Blood Pressure Mean 107 92 Pulse Ox 97 99 Oxygen Delivery Method Room Air Room Air Positive well nourished and well developed General Appearance ED: well developed and NAD HEENT Reports TM's clear and moist mucous membranes HEENT Narrative: Patient has superficial abrasion and laceration to the nasal bone with mild tenderness palpation. No obvious deformity. Patient also has a 0.5 cm laceration over the left upper eyelid. Midface stable. normocephalic and atraumatic; Negative for trauma or tenderness Tympanic Membrane ED: Yes TM's clear Eyes PERRL and EOMs intact bilaterally General Eye ED: Negative for pale conjunctiva or scleral icterus Neck no lymphadenopathy, supple and no JVD General: Negative for tenderness Chest Wall inspection of chest normal and palpation of chest normal Chest: Negative for tenderness Resp normal respiratory effort and clear to auscultation bilaterally Effort and Inspection: Negative for respiratory distress or pain with movement Auscultation: Negative for rhonchi, wheezes or diminished lung sounds Cardio regular rate, regular rhythm, S1 normal heart sound, S2 normal heart sound and no murmurs Peripheral Pulses: pulses 2+ throughout GI normal to inspection, nondistended, normoactive bowel sounds, soft to palpation, non-tender, non-distended and no masses Back/Spine no CVA tenderness and no thoracic nor lumbar tenderness Extremity Extremity Narrative: Patient with diffuse tenderness to both wrists. There is deformity to the right wrist noted however she has chronic deformities related to her rheumatoid arthritis. She has decreased range of motion flexion extension secondary to pain. She is neurovascular intact distally. No open skin noted. Right great toe-patient has a 2.5 cm laceration over the dorsum of the right great toe at the IP joint. She is able to flex and extend the toe without difficulty. She is neurovascular intact. Left knee-she has a 7.5 cm laceration over the anterior aspect of the patella extending to the lateral portion of the knee joint. Laceration appears superficial. She has diffuse tenderness palpation over the patella and medial and lateral joint lines. She is able to flex and extend the knee without too much difficulty. Ligamentously stable. General Extremety ED: Negative for edema General Extremity: Negative for edema Neuro oriented x3, CN's II-XII intact bilaterally, no sensory deficits noted and gait normal Sensorium / Orientation: awake, alert, oriented to person, oriented to place and oriented to time Motor Exam: strength 5/5 throughout and strength abnormal Psych mental status grossly normal Skin no rashes or lesions noted and no wounds <ROSI Ramirez - Last Filed: 07/17/23 16:25> Physical Exam Const Vital Signs: 07/17/23 13:37 07/17/23 13:41 07/17/23 15:39 Temperature 98.0 F Temperature Source Oral Pulse Rate 87 87 Respiratory Rate 16 18 Respiratory Effort Normal Respiratory Depth Normal Respiratory Pattern Normal Blood Pressure 131/96 H 134/72 H Blood Pressure Mean 107 92 Pulse Ox 97 99 Oxygen Delivery Method Room Air Room Air <Dr. Jordy Grigsby MD - Last Filed: 07/17/23 16:40> Physical Exam Const Vital Signs: 07/17/23 13:37 07/17/23 13:41 07/17/23 15:39 Temperature 98.0 F Temperature Source Oral Pulse Rate 87 87 Respiratory Rate 16 18 Respiratory Effort Normal Respiratory Depth Normal Respiratory Pattern Normal Blood Pressure 131/96 H 134/72 H Blood Pressure Mean 107 92 Pulse Ox 97 99 Oxygen Delivery Method Room Air Room Air MDM <Dr. Nicole Ordonez DO - Last Filed: 07/19/23 07:20> [facility] Narrative Medical decision making narrative: Presents with a mechanical fall after tripping on the sidewalk while walking her dog. She has multiple lacerations including the left upper eyelid as well as the left knee and right great toe. She has injury to her left hand and right wrist. IV line established. Patient was given 4 mg of morphine and 4 mg of Zofran IV. CT scan of the brain without contrast unremarkable. CT facial bones unremarkable. Patient had x-rays of the left wrist that had fractures of the third fourth and fifth metacarpals. X-rays of the right wrist obtained showed a comminuted intra-articular distal radius fracture that is impacted. X-rays of the left knee unremarkable and x-rays of the right foot showed no fractures although my interpretation I suspect there may be a distal phalanx fracture of the great toe. Patient will have suture repair please see procedure note. Suture repairs were performed by physician assistant store manager operations. I discussed case with orthopedics on-call Dr. Holden. Patient lives alone and will not be able to care for self as she will have both upper extremity splinted. Will discuss case with hospitalist to evaluate patient for admission for pain management and evaluation by orthopedics. Will have bilateral AP splints placed to bilateral hands and wrists. Lab Data Attestation: I reviewed the patient's lab results. Labs: Laboratory Results - last 24 hr 07/17/23 15:35 WBC 11.8 H RBC 4.35 Hgb 12.6 Hct 39.7 MCV 91.3 MCH 29.0 MCHC 31.7 L RDW Std Deviation 45.4 H RDW Coeff of Carline 13.4 Plt Count 307 MPV 9.3 Immature Gran % (Auto) 0.300 Neut % (Auto) 80.6 H Lymph % (Auto) 11.8 L [place] % (Auto) 5.5 Eos % (Auto) 1.3 Baso % (Auto) 0.5 Absolute Neuts (auto) 9.5 H Absolute Lymphs (auto) 1.39 Nucleated RBC % 0 Sodium 139 Potassium 4.4 Chloride 107 Carbon Dioxide 27.0 Anion Gap 5 BUN 22 H Creatinine 0.92 Estim Creat Clear Calc 43.71 Est GFR (MDRD) Af Amer 76 Est GFR (MDRD) Non-Af 63 BUN/Creatinine Ratio 23.8 H Glucose 125 H Calcium 9.2 Radiography Diagnostic Testing: Clinical Impression(s) from Imaging Studies Brain CT 07/17/23 13:50 IMPRESSION: Chronic involutional changes of the brain. Electronically Signed: Ray Bella MD at 14:34 EDT , Facial/Sinus 07/17/23 13:50 IMPRESSION: No fracture is seen. Partial opacification of the ethmoid and frontal sinuses. Electronically Signed: Ray Bella MD at 14:33 EDT , Foot X-Ray 07/17/23 14:20 IMPRESSION: Dorsal soft tissue swelling. Electronically Signed: Ray Bella MD at 14:57 EDT , Knee X-Ray 07/17/23 14:20 IMPRESSION: Degenerative arthrosis. Small joint effusion. Electronically Signed: Ray Bella MD at 14:59 EDT , Wrist X-Ray 07/17/23 14:20 IMPRESSION: Comminuted nondisplaced fracture of the distal radial metaphysis with extension to the articular surface. Soft tissue swelling. Calcification of the triangular fibrocartilage. Electronically Signed: Ray Bella MD at 15:03 EDT , Wrist X-Ray 07/17/23 14:20 IMPRESSION: Fractures involving the third fourth and fifth metacarpals as described. Diffuse soft tissue swelling. Electronically Signed: Ray Bella MD at 15:02 EDT , Three-view x-rays of the right foot obtained interpreted by myself as possible fracture through the base of the distal phalanx of the great toe. Radiologist felt there was no dorsal soft tissue swelling. 4 view x-ray of left knee obtained interpreted by myself as no fractures or dislocations. Radiology in agreement. Three-view x-rays of the right wrist obtained interpreted by myself as distal radius fracture comminuted and intra-articular that is impacted. Three-view x-rays of the left wrist obtained interpreted by myself as fractures of the third fourth and fifth metacarpals without evidence of fracture of the wrist. <ROSI Ramirez - Last Filed: 07/17/23 16:25> [facility] Narrative Medical decision making narrative: Presents with a mechanical fall after tripping on the sidewalk while walking her dog. She has multiple lacerations including the left upper eyelid as well as the left knee and right great toe. She has injury to her left hand and right wrist. IV line established. Patient was given 4 mg of morphine and 4 mg of Zofran IV. CT scan of the brain without contrast unremarkable. CT facial bones unremarkable. Patient had x-rays of the left wrist that had fractures of the third fourth and fifth metacarpals. X-rays of the right wrist obtained showed a comminuted intra-articular distal radius fracture that is impacted. X-rays of the left knee unremarkable and x-rays of the right foot showed no fractures although my interpretation I suspect there may be a distal phalanx fracture of the great toe. Patient will have suture repair please see procedure note. Suture repairs were performed by physician assistant store manager operations. I discussed case with orthopedics on-call Dr. Holden. Patient lives alone and will not be able to care for self as she will have both upper extremity splinted. Will discuss case with hospitalist to evaluate patient for admission for pain management and evaluation by orthopedics. Will have bilateral AP splints placed to bilateral hands and wrists. PA note: Suture repair was performed by me, all lacerations were extensively irrigated with copious amounts of normal saline and cleaned with chlorhexidine. All lacerations were explored. All lacerations were anesthetized with 1% lidocaine. Right first toe digital block performed. Patient tolerated procedure well, all wounds were bandaged with bacitracin ointment. I also placed AP splints to both the right and left upper extremities. Lab Data Labs: Laboratory Results - last 24 hr 07/17/23 15:35 WBC 11.8 H RBC 4.35 Hgb 12.6 Hct 39.7 MCV 91.3 MCH 29.0 MCHC 31.7 L RDW Std Deviation 45.4 H RDW Coeff of Carline 13.4 Plt Count 307 MPV 9.3 Immature Gran % (Auto) 0.300 Neut % (Auto) 80.6 H Lymph % (Auto) 11.8 L Mag[place]in % (Auto) 5.5 Eos % (Auto) 1.3 Baso % (Auto) 0.5 Absolute Neuts (auto) 9.5 H Absolute Lymphs (auto) 1.39 Nucleated RBC % 0 Sodium 139 Potassium 4.4 Chloride 107 Carbon Dioxide 27.0 Anion Gap 5 BUN 22 H Creatinine 0.92 Estim Creat Clear Calc 43.71 Est GFR (MDRD) Af Amer 76 Est GFR (MDRD) Non-Af 63 BUN/Creatinine Ratio 23.8 H Glucose 125 H Calcium 9.2 Radiography Diagnostic Testing: Clinical Impression(s) from Imaging Studies Brain CT 07/17/23 13:50 IMPRESSION: Chronic involutional changes of the brain. Electronically Signed: Ray Bella MD at 14:34 EDT , Facial/Sinus 07/17/23 13:50 IMPRESSION: No fracture is seen. Partial opacification of the ethmoid and frontal sinuses. Electronically Signed: Ray Bella MD at 14:33 EDT , Foot X-Ray 07/17/23 14:20 IMPRESSION: Dorsal soft tissue swelling. Electronically Signed: Ray Bella MD at 14:57 EDT Reading Location ID and State: [facility] / [place] , Service support , Knee X-Ray 07/17/23 14:20 IMPRESSION: Degenerative arthrosis. Small joint effusion. Electronically Signed: Ray Bella MD at 14:59 EDT , Wrist X-Ray 07/17/23 14:20 IMPRESSION: Comminuted nondisplaced fracture of the distal radial metaphysis with extension to the articular surface. Soft tissue swelling. Calcification of the triangular fibrocartilage. Electronically Signed: Ray Bella MD at 15:03 EDT , Wrist X-Ray 07/17/23 14:20 IMPRESSION: Fractures involving the third fourth and fifth metacarpals as described. Diffuse soft tissue swelling. Electronically Signed: Ray Bella MD at 15:02 EDT , <Dr. Jordy Grigsby MD - Last Filed: 07/17/23 16:40> [facility] Lab Data Labs: Laboratory Results - last 24 hr 07/17/23 15:35 WBC 11.8 H RBC 4.35 Hgb 12.6 Hct 39.7 MCV 91.3 MCH 29.0 MCHC 31.7 L RDW Std Deviation 45.4 H RDW Coeff of Carline 13.4 Plt Count 307 MPV 9.3 Immature Gran % (Auto) 0.300 Neut % (Auto) 80.6 H Lymph % (Auto) 11.8 L [place] % (Auto) 5.5 Eos % (Auto) 1.3 Baso % (Auto) 0.5 Absolute Neuts (auto) 9.5 H Absolute Lymphs (auto) 1.39 Nucleated RBC % 0 Sodium 139 Potassium 4.4 Chloride 107 Carbon Dioxide 27.0 Anion Gap 5 BUN 22 H Creatinine 0.92 Estim Creat Clear Calc 43.71 Est GFR (MDRD) Af Amer 76 Est GFR (MDRD) Non-Af 63 BUN/Creatinine Ratio 23.8 H Glucose 125 H Calcium 9.2 Radiography Diagnostic Testing: Clinical Impression(s) from Imaging Studies Brain CT 07/17/23 13:50 IMPRESSION: Chronic involutional changes of the brain. Electronically Signed: Ray Bella MD at 14:34 EDT , Facial/Sinus 07/17/23 13:50 IMPRESSION: No fracture is seen. Partial opacification of the ethmoid and frontal sinuses. Electronically Signed: Ray Bella MD at 14:33 EDT , Foot X-Ray 07/17/23 14:20 IMPRESSION: Dorsal soft tissue swelling. Electronically Signed: Ray Bella MD at 14:57 EDT , Knee X-Ray 07/17/23 14:20 IMPRESSION: Degenerative arthrosis. Small joint effusion. Electronically Signed: Ray Bella MD at 14:59 EDT , Wrist X-Ray 07/17/23 14:20 IMPRESSION: Comminuted nondisplaced fracture of the distal radial metaphysis with extension to the articular surface. Soft tissue swelling. Calcification of the triangular fibrocartilage. Electronically Signed: Ray Bella MD at 15:03 EDT , Wrist X-Ray 07/17/23 14:20 IMPRESSION: Fractures involving the third fourth and fifth metacarpals as described. Diffuse soft tissue swelling. Electronically Signed: Ray Bella MD at 15:02 EDT , Rhythm Strip Rhythm Strip: Sinus Rhythm Rate: 84 Ectopy: PAC(s) EKG Initial EKG: Attestation: I personally reviewed and interpreted this EKG as follows: Interpretation: Sinus Rhythm and No Acute Injury Pattern Comments: Normal sinus rhythm rate 84 no acute signs of UT or ischemia. PACs. Procedures <ROSI Ramirez - Last Filed: 07/17/23 16:25> Lacerations Laceration: Depth: Sub Q Shape: Linear Laceration repair: Irrigated, Lidocaine, Skin sutures and Wound explored Suture Information: Ethilon, Simple, Mattress, 4-0, 5-0 and 6-0 Comment: Laceration to left knee, 7.5 cm, superficial and subcutaneous in nature, this received 8 horizontal mattress sutures with 4-0 Ethilon. Laceration to left eyelid 0.5 cm, subcutaneous, 4 simple interrupted sutures with 6-0 Ethilon Laceration to right first toe 2.5 cm, subcutaneous, 5 simple interrupted sutures with 5-0 Ethilon Upper Extremity Splints Upper Extremity Splint: Orthoglass and - (AP) Location: Right and Left Discharge Plan Dx/Rx/DC Orders Clinical Impression: Right wrist fracture, Contusion of face, Eyelid laceration, Fracture of left hand, Fall, Laceration of great toe of right foot, Laceration of knee, left Disposition Disposition: Acute Care [facility] Discharge Date/Time: 07/17/23 16:27
--- NOTE | 2023-07-17 14:20 | RAD_ITS ---
STUDY: X-RAY - LEFT KNEE REASON FOR EXAM: Female, 73 years old. Fall TECHNIQUE: 4 view(s) of the knee. COMPARISON: Comparison is made with prior study dated June 03, 2023. FINDINGS: Normal visualized distal femur. Normal visualized proximal tibia and fibula. Normal proximal tibiofibular articulation. There is mild degenerative arthrosis of the medial femorotibial compartment. Normal lateral femorotibial compartment. There is mild degenerative arthrosis of the patellofemoral articulation. There is a soft tissue prominence in the suprapatellar region suggesting a small volume joint effusion. The soft tissue structures are unremarkable. RAD/Knee 3 Views IMPRESSION: Degenerative arthrosis. Small joint effusion. Electronically Signed: Ray Bella MD at 14:59 EDT ,
--- NOTE | 2023-07-17 14:20 | RAD_ITS ---
STUDY: X-RAY - RIGHT FOOT CLINICAL: Female, 73 years old. History of fall. TECHNIQUE: 3 view(s) of the foot. COMPARISON: Comparison is made with prior study dated May 12, 2015. FINDINGS: Normal talus, calcaneus, and tarsal bones. Normal visualized subtalar, talonavicular, calcaneocuboid, tarsal and tarsometatarsal articulations. Normal metatarsi. Normal metatarsophalangeal joint of the great toe. Normal tibial and fibular sesamoid bones. Normal interphalangeal joint of the great toe. Normal phalanges of the great toe. Normal second through fifth metatarsophalangeal joints. Normal interphalangeal joints and phalanges of the lesser toes. Dorsal soft tissue swelling. RAD/Foot min 3 Views IMPRESSION: Dorsal soft tissue swelling. Electronically Signed: Ray Bella MD at 14:57 EDT ,
--- NOTE | 2023-07-17 14:20 | RAD_ITS ---
STUDY: X-RAY - LEFT WRIST REASON FOR EXAM: Female, 73 years old. FALL TECHNIQUE: 3 view(s) of the wrist were obtained. COMPARISON: None. FINDINGS: Normal visualized distal radius and ulna. Normal radiocarpal articulation. Normal distal radioulnar articulation. Normal carpal bones. Normal carpal articulations. There is degenerative arthrosis of the carpometacarpal articulation of the thumb. Normal second through fifth carpometacarpal articulations. Oblique fracture through the shaft of the third metacarpal. Transverse fracture through the distal portion of the fourth metacarpal with the on the dislocation of the distal fracture fragment. Transverse fracture of the distal portion of the fifth metacarpal as well as at the base of the fifth metacarpal. Soft tissue swelling. Chondrocalcinosis of the triangular fibrocartilage. RAD/Wrist min 3 Views IMPRESSION: Fractures involving the third fourth and fifth metacarpals as described. Diffuse soft tissue swelling. Electronically Signed: Ray Bella MD at 15:02 EDT ,
--- NOTE | 2023-07-17 14:20 | RAD_ITS ---
STUDY: X-RAY - RIGHT WRIST REASON FOR EXAM: Female, 73 years old. Pain following a fall. TECHNIQUE: 3 view(s) of the wrist were obtained. COMPARISON: None. FINDINGS: Comminuted nondisplaced fracture of the distal radial metaphysis with extension to the articular surface. Normal radiocarpal articulation. Normal distal radioulnar articulation. Normal carpal bones. Normal carpal articulations. Normal carpometacarpal articulation of the thumb. Normal second through fifth carpometacarpal articulations. Normal visualized metacarpal bones. Soft tissue swelling. Calcification of the triangle fibrocartilage. RAD/Wrist min 3 Views IMPRESSION: Comminuted nondisplaced fracture of the distal radial metaphysis with extension to the articular surface. Soft tissue swelling. Calcification of the triangular fibrocartilage. Electronically Signed: Ray Bella MD at 15:03 EDT ,
[2023-07-17] MEDS: Ondansetron 4 MG/2 ML Vial IV (15:05)
[2023-07-17] MEDS: Morphine 4 MG/ML Syringe IV (15:05)
--- NOTE | 2023-07-17 15:24 | ED.RN ---
CALLED NUMBER HAD ON FILE FOR SON PER PT REQUEST. NUMBER NO LONGER IN SERVICE. CALLED NEIGHBOR KRISHAN [phone] PER PT REQUEST. LEEANNE TO ATTEMPT TO GET A HOLD OF SON AND WATCHING PT DOG.
[2023-07-17 15:39] VITALS: BP 134/72; PULSE 87; RESP 18; O2SAT 99
--- NOTE | 2023-07-17 15:45 | PCM.HP.STD ---
HPI - General General Date of Admission: 07/17/23 Date of Service: 07/17/23 Chief Complaint: Fall with UE pain/deformities, multiple lacerations, tripped while walking dog. HPI Narrative The patient is a 73 y/o F w/ PMHx: Rheumatoid arthritis, Asthma/COPD stage III/severe, Depression and Anxiety, HTN, HLD, GERD with Hx Gastric ulcer, Former tobacco use who presents to the [facility] ED on 07/17/23 with history of walking her dog on day of presentation unfortunately tripping on the sidewalk with no loss of consciousness however unfortunately she noted bilateral wrist, left knee and right foot pain and inability to get up following the event prompting EMS call with superficial abrasions and a laceration to the nasal bone as well as a small laceration to the left upper eyelid upon her initial ED evaluation as well as deformity to right wrist and laceration to the right great toe as well as left knee. She is current rating her pain 10/10, primarily BL hand/wrist pain, worse with any movement attempt and more dull aching throbbing without any movement but any attempted movement more sharp and stabbing in nature. Work-up in the ED included T98, heart rate 87, BP 131/96, respiratory rate 16, 97% on room air, CT the brain with chronic involutional changes, CT facial bones with no fracture seen, partial opacification ethmoid and frontal sinuses, plain film of the right foot with dorsal soft tissue swelling, plain film of the left knee with degenerative arthrosis with a small joint effusion, plain film of the right wrist with comminuted nondisplaced fracture of the distal radial metaphysis with extension to the articular surface with associated soft tissue swelling and noted calcification of the triangular fibrocartilage, plain film of the left wrist with fractures involving the third, fourth, fifth metacarpals with diffuse soft tissue swelling. ED discussed case with Dr. Holden with splits placed in the ED with also repair of lacerations L eyelid, L anterior knee, R great toe. Pending CBC, BMP, EKG pending upon evaluation. In the ED patient ministered morphine 4 mg IV x1 as well as Zofran 4 mg IV x1. [facility] Medical History (Updated 07/17/23 @ 15:[address] Johanna Gunter MD) Anxiety and depression Arthritis Asthma Bilateral carpal tunnel syndrome Bilateral lower extremity edema Former tobacco use GERD (gastroesophageal reflux disease) History of cataract Hyperlipidemia Hypersomnia Hypertension Insomnia Osteoporosis Overweight Rheumatoid arthritis Seasonal allergies Stage 3 severe COPD by GOLD classification Stomach ulcer Vitamin D deficiency Home Medications denosumab 60 mg/mL subcutaneous syringe (Prolia) 60 mg subcut [id number] #1 mL 07/27/21 [Rx Last Taken Unknown] Nebulizer #1 ea 04/12/22 [Rx Last Taken Unknown] spacer #1 ea 04/12/22 [Rx Last Taken Unknown] Scooter #1 ea 05/31/22 [Rx Last Taken Unknown] acetaminophen 500 mg tablet (Tylenol Extra Strength) 500 mg PO Q6H PRN pain 05/31/22 [History Last Taken Unknown] diphenhydramine 25 mg-acetaminophen 500 mg tablet (Tylenol PM Extra Strength) 1 tab PO QHS PRN pain 05/31/22 [History Last Taken Unknown] propylene glycol 0.6 % eye drops (Systane Balance) 1 drp ophthalmic (eye) DAILY PRN dry eye(s) 05/31/22 [History Last Taken Unknown] cholecalciferol (vitamin D3) 1,250 mcg (50,000 unit) capsule 1,250 mcg PO QWEEK #14 caps 07/20/22 [Rx Last Taken Unknown] Acapella #1 ea 08/16/22 [Rx Last Taken Unknown] budesonide-formoterol HFA 160 mcg-4.5 mcg/actuation aerosol inhaler (Symbicort) 2 puff inhalation BID #1 ea 12/15/22 [Rx Last Taken 07/17/23] tiotropium bromide 2.5 mcg/actuation mist for inhalation (Spiriva Respimat) 2 inh inhalation QDAY #1 ea 12/15/22 [Rx Last Taken 07/17/23] amlodipine 5 mg tablet (Norvasc) 7.5 mg (1.5 x 5 mg) PO DAILY #135 tabs 06/08/23 [Rx Last Taken 07/17/23] atorvastatin 40 mg tablet 40 mg PO QHS #90 tabs 06/08/23 [Rx Last Taken 07/16/23] duloxetine 30 mg capsule,delayed release 90 mg (3 x 30 mg) PO DAILY 3 months #270 caps 06/08/23 [Rx Last Taken 07/17/23] omeprazole 40 mg capsule,delayed release 40 mg PO DAILY #90 caps 06/08/23 [Rx Last Taken 07/17/23] hydrocolloid dressing 6 X 6 (Aquacel Extra) #5 ea 06/12/23 [Rx Last Taken Unknown] ketoconazole 2 % shampoo 1 applic topical .COMPLEX 07/17/23 [History Last Taken Unknown] Allergy/AdvReac Type Severity Reaction Status Date / Time azithromycin Allergy Itching Verified 07/17/23 13:36 Family History Grandmother COPD (chronic obstructive pulmonary disease) Mother Heart disease Hypertension CVA (cerebral vascular accident) Myocardial infarction, Onset Age: 50 Father CVA (cerebral vascular accident) Alcohol abuse Prostate cancer Sister Heart disease Brother Heart disease Surgical History History of appendectomy History of cholecystectomy History of colonoscopy History of hemorrhoidectomy History of hip surgery History of hysterectomy History of surgery on extremity Social History (Updated 07/17/23 @ 16:[address] Johanna Gunter MD) household members: none Smoking Status: Former smoker quit date: 10/23/09 pack-years: 42 Tobacco: How many years used: 42 Electronic Cigarette Use: not used how long ago did patient quit smokin years second hand exposure: Yes quit status: quit date established counseling given: provider counseling alcohol intake: never substance use type: does not use caffeine: Yes what type of physical activity do you participate in: none ROS ROS Narrative Admission Review of Systems: CONSTITUTIONAL: No weight loss, fever, chills, + weakness or fatigue. HEENT: Eyes: No visual loss, blurred vision, double vision or yellow sclerae. Ears, Nose, Throat: No hearing loss, sneezing, congestion, runny nose or sore throat. SKIN: + Chronic left lateral anterior smith wound that is healing well, various abrasions, staged ecchymoses, lacerations currently being repaired and sutured primarily to the Left eyelid, left anterior knee and right great toe with minimal serosanguinous drainage currently. CARDIOVASCULAR: No chest pain, chest pressure or chest discomfort, palpitations, edema, orthopnea, syncopal events. RESPIRATORY: + Chronic dyspnea primarily with exertion, occasional cough, occasional wheezing. No current marked sputum production, hemoptysis. GASTROINTESTINAL: + Anorexia, nausea. No vomiting or diarrhea, abdominal pain, melena, BRBPR. GENITOURINARY: No dysuria, frequency, urgency or retention. NEUROLOGICAL: No headache, dizziness, syncope, paralysis, ataxia, numbness or tingling in the extremities, focal weakness, change in bowel or bladder control, seizure. MUSCULOSKELETAL: + muscle, back pain, joint pain or stiffness. HEMATOLOGIC: + easy bleeding or bruising. LYMPHATICS: No enlarged nodes. No history of splenectomy. PSYCHIATRIC: + history of depression or anxiety. ENDOCRINOLOGIC: No reports of sweating, cold or heat intolerance. No polyuria or polydipsia. ALLERGIES: + history of asthma, rhinitis. Vital Signs Vital Signs Vital Signs: 07/17/23 13:37 07/17/23 13:41 07/17/23 15:39 Temperature 98.0 F Temperature Source Oral Pulse Rate 87 87 Respiratory Rate 16 18 Respiratory Effort Normal Respiratory Depth Normal Respiratory Pattern Normal Blood Pressure 131/96 H 134/72 H Blood Pressure Mean 107 92 Pulse Ox 97 99 Oxygen Delivery Method Room Air Room Air Weight Weight: 151 lb 14.376 oz Body Mass Index (BMI) 26.9 Physical Exam Narrative Physical Examination: General: Awake, alert, oriented x 3 and cooperative, laying in the ED bed, fatigued, uncomfortable although she notes pain was improved after morphine but now increasing again to 10 out of 10 primarily at bilateral upper extremity/hand/wrist. Skin: Normal color, normal turgor, no icterus, no cyanosis except for chronic left lateral anterior smith wound that is healing well, various abrasions, staged ecchymoses, lacerations currently being repaired and sutured primarily to the Left eyelid, left anterior knee and right great toe with minimal serosanguinous drainage currently.. HEENT: See Skin for facial trauma with laceration to the left eyelid, abrasions to the nasal bridge, ecchymoses, NC, EOMI, PERRLA, dry MM, no carotid bruits or JVD noted. Lungs: Diminished, greater bases, moderate effort, currently no rales, ronchi or wheezing. Heart: Regular rate and rhythm; no gallop, rub audible. Abdomen: Soft, NTTP, ND, mildly hyperactive BS, no HSM. Extremities: No cyanosis, no clubbing, significant rheumatoid arthritic change especially bilateral hand, right upper extremity status post splinting, left upper extremity with significant edema and bruising with pending splinting, laceration to the right great toe as well as left knee with sutures in place with mild serosanguineous drainage, currently left eyelid suturing being performed. Neurological: Patient awake, alert, oriented as noted, cognitive function intact; pupils equally reactive to light and accommodation, cranial nerves grossly normal, moving all 4 extremities except extremely limited bilateral upper extremity given recent fall with fractures, strength severely globally decreased secondary to acute presentation with trauma with injuries as noted. Psychiatric: Affect appears uncomfortable, no acute evidence of depressive or anxiety feelings but does have underlying history. Results Lab / Micro Data 07/17/23 15:35 07/17/23 15:[address] 07/17/23 13:50 IMPRESSION: Chronic involutional changes of the brain. Electronically Signed: Ray Bella MD at 14:34 EDT , Facial/Sinus 07/17/23 13:50 IMPRESSION: No fracture is seen. Partial opacification of the ethmoid and frontal sinuses. Electronically Signed: Ray Bella MD at 14:33 EDT , Foot X-Ray 07/17/23 14:20 IMPRESSION: Dorsal soft tissue swelling. Electronically Signed: Ray Bella MD at 14:57 EDT , Knee X-Ray 07/17/23 14:20 IMPRESSION: Degenerative arthrosis. Small joint effusion. Electronically Signed: Ray Bella MD at 14:59 EDT , Wrist X-Ray 07/17/23 14:20 IMPRESSION: Comminuted nondisplaced fracture of the distal radial metaphysis with extension to the articular surface. Soft tissue swelling. Calcification of the triangular fibrocartilage. Electronically Signed: Ray Bella MD at 15:03 EDT , Wrist X-Ray 07/17/23 14:20 IMPRESSION: Fractures involving the third fourth and fifth metacarpals as described. Diffuse soft tissue swelling. Electronically Signed: Ray Bella MD at 15:02 EDT , Assessment & Plan Assessment/Plan (1) Fall: QUALIFIERS: Encounter type: initial encounter Qualified Code(s): W19.XXXA - Unspecified fall, initial encounter PLAN: Plan The patient is a 73 y/o F w/ PMHx: Rheumatoid arthritis, Asthma/COPD stage III/severe, Depression and Anxiety, HTN, HLD, GERD with Hx Gastric ulcer, Former tobacco use who presents to the [facility] ED on 07/17/23 with history of walking her dog on day of presentation unfortunately tripping on the sidewalk with no loss of consciousness however unfortunately she noted bilateral wrist, left knee and right foot pain and inability to get up following the event prompting EMS call with superficial abrasions and a laceration to the nasal bone as well as a small laceration to the left upper eyelid upon her initial ED evaluation as well as deformity to right wrist and laceration to the right great toe as well as left knee. #1. Mechanical fall with associated right wrist comminuted nondisplaced fracture of the distal radial metaphysis with extension to the articular surface in addition to a left wrist with fractures involving the third, fourth, fifth metacarpals with associated diffuse soft tissue swelling, various lacerations requiring suturing repair severely complicated by #2: Given significant injury with mechanical fall involving both upper extremities will admit to medical surgical floor, will maintain on fall precautions, continue orthopedic surgery consultation for further evaluation, elevate extremities, offloading until input by orthopedic surgery with expected surgical intervention needs, possibly even bilaterally, icing, as needed oral and IV pain regimen, as needed antiemetics, PT/OT consultations for discharge planning as well as case management, NPO after midnight for OR consideration pending Orthopedic evaluation. ED recommendation removal sutures at 5 days eyelid and removal at 10 days knee/toe #2. Rheumatoid arthritis: Significantly complicates patient presentation and healing ability as well as ability to safely return to home. As noted PT/OT/case management consultations with likely bilateral upper extremity surgical needs and after this for patient safety likely skilled facility placement. Patient from current list is on denosumab possibly secondary to bony destruction with her rheumatoid arthritis otherwise not on any other chronic regimen noted, encourage continued aggressive outpatient follow-up with rheumatology. #3. Hypertension: Continue home regimen including amlodipine, PRN hydralazine. #4. Hyperlipidemia: We will continue patient home statin therapy. #5. Anxiety and depression: We will continue patient home duloxetine home regimen. #6. Former tobacco use: Encourage continued tobacco cessation. #7. Chronic COPD stage III/severe, asthma: We will temporarily hold home inhalers and in the interim transition to ATC budesonide therapy with PRN albuterol, HOB, IS parameters. #8. GERD: We will continue patient on PPI. #9. DVT prophylaxis: SCDs, hold on chemoprophylaxis pending orthopedic surgery evaluation to be cautious #10. CODE status: Patient does not have healthcare power of tax associate attorney or living will in place but notes if she needed a medical decision maker she would want to be her son for Milton. Discussed CODE status at length including difference between FULL code, DNR-CCA and DNR-CC status. Following discussions about the differences in these status, requested Full Code status. Advanced Care Planning Face to Face Time: 16 minutes. Charges/Coding Visit Charges Inpatient E&M: 10513 Init Hosp L3 Procedures Hospitalists Procedures: 53416 Advncd Care Plan 30 Min
[2023-07-17 15:58] LABS: Absolute Lymphocyte Count 1.39 X10^3/uL (0.83-4.51); Absolute Neutrophil Count 9.5 X10^3/uL (2.0-7.7); Basophil# 0.06 X10^3/uL; Basophil% 0.5 % (0-1); Eosinophil# 0.15 X10^3/uL; Eosinophils% 1.3 % (0-5); Hematocrit 39.7 % (37-47); Hemoglobin 12.6 g/dL (12.0-15.0); Lymphocyte # 1.39 X10^3/ul (0.83-4.51); Lymphocyte % 11.8 % (19-41); Mean Corp Hgb Conc 31.7 g/dL (32-36); Mean Corpuscular Volume 91.3 fL (81-99); Mean Platelet Vol. 9.3 fl (6.2-12.0); Monocyte# 0.65 X10^3/uL; Monocyte% 5.5 % (0-10); NRBC Flagged by Analyzer 0 % (0-5); Neutrophil # 9.48 X10^3/uL (2.7-7.7); Neutrophil % 80.6 % (47-70); Platelet Count 307 K/mm3 (150-450); RBC Distribution Width CV 13.4 % (11.6-14.6); RBC Distribution Width SD 45.4 fl (35.1-43.9); Red Blood Count 4.35 M/mm3 (4.2-5.4); White Blood Count 11.8 K/mm3 (4.4-11.0)
[2023-07-17 16:00] LABS: Anion Gap 5 (5-15); BUN 22 mg/dL (7-18); BUN/Creat Ratio 23.8 RATIO (10-20); Calcium,Total 9.2 mg/dL (8.5-10.1); Chloride 107 mmol/L (98-107); Creatinine, Serum 0.92 mg/dL (0.55-1.02); EST Glomerular Filtration Rate 63 mL/min (>60); Est Glom Filt Rate - Afr Amer 76 mL/min (>60); Estimated Creatinine Clearance 43.71 ml/min; Glucose 125 mg/dL (74-106); Potassium 4.4 mmol/L (3.5-5.1); Sodium Level 139 mmol/L (136-145)
--- NOTE | 2023-07-17 16:00 | RAD_ITS ---
INDICATION: injury EXAMINATION/TECHNIQUE: X-RAY - LEFT XR Hand Min 3 Views 3 VIEWS COMPARISON: 2:24 PM. FINDINGS: Bones are demineralized. Medial subluxation of the second MCP joint. Acute fracture of the third metacarpal shaft and neck with 3 mm dorsomedial displacement of the distal fragment. Mild apex lateral angulation. Acute fracture of the fourth metacarpal neck with approximately 1 cm medial and proximal displacement of the metacarpal head. Metacarpal head remains congruent with the proximal phalanx, although there is widening of the MCP joint. Acute, comminuted, nondisplaced fracture of the fifth metacarpal neck and shaft. No significant angulation. Osteoarthrosis of the distal interphalangeal joint of the second digit. Marked dorsal soft tissue swelling. No radiopaque foreign body or soft tissue gas. RAD/Hand Min 3 Views IMPRESSION: Acute fractures of the third through fifth metacarpals, as described. Subluxation of the second MCP joint. Electronically Signed: Kendra Walker MD at 16:52 EDT Reading Location ID and State: [id number] / Tel , Service support ,
[2023-07-17 16:26] VITALS: BP 131/92; PULSE 86; RESP 16; TEMP 36.4
--- NOTE | 2023-07-17 16:40 | ED.RN ---
BACITRACIN AND BANDAGES PLACE TO LEFT KNEE POST 8 SUTURES AND RIGHT TOE POST STITCHES. PT THOUGHT SHE HAD PHONE ON HER NOT FOUND IN ED. [facility] WITH KEYS AND DEBIT CARD WITH PT ON TRANSPORT TO THE FLOOR.
[2023-07-17 16:59] VITALS: BP 133/68; PULSE 86; RESP 18; TEMP 36.6; O2SAT 94
[2023-07-17 17:02] VITALS: BMI 25.3
[2023-07-17] MEDS: Pantoprazole Sodium 40 MG Tablet PO (17:39)
[2023-07-17] MEDS: Morphine 2 MG/ML Syringe IV (17:49)
[2023-07-17] MEDS: 0.9% Saline Lock 10 ML Syringe IV (17:53)
[2023-07-17] MEDS: Budesonide Respules 0.5 MG/2 ML AMPUL.NEB. INHALATION (19:47)
[2023-07-17 19:49] VITALS: PULSE 87; RESP 16
[2023-07-17] MEDS: Ergocalciferol 1.25 MG (50, 000 UNIT) Capsule PO (20:11)
[2023-07-17] MEDS: oxyCODONE 5 MG Tablet PO (20:17)
[2023-07-17] MEDS: MELATONIN 3 MG TABLET PO (20:17)
[2023-07-17] MEDS: Acetaminophen 325 MG Tablet 650 MG PO (20:17)
[2023-07-17] MEDS: Atorvastatin Calcium 40 MG Tablet PO (20:19)
[2023-07-17] MEDS: Menthol/Lanolin/Calamine/Znox 113 GM Tube 1 APPLIC TOPICAL (20:19)
[2023-07-17] MEDS: DULoxetine Hcl 30 MG Capsule PO (20:20)
[2023-07-17 23:00] VITALS: BP 138/77; PULSE 89; RESP 16; TEMP 36.4; O2SAT 93
[2023-07-18] MEDS: 0.9% Normal Saline (1000mL) 1,000 ML 75 ML IV (01:06)
[2023-07-18] MEDS: Morphine 2 MG/ML Syringe IV ×4 (02:11→20:06)
[2023-07-18] MEDS: 0.9% Saline Lock 10 ML Syringe IV ×2 (02:11→06:31)
[2023-07-18 06:00] VITALS: BMI 25.4
[2023-07-18] MEDS: Budesonide Respules 0.5 MG/2 ML AMPUL.NEB. INHALATION ×2 (07:04→19:33)
[2023-07-18] MEDS: Albuterol 2.5 MG/3 ML VIAL.NEB. INHALATION ×2 (07:04→19:32)
[2023-07-18 07:06] LABS: Absolute Lymphocyte Count 1.24 X10^3/uL (0.83-4.51); Absolute Neutrophil Count 6.3 X10^3/uL (2.0-7.7); Basophil# 0.03 X10^3/uL; Basophil% 0.4 % (0-1); Eosinophil# 0.13 X10^3/uL; Eosinophils% 1.5 % (0-5); Hematocrit 36.6 % (37-47); Hemoglobin 11.8 g/dL (12.0-15.0); Lymphocyte # 1.24 X10^3/ul (0.83-4.51); Lymphocyte % 14.6 % (19-41); Mean Corp Hgb Conc 32.2 g/dL (32-36); Mean Corpuscular Hgb 29.7 pg (27.0-32.0); Mean Corpuscular Volume 92.2 fL (81-99); Mean Platelet Vol. 9.2 fl (6.2-12.0); Monocyte# 0.77 X10^3/uL; Monocyte% 9.1 % (0-10); NRBC Flagged by Analyzer 0 % (0-5); Neutrophil # 6.28 X10^3/uL (2.7-7.7); Neutrophil % 74.2 % (47-70); Platelet Count 283 K/mm3 (150-450); RBC Distribution Width CV 13.5 % (11.6-14.6); RBC Distribution Width SD 46.2 fl (35.1-43.9); Red Blood Count 3.97 M/mm3 (4.2-5.4); White Blood Count 8.5 K/mm3 (4.4-11.0)
[2023-07-18 07:07] VITALS: PULSE 92; RESP 20
[2023-07-18 07:35] VITALS: BP 128/68; PULSE 102; RESP 18; TEMP 37.2; O2SAT 99
[2023-07-18 07:41] LABS: ALB/GLOB Ratio 0.9 RATIO (0.9-2.4); AST(SGOT) 472 U/L (15-37); Alanine Aminotransfer ALT/SGPT 285 U/L (13-56); Albumin, Serum 3.1 g/dL (3.2-5.0); Alkaline Phosphatase 121 U/L (45-117); Anion Gap 5 (5-15); BUN 18 mg/dL (7-18); BUN/Creat Ratio 21.6 RATIO (10-20); Calcium,Total 8.3 mg/dL (8.5-10.1); Chloride 108 mmol/L (98-107); Creatinine, Serum 0.83 mg/dL (0.55-1.02); EST Glomerular Filtration Rate 71 mL/min (>60); Est Glom Filt Rate - Afr Amer 86 mL/min (>60); Estimated Creatinine Clearance 48.45 ml/min; Globulin 3.5 g/dL (2.2-4.2); Glucose 111 mg/dL (74-106); Potassium 4.1 mmol/L (3.5-5.1); Protein, Total 6.6 g/dL (6.4-8.2); Sodium Level 138 mmol/L (136-145)
[2023-07-18] MEDS: amLODIPine 5 MG Tablet 7.5 MG PO (10:33)
[2023-07-18] MEDS: DULoxetine Hcl 30 MG Capsule 60 MG PO (10:33)
[2023-07-18] MEDS: Pantoprazole Sodium 40 MG Tablet PO (10:33)
[2023-07-18] MEDS: Menthol/Lanolin/Calamine/Znox 113 GM Tube 1 APPLIC TOPICAL ×4 (10:34→20:06)
--- NOTE | 2023-07-18 11:17 | CASEMGMT ---
Addendum entered by Makayla Bustamante 07/18/23 11:46: TC to [place], spoke with nurse Gladis, she is aware that pt will likely dc to SNF. Original Note: JOSÉ MIGUEL KIRKPATRICK Assessment: Face to Face with pt for initial transition planning/care coordination assessment. JOSÉ MIGUEL KIRKPATRICK introduced self and role at [facility], pt voices understanding and consents to assessment. Pt is A/O x4 and answers all questions appropriately at this time. Pt sitting up in chair, painful with movement of arms. Pt states she received pain med recently. Care providers, pharmacy, and demographics verified/updated. Admitting Dx: fall, left hand fractures, right wrist fracture PCP:Tabitha Specialists:renaldo Britton Preferred Pharmacy: [facility] Insurance: [facility] Prescription Benefit: yes LNOK: Milton Wheeler, son Living Arrangements: Pt lives alone in a two story apt with bedroom on second floor. Pt reports she needed assistance with bathing but does not have it and she sponge bathes. Pt does her laundry but needs her neighbors to carry the baskets for her. Pt has delivered meals and gets groceries with help. Pt states she knows she cannot return home after this hospital stay. Transportation: Pt drives self and denies concerns with transportation. Pt reports she does not like to drive. DME/HHC/SNF: Pt has a cane and rollator and uses when she needs to. Pt has oxygen through [facility], states she uses 2L at hs, will verify. Pt has a pox. Pt states [facility] sees her for medication set up and she has had [facility] in the past for aides but has not since COVID. Pt denies SNF stays. Pt is aware that the will be in to talk to her about SNF options. Pt states no further concerns/needs. CM to follow. Advised pt to ask CM if any further question/concerns/needs arise, voices understanding. Pt Goal: SNF Plan: SNF
--- NOTE | 2023-07-18 13:50 | CASEMGMT ---
Discharge Planning A list of SNF providers including quality and resource use data and consistent with the patient?s preferred geographic region, medical needs, and insurance network was created in [employer] Guide. This list was provided to the SW. Carmella Estrada Discharge Planning Asst.
--- NOTE | 2023-07-18 14:25 | CASEMGMT ---
Social Work SW introduced self and role to patient. SW provided SNF list for patient and offered to assist in reviewing due to patient being unable to move her arms. Pt reports she is not feeling well and will review later and asked for assistance getting back into bed. SW notified pt's nurse. Enedina Yadav EMERGENCY DEPARTMENT AIDE, E LEARNING MANAGER
[2023-07-18 15:24] VITALS: BP 140/81; PULSE 111; RESP 18; TEMP 37.2; O2SAT 99
--- NOTE | 2023-07-18 16:06 | CASEMGMT ---
According to [facility]'s website, the following tertiary facilities are in network:[facility], [place],[facility], [facility], [facility], [facility], [facility] and .
--- NOTE | 2023-07-18 16:13 | CHAPLAIN ---
Type of Pastoral Visit _x__ Initial Visit ___ Follow-up Visit ___ On-call Visit ___ General Patient Visit ___ Spiritual Assessment ___ Family Conference ___ Bereavement ___ Rapid Response ___ Code Blue ___ Other (describe below) Pastoral Care Referral From _x__ Patient ___ Family ___ Nurse ___ Physician ___ Mop Worker ___ Barrel Endshake Adjuster ___ Other (describe below) Sacrament/Intervention _x__ Active listening ___ Anointing ___ Uatsdin ___ Bereavement ___ Communion ___ Catrina exploration ___ ___ Life review _x__ Prayer ___ Reconciliation ___ Sacrament of Sick _x__ Supportive presence ___ Wedding ___ Other (describe below) Pastoral Comments listening to patient describe her fall, situation, and current feelings; pt requests prayers for her healing and recovery; pt has a few relatives that can be helpful at this time
--- NOTE | 2023-07-18 17:10 | PN.HOSP_ITS ---
Reason for Visit Reason for Visit: Diagnoses Unspecified fall, initial encounter (07/17/23) Subjective Subjective Patient was seen and examined today, I talked with Dr. Alberto who the patient has seen in the past, he reviewed her x-rays and told me by phone that he would recommend the patient go to a tertiary facility and be seen by hand surgeon for repair of her fractures. I went over this with the patient, she had no preference as to where she would want to go, I suggested [place] and she agreed with this, at the time of this dictation, [facility] has no beds and [facility] has no beds, I called the [facility] transfer line in [facility], they put me in touch with a hand surgeon (Dr. Wade Montes). I had a long discussion with him about this patient, he requested I send him pictures of her hand x-rays which I did, he then told me that he would not recommend surgery for this patient and that he would recommend a short arm splint on the left and that he would recommend the other arm have a cast applied after a few days. He states that he would be glad to see the patient as an outpatient in his office but he would not recommend any surgery for the patient due to her rheumatoid arthritis and her age. I talked to Dr. Alberto who is seen the patient in the past and he has agreed to see the patient in [facility] emergency department tomorrow. I relayed to the patient through nursing that she would not be transferred and that Dr. Alberto would see her tomorrow. Objective Data Objective Data Vital Signs: Vital Signs Temp Pulse Resp BP Pulse Ox O2 Del Method O2 Flow Rate 98.9 F 111 H 18 140/81 H 99 Room Air 2 07/18/23 15:24 07/18/23 15:24 07/18/23 15:24 07/18/23 15:24 07/18/23 15:24 07/18/23 15:24 07/18/23 10:41 Oxygen Flow Rate (L/min) 2 Oxygen Delivery Method Room Air Weight: 65.3 kg Body Mass Index (BMI) 25.4 Intake & Output: Intake and Output for Last 24 Hours 07/16/23 07/17/23 07/18/23 23:59 23:59 23:59 Intake Total 100 / 100 Output Total 400 / 400 Balance -300 / -300 Lab / Micro Data 07/18/23 06:46 07/18/23 06:46 Labs: Laboratory Results - last 24 hr 07/18/23 06:46: WBC 8.5, RBC 3.97 L, Hgb 11.8 L, Hct 36.6 L, MCV 92.2, MCH 29.7, MCHC 32.2, RDW Std Deviation 46.2 H, RDW Coeff of Carline 13.5, Plt Count 283, MPV 9.2, Immature Gran % (Auto) 0.200, Neut % (Auto) 74.2 H, Lymph % (Auto) 14.6 L, Jenkins % (Auto) 9.1, Eos % (Auto) 1.5, Baso % (Auto) 0.4, Absolute Neuts (auto) 6.3, Absolute Lymphs (auto) 1.24, Nucleated RBC % 0, Sodium 138, Potassium 4.1, Chloride 108 H, Carbon Dioxide 25.0, Anion Gap 5, BUN 18, Creatinine 0.83, Estim Creat Clear Calc 48.45, Est GFR (MDRD) Af Amer 86, Est GFR (MDRD) Non-Af 71, BUN/Creatinine Ratio 21.6 H, Glucose 111 H, Calcium 8.3 L, Total Bilirubin 0.80, AST 472 H, ALT 285 H, Alkaline Phosphatase 121 H, Total Protein 6.6, Albumin 3.1 L, Globulin 3.5, Albumin/Globulin Ratio 0.9 Rhythm Strip Rhythm Strip: Sinus Rhythm Rate: 84 Ectopy: PAC(s) Physical Exam Const alert, oriented x3, no apparent distress and average body habitus General Appearance: cooperative, well kempt and well developed Orientation / Consciousness: awake, oriented to person, oriented to place and oriented to time HEENT normocephalic, head/scalp atraumatic and moist oral mucous membranes Eyes PERRL, EOMs intact bilaterally and conjunctivae normal Neck supple, no JVD, thyroid normal and no carotid bruits General: trachea midline Resp normal respiratory effort, no retractions, no use of accessory muscles and clear to auscultation bilaterally Auscultation: Negative for rales, rhonchi or wheezes Cardio regular rate, regular rhythm, S1 normal heart sound, S2 normal heart sound, no murmurs, no rub and no gallops GI normal to inspection, nondistended, normoactive bowel sounds, soft to palpation, non-tender and non-distended Extremity Extremity Narrative: Patient's forearms/hands are enclosed in splints, these were not removed for examination of the areas, patient's left knee is wrapped with surgical dressing, this was not removed for examination of the area Skin no rashes or lesions noted General Skin Exam: no breakdown Neuro oriented x3, CN's II-XII intact bilaterally, no focal motor deficits and no sensory deficits noted Sensorium / Orientation: awake, alert, oriented to person, oriented to place and oriented to time Speech: speech normal Psych affect normal Assessment & Plan Assessment/Plan (1) Fracture of left hand: PLAN: Plan 1. Acute fractures of the third through fifth metacarpals-patient will be seen in consultation by Dr. Alberto (orthopedics) tomorrow, she will need placement in a correction facility for rehab services. #2 comminuted nondisplaced fracture of the distal radial metaphysis-again patient will need admission to a correction facility for rehab services, she will be seen by Dr. Alberto tomorrow #3 rheumatoid arthritis-complicates care, medical course, recovery, and prognosis Total clinical time spent by myself addressing the patient's medical issues, reviewing all of her data, and collaborating with patient's care team: 50 minutes Charges/Coding Visit Charges Inpatient E&M: 37835 Subs Hosp L3
[2023-07-18] MEDS: oxyCODONE 5 MG Tablet PO (17:43)
[2023-07-18 19:33] VITALS: PULSE 101; RESP 18
[2023-07-18 19:56] VITALS: BP 151/66; PULSE 102; RESP 18; TEMP 36.9; O2SAT 94
[2023-07-18] MEDS: DULoxetine Hcl 30 MG Capsule PO (20:06)
[2023-07-18] MEDS: Atorvastatin Calcium 40 MG Tablet PO (20:06)
[2023-07-18] MEDS: Acetaminophen 325 MG Tablet 650 MG PO (20:06)
[2023-07-19] VITALS (8 sets, daily range): BP systolic 108–155; BP diastolic 64–77; PULSE 96–109; RESP 15–24; TEMP 36.8–37.4; O2SAT 93–98; BMI 25.4
[2023-07-19] MEDS: Budesonide Respules 0.5 MG/2 ML AMPUL.NEB. INHALATION ×2 (07:13→19:39)
[2023-07-19] MEDS: Albuterol 2.5 MG/3 ML VIAL.NEB. INHALATION ×2 (07:13→19:39)
--- NOTE | 2023-07-19 07:22 | PCM.CONS.GEN ---
Assessment & Plan Assessment/Plan (1) Fracture of left hand: QUALIFIERS: Encounter type: initial encounter Fracture type: closed Qualified Code(s): S62.92XA - Unspecified fracture of left wrist and hand, initial encounter for closed fracture (2) Right wrist fracture: QUALIFIERS: Encounter type: initial encounter Fracture type: closed Qualified Code(s): S62.101A - Fracture of unspecified carpal bone, right wrist, initial encounter for closed fracture PLAN: Plan Patient has multiple fractures her of her left hand including the third fourth and fifth metacarpal necks as well as the fifth metacarpal base with widening between the fourth and fifth metacarpal bases suggesting subluxation of this joint, the third metacarpal head is completely displaced off the shaft. And is comminuted the index MCP is significantly ulnarly deviated, the right hand demonstrates an intra-articular comminuted distal radius fracture with shortening and dorsal angulation, he is for these combine complex hand injuries that I recommended patient see upper extremity specialist considering it involves both of her hands that she cannot be discharged home I did recommend transfer however after the hospitalist and I both contacted the upper extremity surgeon Dr. Wade Montes [facility] in [facility]. he did not feel these injuries required transfer. he did directly review the images that were transferred to him to by the hospitalist and stated that he did not feel any surgical or other intervention was warranted and recommended splinting and follow-up with him in the office. Patient is already and well molded and padded splints. I recommend she follow-up with the upper extremity specialist within the next week for continued treatment of these injuries. HPI Consult Data Date of Consult: 07/19/23 HPI Narrative HPI Narrative: NAMRATA SAXENA, is a 73 F who presents after ground-level fall injuring both hands she is right-hand dominant. Patient has a strong family history including her parents and niece with rheumatoid arthritis and she does have stigmata of rheumatoid with ulnar deviated and flexed fingers however she has been told in the past that it was not rheumatoid. That being said she does have chronic deformities and limitations of both hands including flexion contractures of the PIP knuckles and again ulnar deviated fingers. She was splinted in the emergency room both upper extremities. [facility] Medical History (Updated 07/19/23 @ 07:[address] Tino Alberto, DO) Anxiety and depression Arthritis Asthma Bilateral carpal tunnel syndrome Bilateral lower extremity edema Former tobacco use GERD (gastroesophageal reflux disease) History of cataract Hyperlipidemia Hypersomnia Hypertension Insomnia Osteoporosis Overweight Rheumatoid arthritis Seasonal allergies Stage 3 severe COPD by GOLD classification Stomach ulcer Vitamin D deficiency Home Medications denosumab 60 mg/mL subcutaneous syringe (Prolia) 60 mg subcut [id number] #1 mL 07/27/21 [Rx Last Taken Unknown] Nebulizer #1 ea 04/12/22 [Rx Last Taken Unknown] spacer #1 ea 04/12/22 [Rx Last Taken Unknown] Scooter #1 ea 05/31/22 [Rx Last Taken Unknown] acetaminophen 500 mg tablet (Tylenol Extra Strength) 500 mg PO Q6H PRN pain 05/31/22 [History Last Taken Unknown] diphenhydramine 25 mg-acetaminophen 500 mg tablet (Tylenol PM Extra Strength) 1 tab PO QHS PRN pain 05/31/22 [History Last Taken Unknown] propylene glycol 0.6 % eye drops (Systane Balance) 1 drp ophthalmic (eye) DAILY PRN dry eye(s) 05/31/22 [History Last Taken Unknown] cholecalciferol (vitamin D3) 1,250 mcg (50,000 unit) capsule 1,250 mcg PO QWEEK #14 caps 07/20/22 [Rx Last Taken Unknown] Acapella #1 ea 08/16/22 [Rx Last Taken Unknown] budesonide-formoterol HFA 160 mcg-4.5 mcg/actuation aerosol inhaler (Symbicort) 2 puff inhalation BID #1 ea 12/15/22 [Rx Last Taken 07/17/23] tiotropium bromide 2.5 mcg/actuation mist for inhalation (Spiriva Respimat) 2 inh inhalation QDAY #1 ea 12/15/22 [Rx Last Taken 07/17/23] amlodipine 5 mg tablet (Norvasc) 7.5 mg (1.5 x 5 mg) PO DAILY #135 tabs 06/08/23 [Rx Last Taken 07/17/23] atorvastatin 40 mg tablet 40 mg PO QHS #90 tabs 06/08/23 [Rx Last Taken 07/16/23] duloxetine 30 mg capsule,delayed release 90 mg (3 x 30 mg) PO DAILY 3 months #270 caps 06/08/23 [Rx Last Taken 07/17/23] omeprazole 40 mg capsule,delayed release 40 mg PO DAILY #90 caps 06/08/23 [Rx Last Taken 07/17/23] hydrocolloid dressing 6 X 6 (Aquacel Extra) #5 ea 06/12/23 [Rx Last Taken Unknown] ketoconazole 2 % shampoo 1 applic topical .COMPLEX 07/17/23 [History Last Taken Unknown] Allergy/AdvReac Type Severity Reaction Status Date / Time azithromycin Allergy Itching Verified 07/17/23 13:36 Family History Grandmother COPD (chronic obstructive pulmonary disease) Mother Heart disease Hypertension CVA (cerebral vascular accident) Myocardial infarction, Onset Age: 50 Father CVA (cerebral vascular accident) Alcohol abuse Prostate cancer Sister Heart disease Brother Heart disease Surgical History History of appendectomy History of cholecystectomy History of colonoscopy History of hemorrhoidectomy History of hip surgery History of hysterectomy History of surgery on extremity Social History (Updated 07/17/23 @ 16:[address] Johanna Gunter MD) household members: none Smoking Status: Former smoker quit date: 10/23/09 pack-years: 42 Tobacco: How many years used: 42 Electronic Cigarette Use: not used how long ago did patient quit smokin years second hand exposure: Yes quit status: quit date established counseling given: provider counseling alcohol intake: never substance use type: does not use caffeine: Yes what type of physical activity do you participate in: none Physical Exam Const alert, oriented x3 and no apparent distress Extremity Extremity Narrative: Patient has a very thin friable skin however no open wounds are noted she does have swelling in both upper extremities and fingers and ecchymosis noted throughout. She does have chronic flexion and ulnar deviated contractures of her digits intact sensation to light touch and capillary refill is within normal limits. Her compartments are soft. Her splints are well-padded and molded . Lab / Micro Data 07/18/23 06:46 07/18/23 06:46 Labs: Laboratory Results - last 24 hr 07/18/23 06:46: Sodium 138, Potassium 4.1, Chloride 108 H, Carbon Dioxide 25.0, Anion Gap 5, BUN 18, Creatinine 0.83, Estim Creat Clear Calc 48.45, Est GFR (MDRD) Af Amer 86, Est GFR (MDRD) Non-Af 71, BUN/Creatinine Ratio 21.6 H, Glucose 111 H, Calcium 8.3 L, Total Bilirubin 0.80, AST 472 H, ALT 285 H, Alkaline Phosphatase 121 H, Total Protein 6.6, Albumin 3.1 L, Globulin 3.5, Albumin/Globulin Ratio 0.9 Rhythm Strip Rhythm Strip: Sinus Rhythm Rate: 84 Ectopy: PAC(s) [facility] Imaging Services [address] [place] [address] Hand Min 3 Views MR#: [id number] Acct: [id number] Name: NAMRATA SAXENA Rep #: [id number] : 1950 F 73 From: Kendra morgan MD PCP: Dr. Yenni Lu MD Status: ADM IN Study: Hand Min 3 Views Date of Exam: 07/17/23 Exam# [id number] Ordering Dr: Nicole Ordonez DO INDICATION: injury EXAMINATION/TECHNIQUE: X-RAY - LEFT XR Hand Min 3 Views 3 VIEWS COMPARISON: 2:24 PM. FINDINGS: Bones are demineralized. Medial subluxation of the second MCP joint. Acute fracture of the third metacarpal shaft and neck with 3 mm dorsomedial displacement of the distal fragment. Mild apex lateral angulation. Acute fracture of the fourth metacarpal neck with approximately 1 cm medial and proximal displacement of the metacarpal head. Metacarpal head remains congruent with the proximal phalanx, although there is widening of the MCP joint. Acute, comminuted, nondisplaced fracture of the fifth metacarpal neck and shaft. No significant angulation. Osteoarthrosis of the distal interphalangeal joint of the second digit. Marked dorsal soft tissue swelling. No radiopaque foreign body or soft tissue gas. RAD/Hand Min 3 Views IMPRESSION: Acute fractures of the third through fifth metacarpals, as described. Subluxation of the second MCP joint. Electronically Signed: Kendra Walker MD at 16:52 EDT , [facility] Imaging Services [address] [place] [address] Wrist min 3 Views MR#: [id number] Acct: [id number] Name: NAMRATA SAXENA Rep #: [id number] : 1950 F 73 From: Ray beard MD PCP: Dr. Yenni Lu MD Status: REG ER Study: Wrist min 3 Views Date of Exam: 07/17/23 Exam# [id number] Ordering Dr: Nicole Ordonez DO STUDY: X-RAY - RIGHT WRIST REASON FOR EXAM: Female, 73 years old. Pain following a fall. TECHNIQUE: 3 view(s) of the wrist were obtained. COMPARISON: None. FINDINGS: Comminuted nondisplaced fracture of the distal radial metaphysis with extension to the articular surface. Normal radiocarpal articulation. Normal distal radioulnar articulation. Normal carpal bones. Normal carpal articulations. Normal carpometacarpal articulation of the thumb. Normal second through fifth carpometacarpal articulations. Normal visualized metacarpal bones. Soft tissue swelling. Calcification of the triangle fibrocartilage. RAD/Wrist min 3 Views IMPRESSION: Comminuted nondisplaced fracture of the distal radial metaphysis with extension to the articular surface. Soft tissue swelling. Calcification of the triangular fibrocartilage. Electronically Signed: Ray Bella MD at 15:03 EDT ,
[2023-07-19] MEDS: oxyCODONE 5 MG Tablet PO ×3 (09:29→21:12)
[2023-07-19] MEDS: Menthol/Lanolin/Calamine/Znox 113 GM Tube 1 APPLIC TOPICAL ×4 (09:29→21:13)
[2023-07-19] MEDS: DULoxetine Hcl 30 MG Capsule 60 MG PO (09:30)
[2023-07-19] MEDS: amLODIPine 5 MG Tablet 7.5 MG PO (09:30)
[2023-07-19] MEDS: Pantoprazole Sodium 40 MG Tablet PO (09:30)
--- NOTE | 2023-07-19 11:43 | CASEMGMT ---
Discharge Planning A list of SNF providers including quality and resource use data and consistent with the patient?s preferred geographic region, medical needs, and insurance network was created in [employer] Guide. This list was provided to the SW. Patients family requested SNF list for [facility]. Carmella Estrada, Discharge Planning Asst.
[2023-07-19] MEDS: Acetaminophen 325 MG Tablet 650 MG PO ×2 (11:50→21:12)
[2023-07-19] MEDS: Morphine 2 MG/ML Syringe IV (11:51)
--- NOTE | 2023-07-19 13:44 | CASEMGMT ---
Social Work SW met with pt to discuss discharge plans. Pt received area SNF list yesterday, however pt states she has not reviewed the list. SW assisted pt in looking over the list. Pt now inquiring about facilities in [facility] so she can be close to her son. [facility] provided pt with list of SNF's in [facility]. Pt unable to choose. While in pt room, phone call placed to son. VM left requesting return call to assist pt in choosing a SNF. [facility] will await return call from pt son CRYSTAL Ornelas
--- NOTE | 2023-07-19 16:09 | CASEMGMT ---
Social Work SW placed second call to pt son Milton. SW spoke with Milton and discussed need for SNF for pt and that pt was unable to choose and wanted assistance from son. A list of SNF providers including quality and resource use data and consistent with the patient?s preferred geographic region, medical needs, and insurance network were provided via the [employer] Link. SW requested pt and son colaberate and have 3 choices by tomorrow morning. Son agreeable. SW to followup in the morning. CRYSTAL Coleman
--- NOTE | 2023-07-19 17:25 | NURSING ---
Family called and would like to provide the SW with their aftercare options, 1) [facility] 2) [facility].
--- NOTE | 2023-07-19 19:02 | PCM.PN.HOSP ---
Reason for Visit Reason for Visit: Diagnoses Fracture of unspecified carpal bone, right wrist, initial encounter for closed fracture (07/17/23) Unspecified fracture of left wrist and hand, initial encounter for closed fracture (07/17/23) Unspecified fall, initial encounter (07/17/23) Subjective Subjective Patient was seen and examined today, we are currently awaiting approval for the patient to go to an extended care facility for short-term rehab services. Orthopedic surgery saw the patient this morning. Objective Data Objective Data Vital Signs: Vital Signs Temp Pulse Resp BP Pulse Ox O2 Del Method O2 Flow Rate 98.3 F 96 15 110/70 98 Nasal Cannula 2 07/19/23 14:57 07/19/23 14:57 07/19/23 14:57 07/19/23 14:57 07/19/23 14:57 07/19/23 14:57 07/19/23 14:57 Oxygen Flow Rate (L/min) 2 Oxygen Delivery Method Nasal Cannula Weight: 65.1 kg Body Mass Index (BMI) 25.4 Intake & Output: Intake and Output for Last 24 Hours 07/17/23 07/18/23 07/19/23 23:59 23:59 23:59 Intake Total 1600 / 1840 760 / 760 Output Total 1050 / 1450 1700 / 1700 Balance 550 / 390 -940 / -940 Lab / Micro Data 07/18/23 06:46 07/18/23 06:46 Rhythm Strip Rhythm Strip: Sinus Rhythm Rate: 84 Ectopy: PAC(s) Physical Exam Narrative alert, oriented x3, no apparent distress and average body habitus General Appearance: cooperative, well kempt and well developed Orientation / Consciousness: awake, oriented to person, oriented to place and oriented to time HEENT normocephalic, head/scalp atraumatic and moist oral mucous membranes Eyes PERRL, EOMs intact bilaterally and conjunctivae normal Neck supple, no JVD, thyroid normal and no carotid bruits General: trachea midline Resp normal respiratory effort, no retractions, no use of accessory muscles and clear to auscultation bilaterally Auscultation: Negative for rales, rhonchi or wheezes Cardio regular rate, regular rhythm, S1 normal heart sound, S2 normal heart sound, no murmurs, no rub and no gallops GI normal to inspection, nondistended, normoactive bowel sounds, soft to palpation, non-tender and non-distended Extremity Extremity Narrative: Patient's forearms/hands are enclosed in splints, these were not removed for examination of the areas, patient's left knee is wrapped with surgical dressing, this was not removed for examination of the area Skin no rashes or lesions noted General Skin Exam: no breakdown Neuro oriented x3, CN's II-XII intact bilaterally, no focal motor deficits and no sensory deficits noted Sensorium / Orientation: awake, alert, oriented to person, oriented to place and oriented to time Speech: speech normal Psych affect normal Assessment & Plan Assessment/Plan (1) Right wrist fracture: QUALIFIERS: Encounter type: initial encounter Fracture type: closed Qualified Code(s): S62.101A - Fracture of unspecified carpal bone, right wrist, initial encounter for closed fracture (2) Fracture of left hand: QUALIFIERS: Encounter type: initial encounter Fracture type: closed Qualified Code(s): S62.92XA - Unspecified fracture of left wrist and hand, initial encounter for closed fracture PLAN: Plan 1. Acute fractures of the third through fifth metacarpals-patient will undergo no surgery for repair of these fractures, she was seen by orthopedic surgery today. #2 comminuted nondisplaced fracture of the distal radial metaphysis-again patient will need admission to a nursing home facility for rehab services, she will be seen by Dr. Alberto today #3 rheumatoid arthritis-complicates care, medical course, recovery, and prognosis #4 chronic obstructive pulmonary disease-complicates care, medical course, recovery, and prognosis, patient states that she uses nighttime oxygen as needed at home. Total clinical time spent by myself addressing the patient's medical issues, reviewing all of her data, and collaborating with patient's care team: 25 minutes Charges/Coding Visit Charges Inpatient E&M: 04177 Subs Hosp L1
[2023-07-19] MEDS: MELATONIN 3 MG TABLET PO (21:13)
[2023-07-19] MEDS: Atorvastatin Calcium 40 MG Tablet PO (21:13)
[2023-07-19] MEDS: DULoxetine Hcl 30 MG Capsule PO (21:13)
[2023-07-20] VITALS (7 sets, daily range): BP systolic 95–146; BP diastolic 52–68; PULSE 91–107; RESP 16–20; TEMP 36.4–38.4; O2SAT 94–98; BMI 28.0
[2023-07-20] MEDS: Senna/Docusate Sodium 1 Tablet 2 TABLET PO (05:17)
[2023-07-20] MEDS: Acetaminophen 325 MG Tablet 650 MG PO ×2 (05:17→15:31)
[2023-07-20] MEDS: Budesonide Respules 0.5 MG/2 ML AMPUL.NEB. INHALATION (07:09)
[2023-07-20] MEDS: DULoxetine Hcl 30 MG Capsule 60 MG PO (07:44)
[2023-07-20] MEDS: amLODIPine 5 MG Tablet 7.5 MG PO (07:44)
[2023-07-20] MEDS: Menthol/Lanolin/Calamine/Znox 113 GM Tube 1 APPLIC TOPICAL ×2 (07:44→14:09)
[2023-07-20] MEDS: Pantoprazole Sodium 40 MG Tablet PO (07:45)
--- NOTE | 2023-07-20 09:36 | CASEMGMT ---
Social Work SW sent SNF list to son electronically yesterday afternoon and requested son talk to pt and choose facility. No choices provided by son at this time. SW met with pt who states she has not spoke with son and does not have a choice. Phone call placed to son in pt room. No answer at this time and VM left. SW encouraged pt to make decision independently of son since he has not returned calls or given input. Pt agreeable and [facility]. [facility] Plan: [facility], pending acceptance and precert CRYSTAL Coleman
--- NOTE | 2023-07-20 09:53 | CASEMGMT ---
Discharge Planning Referral sent to [facility] via [facility]. Carmella Estrada, Discharge Planning Asst.
--- NOTE | 2023-07-20 10:00 | PN.HOSP_ITS ---
Reason for Visit Reason for Visit: Diagnoses Fracture of unspecified carpal bone, right wrist, initial encounter for closed fracture (07/17/23) Unspecified fracture of left wrist and hand, initial encounter for closed fractu re (07/17/23) Unspecified fall, initial encounter (07/17/23) Objective Data Objective Data Vital Signs: Vital Signs Temp Pulse Resp BP Pulse Ox O2 Del Method O2 Flow Rate 98.3 F 91 16 106/68 97 Room Air 2 07/20/23 08:16 07/20/23 08:16 07/20/23 08:16 07/20/23 08:16 07/20/23 08:16 07/20/23 08:16 07/20/23 02:25 Oxygen Flow Rate (L/min) 2 Oxygen Delivery Method Room Air Weight: 158 lb 1.143 oz Body Mass Index (BMI) 28.0 Intake & Output: Intake and Output for Last 24 Hours 07/18/23 07/19/23 07/20/23 23:59 23:59 23:59 Intake Total 1600 / 1840 760 / 760 Output Total 1050 / 1450 1700 / 1700 200 / 200 Balance 550 / 390 -940 / -940 -200 / -200 Lab / Micro Data 07/18/23 06:46 07/18/23 06:46 Rhythm Strip Rhythm Strip: Sinus Rhythm Rate: 84 Ectopy: PAC(s) Assessment & Plan Assessment/Plan (1) Right wrist fracture: QUALIFIERS: Encounter type: initial encounter Fracture type: closed Qualified Code(s): S62.101A - Fracture of unspecified carpal bone, right wrist, initial encounter for closed fracture (2) Fracture of left hand: QUALIFIERS: Encounter type: initial encounter Fracture type: closed Qualified Code(s): S62.92XA - Unspecified fracture of left wrist and hand, initial encounter for closed fracture PLAN: Plan 73-year-old female was then admitted after a fall while she tripped on the sidewalk, walking her dog. Denies loss of consciousness. Complains of pain to both wrist as well as left knee and right foot. She was unable to get up therefore brought by EMS and was given fentanyl by EMS 1. Acute fractures of the third through fifth metacarpals-patient will undergo no surgery for repair of these fractures, she was seen by orthopedic surgery today. #2 comminuted nondisplaced fracture of the distal radial metaphysis-again patient will need admission to a assisted facility for rehab services, she will be seen by Dr. Alberto today #3 rheumatoid arthritis-complicates care, medical course, recovery, and pro gnosis #4 chronic obstructive pulmonary disease-complicates care, medical course, recovery, and prognosis, patient states that she uses nighttime oxygen as needed at home. Total clinical time spent by myself addressing the patient's medical issues, reviewing all of her data, and collaborating with patient's care team: 25 minutes
--- NOTE | 2023-07-20 10:30 | TREXTCAR_ITS ---
Diet Diet Order/Speech Therapy: 07/18/23 15:44 Diet: Regular - General Is pt able to select menu?: No Diet Comments: total feed Routine Orders/Code Status Suppository Type: Dulcolax 10mg Suppository Frequency: Daily PRN Wound(s) Lt smiht: Wound Type: Laceration Lt knee: Wound Type: Laceration Rt great toe: Wound Type: Laceration left eyebrow: Wound Type: Laceration L. foot: Wound Type: Laceration Therapies Weight Bearing: Weight bearing as tolerated Extremity Affected:: Bilateral Lower Physical Therapy: Eval and Treat Occupational Therapy: Eval and Treat Speech Therapy: Eval and Treat Problem/Diagnosis (1) Right wrist fracture: Status: Acute Code(s): S62.101A - Fracture of unspecified carpal bone, right wrist, initial encounter for closed fracture (2) Fracture of left hand: Status: Acute Code(s): S62.92XA - Unspecified fracture of left wrist and hand, initial encounter for closed fracture Plan 73-year-old female was then admitted after a fall while she tripped on the sidewalk, walking her dog. Denies loss of consciousness. Complains of pain to both wrist as well as left knee and right foot. She was unable to get up therefore brought by EMS and was given fentanyl by EMS 1. Acute fractures of the third through fifth metacarpals-patient will undergo no surgery for repair of these fractures, she was seen by orthopedic surgery today. #2 comminuted nondisplaced fracture of the distal radial metaphysis-again patient will need admission to a detention facility for rehab services, she will be seen by Dr. Alberto today #3 rheumatoid arthritis-complicates care, medical course, recovery, and prognosis #4 chronic obstructive pulmonary disease-complicates care, medical course, recovery, and prognosis, patient states that she uses nighttime oxygen as needed at home. Total clinical time spent by myself addressing the patient's medical issues, reviewing all of her data, and collaborating with patient's care team: 25 minutes Allergies/Procedures Done in Hospital Allergies azithromycin Allergy (Verified 07/17/23 13:36) Itching Type of Care/Length of Stay Estimated LOS: Convalescent Care Less Than 30 days Type of Care Needed: Skilled Rehab Potential: Good Prognosis: Good Additional Orders/Day of Discharge Day of Discharge: 07/20/23 Discharge Plan Admission Admit Date/Time: 07/17/23 15:52 Primary Reason for Your Visit: Fall with multiple injuries Attending Provider: Mando Martinez Primary Care Provider: Yenni Lu Consulting Providers: Johanna Gunter; Tino Alberto; Derrick Kruger Discharge Orders/Prescriptions Prescriptions: New sennosides-docusate sodium [Stool Softener-Stimulant Laxat] 8.6-50 mg Tablet 2 tab PO BID Qty: 0 0RF oxycodone 5 mg Tablet 2.5 - 5 mg PO Q4H PRN PRN (Reason: Pain Score 4-10) 3 Days Qty: 10 0RF menthol-zinc oxide [Calmoseptine] 0.44-20.6 % Ointment 1 applic topical 4X/DAY Qty: 0 0RF Protocol: *Topical Application Instructions APPLICATION INSTRUCTIONS: apply to affected region Continued Prolia 60 mg/mL syringe 60 mg subcut [id number] Qty: 1 2RF (DME) spacer See Rx Instructions .ROUTE .MEDSUPPLY Qty: 1 0RF Rx Instructions: As directed (DME) Nebulizer See Rx Instructions .ROUTE .MEDSUPPLY Qty: 1 0RF Rx Instructions: As directed (DME) Acapella See Rx Instructions .ROUTE .MEDSUPPLY Qty: 1 0RF Rx Instructions: As directed acetaminophen [Tylenol Extra Strength] 500 mg tablet 500 mg PO Q6H PRN (Reason: pain) diphenhydramine-acetaminophen [Tylenol PM Extra Strength] 25-500 mg tablet 1 tab PO QHS PRN (Reason: pain) Systane Balance 0.6 % drops 1 drp ophthalmic (eye) DAILY PRN (Reason: dry eye(s)) (DME) Scooter See Rx Instructions .Route .MEDSUPPLY Qty: 1 0RF Rx Instructions: As directed budesonide-formoterol [Symbicort] 160-4.5 mcg/actuation HFA aerosol inhaler 2 puff inhalation BID Qty: 1 6RF Rx Instructions: administer with spacer, rinse mouth after each use Spiriva Respimat 2.5 mcg/actuation mist 2 inh inhalation QDAY Qty: 1 6RF Rx Instructions: administer at approximately the same time(s) each day (DME) hydrocolloid dressing [Aquacel Extra] 6 X 6 bandage See Rx Instructions .Route Qty: 5 2RF Rx Instructions: As directed ketoconazole 2 % shampoo 1 applic TOPICAL .COMPLEX Patient Comments: Wash the scalp 2-3x weekly. Leave lathered for 3-5 minutes before rinsing. Rx Instructions: 1 applic topically 2-3XW; cholecalciferol (vitamin D3) 1,250 mcg (50,000 unit) capsule 1,250 mcg PO QWEEK Qty: 14 3RF atorvastatin 40 mg tablet 40 mg PO QHS Qty: 90 3RF duloxetine 30 mg capsule,delayed release(DR/EC) 90 mg PO DAILY 90 Days Qty: 270 1RF Rx Instructions: Take 60 mg in the Am and 30 mg at night. omeprazole 40 mg capsule,delayed release(DR/EC) 40 mg PO DAILY Qty: 90 3RF Held amlodipine [Norvasc] 5 mg tablet 7.5 mg PO DAILY Qty: 135 3RF Hold Instructions: Hold for SBP less than 130 mmHg. Referrals / Follow Up: Yenni Lu MD [Primary Care Provider] - Tino Alberto DO [Med Staff - Active Staff] - Within 1 Week Disposition Disposition (needs filled in before D/C Order can be placed): Longterm Facility (1) Right wrist fracture Qualifiers: Encounter type: initial encounter Fracture type: closed Qualified Code(s): S62.101A - Fracture of unspecified carpal bone, right wrist, initial encounter f or closed fracture (2) Fracture of left hand Qualifiers: Encounter type: initial encounter Fracture type: closed Qualified Code(s): S62.92XA - Unspecified fracture of left wrist and hand, initial encounter for closed fracture
--- NOTE | 2023-07-20 11:05 | CASEMGMT ---
Social Work [facility] is able to accept pt. Pt notified and agreeable to dc plan. SW requested precert be started at this time. CRYSTAL Coleman
[2023-07-20] MEDS: oxyCODONE 5 MG Tablet PO (14:07)
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
--- NOTE | 2023-07-20 16:18 | CASEMGMT ---
Discharge Planning Discharge orders, signed med list, and transport time sent [facility]. [facility] will transport patient by cot at 5p. Patient, SW, and nursing all updated. Nursing updated patients son. Carmella Estrada, Discharge Planning Asst.
[2023-07-20 17:33] LABS: AST(SGOT) 30 U/L (15-37); Alanine Aminotransfer ALT/SGPT 88 U/L (13-56); Albumin, Serum 2.5 g/dL (3.2-5.0); Alkaline Phosphatase 88 U/L (45-117); Bilirubin, Direct 0.16 mg/dL (0.00-0.30); Globulin 3.8 g/dL (2.2-4.2); Protein, Total 6.3 g/dL (6.4-8.2)
--- NOTE | 2023-07-25 13:54 | CASEMGMT ---
Social Work Patient's waiver Hand Miter Operator at the [facility] is Inez Castillo ([phone]). Patient receives: Medication dispenser with [facility], 10 home delivered meals a week, Emergency Response System; approved for aides, but not been able to find staffing for this yet. For continuity of care, Inez requested discharge summary including medication list, along with offiicial dishcarge date. Faxed requested summary to confirmed fax of [phone]. Updated Inez to official discharge date of 07.20.23. RHONDA Palomino
== END 2023-07-20 19:49 | disposition skilled nursing facility (03) | DRG 563 ==
LOC: ED 15:53 → MS3 16:05
PROVIDERS: Admitting Provider Family Medicine; Emergency Provider Emergency Medicine; PCP Internal Medicine; Visit Provider Internal Medicine
DX: S52.354A Nondisplaced comminuted fracture of shaft of radius, right arm, initial encounter for closed fracture (principal); M06.9 Rheumatoid arthritis, unspecified; J44.9 Chronic obstructive pulmonary disease, unspecified; S81.012A Laceration without foreign body, left knee, initial encounter; I10 Essential (primary) hypertension; E78.5 Hyperlipidemia, unspecified; S01.112A Laceration without foreign body of left eyelid and periocular area, initial encounter; K21.9 Gastro-esophageal reflux disease without esophagitis; S91.111A Laceration without foreign body of right great toe without damage to nail, initial encounter; W01.0XXA Fall on same level from slipping, tripping and stumbling without subsequent striking against object, initial encounter; S62.333A Displaced fracture of neck of third metacarpal bone, left hand, initial encounter for closed fracture; S62.335A Displaced fracture of neck of fourth metacarpal bone, left hand, initial encounter for closed fracture; S62.337A Displaced fracture of neck of fifth metacarpal bone, left hand, initial encounter for closed fracture; Z87.891 Personal history of nicotine dependence; W10.1XXA Fall (on)(from) sidewalk curb, initial encounter; Y93.K1 Activity, walking an animal; Z79.899 Other long term (current) drug therapy; E55.9 Vitamin D deficiency, unspecified; Z79.51 Long term (current) use of inhaled steroids; F41.8 Other specified anxiety disorders
CPT/HCPCS: 12032; 12011; 12001; 29125; 29130; 36415; 70450; 70486; 73110; 73130; 73562; 73630; 80048; 80053; 80076; 85025; 93005; 94640; 94668; 96361; 96374; 96375; 96376; 97110; 97162; 97166; 97530; 99221; 99252; 99283; J7030; A4216; G0378; G0463; J2405

== ENCOUNTER 2023-08-01 19:19 | Outpatient (CLI) | payer MEDICARE, MEDICAID, SELFPAY | END 2023-08-01 23:59 | disposition home or self-care (01) | LOC: LABSPEC 19:19 | PROVIDERS: PCP Internal Medicine; Visit Provider Family Medicine | DX: R15.9 Full incontinence of feces (principal) | CPT/HCPCS: 87493 ==

== ENCOUNTER → 2023-11-06 | Outpatient (CLI) | payer MEDICARE, MEDICAID, SELFPAY ==
--- NOTE | 2023-11-06 13:42 | CT_ITS ---
EXAM: CT CHEST, LUNG CANCER SCREENING WITHOUT INTRAVENOUS CONTRAST CLINICAL INDICATION: smoker TECHNIQUE: Helically acquired images were obtained of the chest without intravenous contrast using low dose (LDCT) lung cancer screening protocol. This CT exam was performed using one or more of the following dose reduction techniques: automated exposure control, adjustment of the mA and/or kV according to patient size, and/or use of iterative reconstruction technique. COMPARISON: CT Lung Cancer Screening dated 08/02/2022 FINDINGS: LUNGS AND PLEURAL SPACES: Moderate diffuse centrilobular pulmonary emphysema again noted. No suspicious pulmonary nodule. No pleural effusion or thickening. No pneumothorax. HEART: Heart is normal size. Prominent coronary artery calcification. No pericardial effusion. MEDIASTINUM: Normal. No mediastinal or hilar adenopathy. Esophagus is unremarkable. No hiatal hernia. BONES/JOINTS: No suspicious lytic or blastic abnormality. VASCULATURE: No aortic aneurysm. LYMPH NODES: Normal. No enlarged lymph nodes. CT/Low Dose CT Lung Screening IMPRESSION: 1. Prominent diffuse pulmonary emphysema. 2. No evidence of lung mass or nodule. Lung-RADS score: 1S - Negative. Additional clinically significant or potentially clinically significant findings are described. Recommend continued annual screening with a low-dose CT (LDCT) in 12 months. Electronically Signed: Nicholas Em MD at 16:39 EST ,
== END | disposition home or self-care (01) ==
PROVIDERS: PCP Internal Medicine; Referring Provider Nurse Practitioner Acute Care; Visit Provider Nurse Practitioner Acute Care
DX: F17.210 Nicotine dependence, cigarettes, uncomplicated (principal)
CPT/HCPCS: 71271

== ENCOUNTER → 2023-11-23 | Outpatient (CLI) | payer MEDICARE, MEDICAID, SELFPAY ==
--- OUTSIDE RECORDS SUMMARY | 2023-11-23 13:15 | XMS RPT_ITS | CCD ---
Author Name Unknown Address [address] [place] [address] Organization [facility] Care Team Providers Care Supervisor Floor Assembly Name Role Phone Paty LOPEZ Tammy Seferino Unavailable [phone] Unavailable Primary Care Provider UnavailANITA Pedroza Referring Unavailable ANITA PICKETT Referring Unavailable TINO CABRERA Referring Unavailable ANITA PICKETT Attending Unavailable ROMAIN BAILEY Primary Care Unavailable MIKA ROMERO Referring Unavailable ROMAIN BAILEY Primary Care Unavailable TINO CABRERA Referring Unavailable TINO CABRERA Referring Unavailable TINO CABRERA Attending Unavailable Allergies Allergy Classification Reported Allergen(s) Allergy Type Date of Onset Reaction(s) Facility (7 sources) methylPREDNISolo ne; Translations: [METHYLPREDNISOL ONE] Drug Allergy 09-04-2009 Rash, Itching [facility] Work Phone: Medications Completed/Discontinued Medications Medication Drug Class(es) Dates Sig (Normalized) Sig (Original) acetaminophen 500 mg oral tablet (4 sources) take 1 tablet by mouth every six hours as needed acetaminophen (TYLENOL) 500 mg tablet Take 500 mg by mouth every 6 hours as needed for pain. 0 Active Problems Active Problems Problem Classification Problem Date Documented Date Episodic/Chronic Asthma (4 sources) Unspecified asthma, uncomplicated; Translations: [Asthma, unspecified type, unspecified] Onset: 9 11-26-2009 Chronic Chronic obstructive pulmonary disease and bronchiectasis (7 sources) Severe chronic obstructive pulmonary disease; Translations: [Chronic obstructive lung disease] Onset: 9 08-09-2017 Chronic Conduction disorders (4 sources) Right bundle branch block; Translations: [Unspecified right bundle-branch block] Onset: 0 11-26-2009 Chronic Disorders of lipid metabolism (4 sources) Mixed hyperlipidemia; Translations: [Mixed hyperlipidemia] Onset: 9 11-26-2009 Chronic Diverticulosis and diverticulitis (4 sources) Diverticulosis of colon; Translations: [Diverticulosis of large intestine without perforation or abscess without bleeding] Onset: 9 11-14-2008 Chronic Esophageal disorders (4 sources) Gastroesophageal reflux disease; Translations: [Gastro-esophageal reflux disease without esophagitis] Onset: 9 11-26-2009 Chronic Essential hypertension (4 sources) Benign essential hypertension; Translations: [Essential (primary) hypertension] Onset: 9 11-26-2009 Chronic Fracture of upper limb (10 sources) Closed fracture of shaft of third metacarpal bone; Translations: [Displaced fracture of shaft of third metacarpal bone, left hand, initial encounter for closed fracture] Onset: 3 08-22-2023 Episodic Gastroduodenal ulcer (except hemorrhage) (4 sources) Peptic ulcer; Translations: [Peptic ulcer, site unspecified, unspecified as acute or chronic, without hemorrhage or perforation] Onset: 9 11-11-2008 Chronic Headache; including migraine (4 sources) Migraine without aura; Translations: [Migraine without aura, not intractable, without status migrainosus] Onset: 9 11-26-2009 Chronic Joint disorders and dislocations; trauma-related (3 sources) Dislocation of metacarpophalangeal joint; Translations: [Dislocation of metacarpophalangeal joint of left index finger, initial encounter] Onset: 3 09-27-2023 Episodic Mood disorders (4 sources) Depressive disorder; Translations: [Other specified depressive episodes] Onset: 9 11-26-2009 Chronic Osteoarthritis (4 sources) Osteoarthritis; Translations: [Unspecified osteoarthritis, unspecified site] Onset: 9 12-25-2008 Chronic Other injuries and conditions due to external causes (1 source) Unspecified injury of left wrist, hand and finger(s), initial encounter; Translations: [Injury of left hand, initial encounter] Onset: 3 Episodic Other injuries and conditions due to external causes (1 source) Unspecified injury of right wrist, hand and finger(s), initial encounter; Translations: [Injury of right wrist, initial encounter] Onset: 3 Episodic Other non-traumatic joint disorders (1 source) Stiffness of joint of left hand; Translations: [Stiffness of left hand, not elsewhere classified] 09-27-2023 Episodic Other non-traumatic joint disorders (1 source) Joint stiffness; Translations: [Stiffness of unspecified joint, not elsewhere classified] 10-17-2023 Episodic Other non-traumatic joint disorders (1 source) Stiffness of unspecified joint, not elsewhere classified; Translations: [Joint stiffness] Onset: 3 Episodic Other nutritional; endocrine; and metabolic disorders (1 source) Overweight; Translations: [Overweight] Onset: 7 04-20-2017 Chronic Peripheral and visceral atherosclerosis (3 sources) Peripheral vascular disease; Translations: [Peripheral vascular disease, unspecified] Onset: 3 09-05-2023 Chronic Residual codes; unclassified (1 source) Pain, unspecified; Translations: [Pain] Onset: 3 Episodic Unclassified (1 source) OT EVAL Onset: 3 Past or Other Problems Problem Classification Problem Date Documented Da te Episodic/Chronic Gastritis and duodenitis (4 sources) Duodenitis; Translations: [Duodenitis without bleeding] Onset: 11-14-2008 11-14-2008 Episodic Hemorrhoids (1 source) Internal hemorrhoids; Translations: [Other hemorrhoids] Onset: 04-03-2017 04-05-2017 Episodic Other bone disease and musculoskeletal deformities (4 sources) Disorder of skeletal system; Translations: [Disorder of bone, unspecified] Onset: 03-30-2009 03-30-2009 Episodic Other connective tissue disease (4 sources) Capsulitis; Translations: [Enthesopathy, unspecified] Onset: 08-28-2009 08-28-2009 Episodic Other gastrointestinal disorders (4 sources) Functional diarrhea; Translations: [Functional diarrhea] Onset: 05-28-2014 05-28-2014 Episodic Phlebitis; thrombophlebitis and thromboembolism (1 source) Deep venous thrombosis of lower extremity; Translations: [Acute embolism and thrombosis of unspecified deep veins of left lower extremity] Onset: 02-20-2017 02-20-2017 Episodic Residual codes; unclassified (4 sources) Insomnia; Translations: [Insomnia, unspecified] Onset: 11-11-2008 11-26-2009 Episodic Unclassified (2 sources) Hypersomnia; Translations: [Insomnia] Onset: 08-27-2014 02-25-2015 Episodic Results Test Name Value Interpretation Reference Range Facil ity Vital Signs Date Time Vital Sign Value Performing Clinician Iain augustin 08-09-2017 05:45-0400 BMI (Body Mass Index) 27.12 kg/m2 Tammy Newman CNP [facility] Work Phone: 08-09-2017 05:45-0400 Body Temperature 98.9 [degF] Tammy Newman CNP [facility] Work Phone: 08-09-2017 05:45-0400 BP Diastolic 90 mm[Hg] Tammy Newman CNP [facility] Work Phone: 08-09-2017 05:45-0400 BP Systolic 192 mm[Hg] Tammy Newman CNP [facility] Work Phone: 08-09-2017 05:45-0400 Height 162.56 cm Tammy Newman CNP [facility] Work Phone: 08-09-2017 05:45-0400 Pulse (Heart Rate) 85 /min Tammy Newman CNP [facility] Work Phone: 08-09-2017 05:45-0400 Respiratory Rate 18 /min Tammy Newman CNP [facility] Work Phone: 08-09-2017 05:45-0400 Weight 71.67 kg Tammy Newman CNP [facility] Work Phone: 04-03-2017 13:09-0400 Body Temperature 98.1 [degF] Tammy Newman CNP [facility] Work Phone: 04-03-2017 13:09-0400 BSA (Body Surface Area) 1.75 m2 Tammy Newman CNP [facility] Work Phone: 04-03-2017 13:09-0400 Height 162.56 cm Tammy Newman CNP [facility] [place] Work Phone: 04-03-2017 13: Weight 69.85 kg Tammy Newman CNP [facility] [place] Work Phone: Encounters Encounter Date Encounter Type Care Provider Facility Start: 11-20-2023 Encounter for other preprocedural examination ANITA PICKETT [facility] Start: 11-20-2023 End: 11-21-2023 ambulatory ROMAIN BAILEY Facility:[facility] Start: 10-17-2023 End: 10-17-2023 ambulatory TINO CABRERA Facility:[facility] Start: 10-17-2023 End: 10-17-2023 ambulatory Enedina Seals OTR/L Work Phone: [facility] Procedures Date Procedure Procedure Detail Performing Clinician Start: 08-09-2017 End: 09-04-2017 [facility] Tammy Lam [employer] OFFICER Work Phone: Start: 08-09-2017 End: 09-04-2017 Follow Up Appt 1 month Tammy mojica FHA UNDERWRITER Work Phone: Start: 04-20-2017 End: 05-08-2017 Follow Up Appt 2 weeks Alka Calabrese MD Work Phone: Start: 04-03-2017 End: 04-10-2017 Follow Up Appt 2 weeks Alka Calabrese MD Work Phone: Start: 11-21-2016 End: 12-29-2016 [facility] Tammy Lam [employer] MANAGEMENT OFFICER Work Phone: Start: 11-21-2016 End: 12-29-2016 Follow Up Appt 3 months Tammy cantrell FHA UNDERWRITER Work Phone: Start: 11-21-2016 End: 12-29-2016 Pulmonary Function Test - complete Tammy Newman CNP Work Phone: Start: 11-21-2016 End: 12-29-2016 Pulmonary stress test/simple Tammy Newman CNP Work Phone: Start: 05-23-2016 End: 12-29-2016 Follow Up Appt 3 months Tammy Serrato er FHA UNDERWRITER Work Phone: Start: 02-25-2015 End: 02-26-2015 Documentation of current medications Edgardo Britton Work Phone: Start: 02-01-2011 Lipid 1996 panel - S cas or Plasma Debbie Espinosa OT/L Work Phone: Start: 11-14-2008 Colonoscopy Debbie haile OT/L Work Phone: Plan of Treatment Date Care Activity Detail Author Start: 06-03-2033 Urine microalbumin profile DTaP,Tdap,Td Vaccine (3 - Td or Tdap) [facility] Start: 06-30-2023 Covid-19 Vaccine () Covid-19 Vaccine () [facility] Start: 06-30-2023 Influenza vaccination Influenza Vaccine (#1) [facility] Start: 10-30-2022 Advance Directive Discussion Advance Directive Discussion [facility] Start: 11-14-2018 Colonoscopy Colonoscopy [facility] Start: 11-14-2018 Colorectal Cancer Screening Colorectal Cancer Screening [facility] Start: 11-14-2018 Screening for malignant neoplasm of colon [facility] Start: 09-06-2017 End: 09-06-2017 Appointment Appointment [facility] [place] Work Phone: Start: 08-09-2017 End: 09-04-2017 [facility] [place] Work Phone: Start: 08-09-2017 End: 09-04-2017 Follow Up Appt 1 month Follow Up Appt 1 month [facility] Work Phone: Start: 06-13-2017 End: 06-13-2017 Follow Up Appt Other Follow Up Appt Other [facility] [place] Work Phone: Start: 05-30-2017 End: 05-30-2017 Follow Up Appt 2 weeks Follow Up Appt 2 weeks [facility] [place] Work Phone: Start: 05-16-2017 End: 05-16-2017 Follow Up Appt 2 weeks Follow Up Appt 2 weeks [facility] [place] Work Phone: Start: 04-20-2017 End: 05-08-2017 Follow Up Appt 2 weeks Follow Up Appt 2 weeks [facility] [place] Work Phone: Start: 04-03-2017 End: 04-10-2017 Follow Up Appt 2 weeks Follow Up Appt 2 weeks [facility] Work Phone: Start: 02-20-2017 End: 02-20-2017 [facility] [place] Work Phone: Start: 02-20-2017 End: 02-20-2017 Follow Up Appt 6 months Follow Up Appt 6 months [facility] Work Phone: Start: 11-21-2016 End: 12-29-2016 BWA BW [facility] Work Phone: Start: 11-21-2016 End: 12-29-2016 Follow Up Appt 3 months Follow Up Appt 3 months [facility] Work Phone: Start: 11-21-2016 End: 12-29-2016 Pulmonary Function Test - complete Pulmonary Function Test - complete [facility] Work Phone: Start: 11-21-2016 End: 12-29-2016 Pulmonary stress test/simple Pulmonary stress testing; simple (eg, 6-minute walk) [facility] [place] Work Phone: Start: 08-22-2016 End: 08-22-2016 [facility] [place] Work Phone: Start: 08-22-2016 End: 08-22-2016 Follow Up Appt 3 months Follow Up Appt 3 months [facility] Work Phone: Start: 05-23-2016 End: 12-29-2016 Follow Up Appt 3 months Follow Up Appt 3 months [facility] [place] Work Phone: Start: 02-23-2016 End: 02-23-2016 [facility] Phone: Start: 02-23-2016 End: 02-23-2016 Follow Up Appt 3 months Follow Up Appt 3 months [facility] Phone: Start: 02-23-2016 End: 02-23-2016 [facility], [address], [place], [address] [facility] Phone: Start: 02-02-2016 Lipid 1996 panel - Serum or Plasma Lipid Screening [facility] Start: 02-02-2016 Lipid panel Lipid Screening [facility] Start: 08-26-2015 End: 08-26-2015 Follow Up Appt 6 months Follow Up Appt 6 months [facility] Phone: Start: 08-26-2015 End: 08-26-2015 Pulmonary Function Test - complete Pulmonary Function Test - complete [facility] Phone: Start: 08-26-2015 End: 08-26-2015 Pulmonary stress test/simple Pulmonary stress testing; simple (eg, 6-minute walk) [facility] Phone: Start: 07-30-2015 End: 02-25-2015 Pulmonary Function Test - complete Pulmonary Function Test - complete [facility] Phone: Start: 07-30-2015 End: 02-25-2015 Pulmonary stress test/simple Pulmonary stress testing; simple (eg, 6-minute walk) [facility] Phone: Start: 04-07-2015 End: 04-08-2015 Follow Up Appt 4 months Follow Up Appt 4 months [facility] Phone: Start: 02-25-2015 End: 02-25-2015 Complete sleep workup (PSG,CPAP as indicated) & Follow up Complete sleep workup (PSG,CPAP as indicated) & Follow up [facility] Phone: Start: 02-25-2015 End: 02-25-2015 Follow Up Appt 6 months Follow Up Appt 6 months [facility] Phone: Start: 11-25-2014 End: 11-25-2014 Follow Up Appt 3 months Follow Up Appt 3 months [facility] Phone: Start: 08-27-2014 End: 08-27-2014 Follow Up Appt 3 months Follow Up Appt 3 months [facility] Phone: Start: 08-27-2014 End: 08-27-2014 Pulmonary Fuction Test - complete Pulmonary Fuction Test - complete [facility] Phone: Start: 08-27-2014 End: 08-27-2014 Pulmonary stress test/simple Pulmonary stress testing; simple (eg, 6-minute walk) [facility] Phone: Start: 02-01-2014 Diabetes Screening Diabetes Screening [facility] Start: 2008 RSV Vaccine (1 - 1-dose 60+ series) RSV Vaccine (1 - 1-dose 60+ series) [facility] Start: 1998 Influenza vaccination Lung Cancer Screening [facility] Start: 1998 Shingrix Vaccine (1 of 2) Shingrix Vaccine (1 of 2) [facility] Start: 1993 Cologuard (FIT-DNA) Cologuard (FIT-DNA) [facility] Start: [address] Colonography [facility] Start: 1993 Fecal Occult Blood Fecal Occult Blood [facility] Start: 1993 Screening for malignant neoplasm of colon [facility] Start: 1993 Sigmoidoscopy Sigmoidoscopy [facility] Start: 1978 Zoledronic acid therapy Alpha-1 Antitrypsin Deficiency Screening [facility] Start: 1966 Annual PCP Team Chronic Disease Visit Annual PCP Team Chronic Disease Visit [facility] Start: 1966 BP Controlled (<130/80) BP Controlled (<130/80) [facility] Start: 1966 Hepatitis C Screening Hepatitis C Screening [facility] Start: 1966 Hepatitis C screening Hepatitis C Screening [facility] Start: 08-27-1966 Spirometry Spirometry [facility] Start: 1954 Pneumococcal Vaccine: 65+ (1 - PCV) Pneumococcal Vaccine: 65+ (1 - PCV) [facility] Start: 1954 Pneumococcal Vaccine: 65+ (1 of 2 - PCV) Pneumococcal Vaccine: 65+ (1 of 2 - PCV) [facility] Immunizations Immunization Date Immunization Notes Care Provider Fa cili 08-16-2022 influenza virus vaccine, unspecified formulation Debbie Espinosa OT/L Work Phone: [facility] 09-16-2011 influenza virus vaccine, unspecified formulation Debbie Espinosa OT/L Work Phone: [facility] 08-14-2009 influenza virus vaccine, unspecified formulation Debbie Espinosa OT/L Work Phone: [facility] Work Phone: 09-11-2008 influenza virus vaccine, unspecified formulation Debbie Espinosa OT/L Work Phone: [facility] Work Phone: Payers Date Payer Category Payer Unknown ANTHEM BLUE CROS S AND BLUE SHIELD AN[employer]M MEDIBLUE HMO [id number] 2022-Present [phone] [address] [place] [address] O [id number] 2022 Unknown [id number] 2019 Medicaid [facility] MEDICAID [id number] 2019-Present [phone] [address] [place] [address] Medicaid [id number] 2019 Medicaid [id number] Social History Date Type Detail Facility Start: 12-27-2017 [facility] End: 09-25-2008 History of tobacco use Current smoker [facility] End: 09-25-2008 History of tobacco use Cigarette Smoker [facility] Start: 12-27-2017 End: 08-22-2023 Cigarettes smoked current (pack per day) - Reported 1 [facility] Start: 12-27-2017 Tobacco use and exposure Smoke less tobacco non-user [facility] Start: 08-22-2023 End: 09-05-2023 Alcohol intake Current non-drinker of alcohol (finding) [facility] Start: 08-22-2023 End: 09-05-2023 Tobacco use panel [facility] National Score (1-10 0), lower number is lower risk 89 [facility] Start: 1950 Sex Assigned At Not on file C [facility] Clinical Notes 11-11-2008 to 10-17-2023 Enedina Seals OTR/Moon - 10/17/2023 11:17 AM ESTPatient Tino Pedroza MD, PhD - 09/27/2023 8:40 AM ESTTelephone Encounter - Gail Rodriguez - 09/19/2023 3:01 PM EST Note Date & Type Note Facility 10-17-2023 Note HNO ID: [id number] Author: Enedina Seals OTR/Moon Service: ? Author Type: Occupational Therapist Type: Progress Notes Filed: 10/17/2023 11:23 AM Note Text: Summary: OT evaluation Episode Visit Count: 1 Therapist That Will Accept/Oversee The Plan Of Care: Enedina Seals Start of Care Date: 10/17/23 Onset Date: 07/17/23 Patient Identified by Name and Date of : Yes [facility] OCCUPATIONAL THERAPY EVALUATION PLAN OF CARE: Assessment: Nava May presents with diagnosis of R distal radius fracture, L D3-5 fractures with severe ulnar deviation deformities and nodules that interferes with lifting, cleaning, gripping, weight bearing, pinching, twisting, pulling, heavy exertion . She presents with impairments in ADL's, joint mobility, overall function, range of motion, sensation, soft tissue healing, strength, and tissue tenderness. PROMIS? (Patient-Reported Outcomes Measurement Information System) scores were reviewed and physical function domain identified as a rehabilitation concern. Prognosis for therapy is Good due to: current objective clinical presentation . Pt reports understanding of HEP and would like to remain home as much as she can as transportation is difficult for her. She will benefit from skilled therapy services to meet the goals established for this plan of care as noted below. Pt would benefit from monthly check ins to ensure progress and independence and adjust HEP as needed. Goals for Episode of Care created on 10/17/23 through 01/09/24 Patient will demonstrate independence with ongoing home recommendations/exercise program throughout therapy plan of care. Patient will report a decrease in pain in Bilateral hand to 2/10 with basic self-care tasks. Patient will increase Bilateral level glass vial filler strength by 3#, so that patient will be able to improve function for light functional tasks. Patient Goals: resume as much strength and ROM as possible before surgery Planned Interventions, Frequency, and Duration: Current Frequency: 1x/month Duration: 12 weeks Total Number of Visits Planned: 3 Planned Treatment Interventions: Therapeutic exercise (00850), Therapeutic activities (61928), Manual therapy (05420), Self-chcf management (44111), Custom orthosis fabrication PLAN FOR NEXT VISIT: review HEP Patient demonstrates good understanding of plan of care and treatment. The above goals and plan of care were discussed and agreed upon by patient/family. SUBJECTIVE: Pt presents s/p traumatic fall while walking dog on 07/17/23 resulting in L D3-5 MCP joints, and R distal radius fracture; Pt had been in SNF and is now home; She typically wears a splint on the L hand and brace for the R wrist; She is retired and is R HD. Pt will likely get silicone joint replacements in November in L hand; Functional Limitations: lifting, cleaning, gripping, weight bearing, pinching, twisting, pulling, heavy exertion Prior Level of Function: Independent without limitations Patient Goals: resume as much strength and ROM as possible before surgery Intake Information: Prescription present Previous Treatment: Exercises per physician, Chiropractor , Occupational Therapy, Physical Therapy Falls Interview: Fall with injury in the last year Relevant History Highest Level of Education: (not reported) Right or Left Handed: Right Employment: Retired Home Environment Patient Lives With: Self/Alone Assistance Available: PRN (Friends) Pain: Pain Pain Level: 4 Pain Location: Hand - Left Description: Aching Frequency: Continuous Detailed Pain Score: Yes Post Treatment Pain Post Treatment Pain Level: 5 Post Treatment Pain Location: Hand - Left Post Treatment Pain Description: Aching PROMIS Scales Higher is Better 10/17/2023 Phys Func - Score 43 (mild dysfunction) Phys Func - Percentile 24% Self-Eff Symptom - Score 46 (Average) Self-Eff Symptom - Percentile 34% T-scores: mean of general population = 50. 5 points is clinically meaningfully difference Percentiles provide an indication of how the patient's score ranks in relation to the general population. Higher percentile rankings indicate better function/quality of life. 50th percentile is the average of the general population and indicates half of respondents had a worse score. 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 [facility] 10-17-2023 History of Present illness Narrative Summary: OT evaluation Episode Visit Count: 1 Therapist That Will Accept/Oversee The Plan Of Care: Enedina Seals Start of Care Date: 10/17/23 Onset Date: 07/17/23 Patient Identified by Name and Date of : Yes [facility] OCCUPATIONAL THERAPY EVALUATION PLAN OF CARE: Assessment: Nava May presents with diagnosis of R distal radius fracture, L D3-5 fractures with severe ulnar deviation deformities and nodules that interferes with lifting, cleaning, gripping, weight bearing, pinching, twisting, pulling, heavy exertion . She presents with impairments in ADL's, joint mobility, overall function, range of motion, sensation, soft tissue healing, strength, and tissue tenderness. PROMIS (Patient-Reported Outcomes Measurement Information System) scores were reviewed and physical function domain identified as a rehabilitation concern. Prognosis for therapy is Good due to: current objective clinical presentation . Pt reports understanding of HEP and would like to remain home as much as she can as transportation is difficult for her. She will benefit from skilled therapy services to meet the goals established for this plan of care as noted below. Pt would benefit from monthly check ins to ensure progress and independence and adjust HEP as needed. Goals for Episode of Care created on 10/17/23 through 01/09/24 Patient will demonstrate independence with ongoing home recommendations/exercise program throughout therapy plan of care. Patient will report a decrease in pain in Bilateral hand to 2/10 with basic self-care tasks. Patient will increase Bilateral level glass vial filler strength by 3#, so that patient will be able to improve function for light functional tasks. Patient Goals: resume as much strength and ROM as possible before surgery Planned Interventions, Frequency, and Duration: Current Frequency: 1x/month Duration: 12 weeks Total Number of Visits Planned: 3 Planned Treatment Interventions: Therapeutic exercise (78517), Therapeutic activities (92231), Manual therapy (42257), Self-chcf management (17024), Custom orthosis fabrication PLAN FOR NEXT VISIT: review HEP Patient demonstrates good understanding of plan of care and treatment. The above goals and plan of care were discussed and agreed upon by patient/family. SUBJECTIVE: Pt presents s/p traumatic fall while walking dog on 07/17/23 resulting in L D3-5 MCP joints, and R distal radius fracture; Pt had been in SNF and is now home; She typically wears a splint on the L hand and brace for the R wrist; She is retired and is R HD. Pt will likely get silicone joint replacements in November in L hand; Functional Limitations: lifting, cleaning, gripping, weight bearing, pinching, twisting, pulling, heavy exertion Prior Level of Function: Independent without limitations Patient Goals: resume as much strength and ROM as possible before surgery Intake Information: Prescription present Previous Treatment: Exercises per physician, Chiropractor , Occupational Therapy, Physical Therapy Falls Interview: Fall with injury in the last year Relevant History Highest Level of Education: (not reported) Right or Left Handed: Right Employment: Retired Home Environment Patient Lives With: Self/Alone Assistance Available: PRN (Friends) Pain: Pain Pain Level: 4 Pain Location: Hand - Left Description: Aching Frequency: Continuous Detailed Pain Score: Yes Post Treatment Pain Post Treatment Pain Level: 5 Post Treatment Pain Location: Hand - Left Post Treatment Pain Description: Aching PROMIS Scales Higher is Better 10/17/2023 Phys Func - Score 43 (mild dysfunction) Phys Func - Percentile 24% Self-Eff Symptom - Score 46 (Average) Self-Eff Symptom - Percentile 34% T-scores: mean of general population = 50. 5 points is clinically meaningfully difference Percentiles provide an indication of how the patient's score ranks in relation to the general population. Higher percentile rankings indicate better function/quality of life. 50th percentile is the average of the general population and indicates half of respondents had a worse score. OBJECTIVE MEASURES WITH LEVEL OF FUNCTION: Hand Shoulder AROM: Bilateral Limitation Elbow AROM: WFL Wrist AROM: Bilateral Limitation Right Hand AROM: All Digits (R hand able to make full fist; L difficulty with MCP AROM - severe ulnar deviation (B); PIP flexed position unable to achieve full ext.) Left Hand AROM: All Digits Thumb AROM: WFL Strength: Pinch Meter, Motorcycle Sales Associate Position 2 Sensation: Reports tingling or numbness (neuropathy) Dexterity/Coordination: Fine Motor Hand Strength R Motorcycle Sales Associate Position 2 (lbs): 9 lbs L Motorcycle Sales Associate Position 2 (lbs): 0 lbs R Lateral Pinch (lbs): 8 lbs R Tripod/ 3 Jaw Alverto (lbs): 6 lbs L Lateral Pinch (lbs): 5 lbs L Tripod/ 3 Jaw Alverto (lbs): 2.5 lbs UE AROM R Wrist Extension: 39 Degrees R Wrist Flexion: 41 Degrees R Wrist Radial Deviation: 15 Degrees R Wrist Ulnar Deviation: 3 Degrees Right Hand AROM: All Digits (R hand able to make full fist; L difficulty with MCP AROM - severe ulnar deviation (B); PIP flexed position unable to achieve full ext.) L Wrist Extension: 51 Degrees L Wrist Flexion: 61 Degrees L Wrist Radial Deviation: 3 Degrees L Wrist Ulnar Deviation: 13 Degrees Left Hand AROM: All Digits Thumb AROM: WFL Current Activities Of Daily Living Current Activities Of Daily Living: Feeding, Grooming, Bathing Upper Body, Bathing Lower Body, Dressing Upper Body, Dressing Lower Body, Toileting Feeding: Modified Independent Grooming: Modified Independent Bathing Upper Body: Modified Independent Bathing Lower Body: Modified Independent Dressing Upper Body: Modified Independent Dressing Lower Body : Modified Independent Toileting: Modified Independent Instrumental Activities of Daily Living Difficulty noted with: Driving, Shopping, Laundry, Cleaning, Meal/Beverage Prep Meal/Beverage Prep: Modified Independent Cleaning: Modified Independent Laundry: Modified Independent Shopping: Modified Independent Driving: Total Assistance Education: Education Learning Preferences: Demonstration, Explanation, Performance, Printed Materials Barriers: None Learning/educational needs: Home exercise program, Plan of Care Education Provided: Yes, see treatment interventions for education provided Education Provided To: Patient Education Mode/Type: Demonstration, Explanation/Discussion, Literature/Printed Materials, Performance Response to Education/Teach Back: States/Identifies, Return Demonstration, Requires Review/Additional Education TREATMENT: OT Treatment Interventions : Therapeutic Exercise Evaluation Evaluation Therapeutic Exercise: 1: Review of AROM of wrist and digits; Review of PROM of wrist and digits including blocking exercises; Review of tendon glides Skilled Intervention: Patient was educated in proper exercise technique and purpose for exercises. Skilled judgment was used in selection of appropriate interventions. Provided written instruction for home exercise program to facilitate proper performance and compliance. Correct performance of therapeutic exercises was facilitated with verbal, visual, and tactile cuing. Billing * Evaluation Low Complexity: 1 Unit Therapeutic Exercise Treatment Minutes: 20 Skilled Treatment Time Minutes (timed and untimed codes): 45 Total Session Time (minutes): 45 Session Start Time : 1025 Session Stop Time : 1110 RACHELLE Andersen documented in this encounter [facility] 09-27-2023 Note HNO ID: [id number] Author: Tino Cabrera MD, PhD Service: ? Author Type: Physician Type: Progress Notes Filed: 10/02/2023 10:12 AM Note Text: September 27, 2023 CHIEF COMPLAINT: LEFT hand deformity HPI: Nava May is a 73 year old RHD female who presents to clinic with left hand deformity ever since she fell on 07/17/2023 when she tripped over an uneven sidewalk while walking her dog. She has been staying at a nursing facility and would like to return to her apartment prior to October 18 so she doesn't lose her apartment. She has some pain in the left hand and some pain in her right wrist where she sustained a distal radius fracture at the time of her fall. She has not had any surgeries for any of her fractures. She continues to wear a splint on her left hand and a brace on her right wrist. 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 She also has a malunion of the right distal radius with minimal pain. S63.261A Closed dislocation of metacarpophalangeal (MCP) joint of left index finger (primary encounter diagnosis) S62.323A Closed displaced fracture of shaft of third metacarpal bone of left hand, initial encounter S62.335A Closed displaced fracture of neck of fourth metacarpal bone of left hand, initial encounter S62.337A Closed displaced fracture of neck of fifth metacarpal bone of left hand, initial encounter M25.642 Joint stiffness of hand, left M25.531 Pain in right wrist PLAN: We discussed operative versus non-operative management of her LEFT MCP joints. We will plan for silicone joint replacements of the index, long, ring, and small finger MCP joints on the left hand. We signed consent today. She will also see OT to get a new brace because she would like to defer surgery for a while. She should be able to go home from the nursing facility. We will plan to do surgery on an outpatient basis in November 2023 after she has been able to settle at home. OBJECTIVE: There were no vitals filed for this visit. There is no height or weight on file to calculate BMI. General: NAD, Eyes: Pupils not pinpointed, not overly dilated, anicteric Neck: Full range of motion Cardiovascular: Palpable pulse and brisk capillary refill (<2 sec) to all fingers Lymphatic: Inspection of the arm/hand reveals no lymphedema and palpation of epitrochlear nodes is unremarkable. Respiratory: Respirations even and unlabored, no audible wheezing Integumentary: Inspection of skin reveals no breaks or obvious lesions except for those noted below. Neuro: Intact sensation to light touch over the median, ulnar, and radial nerve distributions. Psychiatric: No obvious anxiety, well kempt, normal affect. Appropriate response to pain. Musculoskeletal: Minimal motion of her digits on the LEFT hand with ulnar deviation of her index, long, ring and small fingers at the MCP joints which are held in extension without active flexion. Minimal AROM at the PIP and DIP joints. The right wrist has obvious deformity but has reasonable 30 degrees of flexion and extension with minimal discomfort. IMAGING: Radiographs of the left hand were obtained on 09/27/2023 which were personally reviewed by me and demonstrate healing fractures of the metacarpals with some dislocation of the fifth CMC. Radiographs of the right wrist were obtained on 09/27/2023 which demonstrate a stable appearance of the malunited intra-articular, comminuted distal radius fracture. Supporting Subjective Information Below: Past Medical History: PAST MEDICAL HISTORY Diagnosis Date Abdominal pain, epigastric Calculus of gallbladder without mention of cholecystitis or obstruction COPD (chronic obstructive pulmonary disease) (HCC) Depressive disorder, not elsewhere classified Diverticulosis of colon (without mention of hemorrhage) Duodenitis without mention of hemorrhage Esophageal reflux Esophagitis, unspecified Functional diarrhea GERD (gastroesophageal reflux disease) IBS (irritable bowel syndrome) Insomnia, unspecified Migraine without aura, with intractable migraine, so stated, with status migrainosus Mixed hyperlipidemia Other emphysema (HCC) Peptic ulcer, unspecified site, unspecified as acute or chronic, without mention of hemorrhage, perforation, or obstruction Unspecified asthma(493.90) Unspecified essential hypertension Past Surgical History: PAST SURGICAL HISTORY Procedure Laterality Date APPENDECTOMY CHOLECYSTECTOMY COLONOSCOPY FLX DX W/COLLJ SPEC WHEN PFRMD 11/14/2008 Sigmoid diverticulosis EGD TRANSORAL BIOPSY SINGLE/MULTIPLE 11/14/2008 Distal esophagitis/duodenitis LAPS SURG CHOLECYSTECTOMY W/CHOLANGIOGRAPHY 12/03/2008 Dr. Perera PAST (more content not included)... [facility] 09-27-2023 Note HNO ID: [id number] Author: Carmella Gallardo RT(R) Service: ? Author Type: Technologist Type: Progress Notes Filed: 09/27/2023 8:22 AM Note Text: Radiology Service Progress Note PATIENT NAME: Nava May DATE OF SERVICE: September 27, 2023 TIME: 8:21 AM PATIENT IDENTITY VERIFICATION COMPLETED USING TWO (2) IDENTIFIERS: Name and Date of confirmed by patient verbally. FALL SCREENING: Has the patient had 2 falls in the last year or 1 fall with injury or currently using an Ambulatory Assistive Device (Walker, Cane, Wheelchair, Crutches, etc.)? No PATIENT GENDER DATA: Female. status: : No status: NO. PATIENT RELEVANT IMPLANT DATA REVIEWED: Not Applicable RADIOLOGY DEPARTMENT: General X-ray: Exam(s) Completed: Upper Extremity X-Ray(s): Wrist, right and Hand, left PERIPHERAL IV DATA: Not applicable SIGNED BY: RT Grayson(R) September 27, 2023 8:21 AM [facility] 09-27-2023 Instructions Katie Romero RN - 09/27/2023 9:02 AM EST Your surgery date is 12/07/23 at [facility] PRE-OPERATIVE INSTRUCTIONS- Tino Cabrear MD Office: [phone] [facility]: [facility] will call you after 1:30PM the day before your surgery with your arrival time. Report to Registration located at [facility] [address] Park in the patient parking lot located next to the hospital on [address] off [address] 1. You are required to have a pre-operative exam prior to surgery within 30 days of surgery if you are getting anesthesia. If you were not notified of this at least one week prior to surgery, please call [phone]. They will go over your medications and advise you what to take the day of surgery. You will not have surgery if you do not have pre op testing done. 2. Do not eat or drink anything after midnight the day prior to your surgery. If you have medications you were instructed to take the morning of surgery, take only with a small sip of water. This includes some blood pressure medications, cardiac medications, all asthma medications, all seizure medications and some gastric medications. 3. Discontinue all aspirin or non-steroidal anti-inflammatory medications (i.e. Motrin) one week prior to surgery. An exception to this would be if you were taking a blood thinner such as Coumadin. In this case you must contact your prescribing physician and get permission or clearance to discontinue the medication. 4. Please wear loose fitting and comfortable clothing. Keep in mind the type of surgery you are having may include a bulky dressing or cast which will make it difficult to put your arm through a narrow sleeve. 5. YOU MUST HAVE A TRANSFER CAR OPERATOR DRIER to take you home after surgery. YOU CANNOT DRIVE YOURSELF HOME. 6. If you need [facility] paperwork filled out, please fax it to our office. This is completed about 3-4 weeks prior to your surgery. 7. Your surgery date will NOT show up in [place] until about 30 days prior to your surgery. After Your Surgery: Dressing: You will have a soft bandage or splint on the operative site. DO NOT GET YOUR DRESSING WET. The bandages are placed in a sterile and specific fashion to protect the operative area. Once at home, if you feel your dressing is too tight, comes loose, or accidently gets wet please contact Dr. Cabrera s office [phone]. Activity: Please ELEVATE the operated extremity above the level of the heart to help avoid post-operative swelling and accompanying pain for at least 72 hours after your surgery. While resting, place your hand/arm on several pillows, or while sitting at a table, rest your elbow on the table with your hand pointed to the margaret. If a sling is provided, it is only used until you regain feeling after anesthesia block or for occasional comfort while up and about. The sling does not allow for proper elevation and tends to cause stiffness in elbow/shoulder if worn excessively. You may place ice in secure/waterproof ice bag and place over splinting. You can also put on the skin with a barrier underneath. PAIN: If you receive a nerve block your hand or arm may be numb for many hours, sometimes even into the next day after surgery. You will also be discharged home with oral pain medication. Rest, ice and elevation are the most important factors for pain control. Take your pain medication as needed, but do not wait for the pain to become out of control. Pain medication may cause some lethargy, nausea, and/or constipation. You should not drive/operate dangerous machinery while taking these medications. If these or other symptoms become significantly problematic, please contact Dr. Cabrera s office and discontinue the medications. FOLLOW-UP: You will be seen 1-2 weeks after surgery depending on the procedure. (Check your discharge sheet for specifics). Sutures will usually remain in for 12-15 days. Pins may remain in for up to 8 weeks and pin care instructions will be given. Your recovery may require additional appointments with an Occupational Therapist (OT) which insurance may or may not cover. Please verify your coverage with your insurance company. Your first clinic and therapy visit will be made prior to surgery by our office. If an emergency arises after office hours, or on a weekend, call [phone] and ask to speak to the orthopedic doctor on dutyFor life threatening emergencies, call 911 documented in this encounter [facility] 09-27-2023 History of Present illness Narrative September 27, 2023 CHIEF COMPLAINT: LEFT hand deformity HPI: Nava May is a 73 year old RHD female who presents to clinic with left hand deformity ever since she fell on 07/17/2023 when she tripped over an uneven sidewalk while walking her dog. She has been staying at a nursing facility and would like to return to her apartment prior to October 18 so she doesn't lose her apartment. She has some pain in the left hand and some pain in her right wrist where she sustained a distal radius fracture at the time of her fall. She has not had any surgeries for any of her fractures. She continues to wear a splint on her left hand and a brace on her right wrist. 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 She also has a malunion of the right distal radius with minimal pain. S63.261A Closed dislocation of metacarpophalangeal (MCP) joint of left index finger (primary encounter diagnosis) S62.323A Closed displaced fracture of shaft of third metacarpal bone of left hand, initial encounter S62.335A Closed displaced fracture of neck of fourth metacarpal bone of left hand, initial encounter S62.337A Closed displaced fracture of neck of fifth metacarpal bone of left hand, initial encounter M25.642 Joint stiffness of hand, left PLAN: We discussed operative versus non-operative management of her LEFT MCP joints. We will plan for silicone joint replacements of the index, long, ring, and small finger MCP joints on the left hand. We signed consent today. She will also see OT to get a new brace because she would like to defer surgery for a while. She should be able to go home from the nursing facility. We will plan to do surgery on an outpatient basis in November 2023 after she has been able to settle at home. OBJECTIVE: There were no vitals filed for this visit. There is no height or weight on file to calculate BMI. General: NAD, Eyes: Pupils not pinpointed, not overly dilated, anicteric Neck: Full range of motion Cardiovascular: Palpable pulse and brisk capillary refill (<2 sec) to all fingers Lymphatic: Inspection of the arm/hand reveals no lymphedema and palpation of epitrochlear nodes is unremarkable. Respiratory: Respirations even and unlabored, no audible wheezing Integumentary: Inspection of skin reveals no breaks or obvious lesions except for those noted below. Neuro: Intact sensation to light touch over the median, ulnar, and radial nerve distributions. Psychiatric: No obvious anxiety, well kempt, normal affect. Appropriate response to pain. Musculoskeletal: Minimal motion of her digits on the LEFT hand with ulnar deviation of her index, long, ring and small fingers at the MCP joints which are held in extension without active flexion. Minimal AROM at the PIP and DIP joints. The right wrist has obvious deformity but has reasonable 30 degrees of flexion and extension with minimal discomfort. IMAGING: Radiographs of the left hand were obtained on 09/27/2023 which were personally reviewed by me and demonstrate healing fractures of the metacarpals with some dislocation of the fifth CMC. Radiographs of the right wrist were obtained on 09/27/2023 which demonstrate a stable appearance of the malunited intra-articular, comminuted distal radius fracture. Supporting Subjective Information Below: Past Medical History: PAST MEDICAL HISTORY Diagnosis Date Abdominal pain, epigastric Calculus of gallbladder without mention of cholecystitis or obstruction COPD (chronic obstructive pulmonary disease) (HCC) Depressive disorder, not elsewhere classified Diverticulosis of colon (without mention of hemorrhage) Duodenitis without mention of hemorrhage Esophageal reflux Esophagitis, unspecified Functional diarrhea GERD (gastroesophageal reflux disease) IBS (irritable bowel syndrome) Insomnia, unspecified Migraine without aura, with intractable migraine, so stated, with status migrainosus Mixed hyperlipidemia Other emphysema (HCC) Peptic ulcer, unspecified site, unspecified as acute or chronic, without mention of hemorrhage, perforation, or obstruction Unspecified asthma(493.90) Unspecified essential hypertension Past Surgical History: PAST SURGICAL HISTORY Procedure Laterality Date APPENDECTOMY CHOLECYSTECTOMY COLONOSCOPY FLX DX W/COLLJ SPEC WHEN PFRMD 11/14/2008 Sigmoid diverticulosis EGD TRANSORAL BIOPSY SINGLE/MULTIPLE 11/14/2008 Distal esophagitis/duodenitis LAPS SURG CHOLECYSTECTOMY W/CHOLANGIOGRAPHY 12/03/2008 Dr. Perera PAST SURGICAL HISTORY OF 1999 Right tibial plateau, pin/graft, Dr. 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, done with the hemorrhoid surgery TOTAL ABDOMINAL HYSTERECT W/WO RMVL TUBE OVARY 1977 one ovary remains; done for BENIGN reasons Family History: FAMILY HISTORY Problem Relation Age of Onset Coronary Artery Disease Mother first disease at age 30-40's Arthritis Mother Stroke Mother x two Hypertension Mother Heart Mother OR Arthritis Father RA Hypertension Father Stroke Father age early 60's; Prostate Cancer Father Stroke Brother age mid 50's Colon Cancer Other none Medications: Current Outpatient Medications Medication Sig Dispense Refill SPIRIVA RESPIMAT 2.5 mcg/actuation inhaler Inhale 2 Puffs as instructed once daily. amLODIPine (NORVASC) 5 mg tablet Take 1 tablet by mouth once daily. atorvastatin (LIPITOR) 40 mg tablet Take 1 tablet by mouth once daily. acetaminophen (TYLENOL) 500 mg tablet Take 500 mg by mouth every 6 hours as needed for pain. CHOLECALCIFEROL, VITAMIN D3, ORAL Take by mouth once daily. diphenhydrAMINE-Acetaminophen 12.5-500 mg tab Take by mouth as needed. omeprazole (PRILOSEC) 40 mg capsule Take 40 mg by mouth once daily. DULoxetine (CYMBALTA) 30 mg capsule TAKE 2 CAPSULES IN THE MORNING and TAKE 1 CAPSULE IN THE EVENING DAILY polyvinyl alcohol (LIQUIFILM TEARS) 1.4 % ophthalmic solution Polyvinyl Alcohol Polyvinyl Alcohol Active 1 DRP 4 TIMES DAILY August 20, 2019 10:25am 10-22-[address] [facility] ([id number]) INCRUSE ELLIPTA 62.5 mcg/actuation inhaler Inhale 1 Puff as instructed once daily. 3 albuterol 2.5 mg /3 mL (0.083 %) INHALATION nebulizer solution Use via nebulizer three times daily as needed. OVER 5-15 MINUTES. FOR WHEEZING AND SHORTNESS OF BREATH. 60 Vial 5 albuterol HFA 90 mcg/Actuation INHALATION inhaler Inhale 2 Puffs as instructed every 4 hours as needed. 3 Inhaler 3 oxyCODONE ir (OXYIR) 5 mg capsule Take 5 mg by mouth every 4 hours as needed for pain. (Patient not taking: Reported on 09/27/2023) BREO ELLIPTA 200-25 mcg/dose inhaler INHALE 1 PUFF BY MOUTH EVERY DAY after inhalation, rinse mouth with water, spit out do not swallow (Patient not taking: Reported on 09/27/2023) amLODIPine (NORVASC) 2.5 mg tablet Take 5 mg by mouth once daily. (Patient not taking: Reported on 09/27/2023) ipratropium bromide (ATROVENT) 42 mcg (0.06 %) nasal spray use 2 sprays in each nostril three times a day (Patient not taking: Reported on 09/27/2023) ATORVASTATIN 80 mg tablet Take 40 mg by mouth once daily. (Patient not taking: Reported on 09/27/2023) No current facility-administered medications for this visit. Allergies: ALLERGIES Allergen Reactions Methylprednisolone Rash, Itching ROS: General (negative for fatigue) HEENT (negative for headache, earache, recent vision changes, sinus pain, sore throat) Respiratory (no recent shortness of breath, hemoptysis) CV (negative for chest tightness, palpitations) GI (negative for change in bowel habits) Hematologic (no spontaneous bleeding, bruising) Endocrine (no heat or cold intolerance) Ming Cabrera MD, PhD Hand & Upper Extremity Orthopaedic Staff Surgeon documented in this encounter [facility] 09-19-2023 Miscellaneous Notes I have made several attempts at contacting patient to get her schedule to see Dr. Montes. Made an attempt at contacting [facility] [place] to schedule and was unable to LVM. ----- Message from Joselito Montes Jr., MD sent at 08/31/2023 11:32 AM EDT ----- Will Frazier, This patient was planned to have outpatient follow up. I am happy to see her. Gail: can you see if patient can come in next week? Sen, Wade documented in this encounter [facility] 08-22-2023 Note HNO ID: [id number] Author: Debbie Espinosa OT/L Service: ? Author Type: Occupational Therapist Type: Progress Notes Filed: 08/22/2023 5:54 PM Note Text: [facility] HAND CUSTOM SPLINT NOTE GENERAL RECORD INFORMATION CURRENT VISIT NUMBER: ONSET:st:08/22/23 THERAPISTS NAME: JAZMYNE Card INSURANCE TYPE: Payor: [employer] / Plan: [employer] HMO / Product Type: HMO / REFERRING PROVIDER: Anita Pickett MD PLAN OF CARE: 08/22/2023 Mechanism Of Injury: Tripped while walking do fractured right wrist and hand, lacerations and toe fracture Patient identified by name and date: Yes SUBJECTIVE: Nava May is a 73 year old female seen today for issuance of a resting hand splint , provided with diane tapes as well Pain/Symptoms:left hand 04/08 Orthosis Delivery: Occupational Therapist fabricated custom orthosis issued: L 3808 WHFO w/out joints (long opponens, thumb spica, intrinsic gutter, resting, anti-spasticity, EXOS, dorsal block) Custom orthosis to provide OT provided patient with education/ written instructions for orthosis care and precautions. and Pt practiced orthosis application, donning on/off while under OT's supervision.. Patient was instructed in its wearing schedule time clock mechanic except bathing.. Skilled Intervention: Occupational Therapist instructed the patient in orthosis application, precautions, wear and care. Patient practiced orthosis donning/doffing while under the Occupational Therapist's supervision. Occupational Therapist provided patient with education and written instructions for orthosis care and precautions. Questions were addressed and the patient/caregiver was able to demonstrate competence with the donning and doffing of the orthosis. Education: Learning preferences: Explanation and Demonstration Barriers: No barriers Learning/educational needs: Brace Fit Education Provided: See Treatment Below Audience: Patient Method of education: Explanation, Demonstration, and Performance Response: Applied knowledge and Demonstrated skill Goals for Episode of Care: created on and met this date 08/22/2023 Patient / Caregiver will independently demonstrate correct application of CUSTOM orthosis and verbalize understanding of proper wear/care by end of session. Planned Interventions: Follow up as needed for orthosis fitting issues Billing: Custom: L 3808 WHFO w/out joints (long opponens, thumb spica, intrinsic gutter, resting, anti-spasticity, EXOS, dorsal block) Total time: 40 minutes Debbie Espinosa OT/[facility] 08-22-2023 Note HNO ID: [id number] Author: Anita Pickett MD Service: ? Author Type: Physician Type: Progress Notes Filed: 09/05/2023 1:57 PM Note Text: Anita Pickett MD Department of Orthopaedics Orthopaedics [facility] [address] [address] Dept: [phone] August 22, 2023 CHIEF COMPLAINT: New and Fracture of the Left Hand and New and Fracture of the Right Wrist HPI Patient here for evaluation left hand and right wrist fractures. Patient states on 07/17 she fell while walking her dog and tripped over uneven sidewalk landing face down. Seen at [facility] and was admitted until 07/20. She was transferred to the detention and then to the [facility] in [place]. Splints removed prior to x-ray today. She has not had any care for the fractures since she was it the ED. She is getting Oxycodone for the pain as needed. New x-rays done today. Patient is right hand dominant. ASSESSMENT: S63.261A Closed dislocation of metacarpophalangeal (MCP) joint of left index finger (primary encounter diagnosis) S62.323A Closed displaced fracture of shaft of third metacarpal bone of left hand, initial encounter S62.335A Closed displaced fracture of neck of fourth metacarpal bone of left hand, initial encounter S62.337A Closed displaced fracture of neck of fifth metacarpal bone of left hand, initial encounter S52.571P Other closed intra-articular fracture of distal end of right radius with malunion, subsequent encounter PLAN: There appeared to be some miscommunication between some of the nursing facilities she was at and follow-up with the providers involved with initial discussions in the ER. At this point, she has a malunion of the right wrist as well as multiple problems in the left hand metacarpals and metacarpal phalangeal joints. I will touch base with one of my surgical hand colleagues and I have suspicion that the left hand, best option may be for silicone joint replacements across all MCP joints. The right wrist, may elect to treat nonoperatively considering the delayed presentation and deal with any secondary sequelae of the malunion once she heals. FOLLOW UP INSTRUCTIONS: We will try to help coordinate some follow-up appropriately. Ms. Nava May was advised as to contrast therapies and/or to take analgesics/anti-inflammatories as needed and all contraindications were reviewed. OBJECTIVE: Ms. Nava May is a pleasant 73 year old in no apparent distress. Gen:There were no vitals taken for this visit. nl development, non obese, no deformities ENT: Normocephalic, normal hearing, moist mucosa CV: Pulses:Radial= 2+ and symmetric, capillary refill < 2 secs, no peripheral edema/varicosities Skin: no rash, bruising or lesions. Good turgor. Psych: cooperative and appropriate, alert and oriented x 3, good mood and affect. Musculoskeletal: Dry skin in both hands from having her prior splint some. She has essentially swan type of deformities in all of the digits of the left hand with prominence of the metacarpal head and the index from the dislocation as well as in the ring finger. There are some crossing of digits and quite limited motion with any attempt at flexion and fist making. Right wrist with ulnar prominence and tenderness over the distal radius and a radial deviated deformity. Again stiffness through all of the digits from her prior splinting. IMAGING: IMPRESSION: Findings as discussed under Results portion of report. Growth Hacker: LORAINE Transcribe Date/Time: Aug 23 2023 10:38A Dictated by : LUIS FERNANDO GALAN DO This examination was interpreted and the report reviewed and electronically signed by: LUIS FERNANDO GALAN DO on Aug 23 2023 10:47AM EST Results-Findings * * *Final Report* * * DATE OF EXAM: Aug 22 2023 2:51PM GORDON [id number] - XR WRIST 3V PA/LAT/OBL RT / PROCEDURE REASON: S69.91XA-Injury of right wrist, initial encounter * * * * Physician Interpretation * * * * LEFT Hand and wrist HISTORY: 73 years old Clinical information: Injury of left hand, initial encounter TECHNIQUE: Images: XR HAND 3V PA/LAT/OBL LT, XR WRIST 3V PA/LAT/OBL RT Comparison: 07/17/2023 RESULT: Findings: Severe bony demineralization. Hand: Fracture of the third metacarpal unchanged in alignment. Some evidence of healing around the fracture site also ununited fracture of the distal portion of the fourth metacarpal noted. Marked irregularity of the distal end of the fifth metacarpal probably due to previous trauma in this area Wrist: Comminuted impacted fracture of the distal radius also noted. Supporting Subjective Information Below: Past Medical History: PAST MEDICAL HISTORY Diagnosis Date Abdominal pain, epigastric Calculus of gallbladder without mention of cholecystitis or obstruction COPD (chronic obstructive pulmonary disease) (HCC) Depressive disorder, not elsewhere classified Diverticulosis of colon (without mention o (more content not included)... [facility] 08-22-2023 Note HNO ID: [id number] Author: Jessica Do CT Service: Radiology Author Type: Technologist Type: Progress Notes Filed: 08/22/2023 2:52 PM Note Text: Radiology Service Progress Note PATIENT NAME: Nava May DATE OF SERVICE: August 22, 2023 TIME: 2:51 PM PATIENT IDENTITY VERIFICATION COMPLETED USING TWO (2) IDENTIFIERS: Name and Date of confirmed by patient verbally. FALL SCREENING: Has the patient had 2 falls in the last year or 1 fall with injury or currently using an Ambulatory Assistive Device (Walker, Cane, Wheelchair, Crutches, etc.)? No PATIENT GENDER DATA: Female. status: : No status: NO. PATIENT RELEVANT IMPLANT DATA REVIEWED: Not Applicable RADIOLOGY DEPARTMENT: General X-ray: Exam(s) Completed: Upper Extremity X-Ray(s): Wrist, right and Hand, left PERIPHERAL IV DATA: Not applicable SIGNED BY: Jessica Do, BERTO August 22, 2023 2:51 PM [facility] 08-22-2023 History of Present illness Narrative [facility] HAND CUSTOM SPLINT NOTE GENERAL RECORD INFORMATION CURRENT VISIT NUMBER: 1 of ONSET:st:08/22/23 THERAPISTS NAME: Debbie Espinosa OT/L INSURANCE TYPE: Payor: [employer] / Plan: [employer] HMO / Product Type: HMO / REFERRING PROVIDER: Anita Pickett MD PLAN OF CARE: 08/22/2023 Mechanism Of Injury: Tripped while walking do fractured right wrist and hand, lacerations and toe fracture Patient identified by name and date: Yes SUBJECTIVE: Nava May is a 73 year old female seen today for issuance of a resting hand splint , provided with diane tapes as well Pain/Symptoms:left hand 04/08 Orthosis Delivery: Occupational Therapist fabricated custom orthosis issued: L 3808 WHFO w/out joints (long opponens, thumb spica, intrinsic gutter, resting, anti-spasticity, EXOS, dorsal block) Custom orthosis to provide OT provided patient with education/ written instructions for orthosis care and precautions. and Pt practiced orthosis application, donning on/off while under OT's supervision.. Patient was instructed in its wearing schedule time clock mechanic except bathing.. Skilled Intervention: Occupational Therapist instructed the patient in orthosis application, precautions, wear and care. Patient practiced orthosis donning/doffing while under the Occupational Therapist's supervision. Occupational Therapist provided patient with education and written instructions for orthosis care and precautions. Questions were addressed and the patient/caregiver was able to demonstrate competence with the donning and doffing of the orthosis. Education: Learning preferences: Explanation and Demonstration Barriers: No barriers Learning/educational needs: Brace Fit Education Provided: See Treatment Below Audience: Patient Method of education: Explanation, Demonstration, and Performance Response: Applied knowledge and Demonstrated skill Goals for Episode of Care: created on and met this date 08/22/2023 Patient / Caregiver will independently demonstrate correct application of CUSTOM orthosis and verbalize understanding of proper wear/care by end of session. Planned Interventions: Follow up as needed for orthosis fitting issues Billing: Custom: L 3808 WHFO w/out joints (long opponens, thumb spica, intrinsic gutter, resting, anti-spasticity, EXOS, dorsal block) Total time: 40 minutes JAZMYNE Card documented in this encounter [facility] documented as of this encounter (statuses as of 08/23/2023) [facility] History of Past illness Narrative* Problem Noted Date Diagnosed Date Resolved Date Calculus of gallbladder with out mention of cholecystitis or obstruction 11/11/2008 12/25/2008 Overview: And sludge - ultrasound 2004, [facility] Early satiety 11/11/2008 12/25/2008 Calculus of gallbladder with other cholecystitis, without mention of obstruction 11/11/2008 12/25/2008 Overview: S/p lap dario with IOC (normal) 11/2008, Dr. Jose R Perera documented as of this encounter (statuses as of 09/20/2023) [facility] History of Past illness Narrative* Problem Noted Date Diagnosed Date Resolved Date Calculus of gallbladder with out mention of cholecystitis or obstruction 11/11/2008 12/25/2008 Overview: And sludge - ultrasound 2004, [facility] Early satiety 11/11/2008 12/25/2008 Calculus of gallbladder with other cholecystitis, without mention of obstruction 11/11/2008 12/25/2008 Overview: S/p lap dario with IOC (normal) 11/2008, Dr. Jose R Perera documented as of this encounter (statuses as of 09/27/2023) [facility] History of Past illness Narrative* Problem Noted Date Diagnosed Date Resolved Date Calculus of gallbladder with out mention of cholecystitis or obstruction 11/11/2008 12/25/2008 Overview: And sludge - ultrasound 2004, [facility] Early satiety 11/11/2008 12/25/2008 Calculus of gallbladder with other cholecystitis, without mention of obstruction 11/11/2008 12/25/2008 Overview: S/p lap dario with IOC (normal) 11/2008, Dr. Jose R Perera documented as of this encounter (statuses as of 10/18/2023) [facility] Diagnosis Closed displaced fracture of shaft of third metacarpal bone of left hand, initial encounter- Primary [facility] this encounter [facility] Diagnosis Closed dislocation of metacarpophalangeal (MCP) joint of left index finger- Primary Closed displaced fracture of shaft of third metacarpal bone of left hand, initial encounter Closed displaced fracture of neck of fourth metacarpal bone of left hand, initial encounter Closed displaced fracture of neck of fifth metacarpal bone of left hand, initial encounter Joint stiffness of hand, left documented in this encounter [facility] Diagnosis Closed displaced fracture of shaft of third metacarpal bone of left hand, initial encounter- Primary Closed traumatic dislocation of metacarpophalangeal (MCP) joint of left index finger Closed displaced fracture of neck of fourth metacarpal bone of left hand, initial encounter Closed displaced fracture of neck of fifth metacarpal bone of left hand, initial encounter Joint stiffness Stiffness of joint, not elsewhere classified, unspecified site documented in this encounter [facility] Summary Purpose Family History No Family History Records FoundNo Family History Records FoundNo Family History Records Found Advance Directives No Advanced Directives Records FoundNo Advanced Directives Records FoundNo Advanced Directives Records Found Reason for Referral Specialty Diagnoses / Procedures Referred By Contact Referred To Contact [facility] Diagnoses Closed dislocation of metacarpophalangeal (MCP) joint of left index finger Closed displaced fracture of shaft of third metacarpal bone of left hand, initial encounter Closed displaced fracture of neck of fourth metacarpal bone of left hand, initial encounter Closed displaced fracture of neck of fifth metacarpal bone of left hand, initial encounter Joint stiffness of hand, left Procedures CONSULT TO LAB HEAD OCCUPATIONAL THERAPY EVAL HIGH COMPLEX 60 MINS Tino Cabrera MD, PhD [address] [place] [address] [facility] [address] [place] [address] Referral ID Status Reason Start Date Expiration Date Visits Requested Visits Authorized [id number] Pending Review Auto-Generat ed Referral 3 09/26/2024 1 1 Additional Source Comments Source Comments (unrecognize d section and content) In the event this informatio n is protected by the Federal Confidentiality of Alcohol and Drug Abuse Patient Records regulations: The Federal rules restrict any use of the information to criminally investigate or prosecute any alcohol or drug abuse patient.[facility] the event this information is protected by the Federal Confidentiality of Alcohol and Drug Abuse Patient Records regulations: The Federal rules restrict any use of the information to criminally investigate or prosecute any alcohol or drug abuse patient.[facility] the event this information is protected by the Federal Confidentiality of Alcohol and Drug Abuse Patient Records regulations: The Federal rules restrict any use of the information to criminally investigate or prosecute any alcohol or drug abuse patient.[facility] the event this information is protected by the Federal Confidentiality of Alcohol and Drug Abuse Patient Records regulations: The Federal rules restrict any use of the information to criminally investigate or prosecute any alcohol or drug abuse patient.[facility] Reason for Visit (unrecogniz ed section and content) Specialty Diagnoses / Procedures Referred By Contac t Referred To Contact [facility] Diagnoses Closed displaced fracture of shaft of third metacarpal bone of left hand, initial encounter Procedures CONSULT TO LAB HEAD OCCUPATIONAL THERAPY EVAL HIGH COMPLEX 60 MINS Anita Pickett MD [address] [place] [address] [facility] [address] [place] [address] Referral ID Status Reason Start Date Expiration Date Visits Requested Visits Authorized [id number] Pending Review Auto-Generat ed Referral 3 08/21/2024 1 1 Reason Comments Appointment New Referral Dr Israel mclean Reason Comments New Deformity Pain Deformity Fracture Deformity New Decreased ROM Fracture Decreased ROM Reason Comments OT EVAL Specialty Diagnoses / Procedures Referred By Contac t Referred To Contact Occupational Therapy / OCCUPATIONAL THERAPY Diagnoses left hand Procedures [place] [address] [place] [address] Enedina Seals, OTR/L [address] [place] [address] Referral ID Status Reason Start Date Expiration Date V isits Requested Visits Authorized [id number] Pending Review 10/17/2023 01/15/2024 1 1 INFORMATION SOURCE (unrecogn ized section and content) DATE CREATED AUTHOR AUTHOR'S ORGANIZ ATION 10/18/2023 [facility] DATE CREATED AUTHOR AUTHOR'S ORGANIZ ATION 11/21/2023 [facility] FOR RECORDS PERTAINING TO PATIENTS WHO ARE OR HAVE BEEN ENROLLED IN A CHEMICAL DEPENDENCY/SUBSTANCEABUSE PROGRAM, SOME INFORMATION MAY BE OMITTED. This clinical summary was aggregated from multiple sources. Caution should be exercised in using it in the provision of clinical care. This summary normalizes information from multiple sources, and as a consequence, information in this document may materially change the coding, format and clinical context of patient data. In addition, data may be omitted in some cases. CLINICAL DECISIONS SHOULD BE BASED ON THE PRIMARY CLINICAL RECORDS. [facility] irisnote [facility]. provides no warranty or guarantee of the accuracy or completeness of information in this document.
--- NOTE | 2023-11-24 10:41 | PFT ---
INTRODUCTION: The patient is a 73-year-old female who presents for pulmonary function studies secondary to a diagnosis of COPD. Respiratory therapy reported good patient effort. Bronchodilators were used during testing. INTERPRETATION: Forced expiration spirometry demonstrated the presence of a moderately severe large airways obstructive ventilatory defect. There was no significant response to aerosolized bronchodilators. Body plethysmography was performed and revealed an elevated RV, indicative of underlying air trapping. Diffusing capacity by single breath CO was reduced to 58% of predicted. IMPRESSION: Irreversible moderately severe large airways obstructive ventilatory defect with associated air trapping and symmetric reduction in diffusing capacity.
== END | disposition home or self-care (01) ==
LOC: PSN 12:46
PROVIDERS: PCP Internal Medicine; Referring Provider Nurse Practitioner Acute Care; Visit Provider Nurse Practitioner Acute Care
DX: J44.9 Chronic obstructive pulmonary disease, unspecified (principal)
CPT/HCPCS: 94060; 94726; 94729

== ENCOUNTER → 2023-11-28 | Outpatient (CLI) | payer MEDICARE, MEDICAID, SELFPAY ==
[2023-11-28 13:45] VITALS: PULSE 103; PULSE 105; PULSE 107; PULSE 79; PULSE 81; PULSE 86; PULSE 98; PULSE 99; O2SAT 86; O2SAT 87; O2SAT 89; O2SAT 90; O2SAT 91; O2SAT 92; O2SAT 94; O2SAT 95
--- OUTSIDE RECORDS SUMMARY | 2023-11-28 13:47 | XMS RPT_ITS | CCD ---
Author Name Unknown Address [address] [place] [address] Organization [facility] Care Team Providers Care Doctor Of Nurse Anesthesia Name Role Phone Paty LOPEZ Tammy Seferino Unavailable [phone] Unavailable Primary Care Provider UnavailANITA Pedroza Referring [...] [METHYLPREDNISOL ONE] Drug Allergy 09-04-2009 Rash, Itching [facility] Work Phone: Medications Completed/Discontinued Medications Medication Drug Class(es) Dates Sig (Normalized) Sig (Original) acetaminophen 500 mg oral tablet (4 sources) take 1 tablet by mouth every six hours as needed acetaminophen (TYLENOL) 500 mg tablet Take 500 mg by mouth every 6 hours as needed for pain. 0 Active Problems Active Problems Problem Classification Problem Date Documented Date Episodic/Chronic Anxiety disorders (1 source) Anxiety disorder, unspecified; Translations: [Anxiety and depression] Onset: 4 Chronic Asthma (5 sources) Unspecified asthma, uncomplicated; Translations: [Asthma, unspecified type, unspecified] Onset: 9 11-26-2009 Chronic Chronic obstructive pulmonary disease and bronchiectasis (8 sources) Severe chronic obstructive pulmonary disease; Translations: [Chronic obstructive lung disease] Onset: 9 08-09-2017 Chronic Conduction disorders (5 sources) Right bundle branch block; Translations: [Unspecified right bundle-branch block] Onset: 0 11-26-2009 Chronic Disorders of lipid metabolism (5 sources) Mixed hyperlipidemia; Translations: [Mixed hyperlipidemia] Onset: 9 11-26-2009 Chronic Diverticulosis and diverticulitis (4 sources) Diverticulosis of colon; Translations: [Diverticulosis of large intestine without perforation or abscess without bleeding] Onset: 9 11-14-2008 Chronic Esophageal disorders (5 sources) Gastroesophageal reflux disease; Translations: [Gastro-esophageal reflux disease without esophagitis] Onset: 9 11-26-2009 Chronic Essential hypertension (5 sources) Benign essential hypertension; Translations: [Essential (primary) hypertension] Onset: 9 11-26-2009 Chronic Fracture of upper limb (10 sources) Closed fracture of shaft of third metacarpal bone; Translations: [Displaced fracture of shaft of third metacarpal bone, left hand, initial encounter for closed fracture] Onset: 3 08-22-2023 Episodic Gastroduodenal ulcer (except hemorrhage) (5 sources) Peptic ulcer; Translations: [Peptic ulcer, site unspecified, unspecified as acute or chronic, without hemorrhage or perforation] Onset: 9 11-11-2008 Chronic Headache; including migraine (5 sources) Migraine without aura; Translations: [Migraine without aura, not intractable, without status migrainosus] Onset: 9 11-26-2009 Chronic Joint disorders and dislocations; trauma-related (3 sources) Dislocation of metacarpophalangeal joint; Translations: [Dislocation of metacarpophalangeal joint of left index finger, initial encounter] Onset: 3 09-27-2023 Episodic Mood disorders (4 sources) Depressive disorder; Translations: [Other specified depressive episodes] Onset: 9 11-26-2009 Chronic Mood disorders (1 source) Mood disorders; Translations: [Anxiety and depression] Onset: 4 Osteoarthritis (4 sources) Osteoarthritis; Translations: [Unspecified osteoarthritis, [...] Date Time Vital Sign Value Performing Clinician Faci lity 08-09-2017 05:45-0400 BMI (Body Mass Index) 27.12 kg/m2 Tammy Newman CNP [facility] [employer] Work Phone: 08-09-2017 05:45-0400 Body Temperature 98.9 [degF] Tammy Newman CNP [facility] Work Phone: 08-09-2017 05:45-0400 BP Diastolic 90 mm[Hg] Tammy Newman CNP [facility] Work Phone: 08-09-2017 05:45-0400 BP Systolic 192 mm[Hg] Tammy Newman CNP [facility] Work Phone: 08-09-2017 05:45-0400 Height 162.56 cm Tammy Newman CNP [facility] Work Phone: 08-09-2017 05:45-0400 Pulse (Heart Rate) 85 /min Tammy Newman CNP [facility] Work Phone: 08-09-2017 05:45-0400 Respiratory Rate 18 /min Tammy Newman CNP [facility] Work Phone: 08-09-2017 05:45-0400 Weight 71.67 kg Tammy Newman CNP [facility] Work Phone: 04-03-2017 13:09-0400 Body Temperature 98.1 [degF] Tammy Newman CNP [facility] Work Phone: 04-03-2017 13:040 BSA (Body Surface Area) 1.75 m2 Tammy Newman CNP [facility] [place] Work Phone: 04-03-2017 13:040 Height 162.56 cm Tammy Newman CNP [facility] [place] Work Phone: 04-03-2017 13:040 Weight 69.85 kg Tammy Newman CNP [facility] [place] Work Phone: Encounters Encounter Date Encounter Type Care Provider Facility Start: 11-20-2023 Encounter for other preprocedural examination ANITA PICKETT [facility] Start: 11-20-2023 End: 11-21-2023 ambulatory ROMAIN BAILEY Facility:[facility] Start: 10-17-2023 End: 10-17-2023 ambulatory TINO CABRERA Facility:[facility] Start: 10-17-2023 End: 10-17-2023 ambulatory Enedina Callefelicia OTR/L Work Phone: [facility] Procedures Date Procedure Procedure Detail Performing Clinician Start: 08-09-2017 End: 09-04-2017 [facility] Tammy Lam RODEO PERFORMER Work Phone: Start: 08-09-2017 End: 09-04-2017 Follow Up Appt 1 month Tammy mojica CNP Work Phone: Start: 04-20-2017 End: 05-08-2017 Follow Up Appt 2 weeks Alka Calabrese MD Work Phone: Start: 04-03-2017 End: 04-10-2017 Follow Up Appt 2 weeks Alka Calabrese MD Work Phone: Start: 11-21-2016 End: 12-29-2016 [facility] Tammy Lam RODEO PERFORMER Work Phone: Start: 11-21-2016 End: 12-29-2016 Follow Up Appt 3 months Tammy cantrell LEVEL GLASS FORMING MACHINE OPERATOR Work Phone: Start: 11-21-2016 End: 12-29-2016 Pulmonary Function Test - complete Tammy Newman LEVEL GLASS FORMING MACHINE OPERATOR Work Phone: Start: 11-21-2016 End: 12-29-2016 Pulmonary stress test/simple Tammy Newman LEVEL GLASS FORMING MACHINE OPERATOR Work Phone: Start: 05-23-2016 End: 12-29-2016 Follow Up Appt 3 months Tammy Gentile Ama cantrell LEVEL GLASS FORMING MACHINE OPERATOR Work Phone: Start: 02-25-2015 End: 02-26-2015 Documentation of current medications Edgardo Zoe Britton Work Phone: Start: 02-01-2011 Lipid 1996 panel - S cas or Plasma Debbie Espinosa OT/L Work Phone: Start: 11-14-2008 Colonoscopy Debbie haile OT/L Work Phone: Plan of Treatment Date Care Activity Detail Author Start: 06-03-2033 Urine microalbumin profile DTaP,Tdap,Td Vaccine (3 - Td or Tdap) [facility] Start: 06-30-2023 Covid-19 Vaccine ( season) Covid-19 Vaccine ( season) [facility] Start: 06-30-2023 Influenza vaccination Influenza Vaccine (#1) [facility] Start: 10-30-2022 Advance Directive Discussion Advance Directive Discussion [facility] Start: 11-14-2018 Colonoscopy Colonoscopy [facility] Start: 11-14-2018 Colorectal Cancer Screening Colorectal Cancer Screening [facility] Start: 11-14-2018 Screening for malignant neoplasm of colon [facility] Start: 09-06-2017 End: 09-06-2017 Appointment Appointment [facility] [facility] Phone: Start: 08-09-2017 End: 09-04-2017 [facility] Phone: Start: 08-09-2017 End: 09-04-2017 Follow Up Appt 1 month Follow Up Appt 1 month [facility] [employer] Phone: Start: 06-13-2017 End: 06-13-2017 Follow Up Appt Other Follow Up Appt Other [facility] Work Phone: Start: 05-30-2017 End: 05-30-2017 Follow Up Appt 2 weeks Follow Up Appt 2 weeks [facility] [place] Work Phone: Start: 05-16-2017 End: 05-16-2017 Follow Up Appt 2 weeks Follow Up Appt 2 weeks [facility] [place] Work Phone: Start: 04-20-2017 End: 05-08-2017 Follow Up Appt 2 weeks Follow Up Appt 2 weeks [facility] [place] Work Phone: Start: 04-03-2017 End: 04-10-2017 Follow Up Appt 2 weeks Follow Up Appt 2 weeks [facility] [place] Work Phone: Start: 02-20-2017 End: 02-20-2017 [facility] [place] Work Phone: Start: 02-20-2017 End: 02-20-2017 Follow Up Appt 6 months Follow Up Appt 6 months [facility] Work Phone: Start: 11-21-2016 End: 12-29-2016 [facility] [place] Work Phone: Start: 11-21-2016 End: 12-29-2016 Follow Up Appt 3 months Follow Up Appt 3 months [facility] Work Phone: Start: 11-21-2016 End: 12-29-2016 Pulmonary Function Test - complete Pulmonary Function Test - complete [facility] Work Phone: Start: 11-21-2016 End: 12-29-2016 Pulmonary stress test/simple Pulmonary stress testing; simple (eg, 6-minute walk) [facility] Work Phone: Start: 08-22-2016 End: 08-22-2016 [facility] [place] Work Phone: Start: 08-22-2016 End: 08-22-2016 Follow Up Appt 3 months Follow Up Appt 3 months [facility] Work Phone: Start: 05-23-2016 End: 12-29-2016 Follow Up Appt 3 months Follow Up Appt 3 months [facility] [place] Work Phone: Start: 02-23-2016 End: 02-23-2016 [facility] Work Phone: Start: 02-23-2016 End: 02-23-2016 Follow Up Appt 3 months Follow Up Appt 3 months [facility] Work Phone: Start: 02-23-2016 End: 02-23-2016 [facility], [address], [place], [address] [facility] Phone: Start: 02-02-2016 Lipid 1996 panel - Serum or Plasma Lipid Screening [facility] Start: 02-02-2016 Lipid panel Lipid Screening [facility] Start: 08-26-2015 End: 08-26-2015 Follow Up Appt 6 months Follow Up Appt 6 months [facility] Work Phone: Start: 08-26-2015 End: 08-26-2015 Pulmonary Function Test - complete Pulmonary Function Test - complete [facility] Phone: Start: 08-26-2015 End: 08-26-2015 Pulmonary stress test/simple Pulmonary stress testing; simple (eg, 6-minute walk) [facility] Phone: Start: 07-30-2015 End: 02-25-2015 Pulmonary Function Test - complete Pulmonary Function Test - complete [facility] Work Phone: Start: 07-30-2015 End: 02-25-2015 Pulmonary stress test/simple Pulmonary stress testing; simple (eg, 6-minute walk) [facility] Phone: Start: 04-07-2015 End: 04-08-2015 Follow Up Appt 4 months Follow Up Appt 4 months [facility] Work Phone: Start: 02-25-2015 End: 02-25-2015 Complete sleep workup (PSG,CPAP as indicated) & Follow up Complete sleep workup (PSG,CPAP as indicated) & Follow up [facility] Phone: Start: 02-25-2015 End: 02-25-2015 Follow Up Appt 6 months Follow Up Appt 6 months [facility] Phone: Start: 11-25-2014 End: 11-25-2014 Follow Up Appt 3 months Follow Up Appt 3 months [facility] Phone: Start: 08-27-2014 End: 08-27-2014 Follow Up Appt 3 months Follow Up Appt 3 months [facility] Phone: Start: 08-27-2014 End: 08-27-2014 Pulmonary Fuction Test - complete Pulmonary Fuction Test - complete [facility] Phone: Start: 08-27-2014 End: 08-27-2014 Pulmonary stress test/simple Pulmonary stress testing; simple (eg, 6-minute walk) [facility] Phone: Start: 02-01-2014 Diabetes Screening Diabetes Screening [facility] Start: 2008 RSV Vaccine (1 - 1-dose 60+ series) RSV Vaccine (1 - 1-dose 60+ series) [facility] Start: 1998 Influenza vaccination Lung Cancer Screening [facility] Start: 1998 Shingrix Vaccine (1 of 2) Shingrix Vaccine (1 of 2) [facility] Start: 1993 Cologuard (FIT-DNA) Cologuard (FIT-DNA) [facility] Start: [address] Colonography [facility] Start: 1993 Fecal Occult Blood Fecal Occult Blood [facility] Start: 1993 Screening for malignant neoplasm of colon [facility] Start: 1993 Sigmoidoscopy Sigmoidoscopy [facility] Start: 1978 Zoledronic acid therapy Alpha-1 Antitrypsin Deficiency Screening [facility] Start: 1966 Annual PCP Team Chronic Disease Visit Annual PCP Team Chronic Disease Visit [facility] Start: 1966 BP Controlled (<130/80) BP Controlled (<130/80) [facility] Start: 1966 Hepatitis C Screening Hepatitis C Screening [facility] Start: 1966 Hepatitis C screening Hepatitis C Screening [facility] Start: 1966 Spirometry Spirometry [facility] Start: 1954 Pneumococcal Vaccine: 65+ (1 - PCV) Pneumococcal Vaccine: 65+ (1 - PCV) [facility] Start: 1954 Pneumococcal Vaccine: 65+ (1 of 2 - PCV) Pneumococcal Vaccine: 65+ (1 of 2 - PCV) [facility] Immunizations Immunization Date Immunization Notes Care Provider Fa [facility] 08-16-2022 influenza virus vaccine, unspecified formulation Debbie Espinosa OT/L Work Phone: [facility] 09-16-2011 influenza virus vaccine, unspecified formulation Debbie Espinosa OT/L Work Phone: [facility] 08-14-2009 influenza virus vaccine, unspecified formulation Debbie Espinosa OT/L Work Phone: [facility] Work Phone: 09-11-2008 influenza virus vaccine, unspecified formulation Debbie Espinosa OT/L Work Phone: [facility] Work Phone: Payers Date Payer Category Payer Unknown [employer] HMO [id number] 2022-Present [phone] [address] [place] [address] O [id number] 2022 Unknown [id number] 2019 Medicaid [facility] [id number] 2019-Present [phone] [address] [place] [address] Medicaid [id number] 2019 Medicaid [id number] Social History Date Type Detail Facility Start: 12-27-2017 Tobacco smoking stat us NHIS Ex-smoker [facility] End: 09-25-2008 History of tobacco use Current smoker [facility] End: 09-25-2008 History of tobacco use Cigarette Smoker [facility] Start: 12-27-2017 End: 08-22-2023 Cigarettes smoked current (pack per day) - Reported 1 [facility] Start: 12-27-2017 Tobacco use and exposure Smoke less tobacco non-user [facility] Start: 08-22-2023 End: 09-05-2023 Alcohol intake Current non-drinker of alcohol (finding) [facility] Start: 08-22-2023 End: 09-05-2023 Tobacco use panel [facility] National Score (1-10 0), lower number is lower risk 89 [facility] Start: 1950 Sex Assigned At Not on file C [facility] Clinical Notes 11-11-2008 to 10-17-2023 Enedina Seals OTR/Moon - 10/17/2023 11:17 AM ESTPatient Tino Pedroza MD, PhD - 09/27/2023 8:40 AM ESTTelephone Encounter - Gail Rodriguez - 09/19/2023 3:01 PM EST Note Date & Type Note Facility 10-17-2023 Note HNO ID: [id number] Author: Enedina Seals OTR/L Service: ? Author Type: Occupational Therapist Type: Progress Notes Filed: 10/17/2023 11:23 AM Note Text: Summary: OT evaluation Episode Visit Count: 1 Therapist That Will Accept/Oversee The Plan Of Care: Enedina Seals Start of Care Date: 10/17/23 Onset Date: 07/17/23 Patient Identified by Name and Date of : Yes [facility] OCCUPATIONAL THERAPY [...] basic self-care tasks. Patient will increase Bilateral microsoft dynamics ax developer strength by 3#, so that patient will be able to improve function for light functional tasks. Patient Goals: resume as much strength and ROM as possible before surgery Planned Interventions, Frequency, and Duration: Current Frequency: 1x/month Duration: 12 weeks Total Number of Visits Planned: 3 Planned Treatment Interventions: Therapeutic exercise (31979), Therapeutic activities (83612), Manual therapy (47580), Self-longterm management (96381), Custom orthosis fabrication PLAN FOR NEXT VISIT: [...] Digits Thumb AROM: WFL Strength: Pinch Meter, Property Site Manager Position 2 Sensation: Reports ting (more content not included)... [facility] 10-17-2023 History of Present illness Narrative Summary: OT evaluation Episode Visit Count: 1 Therapist That Will Accept/Oversee The Plan Of Care: Enedina Seals Start of Care Date: 10/17/23 Onset Date: 07/17/23 Patient Identified by Name and Date of : Yes [facility] OCCUPATIONAL THERAPY [...] basic self-care tasks. Patient will increase Bilateral microsoft dynamics ax developer strength by 3#, so that patient will be able to improve function for light functional tasks. Patient Goals: resume as much strength and ROM as possible before surgery Planned Interventions, Frequency, and Duration: Current Frequency: 1x/month Duration: 12 weeks Total Number of Visits Planned: 3 Planned Treatment Interventions: Therapeutic exercise (21757), Therapeutic activities (02552), Manual therapy (23001), Self-longterm management (68352), Custom orthosis fabrication PLAN FOR NEXT VISIT: [...] Digits Thumb AROM: WFL Strength: Pinch Meter, Property Site Manager Position 2 Sensation: Reports tingling or numbness (neuropathy) Dexterity/Coordination: Fine Motor Hand Strength R Property Site Manager Position 2 (lbs): 9 lbs L Property Site Manager Position 2 (lbs): 0 lbs R Lateral [...] 1110 RACHELLE Andersen documented in this encounter [facility] 09-27-2023 Note HNO ID: [id number] Author: Tino Cabrera MD, PhD Service: ? 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 Perera PAST (more content not included)... [facility] 09-27-2023 Note HNO ID: [id number] Author: Carmella Gallardo RT(R) Service: ? Author [...] PERIPHERAL IV DATA: Not applicable SIGNED BY: ALFONSO GaliciaR) September 27, 2023 8:21 AM [facility] 09-27-2023 Instructions Katie Romero RN - 09/27/2023 9:02 AM EST Your surgery date is 12/07/23 at [facility] PRE-OPERATIVE INSTRUCTIONS- Tino Cabrera MD Office: [phone] [facility]: [facility] will call you after 1:30PM the day before your surgery with your arrival time. Report to Registration located at [facility] Park in the patient parking lot located next to the hospital on [address] off [address] 1. You are required to have a pre-operative exam prior to surgery within 30 days of surgery if you are getting anesthesia. If you were not notified of this at least one week prior to surgery, please call [phone]. They will go over your medications and [...] narrow sleeve. 5. YOU MUST HAVE A COMPOSITE TECHNICIAN to take you home after surgery. YOU CANNOT DRIVE YOURSELF HOME. 6. If you need [place] paperwork filled out, please fax it to our office. This is completed about 3-4 weeks prior to your surgery. 7. Your surgery date will NOT show up in [employer] until about 30 days prior to your [...] wet please contact Dr. Cabrera s office [phone]. 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, done with the hemorrhoid surgery TOTAL ABDOMINAL HYSTERECT W/WO RMVL TUBE OVARY 1977 one ovary remains; done for BENIGN reasons Family History: FAMILY HISTORY Problem Relation Age of Onset Coronary Artery Disease Mother first disease at age 30-40's Arthritis Mother Stroke Mother x two Hypertension Mother Heart Mother [place] Arthritis Father RA Hypertension Father Stroke Father [...] 4 TIMES DAILY August 20, 2019 10:25am 08-20-2019 [facility] ([id number]) INCRUSE ELLIPTA 62.5 mcg/actuation inhaler Inhale 1 [...] Orthopaedic Staff Surgeon documented in this encounter [facility] 09-19-2023 Miscellaneous Notes I have made several attempts at contacting patient to get her schedule to see Dr. Montes. Made an attempt at contacting [facility] [place] to schedule and was unable to LVM. ----- Message from Joselito Montes Jr., MD sent at 08/31/2023 11:32 AM EDT ----- Will Frazier, This patient was planned to have outpatient follow up. I am happy to see her. Gail: can you see if patient can come in next week? Sen, Wade documented in this encounter [facility] 08-22-2023 Note HNO ID: [id number] Author: Debbie Espinosa OT/L Service: ? Author Type: Occupational Therapist Type: Progress Notes Filed: 08/22/2023 5:54 PM Note Text: [facility] HAND CUSTOM SPLINT NOTE GENERAL RECORD INFORMATION CURRENT VISIT NUMBER: ONSET:st:08/22/23 THERAPISTS NAME: JAZMYNE Crad INSURANCE TYPE: Payor: [employer] AND BLUE SHIELD / Plan: [facility] HMO / Product Type: HMO / REFERRING [...] Patient was instructed in its wearing schedule video editor except bathing.. Skilled Intervention: Occupational Therapist instructed [...] orthosis fitting issues Billing: Custom: L 3808 WH w/out joints (long opponens, thumb spica, intrinsic gutter, resting, anti-spasticity, EXOS, dorsal block) Total time: 40 minutes Debbie Espinosa OT/L [facility] 08-22-2023 Note HNO ID: [id number] Author: Anita Pickett MD Service: ? Author Type: Physician Type: Progress Notes Filed: 09/05/2023 1:57 PM Note Text: Anita Pickett MD Department of Orthopaedics Orthopaedics [address] [place] [id number] Dept: [phone] August 22, 2023 CHIEF COMPLAINT: New and Fracture of the Left Hand and New and Fracture of the Right Wrist HPI Patient here for evaluation left hand and right wrist fractures. Patient states on 07/17 she fell while walking her dog and tripped over uneven sidewalk landing face down. Seen at [facility] and was admitted until 07/20. She was transferred to the [facility] and then to the [facility] in [place]. Splints removed prior to x-ray today. She [...] as discussed under Results portion of report. Resident Program Specialist: LORAINE Transcribe Date/Time: Aug 23 2023 10:38A Dictated by : LUIS FERNANDO GALAN DO This examination was interpreted and the report reviewed and electronically signed by: LUIS FERNANDO GALAN DO on Aug 23 2023 10:47AM EST Results-Findings * * *Final Report* * * DATE OF EXAM: Aug 22 2023 2:51PM O 5271 - XR WRIST 3V PA/LAT/OBL RT [...] (without mention o (more content not included)... [facility] 08-22-2023 Note HNO ID: [id number] Author: Jessica Do CT Service: Radiology Author [...] PERIPHERAL IV DATA: Not applicable SIGNED BY: BERTO Villagomez August 22, 2023 2:51 PM [facility] 08-22-2023 History of Present illness Narrative [facility] HAND CUSTOM SPLINT NOTE GENERAL RECORD INFORMATION CURRENT VISIT NUMBER: ONSET:st:08/22/23 THERAPISTS NAME: Debbie Espinosa OT/L INSURANCE TYPE: Payor: [employer] / Plan: DiscountIF HMO / Product Type: HMO / REFERRING [...] Patient was instructed in its wearing schedule video editor except bathing.. Skilled Intervention: Occupational Therapist instructed [...] minutes JAZMYNE Card documented in this encounter [facility] documented as of this encounter (statuses as of 08/23/2023) [facility]01-13-2009 History of Past illness Narrative* Problem Noted Date Diagnosed Date Resolved Date Calculus of gallbladder with out mention of cholecystitis or obstruction 11/11/2008 12/25/2008 Overview: And sludge - ultrasound 2005, [facility] Early satiety 11/11/2008 12/25/2008 Calculus of gallbladder with other cholecystitis, without mention of obstruction 11/11/2008 12/25/2008 Overview: S/p lap dario with IOC (normal) 11/2008, Dr. Jose R Perera documented as of this encounter (statuses as of 09/20/2023) [facility]01-13-2009 History of Past illness Narrative* Problem Noted Date Diagnosed Date Resolved Date Calculus of gallbladder with out mention of cholecystitis or obstruction 11/11/2008 12/25/2008 Overview: And sludge - ultrasound 2004, [facility] Early satiety 11/11/2008 12/25/2008 Calculus of gallbladder with other cholecystitis, without mention of obstruction 11/11/2008 12/25/2008 Overview: S/p lap dario with IOC (normal) 11/2008, Dr. Jose R Perera documented as of this encounter (statuses as of 09/27/2023) [facility]01-13-2009 History of Past illness Narrative* Problem Noted Date Diagnosed Date Resolved Date Calculus of gallbladder with out mention of cholecystitis or obstruction 11/11/2008 12/25/2008 Overview: And sludge - ultrasound 2005, [facility] Early satiety 11/11/2008 12/25/2008 Calculus of gallbladder with other cholecystitis, without mention of obstruction 11/11/2008 12/25/2008 Overview: S/p lap dario with IOC (normal) 11/2008, Dr. Jose R Perera documented as of this encounter (statuses as of 10/18/2023) [facility] Diagnosis Closed displaced fracture of shaft of third metacarpal bone of left hand, initial encounter- Primary [facility] Diagnosis Closed dislocation of [...] of hand, left [facility] Diagnosis Closed displaced fracture of shaft [...] classified, unspecified site documented in this encounter [facility] Summary Purpose Family History No Family History [...] stiffness of hand, left Procedures CONSULT TO [facility] EVAL HIGH COMPLEX 60 MINS Tino Cabrera MD, PhD [address] [place] [address] [facility] [place] [address] [place] [address] Referral ID Status Reason Start Date Expiration Date Visits Requested Visits Authorized [id number] Pending Review Auto-Generat ed Referral 3 09/26/2024 1 1 Additional Source Comments Source Comments (unrecognize d section and content) In the event this informatio n is protected by the Federal Confidentiality of Alcohol and Drug Abuse Patient Records regulations: The Federal rules restrict any use of the information to criminally investigate or prosecute any alcohol or drug abuse patient.[facility] the event this information is protected by the Federal Confidentiality of Alcohol and Drug Abuse Patient Records regulations: The Federal rules restrict any use of the information to criminally investigate or prosecute any alcohol or drug abuse patient.[facility] the event this information is protected by the Federal Confidentiality of Alcohol and Drug Abuse Patient Records regulations: The Federal rules restrict any use of the information to criminally investigate or prosecute any alcohol or drug abuse patient.[facility] the event this information is protected by the Federal Confidentiality of Alcohol and Drug Abuse Patient Records regulations: The Federal rules restrict any use of the information to criminally investigate or prosecute any alcohol or drug abuse patient.[facility] Reason for Visit (unrecogniz ed section and content) Specialty Diagnoses / Procedures Referred By Contac t Referred To Contact [facility] Diagnoses Closed displaced fracture of shaft of third metacarpal bone of left hand, initial encounter Procedures CONSULT TO [facility] [facility] EVAL HIGH COMPLEX 60 MINS Anita Pickett MD [address] [address] [facility] [place] [address] [place] [address] Referral ID Status Reason Start Date Expiration Date Visits Requested Visits Authorized [id number] Pending Review Auto-Generat ed Referral 3 08/21/2024 1 1 Reason Comments Appointment New Referral Dr Israel mclean Reason Comments New Deformity Pain Deformity Fracture Deformity New Decreased ROM Fracture Decreased ROM Reason Comments OT EVAL Specialty Diagnoses / Procedures Referred By Contac t Referred To Contact Occupational Therapy / OCCUPATIONAL THERAPY Diagnoses left hand Procedures NEW [place] [address] [place] [address] [address] [place] [address] Referral ID Status Reason Start Date Expiration Date V isits Requested Visits Authorized [id number] Pending Review 10/17/2023 01/15/2024 1 1 INFORMATION SOURCE (unrecogn ized section and content) DATE CREATED AUTHOR AUTHOR'S ORGANIZ ATION 10/18/2023 [facility] DATE CREATED AUTHOR AUTHOR'S ORGANIZ ATION 11/25/2023 [facility] FOR RECORDS PERTAINING TO PATIENTS [...] BE BASED ON THE PRIMARY CLINICAL RECORDS. [facility] [employer] [facility]. provides no warranty or guarantee of the accuracy or completeness of information in this document.
--- NOTE | 2023-11-28 13:58 | CPS ---
Patient stated that she wears 2L of oxygen PRN during the day, and 2L at night. Patient's pulse ox was 89% on RA therefore test was initiated on RA. Patient's pulse ox dropped to 87% at the 3 minute gemini, therefore oxygen was initiated at 1L and pulse ox then recovered to 92%. At the 5 minute gemini patient's pulse ox dropped to 86% therefore oxygen was increased to 2L and patient's sat's recovered to 93%. The remainder of the test was completed on 2L and patient's pulse ox was maintained above 90%
--- NOTE | 2023-11-29 05:51 | WT_ITS ---
PSN 6 Minute Walk Test 6 Minute Walk Test 6 Minute Walk Test: 6 Minute Walk Test PSN:6-Minute Walk Test Start: 11/28/23 13:55 Freq: Status: Active Protocol: RESP.6MINW Document 11/28/23 13:45 HJ (Rec: 11/28/23 14:05 HJ Desktop) 6 Minute Walk Test Date Performed 11/28/23 Time Performed 13:45 Height 5 ft 3 in Weight: 65.771 kg Weight in Pounds 145.[address]: Tammy Newman HEAD TRIMMER FIO2 (% Oxygen) 21 Assistive device used: None Pre-test Oxygen Delivery Method Room Air Pulse Ox 89 Pulse Rate (60-100) 79 Dyspnea Galindo Scale (0-10) 0 Exertion Galindo Scale (6-20) 6 1st minute Oxygen Delivery Method Room Air Pulse Ox 92 Pulse Rate (60-100) 107 H 2nd minute Oxygen Delivery Method Room Air Pulse Ox 91 Pulse Rate (60-100) 81 Number of Rests Taken 1 3rd minute Oxygen Delivery Method Room Air Pulse Ox 87 Pulse Rate (60-100) 105 H Number of Rests Taken 1 4th minute Oxygen Flow Rate (L/min) 1 Oxygen Delivery Method Nasal Cannula Pulse Ox 90 Pulse Rate (60-100) 86 5th minute Oxygen Flow Rate (L/min) 2 Oxygen Delivery Method Nasal Cannula Pulse Ox 86 Pulse Rate (60-100) 99 Number of Rests Taken 1 6th minute Oxygen Flow Rate (L/min) 2 Oxygen Delivery Method Nasal Cannula Pulse Ox 95 Pulse Rate (60-100) 103 H Number of Rests Taken 1 Post-test Oxygen Flow Rate (L/min) 2 Oxygen Delivery Method Nasal Cannula Pulse Ox 94 Pulse Rate (60-100) 98 Dyspnea Galindo Scale (0-10) 3 Exertion Galindo Scale (6-20) 13 Full Laps Walked 16 Partial Lap, Number of Tiles Walked 0 Total Distance Walked (ft) 944 11/28/23 13:58 Cardiopulmonary Services by Bren Hurtado Patient stated that she wears 2L of oxygen PRN during the day, and 2L at night. Patient's pulse ox was 89% on RA therefore test was initiated on RA. Patient's pulse ox dropped to 87% at the 3 minute gemini, therefore oxygen was initiated at 1L and pulse ox then recovered to 92%. At the 5 minute gemini patient's pulse ox dropped to 86% therefore oxygen was increased to 2L and patient's sat's recovered to 93%. The remainder of the test was completed on 2L and patient's pulse ox was maintained above 90% Initialized on 11/28/23 13:58 - END OF NOTE Interpretation Interpretation: The patient was noted to be 89% on room air at rest, but did not desaturate to 87% until the third minute and was placed on 1 L/min of supplemental oxygen with improvement to 92%. Patient then required a total of 2 L/min to maintain saturations with ambulation. In total, the patient traveled 944 feet over the course of 6 minutes with no assistive devices and for breaks. Patient experienced no significant tachycardia and these findings are consistent with a respiratory limitation exercise tolerance. Recommendations Recommendations: No supplemental oxygen is indicated at rest, but patient should be using 2 L/min with any exertion.
== END | disposition home or self-care (01) ==
LOC: PSN 13:25
PROVIDERS: PCP Internal Medicine; Referring Provider Nurse Practitioner Acute Care; Visit Provider Nurse Practitioner Acute Care
DX: J44.9 Chronic obstructive pulmonary disease, unspecified (principal)
CPT/HCPCS: 94618

== ENCOUNTER → 2024-04-08 | Outpatient (CLI) | payer MEDICARE, MEDICAID, SELFPAY ==
[2024-04-08 14:29] LABS: Absolute Lymphocyte Count 1.81 X10^3/uL (0.83-4.51); Absolute Neutrophil Count 7.1 X10^3/uL (2.0-7.7); Basophil# 0.05 X10^3/uL; Basophil% 0.5 % (0-1); Eosinophil# 0.17 X10^3/uL; Eosinophils% 1.7 % (0-5); Hematocrit 40.8 % (37-47); Hemoglobin 12.8 g/dL (12.0-15.0); Lymphocyte # 1.81 X10^3/ul (0.83-4.51); Lymphocyte % 18.6 % (19-41); Mean Corp Hgb Conc 31.4 g/dL (32-36); Mean Corpuscular Volume 92.3 fL (81-99); Mean Platelet Vol. 9.1 fl (6.2-12.0); Monocyte# 0.54 X10^3/uL; Monocyte% 5.5 % (0-10); NRBC Flagged by Analyzer 0 % (0-5); Neutrophil # 7.12 X10^3/uL (2.7-7.7); Neutrophil % 73.2 % (47-70); Platelet Count 337 K/mm3 (150-450); RBC Distribution Width CV 14.4 % (11.6-14.6); RBC Distribution Width SD 48.9 fl (35.1-43.9); Red Blood Count 4.42 M/mm3 (4.2-5.4); White Blood Count 9.7 K/mm3 (4.4-11.0)
[2024-04-08 15:03] LABS: Vitamin D,25 Hydroxy 56.7 ng/mL
[2024-04-08 15:06] LABS: ALB/GLOB Ratio 0.9 RATIO (0.9-2.4); AST(SGOT) 29 U/L (15-37); Alanine Aminotransfer ALT/SGPT 28 U/L (13-56); Albumin, Serum 3.5 g/dL (3.2-5.0); Alkaline Phosphatase 63 U/L (45-117); Anion Gap 2 (5-15); BUN 21 mg/dL (7-18); BUN/Creat Ratio 21.5 RATIO (10-20); Calcium,Total 9.3 mg/dL (8.5-10.1); Chloride 109 mmol/L (98-107); Cholesterol 180 mg/dL (200); Creatinine, Serum 0.98 mg/dL (0.55-1.02); EST Glomerular Filtration Rate 59 mL/min (>60); Est Glom Filt Rate - Afr Amer 71 mL/min (>60); Globulin 3.9 g/dL (2.2-4.2); Glucose 89 mg/dL (74-106); High Density Lipoprotein 76 mg/dL; Potassium 4.4 mmol/L (3.5-5.1); Protein, Total 7.4 g/dL (6.4-8.2); Sodium Level 139 mmol/L (136-145); T4 Free Direct 0.94 ng/dL (0.76-1.46); Thyroid Stim Hormone (TSH) 1.93 uIU/mL (0.358-3.74); Triglycerides 61 mg/dL; Very Low Density Lipoprotein 12 mg/dL (5-40)
== END | disposition home or self-care (01) ==
LOC: LAB 13:31
PROVIDERS: PCP Internal Medicine; Referring Provider Internal Medicine; Visit Provider Internal Medicine
DX: I10 Essential (primary) hypertension (principal); E55.9 Vitamin D deficiency, unspecified; M81.0 Age-related osteoporosis without current pathological fracture
CPT/HCPCS: 36415; 80053; 80061; 82306; 84439; 84443; 85025

== ENCOUNTER → 2024-04-17 | Outpatient (CLI) | payer MEDICARE, MEDICAID, SELFPAY ==
--- NOTE | 2024-04-17 12:12 | BI_ITS ---
MAMMOGRAPHY - BILATERAL SCREENING REASON FOR EXAM: Female, 73 years old. Routine annual screening examination. PERTINENT HISTORY: Non-contributory. Chronic inversion of both nipples. TECHNIQUE: Digital bilateral breast osmin (3D mammographic acquisition) in the CC and MLO projections. 2-D mediolateral oblique (MLO) and craniocaudad (CC) views of both breasts were obtained. CAD: Full Field Digital Mammography with Computer Added Detection was performed. COMPARISON: Comparison is made with prior study of September 29, 2022 and June 24, 2021. FINDINGS: Breast Composition: The breasts are almost entirely fatty. There are no dominant masses or suspicious calcifications. Stable small benign-appearing bilateral axillary lymph nodes. Stable inversion of both nipples. No other significant abnormalities are identified. There has been no significant change since the prior study. BI/SCRN MAMM (CAD)W/OSMIN BILAT IMPRESSION: Stable bilateral screening mammogram. Yearly follow-up mammogram recommended. (A) ASSESSMENT CATEGORY: BIRADS Category 2: Benign. A letter regarding these results will be sent to the patient by the facility within 30 days. Approximately 10% of breast cancers are not detected by mammography. A normal mammogram should not delay biopsy of a clinically suspicious abnormality. [id number] Electronically Signed: Ray Bella MD at 13:10 EDT ,
--- NOTE | 2024-04-17 12:12 | BD_ITS ---
STUDY: DUAL ENERGY X-RAY ABSORPTIOMETRY / DXA REASON FOR EXAM: Female, 73 years old. Osteoporosis TECHNIQUE: Bone Mineral Density (BMD) measurements of lumbar spine and left hip were obtained. COMPARISON: Comparison is made with prior study June 24, 2021. FINDINGS: Lumbar Spine (L1-L4): g/cm2 (0.907) / T-score (-0.7) / Z-score (1.6) Findings are suggestive of normal bone density with a low fracture risk. Left Femur Total: g/cm2 (0.633) / T-score (-2.5) / Z-score (-0.7) Left Femoral Neck: g/cm2 (0.530) / T-score (-2.9) / Z-score (-0.8) The T-Scores on the most recent prior examination were: Lumbar Spine (L1-L4): There has been improvement of bone density since the previous examination. Left Femur Total: which represents an improvement of 4.7%. BD/Dexa Bone Density Study IMPRESSION: The patient is considered osteoporotic as outlined below according to World Hari Organization (WHO) criteria with a high fracture risk. There has been improvement of bone density since the previous examination. Reference Information: The T-score is the number of standard deviations above or below the standard which is normal for young adults at their peak bone mineral density. The World Health Organization (WHO) interprets the T-scores as follows: Above -1 Normal bone density Between -1 and -2.5 Osteopenia Equal to / or below -2.5 Osteoporosis As a practical clinical guideline, osteopenia may be graded as follows: Mild -1 through -1.5 Moderate -1.6 through -2.0 Severe -2.1 through -2.4 The Z-score is the number of standard deviations above or below age-matched controls. A Z-score of less than -1.5 would be considered abnormal. References: 1. NIH Osteoporosis and Related Bone Diseases www osteo.org 2. International Society for Clinical Densitometry www iscd.org 3. National Osteoporosis Foundation www nof.org Electronically Signed: Ray Bella MD at 12:23 EDT ,
== END | disposition home or self-care (01) ==
LOC: OPBD 12:12
PROVIDERS: PCP Internal Medicine; Referring Provider Internal Medicine; Visit Provider Internal Medicine
DX: Z12.31 Encounter for screening mammogram for malignant neoplasm of breast (principal); M81.0 Age-related osteoporosis without current pathological fracture
CPT/HCPCS: 77063; 77067; 77080

== ENCOUNTER → 2025-01-07 | Outpatient (CLI) | payer MEDICARE, SELFPAY ==
--- NOTE | 2025-01-07 14:06 | RAD_ITS ---
EXAM: XR Cervical Spine Flexion/Extension Only, 2 or 3 Views CLINICAL INDICATION: CHRONIC BACK PAIN TECHNIQUE: Lateral flexion/extension views of the cervical spine. COMPARISON: No relevant prior studies available. FINDINGS: VERTEBRAE: Mild S shaped scoliosis of the thoracolumbar spine. Grade 1 anterior spondylolisthesis of for over L5. Multilevel endplate degenerative change, disc disease, facet arthropathy L3 through S1. No acute fracture. DISC SPACES: No acute findings. No significant narrowing. SOFT TISSUES: Unremarkable. VASCULATURE: Scattered calcified atherosclerotic disease of aorta. RAD/L/S Spine Min 4 Views IMPRESSION: Degenerative changes as above. Reading Location: [facility]
[2025-01-07 14:17] LABS: Absolute Lymphocyte Count 1.86 X10^3/uL (0.83-4.51); Absolute Neutrophil Count 4.7 X10^3/uL (2.0-7.7); Basophil# 0.05 X10^3/uL; Basophil% 0.7 % (0-1); Eosinophil# 0.15 X10^3/uL; Eosinophils% 2.1 % (0-5); Hematocrit 37.5 % (37-47); Hemoglobin 12.3 g/dL (12.0-15.0); Lymphocyte # 1.86 X10^3/ul (0.83-4.51); Lymphocyte % 25.4 % (19-41); Mean Corp Hgb Conc 32.8 g/dL (32-36); Mean Corpuscular Hgb 29.3 pg (27.0-32.0); Mean Corpuscular Volume 89.3 fL (81-99); Mean Platelet Vol. 9.1 fl (6.2-12.0); Monocyte# 0.51 X10^3/uL; NRBC Flagged by Analyzer 0 % (0-5); Neutrophil # 4.72 X10^3/uL (2.7-7.7); Neutrophil % 64.5 % (47-70); Platelet Count 311 K/mm3 (150-450); RBC Distribution Width CV 13.4 % (11.6-14.6); White Blood Count 7.3 K/mm3 (4.4-11.0)
[2025-01-08 00:30] LABS: ALB/GLOB Ratio 1.3 RATIO (0.9-2.4); AST(SGOT) 35 U/L (<=31); Alanine Aminotransfer ALT/SGPT 15 U/L (<=34); Albumin, Serum 3.9 g/dL (3.4-4.8); Alkaline Phosphatase 63 U/L (35-104); Anion Gap 13 (5-15); BUN 20 mg/dL (4-19); BUN/Creat Ratio 20.9 RATIO (10-20); Calcium,Total 9.1 mg/dL (7.6-11.0); Chloride 102 mmol/L (98-108); Creatinine, Serum 0.96 mg/dL (0.70-1.20); EST Glomerular Filtration Rate 62 (>60); Globulin 2.9 g/dL (2.2-4.2); Glucose 87 mg/dL (70-99); Potassium 4.9 mmol/L (3.3-5.1); Protein, Total 6.8 g/dL (5.9-8.4); Sodium Level 135 mmol/L (133-145); Total Bilirubin 0.32 mg/dL (0.00-1.30)
== END | disposition home or self-care (01) ==
PROVIDERS: PCP Internal Medicine; Referring Provider Internal Medicine; Visit Provider Internal Medicine
DX: M54.9 Dorsalgia, unspecified (principal); G89.29 Other chronic pain; I10 Essential (primary) hypertension; E78.5 Hyperlipidemia, unspecified
CPT/HCPCS: 36415; 72110; 80053; 85025

== ENCOUNTER 2025-01-16 13:42 | Emergency (ER) | payer MEDICARE, MEDICAID, SELFPAY ==
[2025-01-16] VITALS (9 sets, daily range): BP systolic 121–156; BP diastolic 65–137; PULSE 72–87; RESP 15–18; TEMP 36.4–37.1; O2SAT 92–99; BMI 25.4
--- NOTE | 2025-01-16 14:30 | VDLE_ITS ---
Reason For Study Reason For Study: Left leg swelling RIGHT LEFT CFV is compressible, spontaneous, phasic, competent GSV is normal. and demonstrates normal augmentation. CFV is compressible, spontaneous, phasic, competent, Procedure and demonstrates normal augmentation. This is a venous duplex using B-mode, color flow and FV is compressible, spontaneous, phasic, competent spectral Doppler. and demonstrates normal augmentation. Exam performed portable in ED. POP V is compressible, spontaneous, phasic, competent A preliminary report was called and/or faxed to ED. and demonstrates normal augmentation. T/P Trunk is compressible. PTV is compressible. LT PerV is compressible. VL/Venous Duplex US, Unilateral Interpretation Summary Deep veins of the left lower extremity are patent and compressible segmentally. There is no evidence of left lower extremity deep vein thrombosis. Valvular competence appears intact within the p roximal deep venous system on the left . The left great saphenous vein appears patent and compressible segmentally. The right common femoral vein is patent and compressible . Ordering Physician: Sarwat Martin Referring Physician: Yenni Lu Performed By: Iza Andino RVT
--- NOTE | 2025-01-16 14:30 | RAD_ITS ---
EXAM: XR Chest, 2 Views CLINICAL INDICATION: SOB TECHNIQUE: Frontal and lateral views of the chest. COMPARISON: No relevant prior studies available. FINDINGS: LUNGS AND PLEURAL SPACES: Unremarkable. No consolidation. No pneumothorax. HEART: Unremarkable. No cardiomegaly. MEDIASTINUM: Unremarkable. Normal mediastinal contour. BONES/JOINTS: Unremarkable. No acute fracture. RAD/Chest PA and Lateral IMPRESSION: No acute cardiopulmonary process. Reading [facility]
--- NOTE | 2025-01-16 14:30 | EKG12_ITS ---
Test Reason : GENERAL Blood Pressure : */* mmHG Vent. Rate : 92 BPM Atrial Rate : 92 BPM P-R Int : 154 ms QRS Dur : 132 ms QT Int : 408 ms P-R-T Axes : 47 -18 42 degrees QTcB Int : 504 ms Sinus rhythm with frequent and consecutive Premature ventricular complexes Right bundle branch block Abnormal ECG Confirmed by CARLIE DEL TORO, BILL ([id number]), news copy editor DASHA FRYE ([id number]) on 01/17/2025 8:05:29 AM Referred By: Confirmed By: BILL SEXTON MD
--- NOTE | 2025-01-16 14:44 | EX.ED.DYSGE1 ---
HPI History of Present Illness Chief Complaint: Edema Narrative Narrative: Patient is a 74-year-old female with past medical history of osteoarthritis, anxiety, depression, hyperlipidemia, hypertension, COPD who presented to the emergency department the chief complaint of bilateral lower extremity swelling and redness to the left lower leg. Patient states that this has been progressively worsening for the last 3 weeks she states that she tried to get hold of her primary care physician and they advised her to come here to the emergency department. Patient states that she feels like her left lower leg is more swollen than her right but notes that both of them are swollen and she states that the left leg is red and warm to the touch. [facility] Medical History Dermatosis of scalp Chronic back pain Osteoarthritis Encounter for removal of sutures Right knee pain Former tobacco use Anxiety and depression Laceration of knee, left Fall Right wrist fracture Rheumatoid arthritis Bilateral lower extremity edema Bilateral carpal tunnel syndrome Stomach ulcer Osteoporosis History of cataract Seasonal allergies Asthma Arthritis Vitamin D deficiency GERD (gastroesophageal reflux disease) Hyperlipidemia Hypertension Insomnia Hypersomnia Overweight Stage 3 severe COPD by GOLD classification Home Medications ?Medication ?Instructions ?Recorded ?Last Taken ?Type Nebulizer #1 ea 04/12/22 Unknown Rx spacer #1 ea 04/12/22 Unknown Rx Scooter #1 ea 05/31/22 Unknown Rx acetaminophen 500 mg tablet 500 mg PO Q6H PRN pain 05/31/22 Unknown History (Tylenol Extra Strength) diphenhydramine 25 1 tab PO QHS PRN pain 05/31/22 Unknown History mg-acetaminophen 500 mg tablet (Tylenol PM Extra Strength) propylene glycol 0.6 % eye drops 1 drp ophthalmic (eye) DAILY PRN 05/31/22 Unknown History (Systane Balance) dry eye(s) Acapella #1 ea 08/16/22 Unknown Rx hydrocolloid dressing 6 X 6 #5 ea 06/12/23 Unknown Rx (Aquacel Extra) albuterol sulfate 90 mcg/actuation 2 puff inhalation Q4H PRN 10/10/23 Unknown Rx aerosol inhaler (Ventolin HFA) shortness of breath or wheezing #18 grams Prolia 60 mg/mL subcutaneous 60 mg subcut ONCE #1 mL 12/01/23 Unknown Clinic syringe (denosumab) Handicap Placard #1 ea 01/10/24 Unknown Rx cholecalciferol (vitamin D3) 25 25 mcg PO DAILY 04/05/24 Unknown History mcg (1,000 unit) capsule miscellaneous medical supply 1 ea miscellaneous DAILY 04/05/24 Unknown History musculoskeletal disorders with debility ipratropium 0.5 mg-albuterol 3 mg 3 ml inhalation Q4H PRN PRN SOB 06/04/24 Unknown Rx (2.5 mg base)/3 mL nebulization &/OR WHEEZING #180 mL soln denosumab 60 mg/mL subcutaneous 60 mg subcut [id number] #1 mL 09/04/24 Unknown Rx syringe (Prolia) atorvastatin 40 mg tablet 40 mg PO QHS #90 tabs 11/22/24 Unknown Rx omeprazole 40 mg capsule,delayed 40 mg PO DAILY #90 caps 11/22/24 Unknown Rx release duloxetine 30 mg capsule,delayed 90 mg (3 x 30 mg) PO DAILY 3 11/25/24 Unknown Rx release months #270 caps polyethylene glycol 3350 17 4 g PO QDAY PRN constipation 12/09/24 Unknown History gram/dose oral powder (Miralax) amlodipine 5 mg tablet 7.5 mg PO DAILY blood pressure 01/16/25 Unknown History cephalexin 500 mg capsule 500 mg PO Q12H 7 days #14 caps 01/16/25 Unknown Rx Allergy/AdvReac Type Severity Reaction Status Date / Time azithromycin Allergy Itching Verified 01/16/25 13:46 Family History Grandmother COPD (chronic obstructive pulmonary disease) Mother Heart disease Hypertension CVA (cerebral vascular accident) Myocardial infarction, Onset Age: 50 Father CVA (cerebral vascular accident) Alcohol abuse Prostate cancer Sister Heart disease Brother Heart disease Surgical History History of surgery on extremity History of hip surgery History of appendectomy History of hemorrhoidectomy History of colonoscopy History of cholecystectomy History of hysterectomy Social History household members: none Smoking Status: Former smoker quit date: 10/23/09 pack-years: 42 Tobacco: How many years used: 42 Electronic Cigarette Use: not used how long ago did patient quit smokin years second hand exposure: Yes quit status: quit date established alcohol intake: never substance use type: does not use caffeine: Yes what type of physical activity do you participate in: none ROS ROS ED ROS Narrative Constitutional: Denies fevers, chills, headaches, lightness, dizziness Eyes: Denies change in vision double vision blurry vision Cardiovascular: Denies chest pain or palpitations Respiratory: Complains of cough but states that she has a chronic cough secondary to her COPD denies any sputum production Abdomen: Denies abdominal pain nausea vomit diarrhea : Denies any urinary symptoms Neurological: Denies numbness, weakness, tingling Musculoskeletal: Denies back pain Skin: Denies rashes or lesions EXAM Physical Exam Narrative Exam Narrative: General: Patient was lying in bed rest comfortably did not appear to be in acute distress Head: Atraumatic, normocephalic Eyes: PERRL bilaterally, EOMI bilaterally, no conjunctival injection noted Neck: Soft, supple, trachea midline Cardiovascular: Regular rate and rhythm no murmurs gallops rubs noted Respiratory: Clear to auscultation bilaterally no rales rhonchi or wheezes noted Abdomen: Soft, nondistended, nontender to palpation Extremities: 2+ pitting edema in the bilateral lower extremities, DP pulses +2/4 in bilateral lower extremities, +4/5 strength noted in the bilateral upper and lower extremities Neurological: Patient following commands that she was at [facility] years 2024 Skin: Warm, dry, intact patient does have erythema noted to the left lower extremity that is warm to the touch no petechia no purpura no sloughing of the skin noted Const Vital Signs: 01/16/25 13:43 01/16/25 13:45 01/16/25 13:57 Temperature 97.6 F L 97.6 F L Temperature Source Temporal Temporal Pulse Rate 72 81 Respiratory Rate 15 16 Respiratory Effort Short of Breath Labored Respiratory Pattern Tachypnea Blood Pressure 123/65 H 123/65 H Blood Pressure Mean 84 84 Pulse Ox 99 97 Oxygen Delivery Method Room Air Room Air 01/16/25 14:45 01/16/25 14:51 01/16/25 15:00 Temperature 98.3 F 98.5 F Temperature Source Oral Oral Pulse Rate 87 78 Respiratory Rate 16 18 Respiratory Effort Respiratory Pattern Blood Pressure 143/137 H 156/78 H Blood Pressure Mean 139 104 Pulse Ox 98 98 98 Oxygen Delivery Method Room Air Room Air Room Air 01/16/25 16:00 01/16/25 17:00 Temperature 98.4 F Temperature Source Oral Pulse Rate 78 78 Respiratory Rate 16 16 Respiratory Effort Respiratory Pattern Blood Pressure 131/78 H 121/75 H Blood Pressure Mean 95 90 Pulse Ox 98 98 Oxygen Delivery Method Room Air MDM MDM MDM Narrative Medical decision making narrative: Patient is a 74-year-old female who presented to the emergency department the chief complaint of bilateral lower extremity swelling and left lower extremity redness. On the differential diagnose includes but limited to DVT, CHF, cellulitis, venous insufficiency. Once workup is obtained reviewed she will be reevaluated. Patient be given a gram Rocephin for her left lower extremity cellulitis. Patient CBC reviewed and showed no evidence leukocytosis white blood count normal 8.8, hemoglobin stable 12.1, platelet count was noted be 321. Patient's sodium normal 139, potassium normal 4.2, creatinine normal at 0.98. Patient's troponin was noted to be 17 with delta troponin pending. Patient's EKG was reviewed and showed sinus rhythm with PVCs noted with a rate of 92 bpm. Patient proBNP normal at 320. Patient's ultrasound of her lower extremity did not reveal any evidence of DVT. Patient's chest x-ray reviewed by myself and by radiology showed no acute cardiopulmonary processes. Patient was ambulated here in the emergency department and did not become hypoxic and she states that she has at home as needed oxygen as well. She states that she felt at her baseline with ambulation. Patient will be discharged home pending her troponin being normal. Should be placed on Keflex for a left lower extremity cellulitis. She was advised to return with worsening redness while on antibiotics after 24 to 48 hours of antibiotics. She was advised to follow-up with her primary care physician outpatient setting. She is agreeable this plan all question concerns answered she was discharged home in stable condition. Patient case signed out to oncoming provider to follow-up on delta troponin see their note for further details and ultimately disposition Lab Data Labs: Laboratory Results - last 24 hr 01/16/25 14:00 WBC 8.8 RBC 4.27 Hgb 12.1 Hct 38.4 MCV 89.9 MCH 28.3 MCHC 31.5 L RDW Std Deviation 43.9 RDW Coeff of Carline 13.3 Plt Count 321 MPV 9.4 Immature Gran % (Auto) 0.300 Neut % (Auto) 69.3 Lymph % (Auto) 21.3 [place] % (Auto) 7.1 Eos % (Auto) 1.3 Baso % (Auto) 0.7 Absolute Neuts (auto) 6.1 Absolute Lymphs (auto) 1.87 Nucleated RBC % 0 Sodium 139 Potassium 4.2 Chloride 104 Carbon Dioxide 23.5 Anion Gap 12 BUN 21 H Creatinine 0.98 Estim Creat Clear Calc 44.32 L Est GFR (MDRD) Non-Af 60 BUN/Creatinine Ratio 21.2 H Glucose 82 Calcium 9.4 Troponin T High Sens 17 H NT pro BNP II 320 Radiography Diagnostic Testing: Clinical Impression(s) from Imaging Studies Chest X-Ray 01/16/25 14:30 IMPRESSION: No acute cardiopulmonary process. Reading Location: [facility] Discharge Plan Triage Chief Complaint: Edema ED Provider: Sarwat Martin Dx/Rx/DC Orders Clinical Impression: Cellulitis of left leg, Stage 3 severe COPD by GOLD classification, Bilateral leg edema Prescriptions: New cephalexin 500 mg capsule 500 mg PO Q12H 7 Days Qty: 14 0RF No Action (DME) spacer See Rx Instructions .ROUTE .MEDSUPPLY Qty: 1 0RF Rx Instructions: As directed (DME) Nebulizer See Rx Instructions .ROUTE .MEDSUPPLY Qty: 1 0RF Rx Instructions: As directed (DME) Acapella See Rx Instructions .ROUTE .MEDSUPPLY Qty: 1 0RF Rx Instructions: As directed acetaminophen [Tylenol Extra Strength] 500 mg tablet 500 mg PO Q6H PRN (Reason: pain) diphenhydramine-acetaminophen [Tylenol PM Extra Strength] 25-500 mg tablet 1 tab PO QHS PRN (Reason: pain) Systane Balance 0.6 % drops 1 drp ophthalmic (eye) DAILY PRN (Reason: dry eye(s)) (DME) Scooter See Rx Instructions .Route .MEDSUPPLY Qty: 1 0RF Rx Instructions: As directed (DME) hydrocolloid dressing [Aquacel Extra] 6 X 6 bandage See Rx Instructions .Route Qty: 5 2RF Rx Instructions: As directed Prolia 60 mg/mL syringe 60 mg subcut ONCE Qty: 1 0RF cholecalciferol (vitamin D3) 25 mcg (1,000 unit) capsule 25 mcg PO DAILY miscellaneous medical supply Misc 1 ea miscellaneous DAILY Rx Instructions: Lift chair for position change. polyethylene glycol 3350 [Miralax] 17 gram/dose powder 4 g PO QDAY PRN (Reason: constipation) amlodipine 5 mg tablet 7.5 mg PO DAILY albuterol sulfate [Ventolin HFA] 90 mcg/actuation HFA aerosol inhaler 2 puff inhalation Q4H PRN (Reason: shortness of breath or wheezing) Qty: 18 6RF (DME) Handicap Placard See Rx Instructions .ROUTE .MEDSUPPLY Qty: 1 0RF Rx Instructions: As directed, length of time 3 years ipratropium-albuterol 0.5 mg-3 mg(2.5 mg base)/3 mL solution for nebulization 3 ml inhalation Q4H PRN PRN (Reason: SOB &/OR WHEEZING) Qty: 180 6RF Prolia 60 mg/mL syringe 60 mg subcut [id number] Qty: 1 2RF atorvastatin 40 mg tablet 40 mg PO QHS Qty: 90 1RF omeprazole 40 mg capsule,delayed release(DR/EC) 40 mg PO DAILY Qty: 90 1RF duloxetine 30 mg capsule,delayed release(DR/EC) 90 mg PO DAILY 90 Days Qty: 270 0RF Rx Instructions: Take 60 mg in the Am and 30 mg at night. Primary Care Provider: Yenni Lu Referrals: Yenni Lu MD [Primary Care Provider] - Activity Restrictions/Additional Instructions: Take antibiotics as prescribed. If the redness is worsening while on antibiotics you need to return to the emergency department. Follow-up your primary care physician outpatient setting. Return with worsening symptoms or concerns. When you are sitting down make sure your legs are above the level of your heart to help drain the fluid out of your legs. The ultrasound did not show any evidence of blood clot in your leg. Return with any other concerns Print Language: Brazilian Disposition Disposition: Home, Self Care
[2025-01-16] MEDS: Ceftriaxone 1 GM/50 ML BAG IV (14:45)
[2025-01-16 14:48] LABS: Absolute Lymphocyte Count 1.87 X10^3/uL (0.83-4.51); Absolute Neutrophil Count 6.1 X10^3/uL (2.0-7.7); Basophil# 0.06 X10^3/uL; Basophil% 0.7 % (0-1); Eosinophil# 0.11 X10^3/uL; Eosinophils% 1.3 % (0-5); Hematocrit 38.4 % (37-47); Hemoglobin 12.1 g/dL (12.0-15.0); Lymphocyte # 1.87 X10^3/ul (0.83-4.51); Lymphocyte % 21.3 % (19-41); Mean Corp Hgb Conc 31.5 g/dL (32-36); Mean Corpuscular Hgb 28.3 pg (27.0-32.0); Mean Corpuscular Volume 89.9 fL (81-99); Mean Platelet Vol. 9.4 fl (6.2-12.0); Monocyte# 0.62 X10^3/uL; Monocyte% 7.1 % (0-10); NRBC Flagged by Analyzer 0 % (0-5); Neutrophil % 69.3 % (47-70); Platelet Count 321 K/mm3 (150-450); RBC Distribution Width CV 13.3 % (11.6-14.6); RBC Distribution Width SD 43.9 fl (35.1-43.9); Red Blood Count 4.27 M/mm3 (4.2-5.4); White Blood Count 8.8 K/mm3 (4.4-11.0)
[2025-01-16 16:06] LABS: Anion Gap 12 (5-15); BUN 21 mg/dL (4-19); BUN/Creat Ratio 21.2 RATIO (10-20); Calcium,Total 9.4 mg/dL (7.6-11.0); Carbon Dioxide 23.5 mmol/L (21.0-32.0); Chloride 104 mmol/L (98-108); Creatinine, Serum 0.98 mg/dL (0.70-1.20); EST Glomerular Filtration Rate 60 (>60); Estimated Creatinine Clearance 44.32 ml/min (50-250); Glucose 82 mg/dL (70-99); Potassium 4.2 mmol/L (3.3-5.1); Pro- Brain NATRIURETIC PEPTIDE 320 pg/mL (<=1800); Sodium Level 139 mmol/L (133-145); Troponin T High Sensitivity 17 ng/L (<=14)
[2025-01-16 17:34] LABS: Troponin T High Sens 2 HR 13 ng/L (<=14)
== END 2025-01-16 17:47 | disposition home or self-care (01) ==
PROVIDERS: Emergency Provider Emergency Medicine; PCP Internal Medicine; Visit Provider Emergency Medicine
DX: L03.116 Cellulitis of left lower limb (principal); I11.0 Hypertensive heart disease with heart failure; I50.9 Heart failure, unspecified; J44.9 Chronic obstructive pulmonary disease, unspecified; F41.9 Anxiety disorder, unspecified; E78.5 Hyperlipidemia, unspecified; Z87.891 Personal history of nicotine dependence; Z79.51 Long term (current) use of inhaled steroids; Z79.899 Other long term (current) drug therapy
CPT/HCPCS: 71046; 80048; 83880; 84484; 85025; 93005; 93971; 96365; 99284; A4216

== ENCOUNTER 2025-01-24 13:33 | Inpatient (IN) | payer MEDICARE, MEDICAID, SELFPAY ==
[2025-01-24] VITALS (15 sets, daily range): BP systolic 93–150; BP diastolic 65–88; PULSE 78–132; RESP 14–25; TEMP 36.6–36.8; O2SAT 88–96; BMI 24.7; BMI 23.6
--- NOTE | 2025-01-24 15:08 | EKG12_ITS ---
Test Reason : Blood Pressure : */* mmHG Vent. Rate : 80 BPM Atrial Rate : 129 BPM P-R Int : * ms QRS Dur : 112 ms QT Int : 418 ms P-R-T Axes : 73 -11 37 degrees QTcB Int : 482 ms Critical Test Result: AV Block Sinus tachycardia with 2nd degree A-V block (Mobitz I) Incomplete right bundle branch block Abnormal ECG Confirmed by BILL SEXTON MD ([id number]), editor department DASHA FRYE ([id number]) on 01/27/2025 9:18:24 AM Referred By: Confirmed By: BILL SEXTON MD
--- NOTE | 2025-01-24 15:09 | ED.VIS.DYS ---
HPI History of Present Illness Chief Complaint: Shortness of Breath Detail of Chief Complaint: Shortness of breath Informant: patient Narrative Narrative: Patient presents with shortness of breath that is worsened over the last 2 weeks. She complains of a dry cough. She complains of a lot of exertional dyspnea. She states that normally she wears oxygen at night but not during the day however she has had to start using it during the day as well because of her O2 saturation dropping to as low as 71%. Patient has history of COPD. She denies chest pain. She denies fever. Patient denies recent travel or surgery. She does have remote history of DVT. Currently not anticoagulated. [facility] Medical History Dermatosis of scalp Chronic back pain Osteoarthritis Encounter for removal of sutures Right knee pain Former tobacco use Anxiety and depression Laceration of knee, left Fall Right wrist fracture Rheumatoid arthritis Bilateral lower extremity edema Bilateral carpal tunnel syndrome Stomach ulcer Osteoporosis History of cataract Seasonal allergies Asthma Arthritis Vitamin D deficiency GERD (gastroesophageal reflux disease) Hyperlipidemia Hypertension Insomnia Hypersomnia Overweight Stage 3 severe COPD by GOLD classification Home Medications ?Medication ?Instructions ?Recorded ?Last Taken ?Type Nebulizer #1 ea 04/12/22 Unknown Rx spacer #1 ea 04/12/22 Unknown Rx Scooter #1 ea 05/31/22 Unknown Rx acetaminophen 500 mg tablet 500 mg PO Q6H PRN pain 05/31/22 Unknown History (Tylenol Extra Strength) diphenhydramine 25 1 tab PO QHS PRN pain 05/31/22 Unknown History mg-acetaminophen 500 mg tablet (Tylenol PM Extra Strength) propylene glycol 0.6 % eye drops 1 drp ophthalmic (eye) DAILY PRN 05/31/22 Unknown History (Systane Balance) dry eye(s) Acapella #1 ea 08/16/22 Unknown Rx hydrocolloid dressing 6 X 6 #5 ea 06/12/23 Unknown Rx (Aquacel Extra) albuterol sulfate 90 mcg/actuation 2 puff inhalation Q4H PRN 10/10/23 Unknown Rx aerosol inhaler (Ventolin HFA) shortness of breath or wheezing #18 grams Prolia 60 mg/mL subcutaneous 60 mg subcut ONCE #1 mL 12/01/23 Unknown Clinic syringe (denosumab) Handicap Placard #1 ea 01/10/24 Unknown Rx cholecalciferol (vitamin D3) 25 25 mcg PO DAILY 04/05/24 Unknown History mcg (1,000 unit) capsule miscellaneous medical supply 1 ea miscellaneous DAILY 04/05/24 Unknown History musculoskeletal disorders with debility ipratropium 0.5 mg-albuterol 3 mg 3 ml inhalation Q4H PRN PRN SOB 06/04/24 Unknown Rx (2.5 mg base)/3 mL nebulization &/OR WHEEZING #180 mL soln denosumab 60 mg/mL subcutaneous 60 mg subcut [id number] #1 mL 09/04/24 Unknown Rx syringe (Prolia) atorvastatin 40 mg tablet 40 mg PO QHS #90 tabs 11/22/24 Unknown Rx omeprazole 40 mg capsule,delayed 40 mg PO DAILY #90 caps 11/22/24 Unknown Rx release duloxetine 30 mg capsule,delayed 90 mg (3 x 30 mg) PO DAILY 3 11/25/24 Unknown Rx release months #270 caps polyethylene glycol 3350 17 4 g PO QDAY PRN constipation 12/09/24 Unknown History gram/dose oral powder (Miralax) amlodipine 5 mg tablet 7.5 mg PO DAILY blood pressure 01/16/25 Unknown History cephalexin 500 mg capsule 500 mg PO Q12H 7 days #14 caps 01/16/25 Unknown Rx Allergy/AdvReac Type Severity Reaction Status Date / Time azithromycin Allergy Itching Verified 01/24/25 13:34 Family History Grandmother COPD (chronic obstructive pulmonary disease) Mother Heart disease Hypertension CVA (cerebral vascular accident) Myocardial infarction, Onset Age: 50 Father CVA (cerebral vascular accident) Alcohol abuse Prostate cancer Sister Heart disease Brother Heart disease Surgical History History of surgery on extremity History of hip surgery History of appendectomy History of hemorrhoidectomy History of colonoscopy History of cholecystectomy History of hysterectomy Social History household members: none Smoking Status: Former smoker quit date: 10/23/09 pack-years: 42 Tobacco: How many years used: 42 Electronic Cigarette Use: not used how long ago did patient quit smokin years second hand exposure: Yes quit status: quit date established alcohol intake: never substance use type: does not use caffeine: Yes what type of physical activity do you participate in: none ROS ROS ED Review of Systems ROS Unobtainable: other Constitutional Constitutional ED: Reports lethargy; Denies chills, fever(s), sweats or weight loss Eyes Eyes: Denies blurry vision, change in vision or diplopia ENT ENT ED: Denies rhinorrhea or sore throat Cardiovascular Cardiovascular: Denies chest pain, orthopnea or racing heartbeat Respiratory/Chest Respiratory/Chest: Reports cough, dyspnea and dyspnea on exertion; Denies orthopnea or sputum Gastrointestinal Gastrointestinal: Denies abdominal pain, diarrhea, nausea or vomiting Genitourinary Genitourinary ED: Denies dysuria, hematuria or urinary frequency Musculoskeletal Musculoskeletal: Denies arthralgias, back pain, myalgias or neck pain Integumentary Denies abscess, Abrasions or rash Neurologic Neurologic: Denies headache(s) or weakness Psychiatric Psychiatric: Denies anxiety, depression or suicidal thoughts Endocrine Endocrinology: Denies polydipsia, polyphagia or polyuria Hematologic/Lymphatic Hematologic/Lymphatic: Denies easy bleeding, easy bruising or lymphadenopathy Allergic/Immunologic Allergic/Immunologic ED: Denies mouth swelling, tongue swelling or urticaria EXAM Physical Exam Const Vital Signs: 01/24/25 13:34 01/24/25 13:37 01/24/25 14:37 Temperature 98.3 F 98.2 F 98.2 F Temperature Source Oral Oral Oral Pulse Rate 132 H 132 H 89 Respiratory Rate 20 H 20 H 17 Respiratory Effort Respiratory Depth Respiratory Pattern Blood Pressure 93/69 93/69 136/88 H Blood Pressure Mean 77 77 104 Pulse Ox 96 96 94 Oxygen Delivery Method Nasal Cannula Nasal Cannula Nasal Cannula Oxygen Flow Rate (L/min) 2 2 2 01/24/25 15:00 01/24/25 15:00 01/24/25 15:35 Temperature 98.2 F Temperature Source Oral Pulse Rate 99 78 Respiratory Rate 24 H 16 Respiratory Effort Short of Breath Respiratory Depth Shallow Respiratory Pattern Tachypnea Blood Pressure 132/77 H Blood Pressure Mean 95 Pulse Ox 92 Oxygen Delivery Method Nasal Cannula Nasal Cannula Oxygen Flow Rate (L/min) 2 2 01/24/25 15:42 01/24/25 16:00 01/24/25 17:00 Temperature 98.3 F 98.3 F Temperature Source Oral Oral Pulse Rate 94 100 Respiratory Rate 18 16 Respiratory Effort Respiratory Depth Respiratory Pattern Blood Pressure 132/77 H 124/75 H Blood Pressure Mean 95 91 Pulse Ox 92 93 Oxygen Delivery Method Nasal Cannula Nasal Cannula Nasal Cannula Oxygen Flow Rate (L/min) 2 2 2 Positive well nourished and well developed General Appearance ED: well developed and NAD HEENT Reports TM's clear and moist mucous membranes normocephalic and atraumatic; Negative for trauma or tenderness Tympanic Membrane ED: Yes TM's clear Eyes PERRL and EOMs intact bilaterally General Eye ED: Negative for pale conjunctiva or scleral icterus Neck no lymphadenopathy, supple and no JVD General: Negative for tenderness Chest Wall inspection of chest normal and palpation of chest normal Chest: Negative for tenderness Resp normal respiratory effort and No clear to auscultation bilaterally Resp Narrative: Patient with diminished breath sounds bilaterally with expiratory wheezes throughout. Mild tachypnea. Effort and Inspection: Negative for respiratory distress or pain with movement Auscultation: wheezes; Negative for rhonchi or diminished lung sounds Cardio regular rhythm, S1 normal heart sound, S2 normal heart sound and no murmurs Rate: tachycardic Peripheral Pulses: pulses 2+ throughout GI normal to inspection, nondistended, normoactive bowel sounds, soft to palpation, non-tender, non-distended and no masses Back/Spine no CVA tenderness and no thoracic nor lumbar tenderness Extremity normal to inspection General Extremety ED: Negative for edema General Extremity: Negative for edema Neuro oriented x3, CN's II-XII intact bilaterally, no sensory deficits noted and gait normal Sensorium / Orientation: awake, alert, oriented to person, oriented to place and oriented to time Motor Exam: strength 5/5 throughout and strength abnormal Psych mental status grossly normal Skin no rashes or lesions noted and no wounds MDM MDM MDM Narrative Medical decision making narrative: Patient presents with increasing dyspnea over the last 2 weeks. History of COPD. Increased O2 demand at home. She has had a cough that is nonproductive and no fever. Wheezing on exam. IV line established. EKG obtained on arrival showed a sinus rhythm with ventricular rate of 80 bpm with PACs. CBC with differential shows a white count of 5.3 with hemoglobin 13 and platelet count of 267. Chemistries unremarkable. Troponin elevated 21. D-dimer elevated 1.03. Patient was treated with DuoNeb aerosol and albuterol aerosols. Started on Solu-Medrol 125 mg IV. 1 view chest x-ray obtained showed no evidence of infiltrate or pneumothorax or acute disease process. Patient will have a CTA of the chest to rule out PE. Discussed case with hospitalist will evaluate patient for admission for COPD exacerbation. Patient also has an elevated troponin which will have to be followed and will obtain 2-hour and 4-hour delta troponins Lab Data Attestation: I reviewed the patient's lab results. Labs: Laboratory Results - last 24 hr 01/24/25 01/24/25 13:42 16:56 WBC 5.3 RBC 4.54 Hgb 13.1 Hct 39.7 MCV 87.4 MCH 28.9 MCHC 33.0 RDW Std Deviation 43.8 RDW Coeff of Carline 13.7 Plt Count 267 MPV 9.5 Immature Gran % (Auto) 0.400 Neut % (Auto) 56.9 Lymph % (Auto) 33.4 Grant % (Auto) 7.9 Eos % (Auto) 0.8 Baso % (Auto) 0.6 Absolute Neuts (auto) 3.0 Absolute Lymphs (auto) 1.77 Nucleated RBC % 0 D-Dimer Quant (PE/DVT) 1.03 H* Sodium 141 Potassium 4.7 Chloride 105 Carbon Dioxide 21.0 Anion Gap 15 BUN 15 Creatinine 0.94 Estim Creat Clear Calc 45.59 L Est GFR (MDRD) Non-Af 63 BUN/Creatinine Ratio 16.4 Glucose 96 Calcium 8.9 Troponin T High Sens 21 H D Radiography Diagnostic Testing: Clinical Impression(s) from Imaging Studies Chest X-Ray 01/24/25 15:40 IMPRESSION: 1. No acute cardiopulmonary process. Reading Location: [facility] 1 view chest x-ray obtained interpreted by myself as hyperinflation without evidence of infiltrate or pneumothorax or acute disease process. EKG Initial EKG: Attestation: I personally reviewed and interpreted this EKG as follows: Comments: Sinus rhythm with ventricular rate of 80 bpm with PACs., Cannot rule out second-degree AV block Discharge Plan Triage Chief Complaint: Shortness of Breath ED Provider: Nicole Ordonez Dx/Rx/DC Orders Clinical Impression: Acute exacerbation of chronic obstructive pulmonary disease, Elevated troponin, Dyspnea Prescriptions: No Action (DME) spacer See Rx Instructions .ROUTE .MEDSUPPLY Qty: 1 0RF Rx Instructions: As directed (DME) Nebulizer See Rx Instructions .ROUTE .MEDSUPPLY Qty: 1 0RF Rx Instructions: As directed (DME) Acapella See Rx Instructions .ROUTE .MEDSUPPLY Qty: 1 0RF Rx Instructions: As directed acetaminophen [Tylenol Extra Strength] 500 mg tablet 500 mg PO Q6H PRN (Reason: pain) diphenhydramine-acetaminophen [Tylenol PM Extra Strength] 25-500 mg tablet 1 tab PO QHS PRN (Reason: pain) Systane Balance 0.6 % drops 1 drp ophthalmic (eye) DAILY PRN (Reason: dry eye(s)) (DME) Scooter See Rx Instructions .Route .MEDSUPPLY Qty: 1 0RF Rx Instructions: As directed (DME) hydrocolloid dressing [Aquacel Extra] 6 X 6 bandage See Rx Instructions .Route Qty: 5 2RF Rx Instructions: As directed Prolia 60 mg/mL syringe 60 mg subcut ONCE Qty: 1 0RF cholecalciferol (vitamin D3) 25 mcg (1,000 unit) capsule 25 mcg PO DAILY miscellaneous medical supply Misc 1 ea miscellaneous DAILY Rx Instructions: Lift chair for position change. polyethylene glycol 3350 [Miralax] 17 gram/dose powder 4 g PO QDAY PRN (Reason: constipation) amlodipine 5 mg tablet 7.5 mg PO DAILY cephalexin 500 mg capsule 500 mg PO Q12H 7 Days Qty: 14 0RF albuterol sulfate [Ventolin HFA] 90 mcg/actuation HFA aerosol inhaler 2 puff inhalation Q4H PRN (Reason: shortness of breath or wheezing) Qty: 18 6RF (DME) Handicap Placard See Rx Instructions .ROUTE .MEDSUPPLY Qty: 1 0RF Rx Instructions: As directed, length of time 3 years ipratropium-albuterol 0.5 mg-3 mg(2.5 mg base)/3 mL solution for nebulization 3 ml inhalation Q4H PRN PRN (Reason: SOB &/OR WHEEZING) Qty: 180 6RF Prolia 60 mg/mL syringe 60 mg subcut [id number] Qty: 1 2RF atorvastatin 40 mg tablet 40 mg PO QHS Qty: 90 1RF omeprazole 40 mg capsule,delayed release(DR/EC) 40 mg PO DAILY Qty: 90 1RF duloxetine 30 mg capsule,delayed release(DR/EC) 90 mg PO DAILY 90 Days Qty: 270 0RF Rx Instructions: Take 60 mg in the Am and 30 mg at night. Primary Care Provider: Yenni Lu Referrals: Yenni Lu MD [Primary Care Provider] - Print Language: Venezuelan Disposition Disposition: Acute Care Hospital [facility]
[2025-01-24] MEDS: Albuterol 2.5 MG/3 ML VIAL.NEB. INHALATION ×3 (15:33)
[2025-01-24] MEDS: Ipratropium/Albuterol Sulfate 3 ML AMPUL.NEB INHALATION ×2 (15:33→19:45)
[2025-01-24] MEDS: MethylPREDNISolone 125 MG/2 ML Vial IV (15:40)
--- NOTE | 2025-01-24 15:40 | RAD_ITS ---
PROCEDURE: CHEST 1 VIEW (PORTABLE) 01/24/2025 REASON FOR EXAM: DYSPNEA TECHNIQUE: Frontal view of the chest. COMPARISON: 01/16/2025; 11/06/2023 FINDINGS: The lungs are clear. No pleural effusion or pneumothorax. The cardiomediastinal silhouette is unremarkable. No acute osseous or soft tissue abnormality. Degenerative changes are present in the shoulders. RAD/Chest 1 View (Portable) IMPRESSION: 1. No acute cardiopulmonary process. [facility]
[2025-01-24 15:44] LABS: Absolute Lymphocyte Count 1.77 X10^3/uL (0.83-4.51); Basophil# 0.03 X10^3/uL; Basophil% 0.6 % (0-1); Eosinophil# 0.04 X10^3/uL; Eosinophils% 0.8 % (0-5); Hematocrit 39.7 % (37-47); Hemoglobin 13.1 g/dL (12.0-15.0); Lymphocyte # 1.77 X10^3/ul (0.83-4.51); Lymphocyte % 33.4 % (19-41); Mean Corpuscular Hgb 28.9 pg (27.0-32.0); Mean Corpuscular Volume 87.4 fL (81-99); Mean Platelet Vol. 9.5 fl (6.2-12.0); Monocyte# 0.42 X10^3/uL; Monocyte% 7.9 % (0-10); NRBC Flagged by Analyzer 0 % (0-5); Neutrophil # 3.02 X10^3/uL (2.7-7.7); Neutrophil % 56.9 % (47-70); Platelet Count 267 K/mm3 (150-450); RBC Distribution Width CV 13.7 % (11.6-14.6); RBC Distribution Width SD 43.8 fl (35.1-43.9); Red Blood Count 4.54 M/mm3 (4.2-5.4); White Blood Count 5.3 K/mm3 (4.4-11.0)
[2025-01-24 16:19] LABS: Anion Gap 15 (5-15); BUN 15 mg/dL (4-19); BUN/Creat Ratio 16.4 RATIO (10-20); Calcium,Total 8.9 mg/dL (7.6-11.0); Chloride 105 mmol/L (98-108); Creatinine, Serum 0.94 mg/dL (0.70-1.20); EST Glomerular Filtration Rate 63 (>60); Estimated Creatinine Clearance 45.59 ml/min (50-250); Glucose 96 mg/dL (70-99); Potassium 4.7 mmol/L (3.3-5.1); Sodium Level 141 mmol/L (133-145); Troponin T High Sensitivity 21 ng/L (<=14)
[2025-01-24 17:15] LABS: D-Dimer Quantitative (DVT/PE) 1.03 FEU/ug/m (0.27-0.49)
--- NOTE | 2025-01-24 17:16 | CT_ITS ---
EXAM: CTA CHEST W/WO CONTRAST 01/24/2025 CLINICAL HISTORY: Dyspnea, elevated D-dimer COMPARISON: 11/04/2023 TECHNIQUE: CTA of the chest with coronal and sagittal and MIP reformatted images. 99 cc Isovue 370 FINDINGS: No evidence of filling defect to suggest pulmonary embolism. Ectatic thoracic aorta with atherosclerotic changes at the arch and descending thoracic aorta appears within limits. Visualized great vessels appear within limits. Dominant left vertebral artery, anatomic variant. [place] artifact from bolus. Three-vessel coronary calcification noted appears moderate. No pericardial or pleural effusion. The central airways appear patent. Moderate mainly centrilobular and upper zone predominant emphysematous change again noted. Hyperinflation. Small triangular juxtapleural subpleural nodular density at the minor fissure again seen, not significantly changed since 2023. Sequela of previous granulomatous disease again noted. Minimal dependent basilar atelectasis. Small subpleural posterior lower lobe bilateral areas of tree-in-bud nodular type densities for example axial 77 and suggested at the lingula axial 89. May represent small airways disease, atypical etiology. No focal consolidation. Images of the upper abdomen appear within limits. Lower cervical spondylosis/discogenic change. CT/CTA Chest W/WO Contrast IMPRESSION: No evidence of filling defect to suggest pulmonary embolism. Small subpleural posterior lower lobe bilateral areas of tree-in-bud nodular ty pe densities for example axial 77 and suggested at the lingula axial 89. May represent small airways disease, atypical etiology. N o focal consolidation. The central airways appear patent. Moderate mainly centrilobular and upper zon e predominant emphysematous change again noted. Hyperinflation. Three-vessel coronary calcification noted appears moderate. Reading Location: [id number]
[2025-01-24 17:55] LABS: Troponin T High Sens 2 HR 17 ng/L (<=14)
--- NOTE | 2025-01-24 18:41 | PCM.HP.STD ---
HPI - General General Date of Admission: 01/24/25 Date of Service: 01/24/25 Chief Complaint: Shortness of breath HPI Narrative NAMRATA SAXENA, is a 74-year-old female history of COPD, GERD, depression, hypertension presented to [facility] ED 01/24/2025 with worsened shortness of breath over the past 2 weeks of dry cough. Wears O2 at night and not usually during the day however has had to use it during the day recently due to O2 sats low 71%. Plan on arrival to the ED heart rate initially 132 with blood pressure 93/69, respiratory rate 20 and patient 96% on 2 L of O2. In the ED BMP and CBC fairly unremarkable but did have initial troponin of 21 the down trended to 17. Due to a D-dimer of 1 she had a CTA which showed small subpleural posterior lobe bilateral areas of tree-in-bud nodular type densities may represent small airway disease but no focal consolidation and coronary calcifications that are moderate in nature. It was felt that patient had COPD exacerbation hospitalist contacted for admission. Patient evaluated bedside and reports she has had increasing shortness of breath over the past couple of weeks, 3 weeks ago she had lower extremity cellulitis primarily on the left with some swelling, finished her last antibiotic today but notes since several weeks ago it is worsened, does have dry cough and occasionally will feel lightheaded, notes low-grade fever at home [facility] Medical History (Updated 01/24/25 @ 17:49 by Molly Slater) Anxiety and depression Arthritis Asthma Bilateral carpal tunnel syndrome Bilateral lower extremity edema Chronic back pain COPD (chronic obstructive pulmonary disease) Dermatosis of scalp DVT (deep venous thrombosis) Encounter for removal of sutures Fall Former smoker Former tobacco use GERD (gastroesophageal reflux disease) History of cataract Hyperlipidemia Hypersomnia Hypertension Insomnia Laceration of knee, left On home oxygen therapy Osteoarthritis Osteoporosis Overweight Rheumatoid arthritis Rheumatoid arthritis Right knee pain Right wrist fracture Seasonal allergies Stage 3 severe COPD by GOLD classification Stomach ulcer Vitamin D deficiency Home Medications ?Medication ?Instructions ?Recorded ?Last Taken ?Type Nebulizer #1 ea 04/12/22 Unknown Rx spacer #1 ea 04/12/22 Unknown Rx Scooter #1 ea 05/31/22 Unknown Rx acetaminophen 500 mg tablet 500 mg PO Q6H PRN pain 05/31/22 Unknown History (Tylenol Extra Strength) propylene glycol 0.6 % eye drops 1 drp ophthalmic (eye) DAILY PRN 05/31/22 Unknown History (Systane Balance) dry eye(s) Acapella #1 ea 08/16/22 Unknown Rx hydrocolloid dressing 6 X 6 #5 ea 06/12/23 Unknown Rx (Aquacel Extra) albuterol sulfate 90 mcg/actuation 2 puff inhalation Q4H PRN 10/10/23 Unknown Rx aerosol inhaler (Ventolin HFA) shortness of breath or wheezing #18 grams Handicap Placard #1 ea 01/10/24 Unknown Rx cholecalciferol (vitamin D3) 25 25 mcg PO DAILY 04/05/24 01/24/25 History mcg (1,000 unit) capsule denosumab 60 mg/mL subcutaneous 60 mg subcut [id number] #1 mL 09/04/24 10/15/24 Rx syringe (Prolia) atorvastatin 40 mg tablet 40 mg PO QHS #90 tabs 11/22/24 01/23/25 Rx omeprazole 40 mg capsule,delayed 40 mg PO DAILY #90 caps 11/22/24 01/24/25 Rx release polyethylene glycol 3350 17 4 g PO DAILY PRN constipation 12/09/24 Unknown History gram/dose oral powder (Miralax) amlodipine 5 mg tablet 7.5 mg PO DAILY blood pressure 01/16/25 01/24/25 History duloxetine 30 mg capsule,delayed 60 mg PO 0800 01/24/25 01/24/25 History release duloxetine 30 mg capsule,delayed 30 mg PO QHS 01/24/25 01/23/25 History release (Cymbalta) ipratropium 0.5 mg-albuterol 3 mg 3 ml inhalation Q4H PRN SOB &/OR 01/24/25 Unknown History (2.5 mg base)/3 mL nebulization WHEEZING soln tiotropium 2.5 mcg-olodaterol 2.5 2 puff inhalation DAILY 01/24/25 01/24/25 History mcg/actuation mist for inhalation (Stiolto Respimat) Allergy/AdvReac Type Severity Reaction Status Date / Time azithromycin Allergy Itching Verified 01/24/25 13:34 Family History Grandmother COPD (chronic obstructive pulmonary disease) Mother Heart disease Hypertension CVA (cerebral vascular accident) Myocardial infarction, Onset Age: 50 Father CVA (cerebral vascular accident) Alcohol abuse Prostate cancer Sister Heart disease Brother Heart disease Surgical History History of appendectomy History of cholecystectomy History of colonoscopy History of hemorrhoidectomy History of hip surgery History of hysterectomy History of surgery on extremity Social History household members: none Smoking Status: Former smoker quit date: 10/23/09 pack-years: 42 Tobacco: How many years used: 42 Electronic Cigarette Use: not used how long ago did patient quit smokin years second hand exposure: Yes quit status: quit date established alcohol intake: never substance use type: does not use caffeine: Yes what type of physical activity do you participate in: none ROS ROS Narrative General: Thought she had low-grade fever at home HENT: denies stuffy nose, denies sore throat EYES: Denies changes in vision Resp: Dry cough, increased shortness of breath and wheezing Cardiac: Denies chest pain GI: Denies abdominal pain, denies changes in bowel, denies nausea/vomiting : Denies changes in urination Extremity: Did have some swelling in her legs that is gone down MSK: Feels generally weak and tired Neuro: Denies any numbness/tingling Heme: Denies any bleeding or bruising Skin: Did have cellulitic changes in her legs that have virtually resolved Psychiatric: No complaints voiced Vital Signs Vital Signs Vital Signs: 01/24/25 13:34 01/24/25 13:37 01/24/25 14:37 Temperature 98.3 F 98.2 F 98.2 F Temperature Source Oral Oral Oral Pulse Rate 132 H 132 H 89 Respiratory Rate 20 H 20 H 17 Respiratory Effort Respiratory Depth Respiratory Pattern Blood Pressure 93/69 93/69 136/88 H Blood Pressure Mean 77 77 104 Pulse Ox 96 96 94 Oxygen Delivery Method Nasal Cannula Nasal Cannula Nasal Cannula Oxygen Flow Rate (L/min) 2 2 2 01/24/25 15:00 01/24/25 15:00 01/24/25 15:35 Temperature 98.2 F Temperature Source Oral Pulse Rate 99 78 Respiratory Rate 24 H 16 Respiratory Effort Short of Breath Respiratory Depth Shallow Respiratory Pattern Tachypnea Blood Pressure 132/77 H Blood Pressure Mean 95 Pulse Ox 92 Oxygen Delivery Method Nasal Cannula Nasal Cannula Oxygen Flow Rate (L/min) 2 2 01/24/25 15:42 01/24/25 16:00 01/24/25 17:00 Temperature 98.3 F 98.3 F Temperature Source Oral Oral Pulse Rate 94 100 Respiratory Rate 18 16 Respiratory Effort Respiratory Depth Respiratory Pattern Blood Pressure 132/77 H 124/75 H Blood Pressure Mean 95 91 Pulse Ox 92 93 Oxygen Delivery Method Nasal Cannula Nasal Cannula Nasal Cannula Oxygen Flow Rate (L/min) 2 2 2 01/24/25 17:42 01/24/25 18:00 Temperature 98.3 F 98.3 F Temperature Source Oral Pulse Rate 96 100 Respiratory Rate 25 H 18 Respiratory Effort Respiratory Depth Respiratory Pattern Blood Pressure 111/72 127/65 H Blood Pressure Mean 85 85 Pulse Ox 92 92 Oxygen Delivery Method Nasal Cannula Oxygen Flow Rate (L/min) 2 Weight Weight: 63.2 kg Body Mass Index (BMI) 24.7 Physical Exam Narrative General: Alert, oriented HEENT: Atraumatic, normocephalic Eyes: Anicteric, normal conjunctiva, extraocular movements grossly intact Neck: Supple Respiratory: Diffuse wheezes with increased respiratory effort Cardiovascular: Regular rate and rhythm GI: Soft, nontender, nondistended Extremities: No edema Musculoskeletal: Moving all extremities Neuro: No overt focal neurological deficits Skin: No rashes appreciated Psych: Cooperative Results Lab / Micro Data 01/24/25 13:42 01/24/25 13:42 Labs: Laboratory Results - last 24 hr 01/24/25 13:42: WBC 5.3, RBC 4.54, Hgb 13.1, Hct 39.7, MCV 87.4, MCH 28.9, MCHC 33.0, RDW Std Deviation 43.8, RDW Coeff of Carline 13.7, Plt Count 267, MPV 9.5, Immature Gran % (Auto) 0.400, Neut % (Auto) 56.9, Lymph % (Auto) 33.4, Bowie % (Auto) 7.9, Eos % (Auto) 0.8, Baso % (Auto) 0.6, Absolute Neuts (auto) 3.0, Absolute Lymphs (auto) 1.77, Nucleated RBC % 0, Sodium 141, Potassium 4.7, Chloride 105, Carbon Dioxide 21.0, Anion Gap 15, BUN 15, Creatinine 0.94, Estim Creat Clear Calc 45.59 L, Est GFR (MDRD) Non-Af 63, BUN/Creatinine Ratio 16.4, Glucose 96, Calcium 8.9, Troponin T High Sens 21 H D 01/24/25 16:56: D-Dimer Quant (PE/DVT) 1.03 H* 01/24/25 17:00: Troponin T Hi Sens 2 Hr 17 H Imaging Radiology Impression Chest X-Ray 01/24/25 15:40 IMPRESSION: 1. No acute cardiopulmonary process. Reading Location: [facility] Chest CTA 01/24/25 17:16 IMPRESSION: No evidence of filling defect to suggest pulmonary embolism. Small subpleural posterior lower lobe bilateral areas of tree-in-bud nodular type densities for example axial 77 and suggested at the lingula axial 89. May represent small airways disease, atypical etiology. No focal consolidation. The central airways appear patent. Moderate mainly centrilobular and upper zone predominant emphysematous change again noted. Hyperinflation. Three-vessel coronary calcification noted appears moderate. Reading Location: [id number] Assessment & Plan Assessment/Plan (1) Acute exacerbation of chronic obstructive pulmonary disease: PLAN: Plan #Acute exacerbation of COPD, patient with hypoxia at home and is requiring 2 L O2 here, on 2 L nightly at home -Admit to floor, continuous O2 monitoring -Chest x-ray: No acute process, CTA with some tree-in-bud in the bases with possible small airway disease -COVID ordered, obtain respiratory panel, sputum culture if able -O2 in place, wean as tolerated -IV methylprednisone -Scheduled DuoNebs -Albuterol prn -Incentive spirometer -Mucinex #GERD -Continue PPI #Depression/anxiety -Continue home medications #Hypertension -Patient somewhat hypotensive on arrival, will hold home antihypertensives #DVT ppx: Lovenox acute Sita Parsons MD Charges/Coding Visit Charges Inpatient E&M: 69068 Init Hosp L2
--- NOTE | 2025-01-24 19:09 | CASEMGMT ---
Care Management Face to Face with patient for initial transition planning/care coordination assessment in the ED. This information writer introduced self and role at [facility]. Patient alert and oriented. Patient willing to participate in assessment and is able to answer all questions appropriately. Care providers, pharmacy, and demographics verified. Admitting Diagnosis: acute exacerbation of COPD Other diagnosis history: COPD, DVT, GERD, hypertension PCP: Tabitha Specialists: Paty Calvo Pharmacy: [facility] Insurance: [employer] (primary). [employer] (secondary). Prescription Benefit: yes Living Will/HPOA: none currently, but would like to complete during admission. LNOK: sonMilton. Living Arrangements: lives alone in a 2 story apartment. 1 step to enter, 14 steps to get up to patient's bathroom and bedroom. Patient reports to have been sleeping downstairs for the last couple of weeks. Initially reported being independent at baseline, but later stated needing some help with bathing and cleaning. Transportation: patient drives when necessary, but patient reports using [employer] for transportation. DME: walker, rollator, cane, O2 2L at HS and w/exertion ([facility]) HHC: reports being active with an RN through [facility] that helps with medication management and vitals (though reportedly not the last 2 weeks because patient states being too short of breath to get up, so patient reports canceling the last 2 weeks). SNF/Rehab: [facility] ([facility]) Community Resources: home delivered meals through [facility] History: anxiety and depression listed in medical records. Patient goals: Patient wishes to discharge home with [facility] continuing. Patient states a desire to have an aide coming back out to help with both personal and home care; patient reports having one pre-COVID and it being necessary. Patient states having dishes and dirty clothes laying around the house due to being too short of breath. Disposition Plan: admission to acute; RN CM/SW to follow for discharge planning needs that may arise. Luz Elena Gomez, HEAD OF BUSINESS DEVELOPMENT, POLICE AIDE
[2025-01-24 19:48] LABS: Troponin T High Sens 4 HR 18 ng/L (<=14)
--- NOTE | 2025-01-24 20:44 | PCM.HOSP.N ---
Hospitalist Note Pt w/ tree and bud on CT and was reporting fever at home, unsure if there may be a superimposed infection, given pts increased requirements instead of improvement feel it is reasonable to start rocephin and doxy (azithro allergy) and follow workup w/ deescalation as appropriate, will check procal to help further decide on deescalation
[2025-01-24] MEDS: Ceftriaxone 2 GM in 0.9% Normal Saline (50mL MB+) 50 ML IV (21:08)
[2025-01-24 21:35] LABS: Procalcitonin 0.03 ng/mL (<=0.10)
[2025-01-24] MEDS: guaiFENesin 1,200 MG Tablet 1200 MG PO (22:04)
[2025-01-24] MEDS: Atorvastatin Calcium 40 MG Tablet PO (22:04)
[2025-01-24] MEDS: 0.9% Saline Lock 10 ML Syringe IV (22:04)
[2025-01-24] MEDS: Methylprednisolone Sod Succ 40 MG/ML VIAL IV (22:04)
[2025-01-24] MEDS: DULoxetine Hcl 30 MG Capsule PO (22:04)
[2025-01-24] MEDS: Doxycycline 100 MG in 0.9% Normal Saline (250mL Bag) 250 ML 250 MG IV (22:11)
[2025-01-24] MEDS: Lorazepam 2 MG/ML WCH Syringe 0.5 MG IV (23:29)
--- NOTE | 2025-01-24 23:58 | RAD_ITS ---
PROCEDURE: CHEST 1 VIEW (PORTABLE) 01/25/2025 REASON FOR EXAM: CONCERN FOR FLUID OVERLOAD TECHNIQUE: Frontal view of the chest. COMPARISON: Preceding CTA of the chest 01/24/2025 at 17:31 and chest x-ray 01/24/2025 FINDINGS: The lungs appear clear. Pulmonary vascularity appears within limits. No pleural effusion identified. Ectatic thoracic aorta with atherosclerotic change at the aortic arch. Cardiac silhouette is within limits for size. Bilateral shoulder osteoarthrosis. May refer to preceding CTA report for description of possible small airways disease which is not radiographically visible on the current radiograph. RAD/Chest 1 View (Portable) IMPRESSION: The lungs appear clear. May refer to preceding CTA report for description of po ssible small airways disease which is not radiographically visible on the current radiograph. Pulmonary vascularity appears within limits. No pleural effusion identified. Reading Location: [id number]
[2025-01-25] VITALS (12 sets, daily range): BP systolic 117–140; BP diastolic 72–88; PULSE 86–116; RESP 16–20; TEMP 36.6–36.8; O2SAT 93–98
[2025-01-25 00:52] LABS: Pro- Brain NATRIURETIC PEPTIDE 185 pg/mL (<=1800)
[2025-01-25] MEDS: Methylprednisolone Sod Succ 40 MG/ML VIAL IV ×3 (05:14→21:23)
[2025-01-25] MEDS: Ipratropium/Albuterol Sulfate 3 ML AMPUL.NEB INHALATION ×5 (07:14→22:30)
[2025-01-25 07:35] LABS: Absolute Lymphocyte Count 0.87 X10^3/uL (0.83-4.51); Absolute Neutrophil Count 1.7 X10^3/uL (2.0-7.7); Basophil# 0.01 X10^3/uL; Basophil% 0.4 % (0-1); Hematocrit 39.2 % (37-47); Hemoglobin 13.2 g/dL (12.0-15.0); Lymphocyte # 0.87 X10^3/ul (0.83-4.51); Lymphocyte % 32.6 % (19-41); Mean Corp Hgb Conc 33.7 g/dL (32-36); Mean Corpuscular Volume 86.2 fL (81-99); Mean Platelet Vol. 9.5 fl (6.2-12.0); Monocyte# 0.05 X10^3/uL; Monocyte% 1.9 % (0-10); NRBC Flagged by Analyzer 0 % (0-5); Neutrophil # 1.73 X10^3/uL (2.7-7.7); Neutrophil % 64.7 % (47-70); POSITIVE MORPHOLOGY YES; Platelet Count 288 K/mm3 (150-450); RBC Distribution Width CV 13.8 % (11.6-14.6); RBC Distribution Width SD 43.1 fl (35.1-43.9); Red Blood Count 4.55 M/mm3 (4.2-5.4); White Blood Count 2.7 K/mm3 (4.4-11.0)
[2025-01-25 07:45] LABS: Differential Indicated SCAN CRITERIA MET
[2025-01-25] MEDS: Enoxaparin 40 MG/0.4 ML Syringe SC (08:08)
[2025-01-25] MEDS: Ceftriaxone 2 GM in 0.9% Normal Saline (50mL MB+) 50 ML IV (08:09)
[2025-01-25] MEDS: guaiFENesin 1,200 MG Tablet 1200 MG PO ×2 (08:09→21:23)
[2025-01-25] MEDS: Pantoprazole Sodium 40 MG Tablet PO (08:11)
[2025-01-25] MEDS: DULoxetine Hcl 60 MG Capsule PO (08:11)
[2025-01-25 08:30] LABS: Anion Gap 12 (5-15); BUN 15 mg/dL (4-19); BUN/Creat Ratio 19.1 RATIO (10-20); Calcium,Total 8.7 mg/dL (7.6-11.0); Chloride 106 mmol/L (98-108); Creatinine, Serum 0.77 mg/dL (0.70-1.20); EST Glomerular Filtration Rate 79 (>60); Estimated Creatinine Clearance 49.49 ml/min (50-250); Glucose 157 mg/dL (70-99); Potassium 4.3 mmol/L (3.3-5.1); Sodium Level 140 mmol/L (133-145); Thyroid Stim Hormone (TSH) 0.386 uIU/mL (0.300-4.200)
--- NOTE | 2025-01-25 08:58 | PN.HOSP_ITS ---
Reason for Visit Reason for Visit: Shortness of breath Subjective Subjective Patient states she feels like she is stabilized. At baseline, wears 2 L of oxygen at night and with exertion. States she has a dry cough but not producing anything currently. States she is still wheezing. Objective Data Objective Data Vital Signs: Vital Signs Temp Pulse Resp BP Pulse Ox O2 Del Method O2 Flow Rate 97.9 F 91 16 117/77 98 Nasal Cannula 2 01/25/25 05:07 01/25/25 07:14 01/25/25 07:14 01/25/25 05:07 01/25/25 07:14 01/25/25 08:05 01/25/25 07:14 Oxygen Flow Rate (L/min) 2 Oxygen Delivery Method Nasal Cannula Weight: 60.419 kg Body Mass Index (BMI) 23.6 Intake & Output: Intake and Output for Last 24 Hours 01/23/25 01/24/25 01/25/25 23:59 23:59 23:59 Intake Total 310 / 310 Balance 310 / 310 Lab / Micro Data 01/25/25 06:28 01/25/25 06:28 Labs: Laboratory Results - last 24 hr 01/24/25 13:42: WBC 5.3, RBC 4.54, Hgb 13.1, Hct 39.7, MCV 87.4, MCH 28.9, MCHC 33.0, RDW Std Deviation 43.8, RDW Coeff of Carline 13.7, Plt Count 267, MPV 9.5, Immature Gran % (Auto) 0.400, Neut % (Auto) 56.9, Lymph % (Auto) 33.4, Cecil % (Auto) 7.9, Eos % (Auto) 0.8, Baso % (Auto) 0.6, Absolute Neuts (auto) 3.0, Absolute Lymphs (auto) 1.77, Nucleated RBC % 0, Sodium 141, Potassium 4.7, Chloride 105, Carbon Dioxide 21.0, Anion Gap 15, BUN 15, Creatinine 0.94, Estim Creat Clear Calc 45.59 L, Est GFR (MDRD) Non-Af 63, BUN/Creatinine Ratio 16.4, Glucose 96, Calcium 8.9, Troponin T High Sens 21 H D 01/24/25 16:56: D-Dimer Quant (PE/DVT) 1.03 H* 01/24/25 17:00: Troponin T Hi Sens 2 Hr 17 H 01/24/25 19:11: Troponin T Hi Sens 4Hr 18 H, Procalcitonin 0.03 01/25/25 00:05: NT pro BNP II 185 01/25/25 06:28: WBC 2.7 L, RBC 4.55, Hgb 13.2, Hct 39.2, MCV 86.2, MCH 29.0, MCHC 33.7, RDW Std Deviation 43.1, RDW Coeff of Carline 13.8, Plt Count 288, MPV 9.5, Immature Gran % (Auto) 0.400, Neut % (Auto) 64.7, Lymph % (Auto) 32.6, Cecil % (Auto) 1.9, Eos % (Auto) 0.0, Baso % (Auto) 0.4, Absolute Neuts (auto) 1.7 L, Absolute Lymphs (auto) 0.87, Nucleated RBC % 0, Sodium 140, Potassium 4.3, Chloride 106, Carbon Dioxide 22.0, Anion Gap 12, BUN 15, Creatinine 0.77, Estim Creat Clear Calc 49.49 L, Est GFR (MDRD) Non-Af 79, BUN/Creatinine Ratio 19.1, G lucose 157 H, Calcium 8.7, TSH 0.386 Micro: Microbiology 01/24/25 19:51 Mucosa - Nasopharyngeal SARS-CoV-2, Influenza & RSV (PCR) - Final Influenzae A 01/24/25 19:51 Mucosa - Nasopharyngeal Respiratory Panel (PCR) - Final Radiography Diagnostic Testing: Radiology Impression Chest X-Ray 01/24/25 15:40 IMPRESSION: 1. No acute cardiopulmonary process. Reading Location: [facility] Chest CTA 01/24/25 17:16 IMPRESSION: No evidence of filling defect to suggest pulmonary embolism. Small subpleural posterior lower lobe bilateral areas of tree-in-bud nodular type densities for example axial 77 and suggested at the lingula axial 89. May represent small airways disease, atypical etiology. No focal consolidation. The central airways appear patent. Moderate mainly centrilobular and upper zone predominant emphysematous change again noted. Hyperinflation. Three-vessel coronary calcification noted appears moderate. Reading Location: [facility] Chest X-Ray 01/24/25 23:58 IMPRESSION: The lungs appear clear. May refer to preceding CTA report for description of possible small airways disease which is not radiographically visible on the current radiograph. Pulmonary vascularity appears within limits. No pleural effusion identified. Reading Location: [facility] Physical Exam Const alert, oriented x3 and no apparent distress Constitutional Narrative: Thin, older, white female, sitting up in a chair at the bedside, watching television, very pleasant, appears comfortable nontoxic, no signs of respiratory distress HEENT head/scalp atraumatic and moist oral mucous membranes HEENT Narrative: Mallampati 2, no thrush Head and Scalp: normocephalic Resp normal respiratory effort, no retractions, no use of accessory muscles and No clear to auscultation bilaterally Resp Narrative: Diffuse end expiratory wheezes present, stable on 2 L nasal cannula with no signs of respiratory distress Auscultation: wheezes; Negative for crackles or rhonchi Cardio regular rate, regular rhythm, S1 normal heart sound, S2 normal heart sound, no murmurs, no rub, no gallops and no clicks GI normal to inspection, nondistended, normoactive bowel sounds, soft to palpation and non-tender GI Narrative: Scaphoid abdomen Extremity no clubbing, cyanosis or edema Extremity Narrative: Decreased lean muscle mass, pedal and radial pulses are 2+ Neuro oriented x3, moves all extremities and no focal motor deficits Speech: speech normal Psych affect normal Psych Narrative: Extremely pleasant Assessment & Plan Assessment/Plan (1) Dyspnea: (2) Acute exacerbation of chronic obstructive pulmonary disease: PLAN: Plan Acute hypoxia secondary to acute exacerbation of COPD from influenza A -With influenza A positivity will discontinue IV antibiotics -Currently on 2 L nasal cannula -At baseline wears 2 L at night and 2 L with exertion -Will check ambulatory pulse ox prior to discharge -If patient requiring any oxygen above her baseline at discharge will need to be held till Monday as [facility] is not open to arrange alterations in her oxygen capabilities at home and she has no oxygen left -Continue IV steroids -Continue nebulizers -Continue incentive spirometer -Add Acapella -Continue Mucinex Troponin elevation -Mild -Initial was 21 with a repeat at 17 and the third troponin 18 -Likely related to hypoxia and respiratory distress on presentation -No further workup at this time Stage III COPD by Gold classification -FEV1 predicted is 55% -Hold home inhalers -Treatment as above Chronic hypoxic respiratory failure/bronchiectasis -Requires 2 L with exertion -Currently requiring oxygen at rest due to influenza -Reassess prior to discharge Essential hypertension -Blood pressures improved will restart home amlodipine Hyperlipidemia -Continue home statin Vitamin D deficiency -Continue home vitamin D Osteoporosis -Continue with outpatient Prolia schedule GERD -Continue on PPI Depression -Continue home Cymbalta DVT prophylaxis -Continue enoxaparin CODE STATUS -Full code Charges/Coding Visit Charges Inpatient E&M: 97716 Subs Hosp L2
[2025-01-25] MEDS: Doxycycline 100 MG in 0.9% Normal Saline (250mL Bag) 250 ML 250 MG IV (09:32)
--- NOTE | 2025-01-25 14:10 | CASEMGMT ---
Social Work- SW met with pt to complete HCPOA per pt request. Pt named son, Milton, as HCPOA. Pt provided with original and copy for her son; copy placed on the chart. Pt reports no other needs at this time. CRYSTAL Welsh
[2025-01-25] MEDS: DULoxetine Hcl 30 MG Capsule PO (21:23)
[2025-01-25] MEDS: Atorvastatin Calcium 40 MG Tablet PO (21:23)
--- NOTE | 2025-01-25 23:25 | EKG12_ITS ---
Test Reason : A FIB Blood Pressure : */* mmHG Vent. Rate : 115 BPM Atrial Rate : 115 BPM P-R Int : 172 ms QRS Dur : 116 ms QT Int : 352 ms P-R-T Axes : 66 -9 51 degrees QTcB Int : 486 ms Sinus tachycardia with Premature atrial complexes Right bundle branch block Abnormal ECG When compared with ECG of 24-Jan-2025 15:37, MANUAL COMPARISON REQUIRED DATA IS UNCONFIRMED Confirmed by CARLIE DEL TORO, BILL ([id number]), online content editor DASHA FRYE ([id number]) on 01/27/2025 11:44:00 AM Referred By: ALONSO Confirmed By: BILL SEXTON MD
[2025-01-26] VITALS (12 sets, daily range): BP systolic 121–130; BP diastolic 64–88; PULSE 76–116; RESP 14–24; TEMP 36.1–36.7; O2SAT 93–98
[2025-01-26] MEDS: Metoprolol Tartrate 25 MG Tablet 12.5 MG PO (00:55)
[2025-01-26] MEDS: Methylprednisolone Sod Succ 40 MG/ML VIAL IV ×3 (06:20→21:29)
[2025-01-26 06:56] LABS: ALB/GLOB Ratio 1.3 RATIO (0.9-2.4); AST(SGOT) 33 U/L (<=31); Alanine Aminotransfer ALT/SGPT 24 U/L (<=34); Albumin, Serum 3.9 g/dL (3.4-4.8); Alkaline Phosphatase 57 U/L (35-104); Anion Gap 14 (5-15); BUN 24 mg/dL (4-19); BUN/Creat Ratio 26.1 RATIO (10-20); Calcium,Total 9.8 mg/dL (7.6-11.0); Carbon Dioxide 20.3 mmol/L (21.0-32.0); Chloride 105 mmol/L (98-108); Creatinine, Serum 0.92 mg/dL (0.70-1.20); EST Glomerular Filtration Rate 65 (>60); Estimated Creatinine Clearance 43.03 ml/min (50-250); Globulin 2.9 g/dL (2.2-4.2); Glucose 169 mg/dL (70-99); Magnesium 1.8 mg/dL (1.5-2.2); Phosphorus 3.2 mg/dL (2.7-4.5); Potassium 4.2 mmol/L (3.3-5.1); Protein, Total 6.8 g/dL (5.9-8.4); Sodium Level 139 mmol/L (133-145); Total Bilirubin 0.22 mg/dL (0.00-1.30)
[2025-01-26 07:21] LABS: Absolute Lymphocyte Count 0.98 X10^3/uL (0.83-4.51); Absolute Neutrophil Count 9.4 X10^3/uL (2.0-7.7); Basophil# 0.01 X10^3/uL; Basophil% 0.1 % (0-1); Hematocrit 36.4 % (37-47); Lymphocyte # 0.98 X10^3/ul (0.83-4.51); Lymphocyte % 9.1 % (19-41); Mean Corpuscular Hgb 29.1 pg (27.0-32.0); Mean Corpuscular Volume 88.1 fL (81-99); Mean Platelet Vol. 9.9 fl (6.2-12.0); Monocyte# 0.38 X10^3/uL; Monocyte% 3.5 % (0-10); NRBC Flagged by Analyzer 0 % (0-5); Neutrophil # 9.36 X10^3/uL (2.7-7.7); Neutrophil % 86.9 % (47-70); Platelet Count 307 K/mm3 (150-450); RBC Distribution Width SD 45.3 fl (35.1-43.9); Red Blood Count 4.13 M/mm3 (4.2-5.4); White Blood Count 10.8 K/mm3 (4.4-11.0)
[2025-01-26] MEDS: Ipratropium/Albuterol Sulfate 3 ML AMPUL.NEB INHALATION ×5 (07:50→22:59)
--- NOTE | 2025-01-26 08:45 | PN.HOSP_ITS ---
Reason for Visit Reason for Visit: Shortness of breath Subjective Subjective Patient developed worsening hypoxia overnight and is now on 7 L heated high flow nasal cannula. Patient states she is just tired. Does not feel very short of breath at rest. Has cough but nonproductive. Objective Data Objective Data Vital Signs: Vital Signs Temp Pulse Resp BP Pulse Ox O2 Del Method O2 Flow Rate 97.0 F L 104 H 18 121/77 H 98 High Flow 7 01/26/25 03:00 01/26/25 03:00 01/26/25 03:00 01/26/25 03:00 01/26/25 03:00 01/26/25 03:00 01/26/25 03:00 Oxygen Flow Rate (L/min) 7 Oxygen Delivery Method High Flow Weight: 60.4 kg Body Mass Index (BMI) 23.6 Intake & Output: Intake and Output for Last 24 Hours 01/24/25 01/25/25 01/26/25 23:59 23:59 23:59 Intake Total 310 / 310 910 / 910 Output Total 600 / 600 Balance 310 / 310 310 / 310 Medical Nutrition Assessment Dietitian: Malnutrition Criteria Met Start: 01/25/25 15:26 Freq: Status: Active Protocol: Document 01/25/25 15:26 RMA (Rec: 01/25/25 15:27 RMA [id number]) Nutrition Malnutrition Evidence of Yes Malnutrition Exists Malnutrition (severe Chronic ): Evidenced By Suboptimal Energy Intake (Severe),Weight Loss (Severe) Clinical Problem Chronic Disease or Condition Related Malnutrition Etiology Severe protein-calorie malnutrition in the context of chronic disease related to increased energy expenditure and inadequate energy intake Signs/Symptoms as evidenced by PO meeting less than 75% estimated nutrition needs x 1-2 months and unintentional weight loss ~7% x past 1-2 months Status Active Problem Recommendation Dietitian Will liberalize diet to Regular in an effort to Recommendations/ optimize PO at meals given signs/symptoms of Changes malnutrition. Will add magic cup w/ lunch and dinner for tolerance. Will continue 120mL ensure plus HP 3 times per day w/ medpass. Lab / Micro Data 01/26/25 02:30 01/26/25 02:30 Labs: Laboratory Results - last 24 hr 01/26/25 02:30: WBC 10.8, RBC 4.13 L, Hgb 12.0, Hct 36.4 L, MCV 88.1, MCH 29.1, MCHC 33.0, RDW Std Deviation 45.3 H, RDW Coeff of Carline 14.0, Plt Count 307, MPV 9.9, Immature Gran % (Auto) 0.400, Neut % (Auto) 86.9 H, Lymph % (Auto) 9.1 L, [place] % (Auto) 3.5, Eos % (Auto) 0.0, Baso % (Auto) 0.1, Absolute Neuts (auto) 9.4 H, Absolute Lymphs (auto) 0.98, Nucleated RBC % 0, Sodium 139, Potassium 4.2, Chloride 105, Carbon Dioxide 20.3 L, Anion Gap 14, BUN 24 H, Creatinine 0.92, Estim Creat Clear Calc 43.03 L, Est GFR (MDRD) Non-Af 65, BUN/Creatinine Ratio 26.1 H, Glucose 169 H, Calcium 9.8, Phosphorus 3.2, Magnesium 1.8, Total Bilirubin 0.22, AST 33 H, ALT 24, Alkaline Phosphatase 57, Total Protein 6.8, Albumin 3.9, Globulin 2.9, Albumin/Globulin Ratio 1.3 Micro: Microbiology 01/24/25 19:51 Mucosa - Nasopharyngeal SARS-CoV-2, Influenza & RSV (PCR) - Final Influenzae A 01/24/25 19:51 Mucosa - Nasopharyngeal Respiratory Panel (PCR) - Final Physical Exam Const alert, oriented x3 and no apparent distress Constitutional Narrative: Thin, older, white female, sitting up in a chair at the bedside, watching television, very pleasant, appears comfortable nontoxic, no signs of respiratory distress HEENT head/scalp atraumatic and moist oral mucous membranes Resp normal respiratory effort, no retractions, no use of accessory muscles and No clear to auscultation bilaterally Resp Narrative: Diffuse end expiratory wheezes present, stable on 2 L nasal cannula with no signs of respiratory distress Auscultation: wheezes; Negative for crackles or rhonchi Cardio regular rate, regular rhythm, S1 normal heart sound, S2 normal heart sound, no murmurs, no rub, no gallops and no clicks GI normal to inspection, nondistended, normoactive bowel sounds, soft to palpation and non-tender GI Narrative: Scaphoid abdomen Extremity no clubbing, cyanosis or edema Extremity Narrative: Decreased lean muscle mass, pedal and radial pulses are 2+, hands with significant ulnar drift and arthritis but previous labs are negative for rheumatoid Neuro oriented x3, moves all extremities and no focal motor deficits Speech: speech normal Psych affect normal Psych Narrative: Extremely pleasant Assessment & Plan Assessment/Plan (1) Dyspnea: (2) Acute exacerbation of chronic obstructive pulmonary disease: PLAN: Plan Acute hypoxia secondary to acute exacerbation of COPD from influenza A -With influenza A positivity will discontinue IV antibiotics -Currently on 7 L nasal cannula heated high flow nasal cannula with worsening hypoxia overnight -At baseline wears 2 L at night and 2 L with exertion -Will need to check ambulatory pulse ox prior to discharge -Wean oxygen as able -Continue IV steroids -Continue nebulizers -Continue incentive spirometer -Add Acapella -Continue Mucinex -Sputum culture ordered however patient's cough is currently nonproductive -If clinically does not improve would have low threshold to start antibiotics Severe malnutrition -Supplements added -Dietitian is following Hyperglycemia -Mild -Secondary to steroid use -Monitor -Patient is not diabetic at baseline Troponin elevation -Mild -Initial was 21 with a repeat at 17 and the third troponin 18 -Likely related to hypoxia and respiratory distress on presentation -No further workup at this time Stage III COPD by Gold classification -FEV1 predicted is 55% -Hold home inhalers -Treatment as above Chronic hypoxic respiratory failure/bronchiectasis -Requires 2 L with exertion and while sleeping -Currently requiring oxygen at rest due to influenza -Reassess prior to discharge Essential hypertension -Blood pressures improved will restart home amlodipine Hyperlipidemia -Continue home statin Vitamin D deficiency -Continue home vitamin D Osteoporosis -Continue with outpatient Prolia schedule GERD -Continue on PPI Depression -Continue home Cymbalta DVT prophylaxis -Continue enoxaparin CODE STATUS -Full code Charges/Coding Visit Charges Inpatient E&M: 08963 Subs Hosp L2
[2025-01-26] MEDS: Enoxaparin 40 MG/0.4 ML Syringe SC (09:21)
[2025-01-26] MEDS: guaiFENesin 1,200 MG Tablet 1200 MG PO ×2 (09:21→21:29)
[2025-01-26] MEDS: amLODIPine 5 MG Tablet 7.5 MG PO (09:22)
[2025-01-26] MEDS: DULoxetine Hcl 60 MG Capsule PO (09:22)
[2025-01-26] MEDS: Pantoprazole Sodium 40 MG Tablet PO (09:22)
[2025-01-26] MEDS: Cholecalciferol (VIT D3) 25 MCG TABLET (1,000 UNITS) PO (09:23)
[2025-01-26] MEDS: DULoxetine Hcl 30 MG Capsule PO (21:29)
[2025-01-26] MEDS: Atorvastatin Calcium 40 MG Tablet PO (21:29)
[2025-01-26] MEDS: Sodium Chloride 0.65% 1 SPRAY SPRAY.BTL 2 SPRAY NASAL (21:30)
[2025-01-27] VITALS (10 sets, daily range): BP systolic 125–146; BP diastolic 64–83; PULSE 93–117; RESP 16–20; TEMP 36–36.7; O2SAT 96–97
[2025-01-27] MEDS: Ipratropium/Albuterol Sulfate 3 ML AMPUL.NEB INHALATION ×6 (03:30→23:40)
[2025-01-27] MEDS: Methylprednisolone Sod Succ 40 MG/ML VIAL IV ×3 (06:08→20:36)
[2025-01-27] MEDS: 0.9% Saline Lock 10 ML Syringe IV ×3 (06:08→20:36)
[2025-01-27 07:00] LABS: Absolute Lymphocyte Count 0.89 X10^3/uL (0.83-4.51); Absolute Neutrophil Count 10.8 X10^3/uL (2.0-7.7); Basophil# 0.02 X10^3/uL; Basophil% 0.2 % (0-1); Hematocrit 37.3 % (37-47); Hemoglobin 12.3 g/dL (12.0-15.0); Lymphocyte # 0.89 X10^3/ul (0.83-4.51); Lymphocyte % 7.2 % (19-41); Mean Corpuscular Hgb 28.8 pg (27.0-32.0); Mean Corpuscular Volume 87.4 fL (81-99); Mean Platelet Vol. 9.3 fl (6.2-12.0); Monocyte# 0.57 X10^3/uL; Monocyte% 4.6 % (0-10); NRBC Flagged by Analyzer 0 % (0-5); Neutrophil # 10.75 X10^3/uL (2.7-7.7); Neutrophil % 86.8 % (47-70); Platelet Count 318 K/mm3 (150-450); RBC Distribution Width CV 14.3 % (11.6-14.6); RBC Distribution Width SD 45.2 fl (35.1-43.9); Red Blood Count 4.27 M/mm3 (4.2-5.4); White Blood Count 12.4 K/mm3 (4.4-11.0)
[2025-01-27 07:40] LABS: Anion Gap 13 (5-15); BUN 24 mg/dL (4-19); BUN/Creat Ratio 27.6 RATIO (10-20); Calcium,Total 9.9 mg/dL (7.6-11.0); Carbon Dioxide 20.6 mmol/L (21.0-32.0); Chloride 107 mmol/L (98-108); Creatinine, Serum 0.86 mg/dL (0.70-1.20); EST Glomerular Filtration Rate 70 (>60); Estimated Creatinine Clearance 46.04 ml/min (50-250); Glucose 135 mg/dL (70-99); Potassium 4.5 mmol/L (3.3-5.1); Sodium Level 140 mmol/L (133-145)
[2025-01-27] MEDS: DULoxetine Hcl 60 MG Capsule PO (10:38)
[2025-01-27] MEDS: Pantoprazole Sodium 40 MG Tablet PO (10:38)
[2025-01-27] MEDS: Cholecalciferol (VIT D3) 25 MCG TABLET (1,000 UNITS) PO (10:38)
[2025-01-27] MEDS: guaiFENesin 1,200 MG Tablet 1200 MG PO ×2 (10:38→20:36)
[2025-01-27] MEDS: amLODIPine 5 MG Tablet 7.5 MG PO (10:38)
[2025-01-27] MEDS: Enoxaparin 40 MG/0.4 ML Syringe SC (10:38)
[2025-01-27] MEDS: Doxycycline 100 MG CAPSULE PO ×2 (10:44→20:36)
--- NOTE | 2025-01-27 11:59 | PN.HOSP_ITS ---
Reason for Visit Reason for Visit: Diagnoses Chronic obstructive pulmonary disease with (acute) exacerbation (01/24/25) Dyspnea, unspecified (01/24/25) Objective Data Objective Data Vital Signs: Vital Signs Temp Pulse Resp BP Pulse Ox O2 Del Method O2 Flow Rate 98.1 F 110 H 18 125/73 H 97 Nasal Cannula 2 01/27/25 11:00 01/27/25 11:00 01/27/25 11:00 01/27/25 11:00 01/27/25 11:00 01/27/25 11:00 01/27/25 11:00 Oxygen Flow Rate (L/min) 2 Oxygen Delivery Method Nasal Cannula Weight: 133 lb 2.547 oz Body Mass Index (BMI) 23.6 Intake & Output: Intake and Output for Last 24 Hours 01/25/25 01/26/25 01/27/25 23:59 23:59 23:59 Intake Total 910 / 910 840 / 840 Output Total 600 / 600 975 / 975 Balance 310 / 310 -135 / -135 Medical Nutrition Assessment Dietitian: Malnutrition Criteria Met Start: 01/25/25 15:26 Freq: Status: Active Protocol: Document 01/25/25 15:26 RMA (Rec: 01/25/25 15:27 RMA [id number]) Nutrition Malnutrition Evidence of Yes Malnutrition Exists Malnutrition (severe Chronic ): Evidenced By Suboptimal Energy Intake (Severe),Weight Loss (Severe) Clinical Problem Chronic Disease or Condition Related Malnutrition Etiology Severe protein-calorie malnutrition in the context of chronic disease related to increased energy expenditure and inadequate energy intake Signs/Symptoms as evidenced by PO meeting less than 75% estimated nutrition needs x 1-2 months and unintentional weight loss ~7% x past 1-2 months Status Active Problem Recommendation Dietitian Will liberalize diet to Regular in an effort to Recommendations/ optimize PO at meals given signs/symptoms of Changes malnutrition. Will add magic cup w/ lunch and dinner for tolerance. Will continue 120mL ensure plus HP 3 times per day w/ medpass. Lab / Micro Data 01/27/25 06:43 01/27/25 06:43 Labs: Laboratory Results - last 24 hr 01/27/25 06:43: WBC 12.4 H, RBC 4.27, Hgb 12.3, Hct 37.3, MCV 87.4, MCH 28.8, MCHC 33.0, RDW Std Deviation 45.2 H, RDW Coeff of Carline 14.3, Plt Count 318, MPV 9.3, Immature Gran % (Auto) 1.200 H, Neut % (Auto) 86.8 H, Lymph % (Auto) 7.2 L, [place] % (Auto) 4.6, Eos % (Auto) 0.0, Baso % (Auto) 0.2, Absolute Neuts (auto) 10.8 H, Absolute Lymphs (auto) 0.89, Nucleated RBC % 0, Sodium 140, Potassium 4.5, Chloride 107, Carbon Dioxide 20.6 L, Anion Gap 13, BUN 24 H, Creatinine 0.86, Estim Creat Clear Calc 46.04 L, Est GFR (MDRD) Non-Af 70, BUN/Creatinine Ratio 27.6 H, Glucose 135 H, Calcium 9.9 Micro: Microbiology 01/24/25 16:01 Blood Culture (Wb) - Anticubital Right Blood Culture - Preliminary No growth in 48 hours. 01/26/25 15:10 Urine, Clean Catch Streptococcus pneumoniae Antigen (M - Final 01/26/25 15:10 Urine, Clean Catch Legionella Antigen - Final 01/24/25 15:38 Blood Culture (Wb) - Anticubital Left Blood Culture - Preliminary No growth in 48 hours. 01/24/25 19:51 Mucosa - Nasopharyngeal SARS-CoV-2, Influenza & RSV (PCR) - Final Influenzae A 01/24/25 19:51 Mucosa - Nasopharyngeal Respiratory Panel (PCR) - Final Assessment & Plan Assessment/Plan (1) Dyspnea: (2) Acute exacerbation of chronic obstructive pulmonary disease: PLAN: Plan #Acute exacerbation of COPD, patient with hypoxia at home and is requiring 2 L O2 here, on 2 L nightly at home: Patient is being admitted to monitored bed. She has stage III COPD by Gold classification, FEV1 predicted 55%. Chest x-ray and CTA initially reviewed. CTA shows tree-in-bud at bases with possible small airway disease. Influenza A positive but patient out of time of window for Tamiflu. Patient is being managed on scheduled bronchodilator, IV Solu-Medrol, Mucinex, incentive spirometry and Pep. 01/27: Patient did not have significant improvement in last 3 days. Started on doxycycline 100 mg p.o. twice daily. Patient has 60 pack years of smoking. Quit 17 years ago #GERD -Continue PPI #Depression/anxiety -Continue home medications #Hypertension -Patient somewhat hypotensive on arrival, will hold home antihypertensives Severe malnutrition: Nutrition is consulted Steroid hyperglycemia: Glucose 157, 169, and 135 on IV methylprednisolone Chronic osteoporosis: Patient on Prolia at home #DVT ppx: Lovenox acute CODE STATUS -Full code Charges/Coding Visit Charges Inpatient E&M: 73490 Subs Hosp L2
--- NOTE | 2025-01-27 14:35 | CHAPLAIN ---
Type of Pastoral Visit _x__ Initial Visit ___ Follow-up Visit ___ On-call Visit ___ General Patient Visit ___ Spiritual Assessment ___ Family Conference ___ Bereavement ___ Rapid Response ___ Code Blue ___ Other (describe below) Pastoral Care Referral From _x__ Patient ___ Family ___ Nurse ___ Physician ___ Biodiesel Engine Specialist ___ Roll Form Operator ___ Other (describe below) Sacrament/Intervention _x__ Active listening ___ Anointing ___ Evangelical ___ Bereavement ___ Communion ___ Catrina exploration ___ ___ Life review _x__ Prayer ___ Reconciliation ___ Sacrament of Sick ___ Supportive presence ___ Wedding ___ Other (describe below) Pastoral Comments patient is talkative; pt explains her situation and that she has lost several siblings and this makes it harder; she acknowledges that copd is a ongoing pantoja and that she prays every day; prayers given
[2025-01-27] MEDS: Sodium Chloride 0.65% 1 SPRAY SPRAY.BTL 2 SPRAY NASAL (20:35)
[2025-01-27] MEDS: Atorvastatin Calcium 40 MG Tablet PO (20:36)
[2025-01-27] MEDS: DULoxetine Hcl 30 MG Capsule PO (20:36)
[2025-01-28] VITALS (11 sets, daily range): BP systolic 108–135; BP diastolic 57–65; PULSE 85–109; RESP 14–20; TEMP 35.8–37.2; O2SAT 87–98
[2025-01-28] MEDS: Ipratropium/Albuterol Sulfate 3 ML AMPUL.NEB INHALATION ×3 (03:43→11:19)
[2025-01-28] MEDS: Methylprednisolone Sod Succ 40 MG/ML VIAL IV (05:14)
--- NOTE | 2025-01-28 08:06 | DCINST_ITS ---
Discharge Instructions DC O2, CPAP, BIPAP needs Home O2 Discharge instructions: Yes Type of respiratory needs?: Oxygen Oxygen frequency: Continuous Continuous oxygen liters per minute: 2 Follow Up Care Test Results: Test results from this visit will be discussed in further detail at your follow- up appointment, if applicable. Discharge Plan Admission Admit Date/Time: 01/24/25 18:41 Primary Reason for Your Visit: copd exacerbation Attending Provider: Mando Martinez Primary Care Provider: Yenni Lu Consulting Providers: Sita Parsons; Caitlin Chen Discharge Orders/Prescriptions Prescriptions: New doxycycline monohydrate 100 mg Capsule 100 mg PO BID 5 Days Qty: 10 0RF guaifenesin [Mucus Relief ER] 1,200 mg Tablet Extended Release 12hr 1,200 mg PO BID 7 Days Qty: 14 0RF prednisone 10 mg tablet 10 mg PO DAILY Qty: 30 0RF Rx Instructions: 40 mg for 3 days 30 mg for 3 days, 20 mg for 3 days,and 10 mg for 3 days Continued (DME) spacer See Rx Instructions .ROUTE .MEDSUPPLY Qty: 1 0RF Rx Instructions: As directed (DME) Nebulizer See Rx Instructions .ROUTE .MEDSUPPLY Qty: 1 0RF Rx Instructions: As directed (DME) Acapella See Rx Instructions .ROUTE .MEDSUPPLY Qty: 1 0RF Rx Instructions: As directed acetaminophen [Tylenol Extra Strength] 500 mg tablet 500 mg PO Q6H PRN (Reason: pain) Systane Balance 0.6 % drops 1 drp ophthalmic (eye) DAILY PRN (Reason: dry eye(s)) (DME) Scooter See Rx Instructions .Route .MEDSUPPLY Qty: 1 0RF Rx Instructions: As directed cholecalciferol (vitamin D3) 25 mcg (1,000 unit) capsule 25 mcg PO DAILY polyethylene glycol 3350 [Miralax] 17 gram/dose powder 4 g PO DAILY PRN (Reason: constipation) amlodipine 5 mg tablet 7.5 mg PO DAILY duloxetine [Cymbalta] 30 mg capsule,delayed release(DR/EC) 30 mg PO QHS Rx Instructions: Take 60 mg in the Am and 30 mg at night. ipratropium-albuterol 0.5 mg-3 mg(2.5 mg base)/3 mL solution for nebulization 3 ml inhalation Q4H PRN (Reason: SOB &/OR WHEEZING) duloxetine 30 mg capsule,delayed release(DR/EC) 60 mg PO 0800 Rx Instructions: Take 60 mg in the Am and 30 mg at night. Stiolto Respimat 2.5-2.5 mcg/actuation mist 2 puff inhalation DAILY albuterol sulfate [Ventolin HFA] 90 mcg/actuation HFA aerosol inhaler 2 puff inhalation Q4H PRN (Reason: shortness of breath or wheezing) Qty: 18 6RF Patient Comments: PT NEEDS REFILL (DME) Handicap Zhangard See Rx Instructions .ROUTE .MEDSUPPLY Qty: 1 0RF Rx Instructions: As directed, length of time 3 years Prolia 60 mg/mL syringe 60 mg subcut [id number] Qty: 1 2RF Patient Comments: LAST DOSE WAS SOMETIME IN SEPTEMBER atorvastatin 40 mg tablet 40 mg PO QHS Qty: 90 1RF omeprazole 40 mg capsule,delayed release(DR/EC) 40 mg PO DAILY Qty: 90 1RF Referrals / Follow Up: Yenni Lu MD [Primary Care Provider] - Disposition Disposition (needs filled in before D/C Order can be placed): Home, Self Care
--- NOTE | 2025-01-28 09:25 | PCM.DC.SUM ---
Providers Date of Admission: 01/24/25 Date of Discharge: 01/28/25 Primary Care Physician: Dr. Yenni Lu MD Reason For Visit: COPD EXACERBATION WITH HYPOXIA Diagnosis Discharge Diagnosis (1) Dyspnea: Status: Acute Code(s): R06.00 - Dyspnea, unspecified (2) Acute exacerbation of chronic obstructive pulmonary disease: Status: Chronic Code(s): J44.1 - Chronic obstructive pulmonary disease with (acute) exacerbation Plan #Acute exacerbation of COPD, patient with hypoxia at home and is requiring 2 L O2 here, on 2 L nightly at home: Patient is being admitted to monitored bed. She has stage III COPD by Gold classification, FEV1 predicted 55%. Chest x-ray and CTA initially reviewed. CTA shows tree-in-bud at bases with possible small airway disease. Influenza A positive but patient out of time of window for Tamiflu. Patient is being managed on scheduled bronchodilator, IV Solu-Medrol, Mucinex, incentive spirometry and Pep. 01/27: Patient did not have significant improvement in last 3 days. Started on doxycycline 100 mg p.o. twice daily. Patient has 60 pack years of smoking. Quit 17 years ago 01/28: Overall patient is feeling better in regards to shortness of breath dyspnea. On 2 L of baseline home oxygen. Patient is discharged on long tapering regimen of prednisone, on home O2. Patient is on is stiolto Respimat. She follows in [place] pulmonology with Tammy Felipe. Advised to follow in 2 weeks. #GERD -Continue PPI #Depression/anxiety -Continue home medications #Hypertension -Patient somewhat hypotensive on arrival, will hold home antihypertensives Severe malnutrition: Nutrition is consulted Steroid hyperglycemia: Glucose 157, 169, and 135 on IV methylprednisolone Chronic osteoporosis: Patient on Prolia at home #DVT ppx: Lovenox acute CODE STATUS -Full code Medications at Discharge Home Medications Nebulizer #1 ea 04/12/22 spacer #1 ea 04/12/22 Scooter #1 ea 05/31/22 acetaminophen 500 mg tablet (Tylenol Extra Strength) 500 mg PO Q6H PRN pain 05/31/22 propylene glycol 0.6 % eye drops (Systane Balance) 1 drp ophthalmic (eye) DAILY PRN dry eye(s) 05/31/22 Acapella #1 ea 08/16/22 albuterol sulfate 90 mcg/actuation aerosol inhaler (Ventolin HFA) 2 puff inhalation Q4H PRN shortness of breath or wheezing #18 grams 10/10/23 Handicap Placard #1 ea 01/10/24 cholecalciferol (vitamin D3) 25 mcg (1,000 unit) capsule 25 mcg PO DAILY vitamin 04/05/24 denosumab 60 mg/mL subcutaneous syringe (Prolia) 60 mg subcut [id number] bone health #1 mL 09/04/24 atorvastatin 40 mg tablet 40 mg PO QHS cholesterol #90 tabs 11/22/24 omeprazole 40 mg capsule,delayed release 40 mg PO DAILY reflux #90 caps 11/22/24 polyethylene glycol 3350 17 gram/dose oral powder (Miralax) 4 g PO DAILY PRN constipation 12/09/24 amlodipine 5 mg tablet 7.5 mg PO DAILY blood pressure 01/16/25 duloxetine 30 mg capsule,delayed release 60 mg PO 0800 mental health 01/24/25 duloxetine 30 mg capsule,delayed release (Cymbalta) 30 mg PO QHS mental health 01/24/25 ipratropium 0.5 mg-albuterol 3 mg (2.5 mg base)/3 mL nebulization soln 3 ml inhalation Q4H PRN SOB &/OR WHEEZING 01/24/25 tiotropium 2.5 mcg-olodaterol 2.5 mcg/actuation mist for inhalation (Stiolto Respimat) 2 puff inhalation DAILY breathing 01/24/25 doxycycline monohydrate 100 mg capsule 100 mg PO BID 5 days #10 caps 01/28/25 guaifenesin 1,200 mg tablet, extended release 12 hr (Mucus Relief ER) 1,200 mg PO BID 7 days #14 tabs 01/28/25 prednisone 10 mg tablet 10 mg PO DAILY #30 tabs 01/28/25 Physical Exam Narrative General: Alert, Oriented x3, Cooperative. BMI 23.6 kg/m? HEENT: Atraumatic, PERRLA, EOMI, Normocephalic Oral: No Gingival or Mucosal Lesions/ Ulcerations Neck: Supple, No JVD, Negative Carotid Bruits Chest wall/Lungs: Air entry diminished in bilateral lungs. Mild bilateral rhonchi Cardiovascular: Regular rate, Regular Rhythm, Normal S1, Normal S2, systolic murmur Abdomen: Bowel Sounds Present, Soft, Non Tender, Non-Distended : No dysuria. No renal angle tenderness. No suprapubic tenderness. Extremities: No edema, Capillary Refill Less than 3 Seconds Skin: No rashes, No breakdown Musculoskeletal: No Tenderness to Palpation of Joints or Extremities Neurological: Cranial nerves II-XII grossly intact, DTR 2+/4. No acute focal neurological deficit. Psych/Mental Status: Normal Affect, Appropriate. Medical Records Data Medical Nutrition Assessment Dietitian: Malnutrition Criteria Met Start: 01/25/25 15:26 Freq: Status: Active Protocol: Document 01/25/25 15:26 RMA (Rec: 01/25/25 15:27 RMA [id number]) Nutrition Malnutrition Evidence of Yes Malnutrition Exists Malnutrition (severe Chronic ): Evidenced By Suboptimal Energy Intake (Severe),Weight Loss (Severe) Clinical Problem Chronic Disease or Condition Related Malnutrition Etiology Severe protein-calorie malnutrition in the context of chronic disease related to increased energy expenditure and inadequate energy intake Signs/Symptoms as evidenced by PO meeting less than 75% estimated nutrition needs x 1-2 months and unintentional weight loss ~7% x past 1-2 months Status Active Problem Recommendation Dietitian Will liberalize diet to Regular in an effort to Recommendations/ optimize PO at meals given signs/symptoms of Changes malnutrition. Will add magic cup w/ lunch and dinner for tolerance. Will continue 120mL ensure plus HP 3 times per day w/ medpass. Weight / BMI Weight Weight: 133 lb 2.547 oz Body Mass Index (BMI) 23.6 ABG / Lab / Microbiology Data 01/27/25 06:43 01/27/25 06:43 Microbiology: Microbiology 01/26/25 20:00 Sputum, Expectorated/Coughed Gram Stain - Final 01/26/25 20:00 Sputum, Expectorated/Coughed Respiratory Culture - Preliminary GNR Poss Pseudomonas sp 01/24/25 16:01 Blood Culture (Wb) - Anticubital Right Blood Culture - Preliminary No growth in 48 hours. 01/26/25 15:10 Urine, Clean Catch Streptococcus pneumoniae Antigen (M - Final 01/26/25 15:10 Urine, Clean Catch Legionella Antigen - Final 01/24/25 15:38 Blood Culture (Wb) - Anticubital Left Blood Culture - Preliminary No growth in 48 hours. 01/24/25 19:51 Mucosa - Nasopharyngeal SARS-CoV-2, Influenza & RSV (PCR) - Final Influenzae A 01/24/25 19:51 Mucosa - Nasopharyngeal Respiratory Panel (PCR) - Final D/C Instructions DC O2, CPAP, BIPAP Needs Home O2 Discharge instructions: Yes Type of respiratory needs?: Oxygen Oxygen frequency: Continuous Continuous oxygen liters per minute: 2 DC home with Oxygen: Yes Home O2 MD Review: I have reviewed the oxygen testing, and the patient qualifies for home oxygen equipment and portability. The patient is mobile in the home and the community. Meaningful Use Info Meaningful Use Meaningful Use Diagnoses (Choose all that apply): None applicable Ischemic Stroke Statin Dosing Therapy Reference: STATIN DOSE THERAPY REFERENCE: * Patients > 75 years receive moderate or high dose statin therapy. * Patients 75 years or YOUNGER should receive HIGH intensity statin dose unless contraindicated. You will be required to document reason for non-treatment if statin daily dose does not meet guidelines. HIGH DOSE STATIN THERAPY DAILY Atorvastatin > than or = to 40 mg Rosuvastatin > than or = to 20 mg Amlodipine + Atorvastatin > than or = to 2.5/40 mg Ezetimibe + Simvastatin 10/80 mg Simvastatin 80mg Discharge Plan Admission Admit Date/Time: 01/24/25 18:41 Primary Reason for Your Visit: copd exacerbation Attending Provider: Mando Martinez Primary Care Provider: Yenni Lu Consulting Providers: Sita Parsons; Caitlin Chen Discharge Orders/Prescriptions Prescriptions: New doxycycline monohydrate 100 mg Capsule 100 mg PO BID 5 Days Qty: 10 0RF guaifenesin [Mucus Relief ER] 1,200 mg Tablet Extended Release 12hr 1,200 mg PO BID 7 Days Qty: 14 0RF prednisone 10 mg tablet 10 mg PO DAILY Qty: 30 0RF Rx Instructions: 40 mg for 3 days 30 mg for 3 days, 20 mg for 3 days,and 10 mg for 3 days Continued (DME) spacer See Rx Instructions .ROUTE .MEDSUPPLY Qty: 1 0RF Rx Instructions: As directed (DME) Nebulizer See Rx Instructions .ROUTE .MEDSUPPLY Qty: 1 0RF Rx Instructions: As directed (DME) Acapella See Rx Instructions .ROUTE .MEDSUPPLY Qty: 1 0RF Rx Instructions: As directed acetaminophen [Tylenol Extra Strength] 500 mg tablet 500 mg PO Q6H PRN (Reason: pain) Systane Balance 0.6 % drops 1 drp ophthalmic (eye) DAILY PRN (Reason: dry eye(s)) (DME) Scooter See Rx Instructions .Route .MEDSUPPLY Qty: 1 0RF Rx Instructions: As directed cholecalciferol (vitamin D3) 25 mcg (1,000 unit) capsule 25 mcg PO DAILY polyethylene glycol 3350 [Miralax] 17 gram/dose powder 4 g PO DAILY PRN (Reason: constipation) amlodipine 5 mg tablet 7.5 mg PO DAILY duloxetine [Cymbalta] 30 mg capsule,delayed release(DR/EC) 30 mg PO QHS Rx Instructions: Take 60 mg in the Am and 30 mg at night. ipratropium-albuterol 0.5 mg-3 mg(2.5 mg base)/3 mL solution for nebulization 3 ml inhalation Q4H PRN (Reason: SOB &/OR WHEEZING) duloxetine 30 mg capsule,delayed release(DR/EC) 60 mg PO 0800 Rx Instructions: Take 60 mg in the Am and 30 mg at night. Stiolto Respimat 2.5-2.5 mcg/actuation mist 2 puff inhalation DAILY albuterol sulfate [Ventolin HFA] 90 mcg/actuation HFA aerosol inhaler 2 puff inhalation Q4H PRN (Reason: shortness of breath or wheezing) Qty: 18 6RF Patient Comments: PT NEEDS REFILL (DME) Handicadior Holcombard See Rx Instructions .ROUTE .MEDSUPPLY Qty: 1 0RF Rx Instructions: As directed, length of time 3 years Prolia 60 mg/mL syringe 60 mg subcut [id number] Qty: 1 2RF Patient Comments: LAST DOSE WAS SOMETIME IN SEPTEMBER atorvastatin 40 mg tablet 40 mg PO QHS Qty: 90 1RF omeprazole 40 mg capsule,delayed release(DR/EC) 40 mg PO DAILY Qty: 90 1RF Referrals / Follow Up: Yenni Lu MD [Primary Care Provider] - 02/12/25 10:00 am (Appointment is with ROSI Jackson) Disposition Disposition (needs filled in before D/C Order can be placed): Home, Self Care Charges/Coding Visit Charges Inpatient E&M: 95107 Disch Hosp >30min
[2025-01-28] MEDS: Cholecalciferol (VIT D3) 25 MCG TABLET (1,000 UNITS) PO (09:26)
[2025-01-28] MEDS: DULoxetine Hcl 60 MG Capsule PO (09:27)
[2025-01-28] MEDS: amLODIPine 5 MG Tablet 7.5 MG PO (09:27)
[2025-01-28] MEDS: Pantoprazole Sodium 40 MG Tablet PO (09:27)
[2025-01-28] MEDS: guaiFENesin 1,200 MG Tablet 1200 MG PO (09:27)
[2025-01-28] MEDS: Doxycycline 100 MG CAPSULE PO (09:27)
[2025-01-28] MEDS: Enoxaparin 40 MG/0.4 ML Syringe SC (09:28)
--- NOTE | 2025-01-28 10:39 | CASEMGMT ---
Discharge Planning A list of?HH providers including quality and resource use data and consistent with the patient's preferred geographic region, medical needs, and insurance network was created in [facility] [facility].? This list was provided to the RN CASIMIRO. Carmella Estrada, Discharge Planning Asst.
[2025-01-28] MEDS: levoFLOXacin 750 MG Tablet PO (11:02)
--- NOTE | 2025-01-28 11:14 | CASEMGMT ---
Addendum entered by Iza Alvarez 01/28/25 12:16: Patient was accepted by [facility] with planned start of care for tomorrow. JOSÉ MIGUEL KIRKPATRICK in to update patient. Portable tank from [facility] at bedside. RN CASIMIRO update patient regarding C setup with [facility] and start of care for tomorrow. Patient voiced appreciation. Patient states she may need help with transport home. Patient states she is going to make some phone calls and she if someone is able to take her home. RN CASIMIRO updated nursing. RN CASIMIRO updated discharge plan. Original Note: Patient has discharge for today. Patient is maintaining on home oxygen. [facility] and asked for portable tank be delivered to patient's room. [facility] states they will deliver tank to room and someone will come out today and service her POC. JOSÉ MIGUEL KIRKPATRICK in to discuss discharge with patient. Patient states she would like PT/OT at discharge. C list provided. Patient states she is active with [facility] for SN. JOSÉ MIGUEL KIRKPATRICK called [facility] they do not provide PT/OT but their sister company provides PT/OT. JOSÉ MIGUEL KIRKPATRICK sent referral to [facility]. CM will continue to follow this patient and plan for a safe discharge.
--- NOTE | 2025-01-28 12:25 | PHA.DC.MC.R ---
Pharmacy [facility] has performed discharge medication reconciliation and counseling for this patient. Counseled via telephone due to influenza precautions. 1. GUAIFENESIN 1200MG PO BID 2. LEVOFLOXACIN 500MG PO DAILY X 6 DAYS 3. PREDNISONE 40MG PO DAILY X 3 DAYS, THEN 30MG X 3 DAYS, THEN 20MG X 3 DAYS, THEN 10MG X 3 DAYS The patient's discharge medication list was reviewed for discrepancies and discrepancies were resolved. The patient was counseled on the following discharge medications and changes in medications for homegoing were reviewed. The Reason for Use, instructions for use, and potential side effects were reviewed for all new medications. The patient's questions regarding all of their medications were answered. The patient was able to verbally demonstrate an understanding of their discharge medications. Medications at Discharge Home Medications Nebulizer #1 ea 04/12/22 spacer #1 ea 04/12/22 Scooter #1 ea 05/31/22 acetaminophen 500 mg tablet (Tylenol Extra Strength) 500 mg PO Q6H PRN pain 05/31/22 propylene glycol 0.6 % eye drops (Systane Balance) 1 drp ophthalmic (eye) DAILY PRN dry eye(s) 05/31/22 Acapella #1 ea 08/16/22 albuterol sulfate 90 mcg/actuation aerosol inhaler (Ventolin HFA) 2 puff inhalation Q4H PRN shortness of breath or wheezing #18 grams 10/10/23 Handicap Placard #1 ea 01/10/24 cholecalciferol (vitamin D3) 25 mcg (1,000 unit) capsule 25 mcg PO DAILY vitamin 04/05/24 denosumab 60 mg/mL subcutaneous syringe (Prolia) 60 mg subcut [id number] bone health #1 mL 09/04/24 atorvastatin 40 mg tablet 40 mg PO QHS cholesterol #90 tabs 11/22/24 omeprazole 40 mg capsule,delayed release 40 mg PO DAILY reflux #90 caps 11/22/24 polyethylene glycol 3350 17 gram/dose oral powder (Miralax) 4 g PO DAILY PRN constipation 12/09/24 amlodipine 5 mg tablet 7.5 mg PO DAILY blood pressure 01/16/25 duloxetine 30 mg capsule,delayed release 60 mg PO 0800 mental health 01/24/25 duloxetine 30 mg capsule,delayed release (Cymbalta) 30 mg PO QHS mental health 01/24/25 ipratropium 0.5 mg-albuterol 3 mg (2.5 mg base)/3 mL nebulization soln 3 ml inhalation Q4H PRN SOB &/OR WHEEZING 01/24/25 tiotropium 2.5 mcg-olodaterol 2.5 mcg/actuation mist for inhalation (Stiolto Respimat) 2 puff inhalation DAILY breathing 01/24/25 guaifenesin 1,200 mg tablet, extended release 12 hr (Mucus Relief ER) 1,200 mg PO BID 7 days #14 tabs 01/28/25 levofloxacin 500 mg tablet 500 mg PO DAILY 6 days #6 tabs 01/28/25 prednisone 10 mg tablet 10 mg PO DAILY #30 tabs 01/28/25
== END 2025-01-28 13:32 | disposition home health service (06) | DRG 190 ==
LOC: ED 17:19 → PCU 17:44
PROVIDERS: Internal Medicine; Admitting Provider Internal Medicine; Emergency Provider Emergency Medicine; PCP Internal Medicine; Visit Provider Internal Medicine
DX: J44.1 Chronic obstructive pulmonary disease with (acute) exacerbation (principal); E43 Unspecified severe protein-calorie malnutrition; J47.0 Bronchiectasis with acute lower respiratory infection; J96.11 Chronic respiratory failure with hypoxia; I10 Essential (primary) hypertension; F32.A Depression, unspecified; J10.1 Influenza due to other identified influenza virus with other respiratory manifestations; E78.5 Hyperlipidemia, unspecified; E55.9 Vitamin D deficiency, unspecified; K21.9 Gastro-esophageal reflux disease without esophagitis; F41.9 Anxiety disorder, unspecified; Z79.01 Long term (current) use of anticoagulants; R73.9 Hyperglycemia, unspecified; Z82.49 Family history of ischemic heart disease and other diseases of the circulatory system; Z87.891 Personal history of nicotine dependence; Z82.5 Family history of asthma and other chronic lower respiratory diseases; M81.0 Age-related osteoporosis without current pathological fracture; Z90.710 Acquired absence of both cervix and uterus; Z86.718 Personal history of other venous thrombosis and embolism; T38.0X5A Adverse effect of glucocorticoids and synthetic analogues, initial encounter; Z68.23 Body mass index [BMI] 23.0-23.9, adult; Z90.49 Acquired absence of other specified parts of digestive tract
CPT/HCPCS: 36415; 71045; 71275; 80048; 80053; 83735; 83880; 84100; 84145; 84443; 84484; 85025; 85379; 87040; 87070; 87077; 87184; 87186; 87205; 87449; 87631; 87633; 93005; 94640; 94668; 94762; 97110; 97116; 97162; 97530; 97802; 99285; Q9967; A4216; J0696

== ENCOUNTER → 2025-03-14 | Outpatient (CLI) | payer MEDICARE, MEDICAID, SELFPAY ==
[2025-03-14 12:30] LABS: Absolute Lymphocyte Count 1.56 X10^3/uL (0.83-4.51); Absolute Neutrophil Count 4.7 X10^3/uL (2.0-7.7); Basophil# 0.07 X10^3/uL; Eosinophil# 0.12 X10^3/uL; Eosinophils% 1.7 % (0-5); Hematocrit 35.5 % (37-47); Hemoglobin 11.3 g/dL (12.0-15.0); Lymphocyte # 1.56 X10^3/ul (0.83-4.51); Lymphocyte % 21.9 % (19-41); Mean Corp Hgb Conc 31.8 g/dL (32-36); Mean Corpuscular Hgb 28.7 pg (27.0-32.0); Mean Corpuscular Volume 90.1 fL (81-99); Mean Platelet Vol. 9.5 fl (6.2-12.0); Monocyte# 0.65 X10^3/uL; Monocyte% 9.1 % (0-10); NRBC Flagged by Analyzer 0 % (0-5); Neutrophil # 4.68 X10^3/uL (2.7-7.7); Neutrophil % 65.9 % (47-70); Platelet Count 315 K/mm3 (150-450); RBC Distribution Width CV 14.7 % (11.6-14.6); Red Blood Count 3.94 M/mm3 (4.2-5.4); White Blood Count 7.1 K/mm3 (4.4-11.0)
[2025-03-14 12:57] LABS: ALB/GLOB Ratio 1.3 RATIO (0.9-2.4); AST(SGOT) 23 U/L (<=31); Alanine Aminotransfer ALT/SGPT 10 U/L (<=34); Albumin, Serum 3.9 g/dL (3.4-4.8); Alkaline Phosphatase 57 U/L (35-104); Anion Gap 11 (5-15); BUN 19 mg/dL (4-19); BUN/Creat Ratio 16.2 RATIO (10-20); Calcium,Total 9.6 mg/dL (7.6-11.0); Carbon Dioxide 22.4 mmol/L (21.0-32.0); Chloride 106 mmol/L (98-108); Creatinine, Serum 1.19 mg/dL (0.70-1.20); EST Glomerular Filtration Rate 47 (>60); Globulin 2.9 g/dL (2.2-4.2); Glucose 87 mg/dL (70-99); Potassium 4.8 mmol/L (3.3-5.1); Protein, Total 6.8 g/dL (5.9-8.4); Sodium Level 139 mmol/L (133-145); Total Bilirubin 0.39 mg/dL (0.00-1.30)
== END | disposition home or self-care (01) ==
PROVIDERS: PCP Internal Medicine; Referring Provider Internal Medicine; Visit Provider Internal Medicine
DX: I10 Essential (primary) hypertension (principal); I49.9 Cardiac arrhythmia, unspecified
CPT/HCPCS: 36415; 80053; 84439; 84443; 85025

== ENCOUNTER → 2025-06-17 | Outpatient (CLI) | payer MEDICARE, MEDICAID, SELFPAY ==
--- NOTE | 2025-06-17 11:01 | MRI_ITS ---
PROCEDURE: SPINE LUMBAR (ROUTINE) 06/17/2025 REASON FOR EXAM: LUMBAR RADICULOPATHY TECHNIQUE: SPINE LUMBAR (ROUTINE) COMPARISON: Lumbar spine x-ray 05/08/2021. FINDINGS: Vertebrae: Preserved in height and signal. Alignment: Anterolisthesis L4 on L5 by 2 mm. Conus Medullaris: Unremarkable. L1-2: Disc bulge. Disc desiccation. Facet joint arthropathy with fluid effusion. Mild inferior bilateral foramina stenosis. Mild canal stenosis. L2-3: Disc bulge. Disc desiccation. Facet joint arthropathy. Mild canal stenosis. Mild inferior bilateral foramina stenosis. L3-4: Disc bulge. Facet joint arthropathy. Ligamentum flavum hypertrophy. Mild bilateral foramina stenosis. Moderate canal stenosis. L4-5: Disc bulge. Disc desiccation. Facet joint arthropathy. Ligamentum flavum hypertrophy. Severe right and mild left foramina stenosis. Severe canal stenosis. L5-S1: Disc bulge. Facet joint arthropathy. Severe left and mild right foramina stenosis. No canal stenosis. Sacrum: Unremarkable. 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 The remainder levels are as detailed. Reading Location: [facility]
== END | disposition home or self-care (01) ==
LOC: OPMRI 10:55
PROVIDERS: PCP Internal Medicine; Referring Provider Anesthesiology Pain Medicine; Visit Provider Anesthesiology Pain Medicine
DX: M54.16 Radiculopathy, lumbar region (principal)
CPT/HCPCS: 72148